=== PATIENT | male | born 1990 | race Caucasian/White ===

== ENCOUNTER 2016-08-29 14:55 | Emergency (ER) | payer BC, OTHER ==
--- NOTE | 2016-08-29 16:43 | REP ---
Chest x-ray: Two views. History: Chest pain . Comparison study: November 16, 2006 . Findings: The lungs are well inflated and free of infiltrate. The pleural angles are sharp. The heart size is normal. Pulmonary vasculature is not increased. There is an S-shaped thoracic scoliotic curve unchanged. No other significant bony abnormality is seen. Impression: Mild thoracic curvature unchanged, otherwise negative chest x-ray. Signed by Gallo Ibarra MD 08/29/2016 04:34 P
[2016-08-29 16:57] LABS: BASO % 0.6 % (0.0-1.0); EOS # 0.3 K/mm3 (0.0-0.50); EOS % 3.6 % (0.0-3.0); LARGE UNSTAINED CELL # 0.2 K/mm3 (0.0-0.4); LARGE UNSTAINED CELL % 2.1 % (0.0-4.0); LYMPH # 2.4 K/mm3 (1.5-6.5); LYMPH % 30.5 % (24.0-44.0); MEAN CORPUSCULAR HEMOGLOBIN 29.1 pg (27.0-33.0); MEAN CORPUSCULAR HGB CONC 33.1 g/dl (32.0-36.5); MONO # 0.5 K/mm3 (0.0-0.8); MONO % 7.2 % (0.0-5.0); NEUTROPHILS # 4.1 K/mm3 (1.8-7.7); NEUTROPHILS % 55.9 % (36.0-66.0); PLATELET COUNT, AUTOMATED 152 k/mm3 (150-450); RED CELL DISTRIBUTION WIDTH 12.3 % (11.5-14.5); WHITE BLOOD COUNT 7.3 K/mm3 (4.0-10.0)
[2016-08-29 17:20] LABS: AMPHETAMINES LEVEL URINE NEGATIVE (NEGATIVE); ANION GAP 8 MEQ/L (8-16); BENZODIAZEPINES URINE NEGATIVE (NEGATIVE); BLOOD UREA NITROGEN 22 MG/DL (7-18); CALCIUM LEVEL 9.2 MG/DL (8.5-10.1); CARBON DIOXIDE LEVEL 28 MEQ/L (21-32); CHLORIDE LEVEL 103 MEQ/L (98-107); COCAINE METABOLITE URINE NEGATIVE (NEGATIVE); CONTROL LINE INT CTR LINE PRESENT; CREATININE FOR GFR 0.86 MG/DL (0.70-1.30); GLOMERULAR FILTRATION RATE > 60.0 (>60); GLUCOSE, FASTING 85 MG/DL (70-105); METHADONE URINE NEGATIVE (NEGATIVE); OPIATES URINE NEGATIVE (NEGATIVE); SODIUM LEVEL 139 MEQ/L (136-145); TRICYCLIC ANTIDEPRESS URINE NEGATIVE (NEGATIVE)
--- NOTE | 2016-08-29 18:30 | EDDOCDS ---
Physician Documentation [facility] Name: Kalpesh London Age: 25 yrs Sex: Male : 1990 Arrival Date: 08/29/2016 Time: 14:55 Bed 17 Private MD: Unknown Pcp Disposition: 08/29/16 18:15 Discharged to Home/Self Care. Impression: Chest pain, unspecified, Bradycardia, unspecified. - Condition is Stable. - Discharge Instructions: Nonspecific Chest Pain, Chest Wall Pain. - Prescriptions for Xanax 0.25 mg Oral Tablet - take 1 tablet by ORAL route every 8 hours As needed MDD: 3 tabs; 20 tablet. - Medication Reconciliation, Local Pharmacy Hours form. - Follow up: Emergency Department; When: As needed; Reason: Worsening of conditions. Follow up: Private Physician; When: 2 - 3 days; Reason: Wound/Symptom Recheck, Recheck today's complaints, Continuance of care. - Problem is new. - Symptoms are unchanged. - Notes: I SPOKE WITH DR. MCCRARY (CARDIOLOGY) AND HE AGREES THAT THIS IS MOST LIKELY NOT CARDIAC. IT COULD BE MUSCULAR OR ANXIETY THAT IS CAUSING THIS. THE MEDICATION PRESCRIBED TO YOU TODAY IS FOR ANXIETY AND SHOULD ONLY BE TAKEN NEEDED. 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 FOLLOW UP WITH YOUR PRIMARY CARE PROVIDER NEXT WEEK TO RECHECK YOUR SYMPTOMS. Historical: - Allergies: no known allergies; - Home Meds: 1. none - PMHx: asthma as child; - PSHx: Tonsillectomy; - Social history: Smoking status: Patient states was never smoker of tobacco. Patient/guardian denies using alcohol, street drugs, No barriers to communication noted, The patient speaks fluent Lithuanian, Speaks appropriately for age. - Family history: Not pertinent. - : The pt / caregiver states he / she is not on anticoagulants. Home medication list is obtained from the patient. - Exposure Risk Screening:: None identified. Vital Signs: 08/29 14:57 BP 155 / 77; Pulse 48; Resp 16; Temp 97.4(O); Pulse Ox 100% on R/A; Weight 61.23 kg / sew 134.99 lbs; Height 5 ft. 4 in. (162.56 cm); Pain 10/10; 16:41 BP 124 / 66 (auto/); kr3 16:42 Pulse 40 MON; Pulse Ox 100% ; kr3 17:11 BP 104 / 63 (auto/); kr3 17:12 Pulse 42 MON; Pulse Ox 99% ; kr3 17:41 BP 135 / 78 (auto/); kr3 17:42 Pulse 52 MON; Pulse Ox 94% ; kr3 18:11 BP 117 / 61 (auto/); kr3 18:12 Pulse 50 MON; Resp 16; Temp 98(O); Pulse Ox 97% on R/A; Pain 10/10; kr3 14:57 Body Mass Index 23.17 (61.23 kg, 162.56 cm) sew MDM: 15:12 ECG WITH READING ER PHYS+CARDIAG ordered. EDMS 16:09 Financial registration complete. gjb 16:15 [facility] Payment Agreement was scanned into [employer] and attached to record. gjb 16:24 Consult PFS/PSA/Sensitometrist: Resources/Social Work ordered. dt4 16:24 IV Saline Lock ordered. dt4 16:24 NS 0.9% 1000 ml IV at bolus once ordered. dt4 16:24 Guest Attendant ordered. dt4 16:25 CBC with Diff Ordered. EDMS 16:25 Basic Metabolic Profile Ordered. EDMS 16:25 Troponin Ordered. EDMS 16:25 Cardiac Injury Profile Ordered. EDMS 16:25 TSH w/o Free T4 Ordered. EDMS 16:25 Urinalysis Ordered. EDMS 16:25 Urine Toxicology Ordered. EDMS 16:26 Chest, 2 View (pa\E\lat) Ordered. EDMS 17:43 PSA Outpatient Referrals was scanned into [employer] and attached to record. cs 17:53 CBC with Diff Reviewed. dt4 17:53 Basic Metabolic Profile Reviewed. dt4 17:53 Urine Toxicology Reviewed. dt4 17:53 Troponin Reviewed. dt4 17:53 Cardiac Injury Profile Reviewed. dt4 17:53 TSH w/o Free T4 Reviewed. dt4 17:53 Urinalysis Reviewed. dt4 17:53 Chest, 2 View (pa\E\lat) Reviewed. dt4 17:57 Consult PFS/PSA/Sensitometrist: Resources/Social Work complete. rb Administered Medications: 16:45 Drug: NS 0.9% 1000 ml [sodium chloride 0.9 % intravenous solution] Route: IV; Rate: kr3 bolus; Site: left hand; Signatures: Dispatcher [employer] EDMS VaughanIsi mendez, PSA PSA rb Natanael Taveras, PSA PSA cs Bia YapRN RN kr3 Jojo Dang RN RN ttb Izabel Britton, PAAgnes PAAgnes arnold4 Margo Garza The chart was reviewed and I authenticate all verbal orders and agree with the evaluation and treatment provided.Attachments: 16:15 [facility] Payment Agreement issac MTDD
--- NOTE | 2016-08-29 18:30 | EDDOCDS ---
Nurse's Notes [facility] Name: Kalpesh London Age: 25 yrs Sex: Male : 1990 Arrival Date: 08/29/2016 Time: 14:55 Bed 17 Private MD: Unknown Pcp Diagnosis: Chest pain, unspecified;Bradycardia, unspecified Presentation: 08/29 15:08 Presenting complaint: Patient states: chest pains x3-4 months. Left upper chest pain ttb intermittent. "feels like a pinch". Worst when laying and sitting. No SOB. Deep breathing improves pain. Aspirin was not taken prior to arrival. Adult Sepsis Screening: The patient does not have new or worsening altered mentation. Patient's respiratory rate is less than 22. Systolic blood pressure is greater than 100. Patient has a qSOFA score of 0- Negative Sepsis Screen. Suicide/Homicide risk assessment- the patient denies having any suicidal and/or homicidal ideations and does not present with any other emotional, behavioral or mental health complaints. 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 Transition of care: patient was not received from another setting of care. 15:08 Acuity: RYDER Level 3 ttb 15:08 Method Of Arrival: Walkin/Carried/Asstd ttb Triage Assessment: 15:10 General: Appears in no apparent distress, well nourished, well groomed, Behavior is ttb anxious, appropriate for age, cooperative, pleasant. Pain: Location: left chest Pain currently is 10 out of 10 on a pain scale. HIV screening NA for this visit Offered previously. Neurological: Level of Consciousness is awake, alert. Neurological: Reports dizziness. Cardiovascular: Chest pain is described as Pain is 10 out of 10 on a pain scale. radiates Does not radiate. episodes are intermittent began x3-4months. Respiratory: Airway is patent Respiratory effort is even, unlabored, Reports cough that is. GI: Denies nausea, vomiting. Derm: Skin is normal. Historical: - Allergies: no known allergies; - Home Meds: 1. none - PMHx: asthma as child; - PSHx: Tonsillectomy; - Social history: Smoking status: Patient states was never smoker of tobacco. Patient/guardian denies using alcohol, street drugs, No barriers to communication noted, The patient speaks fluent Nepalese, Speaks appropriately for age. - Family history: Not pertinent. - : The pt / caregiver states he / she is not on anticoagulants. Home medication list is obtained from the patient. - Exposure Risk Screening:: None identified. Screenin:49 Screening information is obtained from the patient. Fall risk: No risks identified. kr3 Assistance ADL's: requires no assistance with activities of daily living. Abuse/DV Screen: The patient / caregiver reports he/she is: not in a situation that causes fear, pain or injury. Nutritional screening: No deficits noted. Advance Directives: Currently, there is no health care proxy. home support is adequate. Assessment: 16:46 General: Appears in no apparent distress, comfortable, Behavior is appropriate for age, kr3 cooperative. Pain: Location: chest and left axilla Pain currently is 10 out of 10 on a pain scale. Pain: Quality of pain is described as discomfort Pain began 4 months ago Is episodic Aggravated by stress, reports had family court today and work is causing stress. Neurological: Level of Consciousness is awake, alert. Cardiovascular: Rhythm is sinus bradycardia. Respiratory: Respiratory effort is even, unlabored. Derm: Skin is normal. Musculoskeletal: Range of motion intact in all extremities. 17:28 Reassessment: Patient appears in no apparent distress at this time. General: Appears kr3 comfortable, Behavior is appropriate for age, cooperative. Pain: Location: chest Pain currently is 10 out of 10 on a pain scale. 18:28 Reassessment: Patient appears in no apparent distress at this time. General: Appears in kr3 no apparent distress, comfortable, Behavior is cooperative. Pain: Pain currently is 10 out of 10 on a pain scale. Respiratory: Respiratory effort is even, unlabored. Derm: Skin is pink, warm & dry. Social Work Consult: 17:43 Social Work Note: Met with Pt and Mother at bedside per request Dr. Izquierdo. Pt was A&Ox3, rb denied SI/Hi, denied AH/VH, was cooperative. Pt is dealing with many stressors; Pt stated worried about getting enough work hours to pay his court fee of $1,000.[address] date in September, (Pt in arrears with child support). Pt lives with his Parents. Pt has a 3y/o Dgt living in [place]. Relationship between Pt and Mother of child is strained. Pt stated he drinks 3 energy drinks daily. Parents are very supportive. Referrals given. No further interventions needed at this time. Vital Signs: 14:57 BP 155 / 77; Pulse 48; Resp 16; Temp 97.4(O); Pulse Ox 100% on R/A; Weight 61.23 kg; sew Height 5 ft. 4 in. (162.56 cm); Pain 10/10; 16:41 BP 124 / 66 (auto/); kr3 16:42 Pulse 40 MON; Pulse Ox 100% ; kr3 17:11 BP 104 / 63 (auto/); kr3 17:12 Pulse 42 MON; Pulse Ox 99% ; kr3 17:41 BP 135 / 78 (auto/); kr3 17:42 Pulse 52 MON; Pulse Ox 94% ; kr3 18:11 BP 117 / 61 (auto/); kr3 18:12 Pulse 50 MON; Resp 16; Temp 98(O); Pulse Ox 97% on R/A; Pain 10/10; kr3 14:57 Body Mass Index 23.17 (61.23 kg, 162.56 cm) sew Vitals: 14:57 Log In Time: August 29, 2016 at 14:54. RN notified that patient meets Red Flag sew criteria. ED Course: 14:56 Patient visited by Soo Canseco. sew 14:56 Unknown Pcp is Private Physician. sew 14:56 Patient moved to Waiting sew 14:57 Patient visited by Soo Canseco. sew 14:58 Patient moved to Pre RCE sew 15:09 Triage Initiated ttb 15:12 Patient moved to PR2 / 26 ttb 15:20 Patient moved to Triage 2 rs6 15:20 EKG done. (by ED staff). Reviewed by Vu Castanon GAMING FLOOR SUPERVISOR. rs6 16:03 Izabel Britton PA-C is PHCP. dt4 16:03 Lina Izquierdo MD is Attending Physician. dt4 16:03 Patient visited by Izabel Britton PA-C. dt4 16:15 [facility] [place] Agreement was scanned into [employer] and attached to record. gjb 16:25 Patient moved to 17 rs6 16:37 Patient visited by Estella Delgadillo PCA. rs6 16:45 Urine Toxicology Sent. kr3 16:45 Urinalysis Sent. kr3 16:45 TSH w/o Free T4 Sent. kr3 16:45 Inserted saline lock: 20 gauge in left hand and blood collected. kr3 16:46 Cardiac Injury Profile Sent. kr3 16:46 Troponin Sent. kr3 16:46 Basic Metabolic Profile Sent. kr3 16:46 CBC with Diff Sent. kr3 16:46 Chest, 2 View (pa\\E\\lat) Returned. EDMS 16:50 The patient / caregiver is instructed regarding the plan of care and ED course. kr3 Accompanied by Family Member, Patient has correct armband on for positive identification. Placed in gown. Bed in low position. Call light in reach. Side rails up X 1. equipment monitor phototypesetting on. Pulse ox on. NIBP on. 17:27 Patient visited by Bia Yap RN. kr3 17:43 PSA Outpatient Referrals was scanned into [employer] and attached to record. cs 18:27 Discontinued lock intact, bleeding controlled, pressure dressing applied, No kr3 redness/swelling at site. No procedures done that require assistance. Administered Medications: 16:45 Drug: NS 0.9% 1000 ml [sodium chloride 0.9 % intravenous solution] Route: IV; Rate: kr3 bolus; Site: left hand; Order Results: Lab Order: CBC with Diff; SPEC'M 08/29/16 16:42 Test: WHITE BLOOD COUNT; Value: 7.3; Range: 4.0-10.0; Units: K/mm3; Status: F Test: RED BLOOD COUNT; Value: 5.29; Range: 4.30-6.10; Units: M/mm3; Status: F Test: HEMOGLOBIN; Value: 15.4; Range: 14.0-18.0; Units: g/dl; Status: F Test: HEMATOCRIT; Value: 46.5; Range: 42.0-52.0; Units: %; Status: F Test: MEAN CORPUSCULAR VOLUME; Value: 88.0; Range: 80.0-96.0; Units: fl; Status: F Test: MEAN CORPUSCULAR HEMOGLOBIN; Value: 29.1; Range: 27.0-33.0; Units: pg; Status: F Test: MEAN CORPUSCULAR HGB CONC; Value: 33.1; Range: 32.0-36.5; Units: g/dl; Status: F Test: RED CELL DISTRIBUTION WIDTH; Value: 12.3; Range: 11.5-14.5; Units: %; Status: F Test: PLATELET COUNT, AUTOMATED; Value: 152; Range: 150-450; Units: k/mm3; Status: F Test: NEUTROPHILS %; Value: 55.9; Range: 36.0-66.0; Units: %; Status: F Test: LYMPH %; Value: 30.5; Range: 24.0-44.0; Units: %; Status: F Test: MONO %; Value: 7.2; Range: 0.0-5.0; Abnormal: Above high normal; Units: %; Status: F Test: EOS %; Value: 3.6; Range: 0.0-3.0; Abnormal: Above high normal; Units: %; Status: F Test: BASO %; Value: 0.6; Range: 0.0-1.0; Units: %; Status: F Test: LARGE UNSTAINED CELL %; Value: 2.1; Range: 0.0-4.0; Units: %; Status: F Test: NEUTROPHILS #; Value: 4.1; Range: 1.8-7.7; Units: K/mm3; Status: F Test: LYMPH #; Value: 2.4; Range: 1.5-6.5; Units: K/mm3; Status: F Test: MONO #; Value: 0.5; Range: 0.0-0.8; Units: K/mm3; Status: F Test: EOS #; Value: 0.3; Range: 0.0-0.50; Units: K/mm3; Status: F Test: BASO #; Value: 0.0; Range: 0.0-0.2; Units: K/mm3; Status: F Test: LARGE UNSTAINED CELL #; Value: 0.2; Range: 0.0-0.4; Units: K/mm3; Status: F Lab Order: Basic Metabolic Profile; [facility]' 08/29/16 16:42 Test: GLUCOSE, FASTING; Value: 85; Range: 70-105; Units: MG/DL; Status: F Test: BLOOD UREA NITROGEN; Value: 22; Range: 7-18; Abnormal: Above high normal; Units: MG/DL; Status: F Test: CREATININE FOR GFR; Value: 0.86; Range: 0.70-1.30; Units: MG/DL; Status: F Test: GLOMERULAR FILTRATION RATE; Value: > 60.0; Range: >60; Status: F Test: SODIUM LEVEL; Value: 139; Range: 136-145; Units: MEQ/L; Status: F Test: POTASSIUM SERUM; Value: 4.0; Range: 3.5-5.1; Units: MEQ/L; Status: F Test: CHLORIDE LEVEL; Value: 103; Range: 98-107; Units: MEQ/L; Status: F Test: CARBON DIOXIDE LEVEL; Value: 28; Range: 21-32; Units: MEQ/L; Status: F Test: ANION GAP; Value: 8; Range: 8-16; Units: MEQ/L; Status: F Test: CALCIUM LEVEL; Value: 9.2; Range: 8.5-10.1; Units: MG/DL; Status: F Test Note: ; Units are mL/min/1.73 m2 Chronic Kidney Disease Staging per NKF: Stage I & II GFR >=60 Normal to Mildly Decreased Stage III GFR 30-59 Moderately Decreased Stage IV GFR 15-29 Severely Decreased Stage V GFR <15 Very Little GFR Left ESRD GFR <15 on JOB COST ESTIMATOR Lab Order: Troponin; SPEC'M 08/29/16 16:42 Test: TROPONIN I; Value: < 0.02; Range: < 0.10; Units: NG/ML; Status: F Test Note: ; Troponin I Reference Interval for [employer] LOCI: 99th Percentile= 0.00-0.045 ng/ml Risk Stratification: <= 0.10 ng/ml Decreased Risk for Adverse Clinical Events. 0.10-1.50 ng/ml Increased Risk for Adverse Clinical Events. Evaluation of additional criterion and/or repeat testing in 2-6 hours is suggested to rule out myocardial damage. >= 1.50 ng/ml Indicative of Myocardial Injury. Lab Order: Cardiac Injury Profile; SPEC'M 08/29/16 16:42 Test: CPK CREATINE PHOSPHOKINASE; Value: 179; Range: 39-308; Units: U/L; Status: F Test: CK-MB VALUE MASS; Value: 2.3; Range: 0.0-3.6; Units: NG/ML; Status: F Test: MB/CK RELATIVE INDEX; Value: 1.28; Range: < OR =4; Status: F Test Note: ; DIAGNOSIS CRITERIA MMB ng/ml Relative Index (RI) NON-AMI < or = 5 N/A GALVE[place]ONE > 5 < or = 4 AMI > 5 > 4 Lab Order: TSH w/o Free T4; SPEC' 08/29/16 16:42 Test: THYROID STIMULATING HORMONE; Value: 1.380; Range: 0.358-3.740; Units: uIU/ML; Status: F Lab Order: Urinalysis; SPEC' 08/29/16 16:42 Test: APPEARANCE, URINE; Value: CLEAR; Range: CLEAR; Status: F Test: COLOR, URINE; Value: STRAW; Range: YELLOW; Status: F Test: PH,URINE; Value: 7.0; Range: 5.0-9.0; Units: UNITS; Status: F Test: SPECIFIC GRAVITY URINE AUTO; Value: 1.016; Range: 1.002-1.035; Status: F Test: PROTEIN, URINE AUTO; Value: NEGATIVE; Range: NEGATIVE; Units: mg/dL; Status: F Test: GLUCOSE, URINE (UA) AUTO; Value: NEGATIVE; Range: NEGATIVE; Units: mg/dL; Status: F Test: KETONE, URINE AUTO; Value: NEGATIVE; Range: NEGATIVE; Units: mg/dL; Status: F Test: UROBILINOGEN, URINE AUTO; Value: 0.2; Range: 0.0-2.0; Units: mg/dL; Status: F Test: BILIRUBIN, URINE AUTO; Value: NEGATIVE; Range: NEGATIVE; Status: F Test: NITRITE, URINE AUTO; Value: NEGATIVE; Range: NEGATIVE; Status: F Test: LEUKOCYTE ESTERASE, URINE AUTO; Value: NEGATIVE; Range: NEGATIVE; Status: F Test: BLOOD, URINE BLOOD; Value: NEGATIVE; Range: NEGATIVE; Status: F Test: WBC, URINE AUTO; Value: 0; Range: 0-3; Units: /HPF; Status: F Test: RBC, URINE AUTO; Value: 0; Range: 0-3; Units: /HPF; Status: F Test: BACTERIA, URINE AUTO; Value: NEGATIVE; Range: NEGATIVE; Status: F Test: SQUAMOUS EPITHELIAL CELL UR AU; Value: 0; Range: 0-6; Units: /HPF; Status: F Test: HYALINE CAST, URINE AUTO; Value: 0; Range: 0-1; Units: /LPF; Status: F Lab Order: Urine Toxicology; SPEC'M 08/29/16 16:42 Test: AMPHETAMINES LEVEL URINE; Value: NEGATIVE; Range: NEGATIVE; Status: F Test: BARBITURATES URINE; Value: NEGATIVE; Range: NEGATIVE; Status: F Test: BENZODIAZEPINES URINE; Value: NEGATIVE; Range: NEGATIVE; Status: F Test: CANNABINOIDS URINE; Value: POSITIVE; Range: NEGATIVE; Abnormal: Above high normal; Status: F Test: COCAINE METABOLITE URINE; Value: NEGATIVE; Range: NEGATIVE; Status: F Test: METHADONE URINE; Value: NEGATIVE; Range: NEGATIVE; Status: F Test: OPIATES URINE; Value: NEGATIVE; Range: NEGATIVE; Status: F Test: TRICYCLIC ANTIDEPRESS URINE; Value: NEGATIVE; Range: NEGATIVE; Status: F Test Note: ; FALSE POSITIVE RESULTS CAN BE CAUSED BY THE USE OF PANTOPRAZOLE (PROTONIX). Radiology Order: Chest, 2 View (pa\\E\\lat) Test: Chest, 2 View (pa\\E\\lat) REASON FOR EXAMINATION: Chest Pain; Chest x-ray: Two views.; ; History: Chest pain .; ; Comparison study: November 16, 2006 .; ; Findings: The lungs are well inflated and free of infiltrate. The pleural; angles are sharp. The heart size is normal. Pulmonary vasculature is not; increased. There is an S-shaped thoracic scoliotic curve unchanged. No other; significant bony abnormality is seen.; ; Impression:; ; Mild thoracic curvature unchanged, otherwise negative chest x-ray.; ; ; Signed by; Gallo Ibarra MD 08/29/2016 04:34 P; Outcome: 18:15 Discharge ordered by Provider. dt4 18:27 Discharge Assessment: patient administered narcotics - no. The following High Risk kr3 Discharge criteria are identified: None. Discharged to home ambulatory, with family. Condition: stable. Discharge instructions given to patient, Instructed on discharge instructions, follow up and referral plans. medication usage, Demonstrated understanding of instructions, medications, Pt was receptive of discharge instructions/ teaching. Prescriptions given X 1. No special radiology studies were completed. Property sent home with patient. 18:29 Patient left the ED. kr3 Signatures: Dispatcher [employer] EDND Isi Vaughan PSA PSA rb Sharlow, Charlie, PSA PSA carlyle Bia Yap,RN RN kr3 Ajith, Jojo Cisneros, RAUL RN ttb Izabel Britton, SHEELA COKER dt4 Estella Delgadillo, WINDSCREEN FITTER WINDSCREEN FITTER rs6 Margo Garza MTDD
--- NOTE | 2016-08-29 21:32 | ECGEPIP ---
Stationary ECG Study [facility] - ED Test Date: 2016-08-29 Pat Name: JOSE JUAN HANDLEY Department: Room: - Gender: M Director Semiconductor: my : 1990 Requested By: ANDREA Ascencio PA-C Order Number: [id number] Reading MD: Soo Munoz Measurements Intervals [place] Rate: 47 P: 9 [place]: 189 QRS: 12 QRSD: 114 T: 7 QT: 427 QTc: 378 Interpretive Statements SINUS BRADYCARDIA WITH MARKED SINUS ARRHYTHMIA MODERATE INTRAVENTRICULAR CONDUCTION DELAY NO PRIOR FOR COMPARISON Electronically Signed On 08-29-2016 21:32:39 EST by Soo Munoz
--- NOTE | 2016-08-31 19:30 | EDDOCDS ---
Physician Documentation [facility] Name: Kalpesh London Age: 25 yrs Sex: Male : 1990 Arrival Date: 08/29/2016 Time: 14:55 Bed 17 Private MD: Unknown Pcp Disposition: 08/29/16 18:15 Discharged to Home/Self Care. Impression: Chest pain, unspecified, Bradycardia, unspecified. - Condition is Stable. - Discharge Instructions: Nonspecific Chest Pain, Chest Wall Pain. - Prescriptions for Xanax 0.25 mg Oral Tablet - take 1 tablet by ORAL route every 8 hours As needed MDD: 3 tabs; 20 tablet. - Medication Reconciliation, Local Pharmacy Hours form. - Follow up: Emergency Department; When: As needed; Reason: Worsening of conditions. Follow up: Private Physician; When: 2 - 3 days; Reason: Wound/Symptom Recheck, Recheck today's complaints, Continuance of care. - Problem is new. - Symptoms are unchanged. - Notes: I SPOKE WITH DR. MCCRARY (CARDIOLOGY) AND HE AGREES THAT THIS IS MOST LIKELY NOT CARDIAC. IT COULD BE MUSCULAR OR ANXIETY THAT IS CAUSING THIS. THE MEDICATION PRESCRIBED TO YOU TODAY IS FOR ANXIETY AND SHOULD ONLY BE TAKEN NEEDED. 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 FOLLOW UP WITH YOUR PRIMARY CARE PROVIDER NEXT WEEK TO RECHECK YOUR SYMPTOMS. Historical: - Allergies: no known allergies; - Home Meds: 1. none - PMHx: asthma as child; - PSHx: Tonsillectomy; - Social history: Smoking status: Patient states was never smoker of tobacco. Patient/guardian denies using alcohol, street drugs, No barriers to communication noted, The patient speaks fluent Occitan, Speaks appropriately for age. - Family history: Not pertinent. - : The pt / caregiver states he / she is not on anticoagulants. Home medication list is obtained from the patient. - Exposure Risk Screening:: None identified. Vital Signs: 08/29 14:57 BP 155 / 77; Pulse 48; Resp 16; Temp 97.4(O); Pulse Ox 100% on R/A; Weight 61.23 kg / sew 134.99 lbs; Height 5 ft. 4 in. (162.56 cm); Pain 10/10; 16:41 BP 124 / 66 (auto/); kr3 16:42 Pulse 40 MON; Pulse Ox 100% ; kr3 17:11 BP 104 / 63 (auto/); kr3 17:12 Pulse 42 MON; Pulse Ox 99% ; kr3 17:41 BP 135 / 78 (auto/); kr3 17:42 Pulse 52 MON; Pulse Ox 94% ; kr3 18:11 BP 117 / 61 (auto/); kr3 18:12 Pulse 50 MON; Resp 16; Temp 98(O); Pulse Ox 97% on R/A; Pain 10/10; kr3 14:57 Body Mass Index 23.17 (61.23 kg, 162.56 cm) sew MDM: 15:12 ECG WITH READING ER PHYS+CARDIAG ordered. EDMS 16:09 Financial registration complete. gjb 16:15 [facility] Payment Agreement was scanned into [employer] and attached to record. gjb 16:24 Consult PFS/PSA/Qa Software Tester: Resources/Social Work ordered. dt4 16:24 IV Saline Lock ordered. dt4 16:24 NS 0.9% 1000 ml IV at bolus once ordered. dt4 16:24 Drilling Machine Runner ordered. dt4 16:25 CBC with Diff Ordered. EDMS 16:25 Basic Metabolic Profile Ordered. EDMS 16:25 Troponin Ordered. EDMS 16:25 Cardiac Injury Profile Ordered. EDMS 16:25 TSH w/o Free T4 Ordered. EDMS 16:25 Urinalysis Ordered. EDMS 16:25 Urine Toxicology Ordered. EDMS 16:26 Chest, 2 View (pa\E\lat) Ordered. EDMS 17:43 PSA Outpatient Referrals was scanned into [employer] and attached to record. cs 17:53 CBC with Diff Reviewed. dt4 17:53 Basic Metabolic Profile Reviewed. dt4 17:53 Urine Toxicology Reviewed. dt4 17:53 Troponin Reviewed. dt4 17:53 Cardiac Injury Profile Reviewed. dt4 17:53 TSH w/o Free T4 Reviewed. dt4 17:53 Urinalysis Reviewed. dt4 17:53 Chest, 2 View (pa\E\lat) Reviewed. dt4 17:57 Consult PFS/PSA/Qa Software Tester: Resources/Social Work complete. rb 08/30 11:42 T-Sheet-- Draft Copy was scanned into [employer] and attached to record. gb 15:58 ECG/EKG was scanned into [employer] and attached to record. gb Administered Medications: 08/29 16:45 Drug: NS 0.9% 1000 ml [sodium chloride 0.9 % intravenous solution] Route: IV; Rate: kr3 bolus; Site: left hand; 18:29 Follow up: IV Status: Completed infusion; IV Intake: 1000ml kr3 Signatures: Dispatcher [employer] EDMS Isi Vaughan, PSA PSA rb Natanael Taveras, PSA PSA Josefina Solis, Reg Reg gb Bia Yap RN RN kr3 Jojo Dang RN RN ttb Izabel Britton PA-C PAAgnes arnold4 Margo Garza The chart was reviewed and I authenticate all verbal orders and agree with the evaluation and treatment provided.Attachments: 16:15 [facility] Payment Agreement gjb 08/30 11:42 T-Sheet-- Draft Copy 15:58 ECG/EKG Chart Complete MTDD
--- NOTE | 2016-08-31 19:30 | EDDOCDS ---
Nurse's Notes [facility] Name: Jose Juan Handley Age: 25 yrs Sex: Male : 1990 Arrival Date: 08/29/2016 Time: 14:55 Bed 17 Private MD: Unknown Pcp Diagnosis: Chest pain, unspecified;Bradycardia, unspecified Presentation: 08/29 15:08 Presenting complaint: Patient states: chest pains x3-4 months. Left upper chest pain ttb intermittent. "feels like a pinch". Worst when laying and sitting. No SOB. Deep breathing improves pain. Aspirin was not taken prior to arrival. Adult Sepsis Screening: The patient does not have new or worsening altered mentation. Patient's respiratory rate is less than 22. Systolic blood pressure is greater than 100. Patient has a qSOFA score of 0- Negative Sepsis Screen. Suicide/Homicide risk assessment- the patient denies having any suicidal and/or homicidal ideations and does not present with any other emotional, behavioral or mental health complaints. Status: Patient is not a surgical services director or dependent. Transition of care: patient was not received from another setting of care. 15:08 Acuity: RYDER Level 3 ttb 15:08 Method Of Arrival: Walkin/Carried/Asstd ttb Triage Assessment: 15:10 General: Appears in no apparent distress, well nourished, well groomed, Behavior is ttb anxious, appropriate for age, cooperative, pleasant. Pain: Location: left chest Pain currently is 10 out of 10 on a pain scale. HIV screening NA for this visit Offered previously. Neurological: Level of Consciousness is awake, alert. Neurological: Reports dizziness. Cardiovascular: Chest pain is described as Pain is 10 out of 10 on a pain scale. radiates Does not radiate. episodes are intermittent began x3-4months. Respiratory: Airway is patent Respiratory effort is even, unlabored, Reports cough that is. GI: Denies nausea, vomiting. Derm: Skin is normal. Historical: - Allergies: no known allergies; - Home Meds: 1. none - PMHx: asthma as child; - PSHx: Tonsillectomy; - Social history: Smoking status: Patient states was never smoker of tobacco. Patient/guardian denies using alcohol, street drugs, No barriers to communication noted, The patient speaks fluent Nicaraguan, Speaks appropriately for age. - Family history: Not pertinent. - : The pt / caregiver states he / she is not on anticoagulants. Home medication list is obtained from the patient. - Exposure Risk Screening:: None identified. Screenin:49 Screening information is obtained from the patient. Fall risk: No risks identified. kr3 Assistance ADL's: requires no assistance with activities of daily living. Abuse/DV Screen: The patient / caregiver reports he/she is: not in a situation that causes fear, pain or injury. Nutritional screening: No deficits noted. Advance Directives: Currently, there is no health care proxy. home support is adequate. Assessment: 16:46 General: Appears in no apparent distress, comfortable, Behavior is appropriate for age, kr3 cooperative. Pain: Location: chest and left axilla Pain currently is 10 out of 10 on a pain scale. Pain: Quality of pain is described as discomfort Pain began 4 months ago Is episodic Aggravated by stress, reports had family court today and work is causing stress. Neurological: Level of Consciousness is awake, alert. Cardiovascular: Rhythm is sinus bradycardia. Respiratory: Respiratory effort is even, unlabored. Derm: Skin is normal. Musculoskeletal: Range of motion intact in all extremities. 17:28 Reassessment: Patient appears in no apparent distress at this time. General: Appears kr3 comfortable, Behavior is appropriate for age, cooperative. Pain: Location: chest Pain currently is 10 out of 10 on a pain scale. 18:28 Reassessment: Patient appears in no apparent distress at this time. General: Appears in kr3 no apparent distress, comfortable, Behavior is cooperative. Pain: Pain currently is 10 out of 10 on a pain scale. Respiratory: Respiratory effort is even, unlabored. Derm: Skin is pink, warm & dry. Social Work Consult: 17:43 Social Work Note: Met with Pt and Mother at bedside per request Dr. Izquierdo. Pt was A&Ox3, rb denied SI/Hi, denied AH/VH, was cooperative. Pt is dealing with many stressors; Pt stated worried about getting enough work hours to pay his court fee of $1,000.[address] date in September, (Pt in arrears with child support). Pt lives with his Parents. Pt has a 3y/o Dgt living in [place]. Relationship between Pt and Mother of child is strained. Pt stated he drinks 3 energy drinks daily. Parents are very supportive. Referrals given. No further interventions needed at this time. Vital Signs: 14:57 BP 155 / 77; Pulse 48; Resp 16; Temp 97.4(O); Pulse Ox 100% on R/A; Weight 61.23 kg; sew Height 5 ft. 4 in. (162.56 cm); Pain 10/10; 16:41 BP 124 / 66 (auto/); kr3 16:42 Pulse 40 MON; Pulse Ox 100% ; kr3 17:11 BP 104 / 63 (auto/); kr3 17:12 Pulse 42 MON; Pulse Ox 99% ; kr3 17:41 BP 135 / 78 (auto/); kr3 17:42 Pulse 52 MON; Pulse Ox 94% ; kr3 18:11 BP 117 / 61 (auto/); kr3 18:12 Pulse 50 MON; Resp 16; Temp 98(O); Pulse Ox 97% on R/A; Pain 10/10; kr3 14:57 Body Mass Index 23.17 (61.23 kg, 162.56 cm) sew Vitals: 14:57 Log In Time: August 29, 2016 at 14:54. RN notified that patient meets Red Flag sew criteria. ED Course: 14:56 Patient visited by Soo Canseco. sew 14:56 Unknown Pcp is Private Physician. sew 14:56 Patient moved to Waiting sew 14:57 Patient visited by Soo Canseco. sew 14:58 Patient moved to Pre RCE sew 15:09 Triage Initiated ttb 15:12 Patient moved to PR2 / 26 ttb 15:20 Patient moved to Triage 2 rs6 15:20 EKG done. (by ED staff). Reviewed by Vu Castanon WAREHOUSE ADMINISTRATOR. rs6 16:03 Andrea Britton PA-C is PHCP. dt4 16:03 Lina Izquierdo MD is Attending Physician. dt4 16:03 Patient visited by Andrea Britton PA-C. dt4 16:15 [facility] [place] Agreement was scanned into [employer] and attached to record. gjb 16:25 Patient moved to 17 rs6 16:37 Patient visited by Estella Delgadillo PCA. rs6 16:45 Urine Toxicology Sent. kr3 16:45 Urinalysis Sent. kr3 16:45 TSH w/o Free T4 Sent. kr3 16:45 Inserted saline lock: 20 gauge in left hand and blood collected. kr3 16:46 Cardiac Injury Profile Sent. kr3 16:46 Troponin Sent. kr3 16:46 Basic Metabolic Profile Sent. kr3 16:46 CBC with Diff Sent. kr3 16:46 Chest, 2 View (pa\\E\\lat) Returned. EDMS 16:50 The patient / caregiver is instructed regarding the plan of care and ED course. kr3 Accompanied by Family Member, Patient has correct armband on for positive identification. Placed in gown. Bed in low position. Call light in reach. Side rails up X 1. medical translator on. Pulse ox on. NIBP on. 17:27 Patient visited by Bia Yap RN. kr3 17:43 PSA Outpatient Referrals was scanned into [employer] and attached to record. cs 18:27 Discontinued lock intact, bleeding controlled, pressure dressing applied, No kr3 redness/swelling at site. No procedures done that require assistance. 22:16 EKG-ADULT Returned. EDMS 08/30 11:42 T-Sheet-- Draft Copy was scanned into [employer] and attached to record. gb 15:58 ECG/EKG was scanned into [employer] and attached to record. gb Administered Medications: 08/29 16:45 Drug: NS 0.9% 1000 ml [sodium chloride 0.9 % intravenous solution] Route: IV; Rate: kr3 bolus; Site: left hand; 18:29 Follow up: IV Status: Completed infusion; IV Intake: 1000ml kr3 Intake: 18:29 IV: 1000.00ml; Total: 1000.00ml. kr3 Order Results: Lab Order: CBC with Diff; SPEC'M 08/29/16 16:42 Test: WHITE BLOOD COUNT; Value: 7.3; Range: 4.0-10.0; Units: K/mm3; Status: F Test: RED BLOOD COUNT; Value: 5.29; Range: 4.30-6.10; Units: M/mm3; Status: F Test: HEMOGLOBIN; Value: 15.4; Range: 14.0-18.0; Units: g/dl; Status: F Test: HEMATOCRIT; Value: 46.5; Range: 42.0-52.0; Units: %; Status: F Test: MEAN CORPUSCULAR VOLUME; Value: 88.0; Range: 80.0-96.0; Units: fl; Status: F Test: MEAN CORPUSCULAR HEMOGLOBIN; Value: 29.1; Range: 27.0-33.0; Units: pg; Status: F Test: MEAN CORPUSCULAR HGB CONC; Value: 33.1; Range: 32.0-36.5; Units: g/dl; Status: F Test: RED CELL DISTRIBUTION WIDTH; Value: 12.3; Range: 11.5-14.5; Units: %; Status: F Test: PLATELET COUNT, AUTOMATED; Value: 152; Range: 150-450; Units: k/mm3; Status: F Test: NEUTROPHILS %; Value: 55.9; Range: 36.0-66.0; Units: %; Status: F Test: LYMPH %; Value: 30.5; Range: 24.0-44.0; Units: %; Status: F Test: MONO %; Value: 7.2; Range: 0.0-5.0; Abnormal: Above high normal; Units: %; Status: F Test: EOS %; Value: 3.6; Range: 0.0-3.0; Abnormal: Above high normal; Units: %; Status: F Test: BASO %; Value: 0.6; Range: 0.0-1.0; Units: %; Status: F Test: LARGE UNSTAINED CELL %; Value: 2.1; Range: 0.0-4.0; Units: %; Status: F Test: NEUTROPHILS #; Value: 4.1; Range: 1.8-7.7; Units: K/mm3; Status: F Test: LYMPH #; Value: 2.4; Range: 1.5-6.5; Units: K/mm3; Status: F Test: MONO #; Value: 0.5; Range: 0.0-0.8; Units: K/mm3; Status: F Test: EOS #; Value: 0.3; Range: 0.0-0.50; Units: K/mm3; Status: F Test: BASO #; Value: 0.0; Range: 0.0-0.2; Units: K/mm3; Status: F Test: LARGE UNSTAINED CELL #; Value: 0.2; Range: 0.0-0.4; Units: K/mm3; Status: F Lab Order: Basic Metabolic Profile; [facility] 08/29/16 16:42 Test: GLUCOSE, FASTING; Value: 85; Range: 70-105; Units: MG/DL; Status: F Test: BLOOD UREA NITROGEN; Value: 22; Range: 7-18; Abnormal: Above high normal; Units: MG/DL; Status: F Test: CREATININE FOR GFR; Value: 0.86; Range: 0.70-1.30; Units: MG/DL; Status: F Test: GLOMERULAR FILTRATION RATE; Value: > 60.0; Range: >60; Status: F Test: SODIUM LEVEL; Value: 139; Range: 136-145; Units: MEQ/L; Status: F Test: POTASSIUM SERUM; Value: 4.0; Range: 3.5-5.1; Units: MEQ/L; Status: F Test: CHLORIDE LEVEL; Value: 103; Range: 98-107; Units: MEQ/L; Status: F Test: CARBON DIOXIDE LEVEL; Value: 28; Range: 21-32; Units: MEQ/L; Status: F Test: ANION GAP; Value: 8; Range: 8-16; Units: MEQ/L; Status: F Test: CALCIUM LEVEL; Value: 9.2; Range: 8.5-10.1; Units: MG/DL; Status: F Test Note: ; Units are mL/min/1.73 m2 Chronic Kidney Disease Staging per NKF: Stage I & II GFR >=60 Normal to Mildly Decreased Stage III GFR 30-59 Moderately Decreased Stage IV GFR 15-29 Severely Decreased Stage V GFR <15 Very Little GFR Left ESRD GFR <15 on CHIEF SCIENTIST Lab Order: Troponin; [facility] 08/29/16 16:42 Test: TROPONIN I; Value: < 0.02; Range: < 0.10; Units: NG/ML; Status: F Test Note: ; Troponin I Reference Interval for [place] LOCI: 99th Percentile= 0.00-0.045 ng/ml Risk Stratification: <= 0.10 ng/ml Decreased Risk for Adverse Clinical Events. 0.10-1.50 ng/ml Increased Risk for Adverse Clinical Events. Evaluation of additional criterion and/or repeat testing in 2-6 hours is suggested to rule out myocardial damage. >= 1.50 ng/ml Indicative of Myocardial Injury. Lab Order: Cardiac Injury Profile; [facility] 08/29/16 16:42 Test: CPK CREATINE PHOSPHOKINASE; Value: 179; Range: 39-308; Units: U/L; Status: F Test: CK-MB VALUE MASS; Value: 2.3; Range: 0.0-3.6; Units: NG/ML; Status: F Test: MB/CK RELATIVE INDEX; Value: 1.28; Range: < OR =4; Status: F Test Note: ; DIAGNOSIS CRITERIA MMB ng/ml Relative Index (RI) NON-AMI < or = 5 N/A GALVE[place] ZONE > 5 < or = 4 AMI > 5 > 4 Lab Order: TSH w/o Free T4; [facility] 08/29/16 16:42 Test: THYROID STIMULATING HORMONE; Value: 1.380; Range: 0.358-3.740; Units: uIU/ML; Status: F Lab Order: Urinalysis; [facility] 08/29/16 16:42 Test: APPEARANCE, URINE; Value: CLEAR; Range: CLEAR; Status: F Test: COLOR, URINE; Value: STRAW; Range: YELLOW; Status: F Test: PH,URINE; Value: 7.0; Range: 5.0-9.0; Units: UNITS; Status: F Test: SPECIFIC GRAVITY URINE AUTO; Value: 1.016; Range: 1.002-1.035; Status: F Test: PROTEIN, URINE AUTO; Value: NEGATIVE; Range: NEGATIVE; Units: mg/dL; Status: F Test: GLUCOSE, URINE (UA) AUTO; Value: NEGATIVE; Range: NEGATIVE; Units: mg/dL; Status: F Test: KETONE, URINE AUTO; Value: NEGATIVE; Range: NEGATIVE; Units: mg/dL; Status: F Test: UROBILINOGEN, URINE AUTO; Value: 0.2; Range: 0.0-2.0; Units: mg/dL; Status: F Test: BILIRUBIN, URINE AUTO; Value: NEGATIVE; Range: NEGATIVE; Status: F Test: NITRITE, URINE AUTO; Value: NEGATIVE; Range: NEGATIVE; Status: F Test: LEUKOCYTE ESTERASE, URINE AUTO; Value: NEGATIVE; Range: NEGATIVE; Status: F Test: BLOOD, URINE BLOOD; Value: NEGATIVE; Range: NEGATIVE; Status: F Test: WBC, URINE AUTO; Value: 0; Range: 0-3; Units: /HPF; Status: F Test: RBC, URINE AUTO; Value: 0; Range: 0-3; Units: /HPF; Status: F Test: BACTERIA, URINE AUTO; Value: NEGATIVE; Range: NEGATIVE; Status: F Test: SQUAMOUS EPITHELIAL CELL UR AU; Value: 0; Range: 0-6; Units: /HPF; Status: F Test: HYALINE CAST, URINE AUTO; Value: 0; Range: 0-1; Units: /LPF; Status: F Lab Order: Urine Toxicology; [facility] 08/29/16 16:42 Test: AMPHETAMINES LEVEL URINE; Value: NEGATIVE; Range: NEGATIVE; Status: F Test: BARBITURATES URINE; Value: NEGATIVE; Range: NEGATIVE; Status: F Test: BENZODIAZEPINES URINE; Value: NEGATIVE; Range: NEGATIVE; Status: F Test: CANNABINOIDS URINE; Value: POSITIVE; Range: NEGATIVE; Abnormal: Above high normal; Status: F Test: COCAINE METABOLITE URINE; Value: NEGATIVE; Range: NEGATIVE; Status: F Test: METHADONE URINE; Value: NEGATIVE; Range: NEGATIVE; Status: F Test: OPIATES URINE; Value: NEGATIVE; Range: NEGATIVE; Status: F Test: TRICYCLIC ANTIDEPRESS URINE; Value: NEGATIVE; Range: NEGATIVE; Status: F Test Note: ; FALSE POSITIVE RESULTS CAN BE CAUSED BY THE USE OF PANTOPRAZOLE (PROTONIX). 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; : 1990 Requested By: ANDREA Ascencio PA-C; Order Number: [id number] Reading MD: Soo Munoz; Measurements; Intervals [place]; Rate: 47 P: 9; NH: 189 QRS: 12; QRSD: 114 T: 7; QT: 427; QTc: 378; Interpretive Statements; SINUS BRADYCARDIA WITH MARKED SINUS ARRHYTHMIA; MODERATE INTRAVENTRICULAR CONDUCTION DELAY; NO PRIOR FOR COMPARISON; Electronically Signed On 08-29-2016 21:32:39 EST by Soo Munoz; Radiology Order: Chest, 2 View (pa\\E\\lat) Test: Chest, 2 View (pa\\E\\lat) REASON FOR EXAMINATION: Chest Pain; Chest x-ray: Two views.; ; History: Chest pain .; ; Comparison study: November 16, 2006 .; ; Findings: The lungs are well inflated and free of infiltrate. The pleural; angles are sharp. The heart size is normal. Pulmonary vasculature is not; increased. There is an S-shaped thoracic scoliotic curve unchanged. No other; significant bony abnormality is seen.; ; Impression:; ; Mild thoracic curvature unchanged, otherwise negative chest x-ray.; ; ; Signed by; Gallo Ibarra MD 08/29/2016 04:34 P; Outcome: 18:15 Discharge ordered by Provider. dt4 18:27 Discharge Assessment: patient administered narcotics - no. The following High Risk kr3 Discharge criteria are identified: None. Discharged to home ambulatory, with family. Condition: stable. Discharge instructions given to patient, Instructed on discharge instructions, follow up and referral plans. medication usage, Demonstrated understanding of instructions, medications, Pt was receptive of discharge instructions/ teaching. Prescriptions given X 1. No special radiology studies were completed. Property sent home with patient. 18:29 Patient left the ED. kr3 Signatures: Dispatcher [employer] EDMS Isi Vaughan, PSA PSA rb Natanael Taveras, PSA PSA Josefina Solis, Reg Reg gb Bia Yap,RN RN kr3 Soo Canseco Teresa, RN RN ttb Andrea Britton, PA-C PA-C dt4 Estella Delgadillo, VIRIDIANA ENVIRONMENTAL HEALTH TECHNOLOGIST rs6 Margo Garza Chart Complete MTDD
--- NOTE | 2016-08-31 19:30 | EDDOCDS ---
Physician Documentation [facility] Name: Kalpesh London Age: 25 yrs Sex: Male : 1990 Arrival Date: 08/29/2016 Time: 14:55 Bed 17 Private MD: Unknown Pcp Disposition: 08/29/16 18:15 Discharged to Home/Self Care. Impression: Chest pain, unspecified, Bradycardia, unspecified. - Condition is Stable. - Discharge Instructions: Nonspecific Chest Pain, Chest Wall Pain. - Prescriptions for Xanax 0.25 mg Oral Tablet - take 1 tablet by ORAL route every 8 hours As needed MDD: 3 tabs; 20 tablet. - Medication Reconciliation, Local Pharmacy Hours form. - Follow up: Emergency Department; When: As needed; Reason: Worsening of conditions. Follow up: Private Physician; When: 2 - 3 days; Reason: Wound/Symptom Recheck, Recheck today's complaints, Continuance of care. - Problem is new. - Symptoms are unchanged. - Notes: I SPOKE WITH DR. MCCRARY (CARDIOLOGY) AND HE AGREES THAT THIS IS MOST LIKELY NOT CARDIAC. IT COULD BE MUSCULAR OR ANXIETY THAT IS CAUSING THIS. THE MEDICATION PRESCRIBED TO YOU TODAY IS FOR ANXIETY AND SHOULD ONLY BE TAKEN NEEDED. 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 FOLLOW UP WITH YOUR PRIMARY CARE PROVIDER NEXT WEEK TO RECHECK YOUR SYMPTOMS. Historical: - Allergies: no known allergies; - Home Meds: 1. none - PMHx: asthma as child; - PSHx: Tonsillectomy; - Social history: Smoking status: Patient states was never smoker of tobacco. Patient/guardian denies using alcohol, street drugs, No barriers to communication noted, The patient speaks fluent Sinhala, Speaks appropriately for age. - Family history: Not pertinent. - : The pt / caregiver states he / she is not on anticoagulants. Home medication list is obtained from the patient. - Exposure Risk Screening:: None identified. Vital Signs: 08/29 14:57 BP 155 / 77; Pulse 48; Resp 16; Temp 97.4(O); Pulse Ox 100% on R/A; Weight 61.23 kg / sew 134.99 lbs; Height 5 ft. 4 in. (162.56 cm); Pain 10/10; 16:41 BP 124 / 66 (auto/); kr3 16:42 Pulse 40 MON; Pulse Ox 100% ; kr3 17:11 BP 104 / 63 (auto/); kr3 17:12 Pulse 42 MON; Pulse Ox 99% ; kr3 17:41 BP 135 / 78 (auto/); kr3 17:42 Pulse 52 MON; Pulse Ox 94% ; kr3 18:11 BP 117 / 61 (auto/); kr3 18:12 Pulse 50 MON; Resp 16; Temp 98(O); Pulse Ox 97% on R/A; Pain 10/10; kr3 14:57 Body Mass Index 23.17 (61.23 kg, 162.56 cm) sew MDM: 15:12 ECG WITH READING ER PHYS+CARDIAG ordered. EDMS 16:09 Financial registration complete. gjb 16:15 [facility] Payment Agreement was scanned into [employer] and attached to record. gjb 16:24 Consult PFS/PSA/Consumer Affairs Specialist: Resources/Social Work ordered. dt4 16:24 IV Saline Lock ordered. dt4 16:24 NS 0.9% 1000 ml IV at bolus once ordered. dt4 16:24 [place] Former ordered. dt4 16:25 CBC with Diff Ordered. EDMS 16:25 Basic Metabolic Profile Ordered. EDMS 16:25 Troponin Ordered. EDMS 16:25 Cardiac Injury Profile Ordered. EDMS 16:25 TSH w/o Free T4 Ordered. EDMS 16:25 Urinalysis Ordered. EDMS 16:25 Urine Toxicology Ordered. EDMS 16:26 Chest, 2 View (pa\E\lat) Ordered. EDMS 17:43 PSA Outpatient Referrals was scanned into [employer] and attached to record. cs 17:53 CBC with Diff Reviewed. dt4 17:53 Basic Metabolic Profile Reviewed. dt4 17:53 Urine Toxicology Reviewed. dt4 17:53 Troponin Reviewed. dt4 17:53 Cardiac Injury Profile Reviewed. dt4 17:53 TSH w/o Free T4 Reviewed. dt4 17:53 Urinalysis Reviewed. dt4 17:53 Chest, 2 View (pa\E\lat) Reviewed. dt4 17:57 Consult PFS/PSA/Consumer Affairs Specialist: Resources/Social Work complete. rb 08/30 11:42 T-Sheet-- Draft Copy was scanned into [employer] and attached to record. gb 15:58 ECG/EKG was scanned into [employer] and attached to record. gb Administered Medications: 08/29 16:45 Drug: NS 0.9% 1000 ml [sodium chloride 0.9 % intravenous solution] Route: IV; Rate: kr3 bolus; Site: left hand; 18:29 Follow up: IV Status: Completed infusion; IV Intake: 1000ml kr3 Signatures: Dispatcher [employer] EDMS Isi Vaughan, PSA PSA rb Natanael Taveras, PSA PSA Josefina Solis, Reg Reg gb Bia Yap RN RN kr3 Jojo Dang RN RN ttb Izabel Britton PA-C PAAgnes [email or web address] Margo Garza The chart was reviewed and I authenticate all verbal orders and agree with the evaluation and treatment provided.Attachments: 16:15 [facility] [place] Payment Agreement gjb 08/30 11:42 T-Sheet-- Draft Copy 15:58 ECG/EKG Chart Complete MTDD
== END 2016-08-29 18:29 | disposition home or self-care (01) ==
LOC: M ED 14:55
DX: R00.1 Bradycardia, unspecified (principal)

== ENCOUNTER → 2017-02-18 | Outpatient (CLI) | payer OTHER ==
[~2017-02-18] MED LIST: PARO5TAB
--- NOTE | 2017-02-19 18:14 | ECGEPIP ---
Stationary ECG Study [facility] Test Date: 2017-02-18 Pat Name: JOSE JUAN HANDLEY Department: Room: - Gender: M Knot Tier: : 1990 Requested By: Jr Pritchett Order Number: [id number] Reading MD: Rodger Frias Measurements Intervals [place] Rate: 46 P: 9 CT: 198 QRS: 14 QRSD: 114 T: -5 QT: 435 QTc: 384 Interpretive Statements Sinus bradycardia Within normal limits for age Electronically Signed On 02-19-2017 18:14:05 EDT by Rodger Frias
== END ==
LOC: M EKG 15:16
PROVIDERS: ATTEND Family Medicine Addiction Medicine
DX: R07.89 Other chest pain (principal)

== ENCOUNTER 2017-04-13 22:14 | Emergency (ER) | payer OTHER ==
[~2017-04-13] VITALS: Ht 162.6 cm; Wt 72.7 kg
[2017-04-13] MEDS ORDERED: PARO5TAB (22:48)
[2017-04-13 23:19] LABS: MEAN CORPUSCULAR HEMOGLOBIN 28.8 pg (27.0-33.0); MEAN CORPUSCULAR HGB CONC 33.6 g/dl (32.0-36.5); MEAN CORPUSCULAR VOLUME 85.8 fl (80.0-96.0); RED CELL DISTRIBUTION WIDTH 12.7 % (11.5-14.5); WHITE BLOOD COUNT 9.9 10^3/uL (4.0-10.0)
[2017-04-13 23:32] LABS: METHADONE URINE NEGATIVE (NEGATIVE)
[2017-04-13 23:41] LABS: ALBUMIN 4.4 GM/DL (3.2-5.2); ALBUMIN/GLOBULIN RATIO 1.19 (1.00-1.93); ALKALINE PHOSPHATASE 102 U/L (45-117); ALT/SGPT 46 U/L (12-78); ANION GAP 9 MEQ/L (8-16); AST/SGOT 21 U/L (15-37); BILIRUBIN,DIRECT 0.2 MG/DL (0.0-0.2); BILIRUBIN,TOTAL 0.6 MG/DL (0.2-1.0); BLOOD UREA NITROGEN 20 MG/DL (7-18); CALCIUM LEVEL 9.6 MG/DL (8.5-10.1); CARBON DIOXIDE LEVEL 29 MEQ/L (21-32); CHLORIDE LEVEL 102 MEQ/L (98-107); CREATININE FOR GFR 1.02 MG/DL (0.70-1.30); GLOMERULAR FILTRATION RATE > 60.0 (>60); GLUCOSE, FASTING 92 MG/DL (70-105); POTASSIUM SERUM 3.9 MEQ/L (3.5-5.1); SODIUM LEVEL 140 MEQ/L (136-145); TOTAL PROTEIN 8.1 GM/DL (6.4-8.2)
[2017-04-14 03:01] VITALS: BP 130/81
== END 2017-04-14 03:02 | disposition home or self-care (01) ==
LOC: M ED 22:14
DX: F43.9 Reaction to severe stress, unspecified (principal)

== ENCOUNTER 2017-10-02 08:55 | Emergency (ER) | payer OTHER, SELFPAY | END 2017-10-02 09:59 | disposition home or self-care (01) | LOC: M ED 08:55 | DX: R00.1 Bradycardia, unspecified (principal); I49.9 Cardiac arrhythmia, unspecified; J45.909 Unspecified asthma, uncomplicated; Z88.8 Allergy status to other drugs, medicaments and biological substances | CPT/HCPCS: 93005 ==

== ENCOUNTER 2017-11-04 14:37 | Emergency (ER) | payer OTHER ==
[2017-11-04 15:37] LABS: HEMATOCRIT 45.8 % (42.0-52.0); HEMOGLOBIN 15.2 g/dl (13.5-17.5); MEAN CORPUSCULAR HEMOGLOBIN 28.5 pg (27.0-33.0); MEAN CORPUSCULAR HGB CONC 33.2 g/dl (32.0-36.5); MEAN CORPUSCULAR VOLUME 85.8 fl (80.0-96.0); PLATELET COUNT, AUTOMATED 164 10^3/uL (150-450); RED BLOOD COUNT 5.34 10^6/uL (4.30-6.10); RED CELL DISTRIBUTION WIDTH 13.1 % (11.5-14.5); WHITE BLOOD COUNT 9.2 10^3/uL (4.0-10.0)
[2017-11-04 15:59] LABS: AMPHETAMINES LEVEL URINE NEGATIVE (NEGATIVE); ANION GAP 6 MEQ/L (8-16); BARBITURATES URINE NEGATIVE (NEGATIVE); BENZODIAZEPINES URINE NEGATIVE (NEGATIVE); BLOOD UREA NITROGEN 15 MG/DL (7-18); CALCIUM LEVEL 9.1 MG/DL (8.5-10.1); CANNABINOIDS URINE POSITIVE (NEGATIVE); CARBON DIOXIDE LEVEL 26 MEQ/L (21-32); CHLORIDE LEVEL 106 MEQ/L (98-107); COCAINE METABOLITE URINE NEGATIVE (NEGATIVE); GLOMERULAR FILTRATION RATE > 60.0 (>60); GLUCOSE, FASTING 96 MG/DL (70-100); METHADONE URINE NEGATIVE (NEGATIVE); OPIATES URINE NEGATIVE (NEGATIVE); PHENCYCLIDINE URINE NEGATIVE (NEGATIVE); POTASSIUM SERUM 3.9 MEQ/L (3.5-5.1); SODIUM LEVEL 138 MEQ/L (136-145)
== END 2017-11-04 17:10 | disposition home or self-care (01) ==
LOC: M ED 14:37
DX: F41.1 Generalized anxiety disorder (principal); J66.2 Cannabinosis; F40.01 Agoraphobia with panic disorder; F33.9 Major depressive disorder, recurrent, unspecified; Z88.8 Allergy status to other drugs, medicaments and biological substances; Z79.899 Other long term (current) drug therapy
CPT/HCPCS: 93005

== ENCOUNTER → 2017-11-10 | Outpatient (REF) | LOC: M SMT 09:17 | DX: M54.5 Low back pain (principal) ==

== ENCOUNTER 2018-03-08 12:41 | Emergency (ER) | payer OTHER | END 2018-03-08 13:35 | disposition home or self-care (01) | LOC: M ED 12:41 | DX: M54.9 Dorsalgia, unspecified (principal); G89.29 Other chronic pain | CPT/HCPCS: 99282 ==

== ENCOUNTER 2018-03-10 09:45 | Emergency (ER) | payer OTHER | END 2018-03-10 12:18 | disposition home or self-care (01) | LOC: M ED 09:45 | DX: R07.89 Other chest pain (principal); J45.909 Unspecified asthma, uncomplicated; Z82.49 Family history of ischemic heart disease and other diseases of the circulatory system; Z88.8 Allergy status to other drugs, medicaments and biological substances | CPT/HCPCS: 93005 ==

== ENCOUNTER 2018-03-10 22:13 | Emergency (ER) | payer OTHER ==
[2018-03-11] MEDS: ASPIRIN 81 MG CHEW TABLET PO (01:32)
[2018-03-11 01:40] LABS: BASO % 0.3 % (0.0-1.0); EOS # 0.3 10^3/uL (0.0-0.50); EOS % 3.2 % (0.0-3.0); HEMATOCRIT 45.8 % (42.0-52.0); HEMOGLOBIN 15.1 g/dl (13.5-17.5); IMMATURE GRANULOCYTE % 0.3 % (0-3.0); LYMPH # 2.2 10^3/uL (1.5-6.5); LYMPH % 22.3 % (24.0-44.0); MEAN CORPUSCULAR HEMOGLOBIN 28.7 pg (27.0-33.0); MEAN CORPUSCULAR VOLUME 87.1 fl (80.0-96.0); MONO # 0.9 10^3/uL (0.0-0.8); NEUTROPHILS # 6.5 10^3/uL (1.8-7.7); NEUTROPHILS % 64.9 % (36.0-66.0); PLATELET COUNT, AUTOMATED 196 10^3/uL (150-450); RED BLOOD COUNT 5.26 10^6/uL (4.30-6.10); RED CELL DISTRIBUTION WIDTH 12.5 % (11.5-14.5)
[2018-03-11] MEDS ORDERED: ISOVUE-370 76% 100ML VIAL (Q9967) As Ordered (01:48)
[2018-03-11 01:56] LABS: INR 1.06
[2018-03-11 01:57] LABS: PARTIAL THROMBOPLASTIN TIME 31.1 SECONDS (25.4-37.6)
[2018-03-11 02:31] LABS: ALBUMIN/GLOBULIN RATIO 1.08 (1.00-1.93); ALKALINE PHOSPHATASE 89 U/L (45-117); ALT/SGPT 60 U/L (12-78); ANION GAP 8 MEQ/L (8-16); AST/SGOT 29 U/L (7-37); BILIRUBIN,DIRECT < 0.1 MG/DL (0.0-0.2); BILIRUBIN,TOTAL 0.4 MG/DL (0.2-1.0); BLOOD UREA NITROGEN 21 MG/DL (7-18); CALCIUM LEVEL 9.2 MG/DL (8.5-10.1); CARBON DIOXIDE LEVEL 26 MEQ/L (21-32); CHLORIDE LEVEL 104 MEQ/L (98-107); CK-MB VALUE MASS 5.9 NG/ML (<3.6); CPK CREATINE PHOSPHOKINASE 262 U/L (39-308); CREATININE FOR GFR 0.89 MG/DL (0.70-1.30); GLOMERULAR FILTRATION RATE > 60.0 (>60); GLUCOSE, FASTING 92 MG/DL (70-100); LIPASE 126 U/L (73-393); MB/CK RELATIVE INDEX 2.25 (< OR =4); POTASSIUM SERUM 4.5 MEQ/L (3.5-5.1); SODIUM LEVEL 138 MEQ/L (136-145); TOTAL PROTEIN 7.7 GM/DL (6.4-8.2); TROPONIN I < 0.02 NG/ML (< 0.10)
== END 2018-03-11 05:07 | disposition home or self-care (01) ==
LOC: M ED 22:13
DX: R07.9 Chest pain, unspecified (principal); R06.02 Shortness of breath; R05 Cough; R11.0 Nausea; Z82.49 Family history of ischemic heart disease and other diseases of the circulatory system; Z88.8 Allergy status to other drugs, medicaments and biological substances
CPT/HCPCS: Q9967

== ENCOUNTER 2018-03-31 03:22 | Emergency (ER) | payer OTHER | END 2018-03-31 06:48 | disposition home or self-care (01) | LOC: M ED 03:22 | DX: L03.012 Cellulitis of left finger (principal); I80.8 Phlebitis and thrombophlebitis of other sites; S46.212A Strain of muscle, fascia and tendon of other parts of biceps, left arm, initial encounter; X58.XXXA Exposure to other specified factors, initial encounter; Y92.9 Unspecified place or not applicable; Y93.89 Activity, other specified; Y99.0 Civilian activity done for income or pay; Z88.8 Allergy status to other drugs, medicaments and biological substances | CPT/HCPCS: 87186 ==

== ENCOUNTER 2018-03-31 19:12 | Emergency (ER) | payer OTHER ==
[2018-03-31] MEDS: CLINDAMYCIN 900 MG in APPROPRIATE DILUENT 1 EA IV (20:05)
[2018-03-31 20:40] LABS: BASO % 0.3 % (0.0-1.0); EOS # 0.1 10^3/uL (0.0-0.50); EOS % 1.5 % (0.0-3.0); HEMATOCRIT 44.5 % (42.0-52.0); HEMOGLOBIN 14.6 g/dl (13.5-17.5); IMMATURE GRANULOCYTE % 0.3 % (0-3.0); LYMPH # 1.4 10^3/uL (1.5-6.5); LYMPH % 15.7 % (24.0-44.0); MEAN CORPUSCULAR HEMOGLOBIN 28.1 pg (27.0-33.0); MEAN CORPUSCULAR HGB CONC 32.8 g/dl (32.0-36.5); MEAN CORPUSCULAR VOLUME 85.7 fl (80.0-96.0); NEUTROPHILS # 6.2 10^3/uL (1.8-7.7); NEUTROPHILS % 71.2 % (36.0-66.0); PLATELET COUNT, AUTOMATED 164 10^3/uL (150-450); RED BLOOD COUNT 5.19 10^6/uL (4.30-6.10); RED CELL DISTRIBUTION WIDTH 12.8 % (11.5-14.5); WHITE BLOOD COUNT 8.7 10^3/uL (4.0-10.0)
[2018-03-31 21:00] LABS: ANION GAP 7 MEQ/L (8-16); BLOOD UREA NITROGEN 13 MG/DL (7-18); C REACTIVE PROTEIN QUANTITATIV 1.73 MG/DL (0.00-0.30); CALCIUM LEVEL 9.2 MG/DL (8.5-10.1); CARBON DIOXIDE LEVEL 25 MEQ/L (21-32); CHLORIDE LEVEL 105 MEQ/L (98-107); GLOMERULAR FILTRATION RATE > 60.0 (>60); GLUCOSE, FASTING 84 MG/DL (70-100); POTASSIUM SERUM 4.3 MEQ/L (3.5-5.1); SODIUM LEVEL 137 MEQ/L (136-145)
[2018-03-31 21:14] LABS: ERYTHROCYTE SEDIMENTATION RATE 7 mm/hr (0-15)
== END 2018-03-31 23:31 | disposition home or self-care (01) ==
LOC: M ED 19:12
DX: L03.012 Cellulitis of left finger (principal); J45.909 Unspecified asthma, uncomplicated; F40.10 Social phobia, unspecified; Z88.8 Allergy status to other drugs, medicaments and biological substances
CPT/HCPCS: 93971

== ENCOUNTER 2018-05-05 18:54 | Emergency (ER) | payer OTHER ==
[2018-05-05] MEDS: ANUSOL HC CREAM 30GM TOP (20:05)
== END 2018-05-05 20:10 | disposition home or self-care (01) ==
LOC: M ED 18:54
DX: K64.4 Residual hemorrhoidal skin tags (principal); J45.909 Unspecified asthma, uncomplicated
CPT/HCPCS: 99283

== ENCOUNTER 2018-12-16 21:10 | Emergency (ER) | payer OTHER ==
[~2018-12-16] VITALS: Ht 162.6 cm; Wt 63.6 kg
[~2018-12-16 21:10] MED LIST changes: +ADV100INH INH; +CYCL10TA PO; +DOXY100C37 PO; +IBUP-1022 PO; +IBUP-1114 PO; +KEFL500C17 PO; +PROC2.5C TOP; +SING10TA32 PO; +VENTAER
== END 2018-12-16 22:04 | disposition home or self-care (01) ==
LOC: M ED 21:10
DX: F41.1 Generalized anxiety disorder (principal); S60.219A Contusion of unspecified wrist, initial encounter; Y35.893A Legal intervention involving other specified means, suspect injured, initial encounter; Y92.89 Other specified places as the place of occurrence of the external cause; J45.909 Unspecified asthma, uncomplicated; Z88.0 Allergy status to penicillin; Z88.8 Allergy status to other drugs, medicaments and biological substances

== ENCOUNTER 2018-12-17 19:19 | Emergency (ER) | payer OTHER ==
[~2018-12-17] VITALS: Ht 162.6 cm; Wt 70.5 kg
--- NOTE | 2018-12-17 20:24 | REP ---
Clinical: Trauma/fall with bilateral wrist pain. Technique: AP, lateral, bilateral oblique views right and left wrist . Findings: The carpal bones, surrounding osseous structures, soft tissues, and joint spaces are normal. There is no evidence for acute fracture or dislocation. No subcutaneous emphysema or radiodense foreign body. Impression: Normal bilateral wrist series. No acute fracture or dislocation Electronically Signed by Frederick Rausch MD 12/17/2018 08:15 P
[2018-12-17 20:47] VITALS: BP 143/77
== END 2018-12-17 21:03 | disposition home or self-care (01) ==
LOC: M ED 19:19
DX: S66.911A Strain of unspecified muscle, fascia and tendon at wrist and hand level, right hand, initial encounter (principal); S66.912A Strain of unspecified muscle, fascia and tendon at wrist and hand level, left hand, initial encounter; R20.2 Paresthesia of skin; Y35.811A Legal intervention involving manhandling, law enforcement official injured, initial encounter; Y92.9 Unspecified place or not applicable; Y99.9 Unspecified external cause status; Z88.1 Allergy status to other antibiotic agents; Z88.8 Allergy status to other drugs, medicaments and biological substances

== ENCOUNTER 2019-03-04 20:18 | Emergency (ER) | payer OTHER ==
[~2019-03-04] VITALS: Ht 162.6 cm; Wt 72.7 kg
[2019-03-04 20:48] LABS: BASO % 0.3 % (0.0-1.0); EOS # 0.2 10^3/uL (0.0-0.50); EOS % 2.9 % (0.0-3.0); HEMATOCRIT 48.1 % (42.0-52.0); LYMPH # 1.6 10^3/uL (1.5-6.5); LYMPH % 24.3 % (24.0-44.0); MEAN CORPUSCULAR HEMOGLOBIN 29.7 pg (27.0-33.0); MEAN CORPUSCULAR HGB CONC 33.3 g/dl (32.0-36.5); MEAN CORPUSCULAR VOLUME 89.4 fl (80.0-96.0); MONO # 0.8 10^3/uL (0.0-0.8); MONO % 12.4 % (0.0-5.0); NEUTROPHILS # 3.9 10^3/uL (1.8-7.7); NEUTROPHILS % 59.8 % (36.0-66.0); PLATELET COUNT, AUTOMATED 174 10^3/uL (150-450); RED BLOOD COUNT 5.38 10^6/uL (4.30-6.10); WHITE BLOOD COUNT 6.5 10^3/uL (4.0-10.0)
[2019-03-04 21:20] LABS: ALBUMIN 4.4 GM/DL (3.2-5.2); ALT/SGPT 61 U/L (12-78); BILIRUBIN,DIRECT 0.2 MG/DL (0.0-0.2); BILIRUBIN,TOTAL 0.9 MG/DL (0.2-1.0); BLOOD UREA NITROGEN 21 MG/DL (7-18); CALCIUM LEVEL 10.3 MG/DL (8.5-10.1); CARBON DIOXIDE LEVEL 29 MEQ/L (21-32); CHLORIDE LEVEL 105 MEQ/L (98-107); CREATININE FOR GFR 1.02 MG/DL (0.70-1.30); GLOMERULAR FILTRATION RATE > 60.0 (>60); GLUCOSE, FASTING 77 MG/DL (70-100); LIPASE 97 U/L (73-393); POTASSIUM SERUM 4.5 MEQ/L (3.5-5.1); SODIUM LEVEL 140 MEQ/L (136-145); TOTAL PROTEIN 7.8 GM/DL (6.4-8.2)
[2019-03-05] MEDS ORDERED: OMEP40CA97 PO (00:17)
[2019-03-05 00:47] VITALS: BP 127/69
== END 2019-03-05 00:56 | disposition home or self-care (01) ==
LOC: M ED 20:18
DX: K21.9 Gastro-esophageal reflux disease without esophagitis (principal); G43.A0 Cyclical vomiting, in migraine, not intractable; J45.909 Unspecified asthma, uncomplicated; F33.9 Major depressive disorder, recurrent, unspecified; F41.9 Anxiety disorder, unspecified; Z88.0 Allergy status to penicillin; Z88.8 Allergy status to other drugs, medicaments and biological substances

== ENCOUNTER 2019-03-20 02:36 | Emergency (ER) | payer OTHER ==
[~2019-03-20] VITALS: Ht 162.6 cm; Wt 72.3 kg
[~2019-03-20 02:36] MED LIST changes: +OMEP40CA2 PO
[2019-03-20 03:51] LABS: ABG BASE EXCESS -0.3 (-2.0-2.0); ABG HCO3 24.1 MEQ/L (22.0-26.0); ABG O2 SATURATION 98.7 % (95.0-99.0); ABG PARTIAL PRESSURE CO2 38.5 mmHg (35.0-45.0); ABG PARTIAL PRESSURE O2 131.7 mmHg (75.0-100.0); ABG STANDARD HCO3 24.3 MEQ/L (22.0-26.0); ABG TOTAL CO2 25.3 MEQ/L (22.0-29.0); ABG pH (ARTERIAL) 7.414 UNITS (7.350-7.450)
[2019-03-20] MEDS ORDERED: KETOROLAC 60 MG/2 ML VIAL (J1885) IM ONE (04:00)
[2019-03-20 04:39] LABS: CK-MB VALUE MASS 4.9 NG/ML (<3.6); CPK CREATINE PHOSPHOKINASE 338 U/L (39-308); MB/CK RELATIVE INDEX 1.45 (< OR =4); TROPONIN I < 0.02 NG/ML (< 0.10)
[2019-03-20] MEDS ORDERED: KETO10TAB PO (04:49)
[2019-03-20 05:00] VITALS: BP 109/61
--- NOTE | 2019-03-20 07:20 | ECGEPIP ---
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
--- NOTE | 2019-03-20 08:21 | REP ---
Clinical: Acute chest pain . Comparison: 08/29/2016 . Findings: The mediastinum and cardiac silhouette are stable and within normal limits for portable technique. The lung pena are clear without acute consolidation, effusion, or pneumothorax. Skeletal structures are intact. Impression: No acute cardiopulmonary process appreciated. Electronically Signed by Frederick Rausch MD 03/20/2019 08:13 A
== END 2019-03-20 05:08 | disposition home or self-care (01) ==
LOC: M ED 02:36
DX: R07.89 Other chest pain (principal); K21.9 Gastro-esophageal reflux disease without esophagitis; F41.9 Anxiety disorder, unspecified; Z88.0 Allergy status to penicillin; Z88.8 Allergy status to other drugs, medicaments and biological substances
CPT/HCPCS: 36600; 71045; 80047; 82550; 82553; 82803; 93005; 96372; 99284; J1885

== ENCOUNTER 2019-03-20 23:52 | Emergency (ER) | payer OTHER ==
[~2019-03-20] VITALS: Ht 162.6 cm; Wt 72.3 kg
[~2019-03-20 23:52] MED LIST changes: +KETO10TAB PO
[2019-03-20 23:53] VITALS: BP 128/72
[2019-03-21] MEDS ORDERED: ACETAMINOPHEN 325 MG TAB PO ONE (00:30)
== END 2019-03-21 00:32 | disposition home or self-care (01) ==
LOC: M ED 23:52
DX: R51 Headache (principal); Z88.0 Allergy status to penicillin; Z88.8 Allergy status to other drugs, medicaments and biological substances

== ENCOUNTER → 2019-04-08 | Outpatient (REF) | payer OTHER, MEDICAID ==
[~2019-04-08] MED LIST changes: +AFRI0.058; +BENZ200C70 PO; +MUCI600T31 PO
== END ==
LOC: M LAB REF 18:02
PROVIDERS: ATTEND Nurse Practitioner Family
DX: J02.9 Acute pharyngitis, unspecified (principal); R05 Cough

== ENCOUNTER 2019-04-09 22:01 | Emergency (ER) | payer MEDICAID, OTHER ==
[~2019-04-09] VITALS: Ht 162.6 cm; Wt 67.7 kg
[~2019-04-09 22:01] MED LIST changes: -AFRI0.058; -BENZ200C70 PO; -MUCI600T31 PO; -OMEP40CA2 PO; +OMEP40CA97 PO
[2019-04-09 22:58] LABS: INFLUENZA A AMPLIFICATION NEGATIVE (NEGATIVE); INFLUENZA B AMPLIFICATION NEGATIVE (NEGATIVE)
[2019-04-09] MEDS ORDERED: AFRI0.058 (23:02)
[2019-04-09] MEDS ORDERED: BENZ200C70 PO (23:02)
[2019-04-09] MEDS ORDERED: IBUP-1022 PO (23:02)
[2019-04-09] MEDS ORDERED: MUCI600T31 PO (23:02)
[2019-04-09 23:12] VITALS: BP 131/64
[2019-04-09] MEDS ORDERED: IBUPROFEN 600 MG TAB PO ONE (23:15)
== END 2019-04-09 23:21 | disposition home or self-care (01) ==
LOC: M ED 22:01
DX: J06.9 Acute upper respiratory infection, unspecified (principal); Z88.0 Allergy status to penicillin; Z88.8 Allergy status to other drugs, medicaments and biological substances

== ENCOUNTER 2019-05-17 22:26 | Emergency (ER) | payer OTHER ==
[~2019-05-17] VITALS: Ht 162.6 cm; Wt 68.2 kg
[~2019-05-17 22:26] MED LIST changes: +AFRI0.058; +BENZ200C70 PO; +MUCI600T31 PO
[2019-05-18 02:30] VITALS: BP 101/55
--- NOTE | 2019-05-18 07:55 | REP ---
Clinical: trauma Technique: AP, lateral, bilateral oblique views of the left ankle. Comparison: 10/12/2009 Findings: Diffuse swelling. Chronic bony fragment posterior to the distal fibula unchanged. Lateral suggests a small fracture fragment along the posterior malleolus and requires correlation. Joint spaces are normal. Impression: Swelling and possible small fracture fragment of the posterior malleolus. Electronically Signed by Frederick Rausch MD 05/18/2019 07:48 A
== END 2019-05-18 02:36 | disposition home or self-care (01) ==
LOC: M ED 22:26
DX: S82.62XA Displaced fracture of lateral malleolus of left fibula, initial encounter for closed fracture (principal); V18.0XXA Pedal cycle driver injured in noncollision transport accident in nontraffic accident, initial encounter; Z88.0 Allergy status to penicillin; Z88.8 Allergy status to other drugs, medicaments and biological substances

== ENCOUNTER 2019-11-19 10:29 | Emergency (ER) | payer OTHER ==
[~2019-11-19 10:29] MED LIST changes: +CYCL-707 PO; -CYCL10TA PO
--- NOTE | 2019-11-19 11:17 | REP ---
Clinical: Left shoulder pain . Technique: Internal rotation, external rotation, and Y view. Findings: No acute fracture or dislocation. The acromioclavicular and glenohumeral joints are intact. No periarticular calcifications or degenerative changes are appreciated. Sub acromial space is normal. Surrounding soft tissues are unremarkable. Impression: Normal left shoulder radiographs. Electronically Signed by Frederick Rausch MD 11/19/2019 11:08 A
[2019-11-19] MEDS ORDERED: MORPHINE 4 MG/ML 1ML VIAL/SYRINGE (J2270) IV ONE ×2 (12:15→13:30)
[2019-11-19] MEDS ORDERED: ONDANSETRON 4MG/2ML VIAL IV ONE (12:15)
--- NOTE | 2019-11-19 13:07 | REP ---
Clinical: Left shoulder pain. Trauma. Technique: Axial images through the left shoulder with coronal and sagittal re-formations. Findings: There is a nondisplaced fracture through the mid clavicular shaft. There is a nondisplaced fracture through the body of the scapula. The acromioclavicular and glenohumeral joints as well as the subacromial space are normal. No arthritic changes are noted. No obvious hematoma identified. Visualized left ribs are intact. Impression: 1. Nondisplaced fracture through the mid clavicular shaft. 2. Nondisplaced fracture through the body of the scapula. Electronically Signed by Frederick Rausch MD 11/19/2019 12:59 P
--- NOTE | 2019-11-19 13:47 | REP ---
Clinical: Trauma . Comparison: 03/20/2019 . Findings: The mediastinum and cardiac silhouette are stable and within normal limits for portable technique. The lung pena are clear without acute consolidation, effusion, or pneumothorax. Nondisplaced fracture of the left clavicle shaft noted. Impression: No acute cardiopulmonary process appreciated. Nondisplaced left clavicular shaft fracture. Electronically Signed by Frederick Rausch MD 11/19/2019 01:38 P
[2019-11-19] MEDS ORDERED: NORC1TAB7 PO (14:02)
[2019-11-19 14:12] VITALS: BP 143/69
== END 2019-11-19 14:25 | disposition home or self-care (01) ==
LOC: EDBD 10:29 → M ED 10:29
DX: S42.025A Nondisplaced fracture of shaft of left clavicle, initial encounter for closed fracture (principal); S42.115A Nondisplaced fracture of body of scapula, left shoulder, initial encounter for closed fracture; S40.012A Contusion of left shoulder, initial encounter; V18.0XXA Pedal cycle driver injured in noncollision transport accident in nontraffic accident, initial encounter; F41.9 Anxiety disorder, unspecified; F33.9 Major depressive disorder, recurrent, unspecified; F40.10 Social phobia, unspecified; Z88.8 Allergy status to other drugs, medicaments and biological substances
CPT/HCPCS: 71045; 73030; 73200; 96374; 96375; 96376; 99284; J2270; J2405

== ENCOUNTER 2020-01-13 01:50 | Emergency (ER) | payer OTHER ==
[~2020-01-13] VITALS: Ht 162.6 cm; Wt 75.0 kg
[~2020-01-13 01:50] MED LIST changes: +NORC1TAB7 PO
[2020-01-13] MEDS ORDERED: KETOROLAC 60MG 2ML VIAL IM ONE (04:00)
[2020-01-13 04:01] VITALS: BP 125/58
--- NOTE | 2020-01-13 08:23 | REP ---
Portable chest x-ray: Single view. History: Chest pain. Comparison chest x-ray: Nov 19 2019. Findings: Monitoring electrodes overlie the chest. Lungs are well inflated and clear. Heart is not enlarged. Pulmonary vasculature is not increased. There is a healing fracture of the left clavicle mid shaft. No other bony abnormality. Impression: No active cardiopulmonary disease. Electronically Signed by Gallo Ibarra MD 01/13/2020 08:15 A
== END 2020-01-13 04:18 | disposition home or self-care (01) ==
LOC: M ED 01:50
DX: S29.011A Strain of muscle and tendon of front wall of thorax, initial encounter (principal); X58.XXXA Exposure to other specified factors, initial encounter; Y92.89 Other specified places as the place of occurrence of the external cause; F41.9 Anxiety disorder, unspecified; Z88.0 Allergy status to penicillin; Z88.8 Allergy status to other drugs, medicaments and biological substances
CPT/HCPCS: 71045; 96372; 99284; J1885

== ENCOUNTER 2020-04-16 13:37 | Emergency (ER) | payer OTHER ==
[~2020-04-16] VITALS: Ht 162.6 cm; Wt 75.0 kg
--- NOTE | 2020-04-16 14:48 | REPVR ---
PROCEDURE INFORMATION: Exam: XR Complete Acute Abdomen Series Exam date and time: 04/16/2020 2:29 PM Age: 29 years old Clinical indication: Abdominal pain; Generalized; Prior surgery; Surgery date: 1-6 months; Surgery type: Splenectomy on feb 18; Additional info: Constipation TECHNIQUE: Imaging protocol: XR complete acute abdomen series, including 2 or more views of the abdomen and a single view chest. COMPARISON: NE Chest, 1 view 01/13/2020 3:08 AM FINDINGS: Lungs: Normal. No consolidation. Pleural space: Normal. No pneumothorax. Heart/Mediastinum: Normal. No cardiomegaly. Gastrointestinal tract: Normal. No bowel dilation. Mild to moderate fecal retention. Intraperitoneal space: Normal. No free air. Bones/joints: Normal. No acute fracture. Soft tissues: Normal. IMPRESSION: No acute findings. Electronically signed by: Owen Akhtar On 04/16/2020 14:48:20 PM
[2020-04-16] MEDS ORDERED: FLEET OIL RETENTION ENEMA PR ONE (15:00)
[2020-04-16 16:42] LABS: BASO % 0.3 % (0.0-1.0); EOS # 0.4 10^3/uL (0.0-0.5); EOS % 3.4 % (0.0-3.0); HEMATOCRIT 38.9 % (42.0-52.0); HEMOGLOBIN 12.5 g/dl (13.5-17.5); LYMPH # 3.3 10^3/uL (1.5-5.0); MEAN CORPUSCULAR HEMOGLOBIN 29.1 pg (27.0-33.0); MEAN CORPUSCULAR HGB CONC 32.1 g/dl (32.0-36.5); MEAN CORPUSCULAR VOLUME 90.7 fl (80.0-96.0); MONO # 1.4 10^3/uL (0.0-0.8); MONO % 12.2 % (0.0-5.0); NEUTROPHILS # 6.5 10^3/uL (1.5-8.5); NEUTROPHILS % 55.8 % (36.0-66.0); PLATELET COUNT, AUTOMATED 240 10^3/uL (150-450); RED BLOOD COUNT 4.29 10^6/uL (4.30-6.10); WHITE BLOOD COUNT 11.7 10^3/uL (4.0-10.0)
[2020-04-16] MEDS ORDERED: RA M1SOL2 PO (17:20)
[2020-04-16 17:53] VITALS: BP 111/69
== END 2020-04-16 17:54 | disposition home or self-care (01) ==
LOC: EDSEX 13:37 → M ED 13:37 → EDBD 13:37 → M ED 17:54
DX: K59.00 Constipation, unspecified (principal); Z90.81 Acquired absence of spleen; Z88.1 Allergy status to other antibiotic agents

== ENCOUNTER 2020-05-08 23:34 | Emergency (ER) | payer OTHER ==
[~2020-05-08] VITALS: Ht 162.6 cm; Wt 74.9 kg
[~2020-05-08 23:34] MED LIST changes: +RA M1SOL2 PO
[2020-05-08] MEDS ORDERED: DOK1CAP7 PO (23:46)
[2020-05-09] MEDS ORDERED: IBUPROFEN 800 MG TAB PO ONE (02:30)
--- NOTE | 2020-05-09 03:08 | REPVR ---
PROCEDURE INFORMATION: Exam: XR Complete Acute Abdomen Series Exam date and time: 05/09/2020 2:57 AM Age: 29 years old Clinical indication: Abdominal pain; Additional info: Popping sensation, pain with movement TECHNIQUE: Imaging protocol: XR complete acute abdomen series, including 2 or more views of the abdomen and a single view chest. COMPARISON: CR Abdomen,Flat Upright,PA CHEST 2020-04-16 14:08 FINDINGS: Lungs: Normal. No consolidation. Pleural space: Normal. No pneumothorax. Heart/Mediastinum: Normal. No cardiomegaly. Gastrointestinal tract: Constipation. Intraperitoneal space: Normal. No free air. Bones/joints: Dextroconvex thoracic curvature. Deformity of the left clavicle, suspect healed fracture. Soft tissues: Normal. IMPRESSION: 1. Deformity of the left clavicle, suspect healed fracture. 2. Constipation. Electronically signed by: Riley Nur On 05/09/2020 03:08:29 AM
[2020-05-09] MEDS ORDERED: MAGNESIUM CITRATE 300 ML BTL PO ONE (03:30)
[2020-05-09 03:51] VITALS: BP 121/78
== END 2020-05-09 03:52 | disposition home or self-care (01) ==
LOC: M ED 23:34
DX: K59.00 Constipation, unspecified (principal); F12.10 Cannabis abuse, uncomplicated; Z87.820 Personal history of traumatic brain injury; Z88.1 Allergy status to other antibiotic agents; Z88.8 Allergy status to other drugs, medicaments and biological substances

== ENCOUNTER 2020-06-06 23:42 | Emergency (ER) | payer OTHER ==
[~2020-06-06] VITALS: Ht 162.6 cm; Wt 70.9 kg
[~2020-06-06 23:42] MED LIST changes: +DOK1CAP7 PO
[2020-06-06 23:43] VITALS: BP 115/61
== END 2020-06-07 02:22 | disposition left against medical advice (07) ==
LOC: M ED 23:42
DX: Z53.21 Procedure and treatment not carried out due to patient leaving prior to being seen by health care provider (principal)

== ENCOUNTER 2020-06-17 13:50 | Emergency (ER) | payer OTHER ==
[~2020-06-17] VITALS: Ht 162.6 cm; Wt 72.4 kg
--- NOTE | 2020-06-17 14:43 | REP ---
INDICATION: chest pain COMPARISON: 01/13/2020 TECHNIQUE: PA and lateral. FINDINGS: The mediastinum and cardiac silhouette are normal. The lung pena are clear and without acute consolidation, effusion, or pneumothorax. The skeletal structures are intact and there is evidence for old healed left clavicle fracture. IMPRESSION: No acute cardiopulmonary process. <Electronically signed by Frederick Rausch > 06/17/20 [id number]
[2020-06-17 15:03] LABS: BASO # 0.1 10^3/uL (0.0-0.2); BASO % 0.7 % (0.0-1.0); EOS # 0.7 10^3/uL (0.0-0.5); EOS % 7.2 % (0.0-3.0); HEMATOCRIT 44.6 % (42.0-52.0); HEMOGLOBIN 14.5 g/dl (13.5-17.5); LYMPH # 2.6 10^3/uL (1.5-5.0); LYMPH % 26.4 % (24.0-44.0); MEAN CORPUSCULAR HGB CONC 32.5 g/dl (32.0-36.5); MEAN CORPUSCULAR VOLUME 82.9 fl (80.0-96.0); MONO # 1.4 10^3/uL (0.0-0.8); MONO % 14.2 % (0.0-5.0); NEUTROPHILS % 51.1 % (36.0-66.0); PLATELET COUNT, AUTOMATED 265 10^3/uL (150-450); RED BLOOD COUNT 5.38 10^6/uL (4.30-6.10); WHITE BLOOD COUNT 9.8 10^3/uL (4.0-10.0)
[2020-06-17 15:18] LABS: PROTHROMBIN TIME 13.4 SECONDS (12.5-14.3)
[2020-06-17 15:19] LABS: PARTIAL THROMBOPLASTIN TIME 26.6 SECONDS (24.2-38.5)
[2020-06-17 15:31] LABS: ALBUMIN 3.9 GM/DL (3.2-5.2); ALT/SGPT 49 U/L (12-78); BILIRUBIN,DIRECT 0.1 MG/DL (0.0-0.2); BILIRUBIN,TOTAL 0.5 MG/DL (0.2-1.0); BLOOD UREA NITROGEN 21 MG/DL (7-18); CALCIUM LEVEL 9.4 MG/DL (8.5-10.1); CARBON DIOXIDE LEVEL 26 MEQ/L (21-32); CHLORIDE LEVEL 104 MEQ/L (98-107); CK-MB VALUE MASS 2.2 NG/ML (<3.6); CPK CREATINE PHOSPHOKINASE 116 U/L (39-308); CREATININE FOR GFR 0.85 MG/DL (0.70-1.30); GLOMERULAR FILTRATION RATE > 60.0 (>60); GLUCOSE, FASTING 94 MG/DL (70-100); LIPASE 86 U/L (73-393); POTASSIUM SERUM 4.5 MEQ/L (3.5-5.1); SODIUM LEVEL 134 MEQ/L (136-145); TOTAL PROTEIN 7.6 GM/DL (6.4-8.2); TROPONIN I < 0.02 NG/ML (< 0.10)
[2020-06-17 15:40] LABS: ERYTHROCYTE SEDIMENTATION RATE 6 mm/hr (0-15)
[2020-06-17 16:17] VITALS: BP 132/74
--- NOTE | 2020-06-17 20:42 | ECGEPIP ---
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
== END 2020-06-17 16:34 | disposition home or self-care (01) ==
LOC: M ED 13:50
DX: R07.9 Chest pain, unspecified (principal); F33.9 Major depressive disorder, recurrent, unspecified; F41.9 Anxiety disorder, unspecified; Z88.0 Allergy status to penicillin; Z88.8 Allergy status to other drugs, medicaments and biological substances

== ENCOUNTER 2020-07-30 02:09 | Observation (INO) | payer OTHER ==
[~2020-07-30] VITALS: Ht 162.6 cm; Wt 70.1 kg
[2020-07-30] MEDS ORDERED: DOK1CAP7 PO (02:16)
[2020-07-30 02:46] LABS: BASO # 0.1 10^3/uL (0.0-0.2); BASO % 0.4 % (0.0-1.0); EOS # 0.5 10^3/uL (0.0-0.5); EOS % 4.1 % (0.0-3.0); HEMATOCRIT 41.9 % (42.0-52.0); HEMOGLOBIN 13.3 g/dl (13.5-17.5); LYMPH # 3.2 10^3/uL (1.5-5.0); LYMPH % 24.2 % (24.0-44.0); MEAN CORPUSCULAR HEMOGLOBIN 27.5 pg (27.0-33.0); MEAN CORPUSCULAR HGB CONC 31.7 g/dl (32.0-36.5); MEAN CORPUSCULAR VOLUME 86.7 fl (80.0-96.0); MONO # 1.2 10^3/uL (0.0-0.8); MONO % 9.2 % (0.0-5.0); NEUTROPHILS # 8.2 10^3/uL (1.5-8.5); NEUTROPHILS % 61.8 % (36.0-66.0); PLATELET COUNT, AUTOMATED 239 10^3/uL (150-450); RED BLOOD COUNT 4.83 10^6/uL (4.30-6.10); WHITE BLOOD COUNT 13.2 10^3/uL (4.0-10.0)
--- NOTE | 2020-07-30 03:08 | REPVR ---
PROCEDURE INFORMATION: Exam: XR Chest, 2 Views Exam date and time: 07/30/2020 2:55 AM Age: 29 years old Clinical indication: Chest pain; Type not specified TECHNIQUE: Imaging protocol: XR of the chest Views: 2 views. COMPARISON: CR Chest, 2 view PA, Lat 06/17/2020 2:28 PM FINDINGS: Lungs: Unremarkable. No consolidation. Pleural space: Unremarkable. No pleural effusion. No pneumothorax. Heart/Mediastinum: Unremarkable. No cardiomegaly. Bones/joints: Unremarkable. IMPRESSION: Negative chest without change from 06/17/2020. Electronically signed by: Gilberto Colunga On 07/30/2020 03:09:37 AM
[2020-07-30 03:42] LABS: ALBUMIN 3.6 GM/DL (3.2-5.2); ALT/SGPT 88 U/L (12-78); BILIRUBIN,DIRECT < 0.1 MG/DL (0.0-0.2); BILIRUBIN,TOTAL 0.3 MG/DL (0.2-1.0); BLOOD UREA NITROGEN 24 MG/DL (7-18); CALCIUM LEVEL 9.4 MG/DL (8.5-10.1); CARBON DIOXIDE LEVEL 31 MEQ/L (21-32); CHLORIDE LEVEL 101 MEQ/L (98-107); CK-MB VALUE MASS 14.3 NG/ML (<3.6); CPK CREATINE PHOSPHOKINASE 2861 U/L (39-308); CREATININE FOR GFR 0.98 MG/DL (0.70-1.30); GLOMERULAR FILTRATION RATE > 60.0 (>60); GLUCOSE, FASTING 101 MG/DL (70-100); LIPASE 134 U/L (73-393); POTASSIUM SERUM 4.1 MEQ/L (3.5-5.1); SODIUM LEVEL 136 MEQ/L (136-145); THYROID STIMULATING HORMONE 0.969 uIU/ML (0.358-3.740); TOTAL PROTEIN 6.7 GM/DL (6.4-8.2); TROPONIN I < 0.02 NG/ML (< 0.10)
[2020-07-30] MEDS ORDERED: NS 1,000 ML IV ONE (04:15)
[2020-07-30 05:37] LABS: RSV AMPLIFICATION NEGATIVE (NEGATIVE)
--- NOTE | 2020-07-30 05:51 | HPEPDOC ---
[facility] Medical History & Physical Date of Admission Jul 30, 2020 Date of Service: Jul 30, 2020 History and Physical CHIEF COMPLAINT: palpitations HISTORY OF PRESENT ILLNESS: 29 yo M with a hx of splenectomy (s/p trauma in ), anxiety, depression and panic attacks, presented to ED with c/o palpitations, and a hollow feeling inside the chest. Patient is a poor historian, and has a difficult time explaining symptoms. Reports a "slipping water feeling" in chest, that radiates from the L chest up to L shoulder. Patient states he was lifting weights prior to coming to hospital, and noticed some palpitations at the time. He denies shortness of breath, but the closest sensation he endorses is palpitations with a hollow feeling. He further reports dull chest pain on the R upper chest with radiation to his R neck. He came to ER as these episodes have been occurring daily, in contrast to several years ago when they first appeared. He was seen previously by cardiology (he recalls it could be Dr. Frias), 3 years ago, and had a tilt table test and holter monitor testing performed but never followed up again for results. Finally, he reports that these palpitations or "water slipping" feelings have been occuring more frequently since his splenectomy in 02/2020. Labs: WBC 13.2. Hgb 13.3. AST 85. ALT 88. CK 2800. EKG showing sinus anila at 57. CXR without acute changes. PAST MEDICAL HISTORY: asplenia (surgical) Anxiety PAST SURGICAL HISTORY: splenectomy SOCIAL HISTORY: uses medicinal marijuana for anxiety/depression denies tobacco denies etoh FAMILY HISTORY: Father - [place] age 65 ALLERGIES: Please see below. REVIEW OF SYSTEMS: as per [facility] HOME MEDICATIONS: Please see below. PHYSICAL EXAMINATION: VITAL SIGNS: please see below General: NAD, comfortable HEENT: PERRLA, EOMI, sclerae clear Neck: supple, normal ROM, no JVD Respiratory: lungs CTAB, no wheeze, no rales, no crackles CVS: RRR, normal S1, S2, no murmurs Abdo: soft, no masses, no hepatosplenomegaly, BS+, no rebound tenderness Extremities: no edema, pulses 2+ MSK: no joint deformities, normal ROM Neuro: no focal neuro deficits, moving all 4 extremities, CN2-12 intact. Strength 5/5 in all 4 extremities. No nystagmus. Psych: calm, cooperative, AAO x 3 LABORATORY DATA: See below. IMAGING: CXR (07/30/20): FINDINGS: Lungs: Unremarkable. No consolidation. Pleural space: Unremarkable. No pleural effusion. No pneumothorax. Heart/Mediastinum: Unremarkable. No cardiomegaly. Bones/joints: Unremarkable. IMPRESSION: Negative chest without change from 06/17/2020. MICROBIOLOGY: Please see below. ASSESSMENT: 29-year-old male with a history of anxiety, depression and asplenia presented with a history of palpitations that have been occurring more frequently in the past several years. Now occurring daily. Is admitted to hospitalist service for telemetry monitoring as well as IV hydration for mild rhabdomyolysis. PLAN: #Palpitations - EKG sinus anila - tele monitor - repeat electrolytes - 2D echo #Anxiety and depression - used marijuana - no meds #Rhabdo - CK 2300 - 07/22 boluses received in ER #Hx of asplenia - s/p trauma in 2018 DVT ppx: lovenox Vital Signs Vital Signs Date Time Temp Pulse Resp B/P (MAP) Pulse Ox O2 Delivery O2 Flow Rate FiO2 07/30/20 03:19 56 92 07/30/20 03:15 102/51 (68) 07/30/20 02:10 98.1 16 Room Air Laboratory Data Labs 24H Laboratory Tests 2 07/30/20 02:36: Immature Granulocyte % (Auto) 0.3, Neutrophils (%) (Auto) 61.8, Lymphocytes (%) (Auto) 24.2, Monocytes (%) (Auto) 9.2H, Eosinophils (%) (Auto) 4.1H, Basophils (%) (Auto) 0.4, Neutrophils # (Auto) 8.2, Lymphocytes # (Auto) 3.2, Monocytes # (Auto) 1.2H, Eosinophils # (Auto) 0.5, Basophils # (Auto) 0.1, Nucleated Red Blood Cells % (auto) 0.0, D-Dimer, Quantitative 448.27, Anion Gap 4L, Glomerular Filtration Rate > 60.0, Calcium Level 9.4, Total Bilirubin 0.3, Direct Bilirubin < 0.1, Aspartate Amino Transf (AST/SGOT) 85H, Alanine Aminotransferase (ALT/SGPT) 88H, Alkaline Phosphatase 84, Total Creatine Kinase 2861H, Creatine Kinase MB 14.3H, Creatine Kinase MB Relative Index 0.50, Troponin I < 0.02, Total Protein 6.7, Albumin 3.6, Albumin/Globulin Ratio 1.2, Lipase 134, Thyroid Stimulating Hormone (TSH) 0.969, Free Thyroxine 1.20 07/30/20 04:47: Coronavirus (COVID-19)(PCR) NEGATIVE, Influenza Type A (RT-PCR) NEGATIVE, Influenza Type B (RT-PCR) NEGATIVE, Respiratory Syncytial Virus (PCR) NEGATIVE CBC/BMP Laboratory Tests 07/30/20 02:36 Home Medications Scheduled PRN Docusate Sodium (Dok) 100 Mg Capsule, 100 MG PO BID PRN for CONSTIPATION Allergies Coded Allergies: amoxicillin (Verified Allergy, Unknown, Long time ago, unsure, 01/13/20) alprazolam (Verified Adverse Reaction, Mild, hot flashes, tremors, 01/13/20) DAVID WELLS MD Jul 30, 2020 05:51
[2020-07-30 06:52] LABS: BASO # 0.1 10^3/uL (0.0-0.2); BASO % 0.5 % (0.0-1.0); EOS # 0.7 10^3/uL (0.0-0.5); EOS % 5.7 % (0.0-3.0); HEMATOCRIT 42.9 % (42.0-52.0); HEMOGLOBIN 13.3 g/dl (13.5-17.5); LYMPH # 3.2 10^3/uL (1.5-5.0); LYMPH % 26.5 % (24.0-44.0); MEAN CORPUSCULAR HEMOGLOBIN 27.1 pg (27.0-33.0); MEAN CORPUSCULAR VOLUME 87.4 fl (80.0-96.0); MONO # 1.4 10^3/uL (0.0-0.8); MONO % 11.1 % (0.0-5.0); NEUTROPHILS # 6.8 10^3/uL (1.5-8.5); NEUTROPHILS % 55.8 % (36.0-66.0); PLATELET COUNT, AUTOMATED 246 10^3/uL (150-450); RED BLOOD COUNT 4.91 10^6/uL (4.30-6.10); WHITE BLOOD COUNT 12.2 10^3/uL (4.0-10.0)
[2020-07-30] MEDS: NS 1,000 ML IV SCH ×8 (07:18→21:53)
[2020-07-30 07:32] LABS: ALBUMIN 3.4 GM/DL (3.2-5.2); ALT/SGPT 79 U/L (12-78); BILIRUBIN,TOTAL 0.2 MG/DL (0.2-1.0); BLOOD UREA NITROGEN 26 MG/DL (7-18); CALCIUM LEVEL 8.4 MG/DL (8.5-10.1); CARBON DIOXIDE LEVEL 28 MEQ/L (21-32); CHLORIDE LEVEL 104 MEQ/L (98-107); CREATININE FOR GFR 0.85 MG/DL (0.70-1.30); GLOMERULAR FILTRATION RATE > 60.0 (>60); GLUCOSE, FASTING 101 MG/DL (70-100); NT-PRO BNP 29 PG/ML (<125); POTASSIUM SERUM 3.6 MEQ/L (3.5-5.1); SODIUM LEVEL 140 MEQ/L (136-145); TOTAL PROTEIN 6.5 GM/DL (6.4-8.2); TROPONIN I < 0.02 NG/ML (< 0.10)
--- NOTE | 2020-07-30 07:59 | IPNPDOC ---
Date Seen The patient was seen on 07/30/20. Progress Note SUBJECTIVE: "my quads hurt." no sob despite ivfluids. no other c/o. no issues overnight. OBJECTIVE PHYSICAL EXAMINATION: VITAL SIGNS: Please see below. General: NAD, aaox3 no respiratory distress comfortable HEENT: PERRLA, EOMI, no thyromegaly. sclerae clear Neck: supple, normal ROM, no JVD no carotid bruits Respiratory: lungs CTAB, no adventitious breath sounds AEBE no kyphoscoliosis CVS: RRR, normal S1, S2, no murmurs no pitting edema b/l LE Abdo: soft, nondistended no guarding no masses, no hepatosplenomegaly, BS+, no rebound tenderness Extremities: no edema, pulses 2+ LABORATORY DATA, IMAGING STUDIES, MICROBIOLOGY: Please see below. ASSESSMENT AND PLAN: 29 y/o w anxiety surgical asplenia admitted for acute rhabdomyolysis -ivfluids -normal creatinine -avoid NSAIDs -dc once downward trend on ck anxiety -stable surgical asplenia -outpt fu w pcp for recommended vaccinations against gram neg infections disposition: dc in am if downward trend of ck VS, I&O, 24H, Fishbone Vital Signs/I&O Vital Signs Date Time Temp Pulse Resp B/P (MAP) Pulse Ox O2 Delivery O2 Flow Rate FiO2 07/30/20 07:21 55 16 93 Room Air 07/30/20 07:15 99/54 (69) 07/30/20 02:10 98.1 I&O- Last 24 Hours up to 6 AM 07/30/20 06:00 Intake Total 1000 ml Balance 1000 ml Laboratory Data 24H LABS Laboratory Tests 2 07/30/20 02:36: Immature Granulocyte % (Auto) 0.3, Neutrophils (%) (Auto) 61.8, Lymphocytes (%) (Auto) 24.2, Monocytes (%) (Auto) 9.2H, Eosinophils (%) (Auto) 4.1H, Basophils (%) (Auto) 0.4, Neutrophils # (Auto) 8.2, Lymphocytes # (Auto) 3.2, Monocytes # (Auto) 1.2H, Eosinophils # (Auto) 0.5, Basophils # (Auto) 0.1, Nucleated Red Blood Cells % (auto) 0.0, D-Dimer, Quantitative 448.27, Anion Gap 4L, Glomerular Filtration Rate > 60.0, Calcium Level 9.4, Total Bilirubin 0.3, Direct Bilirubin < 0.1, Aspartate Amino Transf (AST/SGOT) 85H, Alanine Aminotransferase (ALT/SGPT) 88H, Alkaline Phosphatase 84, Total Creatine Kinase 2861H, Creatine Kinase MB 14.3H, Creatine Kinase MB Relative Index 0.50, Troponin I < 0.02, Total Protein 6.7, Albumin 3.6, Albumin/Globulin Ratio 1.2, Lipase 134, Thyroid Stimulating Hormone (TSH) 0.969, Free Thyroxine 1.20 07/30/20 04:47: Coronavirus (COVID-19)(PCR) NEGATIVE, Influenza Type A (RT-PCR) NEGATIVE, Influenza Type B (RT-PCR) NEGATIVE, Respiratory Syncytial Virus (PCR) NEGATIVE 07/30/20 06:47: Immature Granulocyte % (Auto) 0.4, Neutrophils (%) (Auto) 55.8, Lymphocytes (%) (Auto) 26.5, Monocytes (%) (Auto) 11.1H, Eosinophils (%) (Auto) 5.7H, Basophils (%) (Auto) 0.5, Neutrophils # (Auto) 6.8, Lymphocytes # (Auto) 3.2, Monocytes # (Auto) 1.4H, Eosinophils # (Auto) 0.7H, Basophils # (Auto) 0.1, Nucleated Red Blood Cells % (auto) 0.0, Anion Gap 8, Glomerular Filtration Rate > 60.0, Calcium Level 8.4L, Total Bilirubin 0.2, Aspartate Amino Transf (AST/SGOT) 70H, Alanine Aminotransferase (ALT/SGPT) 79H, Alkaline Phosphatase 77, Troponin I < 0.02, Total Protein 6.5, Albumin 3.4, Albumin/Globulin Ratio 1.1, Phosphorus Level 4.0, Magnesium Level 2.0, [id number]-Hcj-D-Type Natriuretic Peptide 29 CBC/BMP Laboratory Tests 07/30/20 02:36 07/30/20 06:47 KYLE JEFFERSON MD Jul 30, 2020 07:59
[2020-07-30] MEDS ORDERED: HYDROMORPHONE HCL 0.5 MG/ 0.5 ML SYRINGE (J1170 PER 1) IV ONE (08:00)
--- NOTE | 2020-07-30 08:55 | REP ---
INDICATION: transaminitis COMPARISON: None. TECHNIQUE: Real time klein scale ultrasound examination using curved array transducer. FINDINGS: Liver is normal in contour, size, and echogenicity without focal hepatic lesions identified. Pancreas is incompletely evaluated due to interposed bowel gas. The gallbladder is normal and without gallstones, wall thickening, or pericholecystic fluid. No biliary ductal dilatation is appreciated and the common bile duct measures 4.3 mm diameter. Right kidney is normal in reniform shape without hydronephrosis and measures 11.4 x 5.4 x 4.4 cm. No ascites in the visualized right upper quadrant. IMPRESSION: Normal liver/right upper quadrant ultrasound <Electronically signed by Frederick Rausch > 07/30/20 [id number]
[2020-07-30] MEDS ORDERED: NS 1,000 ML IV SCH (11:45)
[2020-07-30] MEDS ORDERED: ACETAMINOPHEN 500 MG TAB PO ONE (11:45)
[2020-07-30] MEDS ORDERED: PERCOCET 5MG/325MG TAB PO PRN (11:45)
[2020-07-30] MEDS ORDERED: MORPHINE 4 MG/ML 1ML VIAL/SYRINGE (J2270) IV PRN (11:45)
[2020-07-30 13:42] VITALS: BP 109/68
[2020-07-30] MEDS ORDERED: ATROPINE SULF 1MG/10ML SYRINGE (J0461) IV PRN (15:00)
[2020-07-30 15:13] LABS: HEPATITIS A ANTIBODY IGM NEGATIVE (NEGATIVE); HEPATITIS B CORE ANTIBODY IGM NEGATIVE (NEGATIVE); HEPATITIS B SURFACE ANTIGEN NEGATIVE (NEGATIVE); HEPATITIS C VIRUS ABY INDEX 0.3 INDEX (<0.8)
[2020-07-30] MEDS: ENOXAPARIN 40MG/0.4ML SYRINGE (J1650 PER 10MG) SC SCH (15:15)
[2020-07-30] MEDS ORDERED: ACETAMINOPHEN TAB 650MG DOSE (2X325MG) PO PRN (16:00)
[2020-07-30 17:45] VITALS: BP 105/55
[2020-07-30 20:00] VITALS: BP 106/57
[2020-07-30] MEDS ORDERED: RAMELTEON 8 MG TAB (ROZEREM) PO SCH (21:00)
[2020-07-31] VITALS: BP 102/60
[2020-07-31 04:00] VITALS: BP 96/54
[2020-07-31] MEDS: NS 1,000 ML IV SCH ×2 (04:38→11:11)
--- NOTE | 2020-07-31 07:59 | ECGEPIP ---
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
[2020-07-31 08:00] VITALS: BP 100/55
[2020-07-31] MEDS: ENOXAPARIN 40MG/0.4ML SYRINGE (J1650 PER 10MG) SC SCH (08:09)
[2020-07-31 12:00] VITALS: BP 110/55
--- NOTE | 2020-08-01 13:56 | ECHO ---
DATE OF PROCEDURE: 07/30/2020 Age: 29 Gender: Male Height: 64 inches Weight: 167 pounds Body surface area: 1.82 m2 PATIENT LOCATION: Inpatient [address] [place] [address], Room 4211 REFERRING PHYSICIAN: Benjamin Thompson MD INDICATION: Dyspnea. MEASUREMENTS: 2D Measurements: RV 4.0 cm LV 4.8 cm Septum 1.0 cm Posterior wall 0.9 cm Aortic Root 3.2 cm LA 3.7 cm LVEF 75% Doppler Measurements: AV 1.0 m/s LVOT 0.99 m/s LVOT diameter 2.0 cm MV-E 67, A 47, E/A ratio 1.4 Early mitral deceleration time 220 msec E prime medial 13, A prime medial 10, E prime lateral 18 PV 1.0 m/s Pulmonary artery acceleration time 143 msec RVSP 26 mmHg IVC 1.9 cm COMMENTS: Sinus bradycardia without intraventricular conduction disturbance. M-mode and two-dimensional echocardiography was performed with pulse, continuous wave, color flow, and tissue Doppler studies. Normal left ventricular size, wall thickness, and hyperkinetic wall motion. Normal left atrial size and Doppler assessment of LV diastolic function and estimated mean left atrial pressure. Normal right heart chamber sizes and motion and estimated pulmonary arterial pressure. Normal IVC size and collapse against an elevated central venous pressure. Normal aortic dimensions. Normal appearing and functioning valvular structures with very mild posteriorly directed mitral insufficiency and mild tricuspid insufficiency. No apparent intracardiac mass or pericardial effusion. MTDD
--- NOTE | 2020-08-01 23:47 | DS.PDOC ---
Discharge Summary General Date of Admission Jul 30, 2020 at 02:10 Discharge Summary PROCEDURES PERFORMED DURING STAY: [None]. ADMITTING DIAGNOSES: 1. . DISCHARGE DIAGNOSES: 1. . COMPLICATIONS/CHIEF COMPLAINT: Palpitations, Rhabdomyolysis. HISTORY OF PRESENT ILLNESS: . HOSPITAL COURSE: . DISCHARGE MEDICATIONS: Please see below. ALLERGIES: Please see below. PHYSICAL EXAMINATION ON DISCHARGE: VITAL SIGNS: Please see below. GENERAL: HEENT: NECK: CARDIOVASCULAR EXAMINATION: RESPIRATORY EXAMINATION: ABDOMINAL EXAMINATION: EXTREMITIES: SKIN: NEUROLOGICAL EXAMINATION: PSYCHIATRIC EXAMINATION: LABORATORY DATA: Please see below. IMAGING: PROGNOSIS: ACTIVITY: [As tolerated]. DIET: DISCHARGE PLAN: DISPOSITION: Home, Self-Care. DISCHARGE INSTRUCTIONS: 1. . ITEMS TO FOLLOWUP ON ON OUTPATIENT: 1. . DISCHARGE CONDITION: [Stable]. TIME SPENT ON DISCHARGE: Greater than minutes. Vital Signs/I&Os Vital Signs Date Time Temp Pulse Resp B/P (MAP) Pulse Ox O2 Delivery O2 Flow Rate FiO2 07/31/20 12:00 96.9 48 20 110/55 (73) 97 Room Air I&O- Last 24 Hours up to 6 AM 08/01/20 06:00 Intake Total 1050 ml Output Total 1475 ml Balance -425 ml Discharge Medications Scheduled PRN Docusate Sodium (Dok) 100 Mg Capsule, 100 MG PO BID PRN for CONSTIPATION, (Reported) Allergies Coded Allergies: amoxicillin (Verified Allergy, Unknown, Long time ago, unsure, 01/13/20) alprazolam (Verified Adverse Reaction, Mild, hot flashes, tremors, 01/13/20) JUAN DURAN DO Aug 01, 2020 23:47
== END 2020-07-31 15:28 | disposition home or self-care (01) ==
LOC: M ED 02:09 → M ED INP 02:10 → M MSPAV 13:42 → M PCU 17:38
PROVIDERS: ADMIT Family Medicine; ATTEND Internal Medicine
DX: R00.2 Palpitations (principal); M62.82 Rhabdomyolysis; Z90.81 Acquired absence of spleen; F41.0 Panic disorder [episodic paroxysmal anxiety]; F32.9 Major depressive disorder, single episode, unspecified; F12.10 Cannabis abuse, uncomplicated; Z88.0 Allergy status to penicillin; Z88.8 Allergy status to other drugs, medicaments and biological substances
CPT/HCPCS: 36415; 71046; 76705; 80053; 82550; 82553; 83690; 83735; 83880; 84100; 84439; 84443; 85025; 85379; 86705; 86709; 86803; 87340; 87631; 93005; 93041; 93306; 94760; 96361; 96374; 99285; J1170

== ENCOUNTER → 2020-09-06 | Outpatient (REF) | payer OTHER ==
[2020-09-06 16:35] LABS: BASO # 0.1 10^3/uL (0.0-0.2); BASO % 0.7 % (0.0-1.0); EOS # 0.5 10^3/uL (0.0-0.5); EOS % 4.3 % (0.0-3.0); HEMATOCRIT 45.8 % (42.0-52.0); HEMOGLOBIN 14.7 g/dl (13.5-17.5); LYMPH # 2.7 10^3/uL (1.5-5.0); LYMPH % 21.3 % (24.0-44.0); MEAN CORPUSCULAR HEMOGLOBIN 29.2 pg (27.0-33.0); MEAN CORPUSCULAR HGB CONC 32.1 g/dl (32.0-36.5); MEAN CORPUSCULAR VOLUME 90.9 fl (80.0-96.0); MONO # 1.8 10^3/uL (0.0-0.8); MONO % 14.2 % (2.0-8.0); NEUTROPHILS # 7.5 10^3/uL (1.5-8.5); NEUTROPHILS % 59.1 % (36.0-66.0); PLATELET COUNT, AUTOMATED 242 10^3/uL (150-450); RED BLOOD COUNT 5.04 10^6/uL (4.30-6.10); WHITE BLOOD COUNT 12.7 10^3/uL (4.0-10.0)
[2020-09-06 17:07] LABS: ALBUMIN 3.6 GM/DL (3.2-5.2); ALT/SGPT 63 U/L (12-78); BILIRUBIN,TOTAL 0.3 MG/DL (0.2-1.0); BLOOD UREA NITROGEN 24 MG/DL (7-18); CALCIUM LEVEL 9.3 MG/DL (8.5-10.1); CARBON DIOXIDE LEVEL 31 MEQ/L (21-32); CHLORIDE LEVEL 102 MEQ/L (98-107); CPK CREATINE PHOSPHOKINASE 318 U/L (39-308); CREATININE FOR GFR 0.82 MG/DL (0.70-1.30); GLOMERULAR FILTRATION RATE > 60.0 (>60); GLUCOSE, FASTING 82 MG/DL (70-100); POTASSIUM SERUM 5.1 MEQ/L (3.5-5.1); SODIUM LEVEL 137 MEQ/L (136-145); TOTAL PROTEIN 6.8 GM/DL (6.4-8.2)
== END ==
LOC: M LAB REF 16:01
PROVIDERS: ATTEND Physician Assistant
DX: M62.82 Rhabdomyolysis (principal)

== ENCOUNTER → 2020-09-13 | Outpatient (REF) | payer OTHER ==
[2020-09-13 16:29] LABS: BASO # 0.1 10^3/uL (0.0-0.2); BASO % 0.7 % (0.0-1.0); EOS # 0.5 10^3/uL (0.0-0.5); EOS % 4.4 % (0.0-3.0); HEMATOCRIT 44.6 % (42.0-52.0); HEMOGLOBIN 14.7 g/dl (13.5-17.5); LYMPH # 3.5 10^3/uL (1.5-5.0); LYMPH % 28.7 % (24.0-44.0); MEAN CORPUSCULAR HEMOGLOBIN 28.9 pg (27.0-33.0); MEAN CORPUSCULAR VOLUME 87.8 fl (80.0-96.0); MONO # 1.8 10^3/uL (0.0-0.8); MONO % 15.1 % (2.0-8.0); NEUTROPHILS # 6.1 10^3/uL (1.5-8.5); NEUTROPHILS % 50.4 % (36.0-66.0); PLATELET COUNT, AUTOMATED 257 10^3/uL (150-450); RED BLOOD COUNT 5.08 10^6/uL (4.30-6.10)
[2020-09-13 16:54] LABS: ALBUMIN 3.9 GM/DL (3.2-5.2); ALT/SGPT 80 U/L (12-78); BILIRUBIN,TOTAL 0.3 MG/DL (0.2-1.0); BLOOD UREA NITROGEN 17 MG/DL (7-18); CALCIUM LEVEL 9.6 MG/DL (8.5-10.1); CARBON DIOXIDE LEVEL 30 MEQ/L (21-32); CHLORIDE LEVEL 101 MEQ/L (98-107); CPK CREATINE PHOSPHOKINASE 226 U/L (39-308); GLOMERULAR FILTRATION RATE > 60.0 (>60); GLUCOSE, FASTING 81 MG/DL (70-100); POTASSIUM SERUM 4.5 MEQ/L (3.5-5.1); SODIUM LEVEL 137 MEQ/L (136-145); TOTAL PROTEIN 7.4 GM/DL (6.4-8.2)
== END ==
LOC: M LAB REF 15:41
PROVIDERS: ATTEND Physician Assistant
DX: D72.829 Elevated white blood cell count, unspecified (principal); M62.82 Rhabdomyolysis; R74.8 Abnormal levels of other serum enzymes

== ENCOUNTER → 2020-09-20 | Outpatient (REF) | payer OTHER ==
[2020-09-20 18:19] LABS: HEPATITIS C VIRUS ABY INDEX 0.3 INDEX (<0.8)
== END ==
LOC: M LAB REF 15:54
PROVIDERS: ATTEND Physician Assistant
DX: R74.8 Abnormal levels of other serum enzymes (principal)

== ENCOUNTER → 2020-10-23 | Outpatient (REF) | payer OTHER ==
[2020-10-23 18:46] LABS: ALBUMIN 4.2 GM/DL (3.2-5.2); ALT/SGPT 40 U/L (12-78); BILIRUBIN,TOTAL 0.5 MG/DL (0.2-1.0); BLOOD UREA NITROGEN 20 MG/DL (7-18); CALCIUM LEVEL 9.7 MG/DL (8.5-10.1); CARBON DIOXIDE LEVEL 29 MEQ/L (21-32); CHLORIDE LEVEL 104 MEQ/L (98-107); GLOMERULAR FILTRATION RATE > 60.0 (>60); GLUCOSE, FASTING 82 MG/DL (70-100); POTASSIUM SERUM 4.6 MEQ/L (3.5-5.1); SODIUM LEVEL 137 MEQ/L (136-145); TOTAL PROTEIN 7.2 GM/DL (6.4-8.2)
== END ==
LOC: M LAB REF 16:33
PROVIDERS: ATTEND Physician Assistant
DX: R74.8 Abnormal levels of other serum enzymes (principal)

== ENCOUNTER 2020-12-09 18:31 | Emergency (ER) | payer OTHER ==
[~2020-12-09] VITALS: Ht 162.6 cm; Wt 73.2 kg
[2020-12-09] MEDS ORDERED: diphenhydrAMINE 50MG/ML VIAL (J1200) IM ONE (18:45)
[2020-12-09] MEDS ORDERED: LORazepam 2 MG/ML VIAL IM ONE (18:45)
[2020-12-09] MEDS ORDERED: HALOPERIDOL 5MG/ML VIAL (J1630 PER 1) IM ONE (18:45)
[2020-12-09 20:43] LABS: HEMATOCRIT 40.8 % (42.0-52.0); HEMOGLOBIN 13.4 g/dl (13.5-17.5); MEAN CORPUSCULAR HEMOGLOBIN 29.3 pg (27.0-33.0); MEAN CORPUSCULAR HGB CONC 32.8 g/dl (32.0-36.5); MEAN CORPUSCULAR VOLUME 89.1 fl (80.0-96.0); PLATELET COUNT, AUTOMATED 244 10^3/uL (150-450); RED BLOOD COUNT 4.58 10^6/uL (4.30-6.10); WHITE BLOOD COUNT 21.1 10^3/uL (4.0-10.0)
[2020-12-09 21:27] LABS: ACETAMINOPHEN LEVEL < 2.0 UG/ML (10.0-30.0); ALT/SGPT 48 U/L (12-78); BILIRUBIN,DIRECT 0.2 MG/DL (0.0-0.2); BILIRUBIN,TOTAL 0.8 MG/DL (0.2-1.0); BLOOD UREA NITROGEN 17 MG/DL (7-18); CALCIUM LEVEL 8.8 MG/DL (8.5-10.1); CARBON DIOXIDE LEVEL 27 MEQ/L (21-32); CHLORIDE LEVEL 104 MEQ/L (98-107); CREATININE FOR GFR 0.87 MG/DL (0.70-1.30); ETHYL ALCOHOL (ETHANOL) < 0.003 % (0.000-0.010); GLOMERULAR FILTRATION RATE > 60.0 (>60); GLUCOSE, FASTING 84 MG/DL (70-100); POTASSIUM SERUM 3.8 MEQ/L (3.5-5.1); SALICYLATE LEVEL < 1.7 MG/DL (5.0-30.0); SODIUM LEVEL 138 MEQ/L (136-145); THYROID STIMULATING HORMONE 0.682 uIU/ML (0.358-3.740); TOTAL PROTEIN 6.5 GM/DL (6.4-8.2)
[2020-12-10 00:35] LABS: AMPHETAMINES LEVEL URINE NEGATIVE (NEGATIVE); BARBITURATES URINE NEGATIVE (NEGATIVE); BENZODIAZEPINES URINE NEGATIVE (NEGATIVE); CANNABINOIDS URINE POSITIVE (NEGATIVE); COCAINE METABOLITE URINE NEGATIVE (NEGATIVE); METHADONE URINE NEGATIVE (NEGATIVE); OPIATES URINE NEGATIVE (NEGATIVE); PHENCYCLIDINE URINE NEGATIVE (NEGATIVE)
[2020-12-10 05:19] LABS: BASO % 0.3 % (0.0-1.0); EOS # 0.2 10^3/uL (0.0-0.5); EOS % 1.6 % (0.0-3.0); HEMOGLOBIN 13.8 g/dl (13.5-17.5); LYMPH # 2.5 10^3/uL (1.5-5.0); LYMPH % 19.6 % (24.0-44.0); MEAN CORPUSCULAR HEMOGLOBIN 29.1 pg (27.0-33.0); MEAN CORPUSCULAR HGB CONC 32.9 g/dl (32.0-36.5); MEAN CORPUSCULAR VOLUME 88.4 fl (80.0-96.0); MONO # 1.8 10^3/uL (0.0-0.8); MONO % 13.8 % (2.0-8.0); NEUTROPHILS # 8.3 10^3/uL (1.5-8.5); NEUTROPHILS % 64.5 % (36.0-66.0); PLATELET COUNT, AUTOMATED 239 10^3/uL (150-450); RED BLOOD COUNT 4.75 10^6/uL (4.30-6.10); WHITE BLOOD COUNT 12.9 10^3/uL (4.0-10.0)
[2020-12-10 11:42] VITALS: BP 111/51
== END 2020-12-10 11:46 | disposition home or self-care (01) ==
LOC: M ED 18:31
DX: F19.151 Other psychoactive substance abuse with psychoactive substance-induced psychotic disorder with hallucinations (principal); Z87.820 Personal history of traumatic brain injury; F33.9 Major depressive disorder, recurrent, unspecified; F41.8 Other specified anxiety disorders; Z88.1 Allergy status to other antibiotic agents
CPT/HCPCS: 80048; 80076; 80143; 80307; 82077; 84443; 85025; 85027; 96372; 99285; J1200; J1630; J2060

== ENCOUNTER 2021-01-05 10:41 | Emergency (ER) | payer OTHER ==
[~2021-01-05] VITALS: Ht 167.6 cm; Wt 66.7 kg
[~2021-01-05 10:41] MED LIST changes: -DOXY100C37 PO; +DOXY1CAP62 PO; +OMEP40CA4 PO; -OMEP40CA97 PO
--- NOTE | 2021-01-05 12:43 | REP ---
INDICATION: head injury. COMPARISON: None. TECHNIQUE: 4.5 mm contiguous transaxial sections were obtained from the skull base to the cerebral convexities with thin cuts through the posterior fossa without the administration of intravenous contrast. FINDINGS: The ventricles and sulci are consistent with the patient's age. There are no extra-axial fluid collections. There is no mass effect. The deep cerebral white matter is consistent with the patient's age. The orbital and petrous structures, cerebellopontine angles, and posterior fossa are unremarkable. The sella turcica, cavernous, and paracavernous structures are essentially unremarkable. The visualized portions of the paranasal sinuses and mastoid air cells are clear. Images of the skull base show no gross abnormality. IMPRESSION: Essentially unremarkable CT examination of the brain. <Electronically signed by Roger Georges > 01/05/21 [id number]
[2021-01-05 12:59] LABS: HEMATOCRIT 44.4 % (42.0-52.0); HEMOGLOBIN 14.5 g/dl (13.5-17.5); MEAN CORPUSCULAR HEMOGLOBIN 29.1 pg (27.0-33.0); MEAN CORPUSCULAR HGB CONC 32.7 g/dl (32.0-36.5); MEAN CORPUSCULAR VOLUME 89.2 fl (80.0-96.0); PLATELET COUNT, AUTOMATED 274 10^3/uL (150-450); RED BLOOD COUNT 4.98 10^6/uL (4.30-6.10)
[2021-01-05 13:39] LABS: ACETAMINOPHEN LEVEL < 2.0 UG/ML (10.0-30.0); ALT/SGPT 60 U/L (12-78); BILIRUBIN,DIRECT 0.1 MG/DL (0.0-0.2); BILIRUBIN,TOTAL 0.6 MG/DL (0.2-1.0); BLOOD UREA NITROGEN 13 MG/DL (7-18); CALCIUM LEVEL 9.3 MG/DL (8.5-10.1); CARBON DIOXIDE LEVEL 27 MEQ/L (21-32); CHLORIDE LEVEL 105 MEQ/L (98-107); CREATININE FOR GFR 0.61 MG/DL (0.70-1.30); ETHYL ALCOHOL (ETHANOL) < 0.003 % (0.000-0.010); GLOMERULAR FILTRATION RATE > 60.0 (>60); GLUCOSE, FASTING 100 MG/DL (70-100); POTASSIUM SERUM 4.3 MEQ/L (3.5-5.1); SALICYLATE LEVEL < 1.7 MG/DL (5.0-30.0); SODIUM LEVEL 137 MEQ/L (136-145); THYROID STIMULATING HORMONE 0.547 uIU/ML (0.358-3.740); TOTAL PROTEIN 7.3 GM/DL (6.4-8.2)
[2021-01-05 13:43] LABS: AMPHETAMINES LEVEL URINE NEGATIVE (NEGATIVE); BARBITURATES URINE NEGATIVE (NEGATIVE); BENZODIAZEPINES URINE NEGATIVE (NEGATIVE); CANNABINOIDS URINE POSITIVE (NEGATIVE); COCAINE METABOLITE URINE NEGATIVE (NEGATIVE); METHADONE URINE NEGATIVE (NEGATIVE); OPIATES URINE NEGATIVE (NEGATIVE); PHENCYCLIDINE URINE NEGATIVE (NEGATIVE)
[2021-01-05] MEDS ORDERED: OLANZapine ORAL DISINTEGRATING TAB 5MG PO ONE (14:15)
[2021-01-05] MEDS ORDERED: OLAN10TA12 PO (15:39)
[2021-01-05] MEDS ORDERED: HALO10TA20 PO (15:39)
[2021-01-05 20:50] VITALS: BP 138/91
== END 2021-01-05 21:52 | disposition home or self-care (01) ==
LOC: M ED 10:41
DX: F15.159 Other stimulant abuse with stimulant-induced psychotic disorder, unspecified (principal); F33.9 Major depressive disorder, recurrent, unspecified; F43.10 Post-traumatic stress disorder, unspecified; Z79.899 Other long term (current) drug therapy; Z88.0 Allergy status to penicillin; Z88.8 Allergy status to other drugs, medicaments and biological substances; F17.210 Nicotine dependence, cigarettes, uncomplicated

== ENCOUNTER 2021-06-22 22:22 | Emergency (ER) | payer OTHER ==
[~2021-06-22] VITALS: Ht 162.6 cm; Wt 70.5 kg
[~2021-06-22 22:22] MED LIST changes: +DOK1CAP4 PO; -DOK1CAP7 PO; +DOXY-443 PO; -DOXY1CAP62 PO; +HALO10TA20 PO; +OLAN10TA12 PO
--- OUTSIDE RECORDS SUMMARY | 2021-06-22 22:26 | CCD ---
Author Organization Unknown Address [address] [place] [address] Phone [phone] Care Team Providers Care Whale Trainer Name Role Phone [facility] 113 [phone] [facility] 111 [phone] Allergies Code Code System Name Reaction Severity Status Onset 723 RxNorm Amoxicillin Active 03/24/2020221220 RxNorm Xanax Active 06/26/2017 Medications Name Status Start Date Stop Date acetaminophen 500 mg tablet Completed 05/20 azithromycin 250 mg tablet Completed 05/14 benzonatate 100 mg capsule Completed 05/14 Co Q-10 (with Vit E) 100 mg-5 unit capsu le Take 2 capsules every day by oral route. Completed 06/05/2021 Colace PRN Completed 09/06/2020 docusate sodium 100 mg capsule Active N ot available Fish Oil 1,200 mg (144 mg-216 mg) capsul e Take 2 capsules every day by oral route. Active Not available fluticasone propionate 50 mcg/actuation nasal spray,suspension C ompleted 05/14/2020 ginkgo biloba 120 mg tablet Take by oral route. Completed 06/05/2021 haloperidol 10 mg tablet Completed 021 hydrocodone 5 mg-acetaminophen 325 mg tablet Completed 05/14/2020 ibuprofen 800 mg tablet Completed 05/14/20 L-Arginine 500 mg tablet Take 2 tablets every day by oral route. Completed 06/05/2021 magnesium citrate oral solution Completed 06/06/2020 multivitamin Active Not available olanzapine 10 mg disintegrating tablet Completed 04/26/2021 polyethylene glycol 3350 17 gram/dose oral powder Completed 06/06/2020 sodium chloride 0.9 % irrigation solution Completed 05/14/2020 Notes: Cannabis Gels (150 mg) 1-3 gels e very 3 hrs Ground Flower (THC, 7g 1400 mg) Take 1-4 inhalations every 1-2 hrs. Problems Name Status Onset Date Source Social Phobia Active 09/26/2016 History Sinus Bradycardia Active 09/26/2016 History Injury of Neck Unknown 09/26/2016 History Cardiovascular Measurement - Finding Unknown 09/26/2016 History Generalized Anxiety Disorder Active 10/16/2016 His tory Chest Pain Active 02/18/2017 History Moderate Recurrent Major Depression Active 03/24/2017 History Abnormal Weight Gain Unknown 05/08/2017 History Procedure by Method Unknown 05/08/2017 History Malocclusion of Teeth Unknown 07/30/2017 History Dental Arch 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 Unknown 07/30/2017 History Insomnia Active 08/20/2017 History Headache Active 08/20/2017 History Right Upper Quadrant Pain Unknown 08/20/2017 Histor y Finding Related to Sleep Unknown 08/20/2017 History Visual Field Defect Unknown 09/17/2017 History Asthma Active 01/14/2018 History Hemorrhoids Active 03/10/2018 History Delayed Healing of Skin Donor Site Unknown 03/26/2018 History Level of Anxiety Unknown 02/22/2019 History Pain in Thoracic Spine Active 02/22/2019 History Respiratory Crackles Unknown 02/22/2019 History Emotional State Finding Unknown 02/22/2019 History Dental Caries on Smooth Surface Penetrating into Dentin Unknown 03/08/2019 History Cough Unknown 04/08/2019 History Pharyngeal Finding Unknown 04/08/2019 History Homeless Unknown 04/13/2019 History Nasal Congestion Unknown 04/14/2019 History Disorder of Upper Respiratory System Unknown 04/14/2019 History Abdominal Pain Unknown 03/06/2020 History Finding of Neck Region Unknown 03/06/[address] Concept Unknown 03/06/2020 History Depressive Disorder Unknown 03/19/2020 History Asplenia Following Surgical Procedure Active 03/19/2020 History Overweight Unknown 04/16/2020 History Body Mass Index 25-29 - Overweight Active 04/16/2020 History Generalized Abdominal Pain Unknown 04/16/2020 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 09/06/2020 [place] of Right Cornea Active 09/06/2020 Psychotic Disorder Active 04/24/2021 Polysubstance Abuse Active 04/24/2021 Rhabdomyolysis Unknown 04/24/2021 Rhabdomyolysis Active 04/24/2021 Acute Psychosis Active 04/24/2021 Procedures Date Name Performed by Stabilization of Shoulder Kimberly int Notes: right shoulder / screws Information not available Splenectomy Information not avai lable Tonsillectomy and Adenoidectomy Informat ion not available Results Lab Results Date Name Specimen Result Interpretation Description Value Range Status Address 06/05/2021 Rapid Flu (A+B) Nasopharyngeal Flu negative [facility] Medical: [address] [facility] [address], [place] 06/05/2021 SARS CoV 2 RdRp Gene, QL Probe, Respiratory Spec imen Nasopharyngeal Normal Sars-cov-2 negative negative Final [facility] Medical: [address] [facility] 01/24/2021 SARS CoV 2 RdRp Gene, QL Probe, Respiratory Spec imen Nasopharyngeal Normal Sars-cov-2 negative negative Final [facility] Medical: [address] [facility] 10/23/2020 CMP, Serum or Plasma Blood venous Normal Glu cose, Fasting 82 mg/dL 70-100 mg/dL [facility] nter: [address] [facility] Blood venous High Blood Urea Nitrogen 20 mg/dL 7-18 mg/dL [facility]: [address] [place] [address] Blood venous Normal Creatinine for GFR 0.80 mg/dL 0.70-1.30 mg/dL [facility]: [address] [place] [address] Blood venous Normal Glomerular Filtration Rate > 60.0 >60 [facility]: [address] [place] [address] Blood venous Normal Sodium Level 137 mEq/L 136-14 5 mEq/L [facility]: [address] [place] [address] Blood venous Normal Potassium Serum 4.6 mEq/L 3.5 -5.1 mEq/L [facility]: [address] [place] [address] Blood venous Normal Chloride Level 104 mEq/L 98-1 07 mEq/L [facility]: [address] [place] [address] Blood venous Normal Carbon Dioxide Level 29 mEq/L 21-32 mEq/L [facility]: [address] [place] [address] Blood venous Low Anion Gap 4 mEq/L 8-16 mEq/L [facility]: [address] [place] [address] Blood venous Normal Calcium Level 9.7 mg/dL 8.5-1 0.1 mg/dL [facility]: [address] [place] [address] Blood venous Normal AST/SGOT 22 U/L 7-37 U/L Priya l [facility]: [address] [facility] Blood venous Normal ALT/SGPT 40 U/L 12-78 U/L [facility] andrew [facility]: [address] [facility] Blood venous Normal Alkaline Phosphatase 96 U/L 4 5-117 U/L Final [facility]: [address] [facility] Blood venous Normal Bilirubin,total 0.5 mg/dL 0.2 -1.0 mg/dL Final [facility]: [address] [facility] Blood venous Normal Total Protein 7.2 gm/dL 6.4-8 .2 gm/dL Final [facility]: [address] [facility] Blood venous Normal Albumin 4.2 gm/dL 3.2-5.2 gm/ dL Final [facility]: [address] [facility] Blood venous Normal Albumin/globulin Ratio 1.4 Final [facility]: [address] [facility] 10/23/2020 Urinalysis, Dipstick, Auto Normal Bilirubin ne g Final [facility] Medical: [address] [facility] Normal Blood neg Final [facility] Medical: [address] [facility] Normal Glucose neg Final [facility] Medical: [address] [facility] ABNORMAL Ketone 2+ Final [facility] Medical: [address] [facility] Normal Leukocytes neg Final [facility] Medical: [address] [facility] Normal Nitrite neg Final [facility] Medical: [address] [facility] Normal Ph 6.0 Final [facility] Medical: [address] [facility] Normal Protein neg Final [facility] Medical: [address] [facility] Normal Specific [place] 1.025 Final [facility] Medical: [address] [facility] Normal Urobilinogen 0.2 Final [facility] [place] Medical: [address] [facility] 09/20/2020 Hepatitis C Ab, Serum Blood venous Normal Hepatitis C Virus Zahira Index 0.3 index <0.8 index Final [facility] Center: [address] [facility] 09/20/2020 Gamma Glutamyltranspeptidase Blood venous Normal Gamma Glutamyltranspeptidase 78 U/L 15-85 U/L [facility]: [address] [facility] 09/20/2020 Alkaline Phosphatase High Alkaline Phosph atase 135 U/L 45-117 U/L [facility]: [address] [facility] 09/13/2020 CMP, Serum or Plasma Blood venous Normal Glu cose, Fasting 81 mg/dL 70-100 mg/dL [facility] nter: [address] [facility] Blood venous Normal Blood Urea Nitrogen 17 mg/dL 7-18 mg/dL [facility]: [address] [facility] Blood venous Normal Creatinine for GFR 0.90 mg/dL 0.70-1.30 mg/dL [facility]: [address] [facility] Blood venous Normal Glomerular Filtration Rate > 60.0 >60 [facility]: [address] [facility] Blood venous Normal Sodium Level 137 mEq/L 136-14 5 mEq/L [facility]: [address] [facility] Blood venous Normal Potassium Serum 4.5 mEq/L 3.5 -5.1 mEq/L [facility]: [address] [facility] Blood venous Normal Chloride Level 101 mEq/L 98-1 07 mEq/L [facility]: [address] [facility] Blood venous Normal Carbon Dioxide Level 30 mEq/L 21-32 mEq/L [facility]: [address] [facility] Blood venous Low Anion Gap 6 mEq/L 8-16 mEq/L [facility]: [address] [facility] Blood venous Normal Calcium Level 9.6 mg/dL 8.5-1 0.1 mg/dL [facility]: [address] [facility] Blood venous Normal AST/SGOT 25 U/L 7-37 U/L Priya juan manuel [facility]: [address] [facility] Blood venous High ALT/SGPT 80 U/L 12-78 U/L [facility]: [address] [facility] Blood venous High Alkaline Phosphatase 149 U/L 45-117 U/L [facility]: [address] [place] [address] Blood venous Normal Bilirubin,total 0.3 mg/dL 0.2 -1.0 mg/dL [facility]: [address] [place] [address] Blood venous Normal Total Protein 7.4 gm/dL 6.4-8 .2 gm/dL [facility]: [address] [place] [address] Blood venous Normal Albumin 3.9 gm/dL 3.2-5.2 gm/ dL [facility]: [address] [place] [address] Blood venous Normal Albumin/globulin Ratio 1.1 [facility]: [address] [place] [address] 09/13/2020 CK (Creatine Kinase) Mb, Quantitative, Blood Blood venous Normal CPK Creatine Phosphokinase 226 U/L 39-308 U/L [facility]: [address] [place] [address] 09/13/2020 CBC W/ Auto Diff High White Blood Count 12.0 10 4.0-10.0 10 [facility]: [address] [place] [address] Normal Red Blood Count 5.08 10 4.30-6.10 10 [facility]: [address] [place] [address] Normal Hemoglobin 14.7 g/dL 13.5-17.5 g/dL [facility]: [address] [place] [address] Normal Hematocrit 44.6 % 42.0-52.0 % [facility]: [address] [place] [address] Normal Mean Corpuscular Volume 87.8 fL 80.0 -96.0 fL [facility]: [address] [place] [address] Normal Mean Corpuscular Hemoglobin 28.9 pg 27.0-33.0 pg [facility]: [address] [place] [address] Normal Mean Corpuscular HGB Conc 33.0 g/dL 32.0-36.5 g/dL [facility]: [address] [place] [address] High Red Cell Distribution Width 15.4 % 1 1.5-14.5 % [facility]: [address] [place] [address] Normal Platelet Count, Automated 257 10 150 -450 10 [facility]: [address] [facility] Normal Neutrophils % 50.4 % 36.0-66.0 % [facility]: [address] [facility] Normal Lymph % 28.7 % 24.0-44.0 % [facility]: [address] [facility] [place] % 15.1 % 2.0-8.0 % Final [facility]: [address] [facility] High Eos % 4.4 % 0.0-3.0 % [facility]: [address] [facility] Normal Baso % 0.7 % 0.0-1.0 % [facility]: [address] [facility] Normal Immature Granulocyte % 0.7 % 0-3.0 % [facility]: [address] [facility] Normal Nucleated Red Blood Cell % 0.0 % 0- 0 % [facility]: [address] [facility] Normal Neutrophils # 6.1 10 1.5-8.5 10 [facility]: [address] [facility] Normal Lymph # 3.5 10 1.5-5.0 10 [facility]: [address] [facility] [place] # 1.8 10 0.0-0.8 10 [facility]: [address] [facility] Normal Eos # 0.5 10 0.0-0.5 10 [facility]: [address] [facility] Normal Baso # 0.1 10 0.0-0.2 10 [facility]: [address] [facility] 09/06/2020 CBC W/ Auto Diff Blood venous High White Blood C ount 12.7 10 4.0-10.0 10 [facility]: [address] [facility] Blood venous Normal Red Blood Count 5.04 10 4.30- 6.10 10 [facility]: [address] [facility] Blood venous Normal Hemoglobin 14.7 g/dL 13.5-17. 5 g/dL [facility]: [address] [place] [address] Blood venous Normal Hematocrit 45.8 % 42.0-52.0 % [facility]: [address] [place] [address] Blood venous Normal Mean Corpuscular Volume 90.9 fL 80.0-96.0 fL [facility]: [address] [place] [address] Blood venous Normal Mean Corpuscular Hemoglob in 29.2 pg 27.0-33.0 pg [facility]: [address] [place] [address] Blood venous Normal Mean Corpuscular HGB Conc 32.1 g/dL 32.0-36.5 g/dL [facility]: [address] [place] [address] Blood venous High Red Cell Distribution Width 1 6.7 % 11.5-14.5 % [facility]: [address] [place] [address] Blood venous Normal Platelet Count, Automated 242 10 150-450 10 [facility]: [address] [place] [address] Blood venous Normal Neutrophils % 59.1 % 36.0-66. 0 % [facility]: [address] [place] [address] Blood venous Low Lymph % 21.3 % 24.0-44.0 % [facility]: [address] [place] [address] Blood venous High [place] % 14.2 % 2.0-8.0 % [facility]: [address] [place] [address] Blood venous High Eos % 4.3 % 0.0-3.0 % [facility]: [address] [place] [address] Blood venous Normal Baso % 0.7 % 0.0-1.0 % [facility]: [address] [place] [address] Blood venous Normal Immature Granulocyte % 0.4 % 0-3.0 % [facility]: [address] [place] [address] Blood venous Normal Nucleated Red Blood Cell % 0. 0 % 0-0 % [facility]: [address] [place] [address] Blood venous Normal Neutrophils # 7.5 10 1.5-8.5 10 [facility]: [address] [place] [address] Blood venous Normal Lymph # 2.7 10 1.5-5.0 10 [facility]: [address] [place] [address] Blood venous High [place] # 1.8 10 0.0-0.8 10 [facility]: [address] [place] [address] Blood venous Normal Eos # 0.5 10 0.0-0.5 10 [facility]: [address] [place] [address] Blood venous Normal Baso # 0.1 10 0.0-0.2 10 [facility]: [address] [place] [address] 09/06/2020 CMP, Serum or Plasma Blood venous Normal Glu cose, Fasting 82 mg/dL 70-100 mg/dL [facility]: [address] [place] [address] Blood venous High Blood Urea Nitrogen 24 mg/dL 7-18 mg/dL [facility]: [address] [place] [address] Blood venous Normal Creatinine for GFR 0.82 mg/dL 0.70-1.30 mg/dL [facility]: [address] [place] [address] Blood venous Normal Glomerular Filtration Rate > 60.0 >60 [facility]: [address] [place] [address] Blood venous Normal Sodium Level 137 mEq/L 136-14 5 mEq/L [facility]: [address] [place] [address] Blood venous Normal Potassium Serum 5.1 mEq/L 3.5 -5.1 mEq/L [facility]: [address] [place] [address] Blood venous Normal Chloride Level 102 mEq/L 98-1 07 mEq/L [facility]: [address] [place] [address] Blood venous Normal Carbon Dioxide Level 31 mEq/L 21-32 mEq/L [facility]: [address] [place] [address] Blood venous Low Anion Gap 4 mEq/L 8-16 mEq/L [facility]: [address] [place] [address] Blood venous Normal Calcium Level 9.3 mg/dL 8.5-1 0.1 mg/dL [facility]: [address] [place] [address] Blood venous Normal AST/SGOT 29 U/L 7-37 U/L [facility]: [address] [place] [address] Blood venous Normal ALT/SGPT 63 U/L 12-78 U/L Fin al [facility]: [address] [place] [address] Blood venous High Alkaline Phosphatase 121 U/L 45-117 U/L [facility]: [address] [place] [address] Blood venous Normal Bilirubin,total 0.3 mg/dL 0.2 -1.0 mg/dL [facility]: [address] [place] [address] Blood venous Normal Total Protein 6.8 gm/dL 6.4-8 .2 gm/dL [facility]: [address] [place] [address] Blood venous Normal Albumin 3.6 gm/dL 3.2-5.2 gm/ dL [facility]: [address] [place] [address] Blood venous Normal Albumin/globulin Ratio 1.1 [facility]: [address] [place] [address] 09/06/2020 CK (Creatine Kinase) Mb, Quantitative, Blood Hi gh CPK Creatine Phosphokinase 318 U/L 39-308 U/L [facility]: [address] [place] [address] 09/06/2020 TSH, Serum or Plasma Blood venous Normal Thyroid Stimulating Hormone 1.710 uIU/mL 0.358-3.740 uIU/mL [facility] ical Center: [address] [place] [address] Past Encounters 06/05/2021 Acute Upper Respiratory Infection; Vomiting Daniel Blue, HEATHER-C: [address] [facility] [address], Ph. 06/05/2021 Exposure to SARS-CoV-2 Jr Pritchett MD: [address] [place] [address], Ph. 04/26/2021 Psychotic Disorder Jr Pritchett MD: [address] [place] [address], Ph. 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 01/24/2021 Exposure to SARS-CoV-2 Jr Pritchett MD: [address] [place] [address], Ph. 11/20/2020 Vomiting; Patient Asked to Attend Radha TRINH Coello: [address] [place] [address], Ph. 10/23/2020 Alkaline Phosphatase Raised; Vomiting; Simple Obesity RadhaTRINH Sanchez: [address] [place] [address], Ph. 09/20/2020 Rhabdomyolysis; Alkaline Phosphatase Raised; Leukocytosis; Posttraumatic Stress Disorder; Administration of Influenza Vaccine; Headache; Sinus Bradycardia Radha SHAVONNE Coello: [address] [facility] [address], [place] [address], Ph. 09/13/2020 Leukocytosis; Rhabdomyolysis; Alkaline Phosphatase Raised RadhaTRINH Sanchez: [address] [facility] [address], [place] [address], Ph. 09/06/2020 Non-traumatic Rhabdomyolysis; Sinus Bradycardia; Palpitations; Tremor; History of Traumatic Brain Injury; [place] of Right Cornea; Administration of Pneumococcal Vaccine; Moderate Recurrent Major Depression Radha SHAVONNE Coello: [address] [facility] [address], [place] [address], Ph. 06/06/2020 Tremor; Neck Pain; Headache; Anxiety Radha TRINH Coello: [address] [place] [address], Ph. 05/14/2020 Abdominal Pain; Constipation; Generalized Anxiety Disorder WALLACE De Souza: [address] [place] [phone], Ph. Social History Tobacco Smoking Status Never Smoker Vaccine List Vaccine Type influenza, injectable, quadrivalent, pre servative free .5 mL pneumococcal polysaccharide PPV23 .5 mL Plan of Care Reminders Provider Appointments None recorded. Lab None recorded. Referral None recorded. Procedures None recorded. Surgeries None recorded. Imaging None recorded. Vitals 06/05/2021 03:10PM ESTABLISHED [id number] Height Weight BMI Blood Pressure 64 in 164 lbs 8 oz 28.2 kg/m2 107/70 mm[Hg] 04/26/2021 02:00PM ESTABLISHED [id number] Height Weight BMI Blood Pressure 64 in 164 lbs 4 oz 28.2 kg/m2 105/61 mm[Hg] 02/19/2021 09:40AM ESTABLISHED [id number] Height Weight BMI Blood Pressure 64 in 177 lbs 16 oz 30.6 kg/m2 108/68 mm[Hg] 11/20/2020 02:20PM ESTABLISHED [id number] Height Weight BMI Blood Pressure 64 in 177 lbs 16 oz 30.6 kg/m2 126/74 mm[Hg] 10/23/2020 09:40AM ESTABLISHED [id number] Height Weight BMI Blood Pressure 64 in 184 lbs 31.6 kg/m2 118/73 mm[Hg] 09/20/2020 02:10PM ESTABLISHED [id number] Height Weight BMI Blood Pressure 64 in 170 lbs 9.6 oz 29.3 kg/m2 114/63 mm[Hg ] 09/06/2020 09:10AM ESTABLISHED [id number] Height Weight BMI Blood Pressure 64 in 181 lbs 16 oz 31.2 kg/m2 123/70 mm[Hg] 06/06/2020 02:20PM ESTABLISHED [id number] Height Weight BMI Blood Pressure 64 in 150 lbs 6 oz 25.8 kg/m2 127/76 mm[Hg] 05/14/2020 02:00PM ESTABLISHED [id number] Height Weight BMI Blood Pressure 64 in 158 lbs 6.4 oz 27.2 kg/m2 102/62 mm[Hg ] 04/16/2020 Height Weight BMI Blood Pressure 64 in 152 lbs 2.08 oz 26.21 kg/m2 107/63 mm[H g] 04/05/2020 Height Weight BMI Blood Pressure 64 in 148 lbs 6.08 oz 25.56 kg/m2 101/60 mm[H g] 03/19/2020 Height Weight BMI 64 in 139 lbs 23.95 kg/m2 03/06/2020 Height Weight BMI Blood Pressure 64 in 139 lbs 2.08 oz 23.97 kg/m2 112/74 mm[H g] 04/14/2019 Height Weight BMI Blood Pressure 64 in 148 lbs 2.08 oz 25.52 kg/m2 116/73 mm[H g] 04/08/2019 Height Weight BMI Blood Pressure 64 in 149 lbs 25.67 kg/m2 112/69 mm[Hg] 03/16/2019 Height Weight BMI Blood Pressure 64 in 157 lbs 27.05 kg/m2 129/77 mm[Hg] 03/11/2019 Height Weight BMI Blood Pressure 64 in 157 lbs 8 oz 27.13 kg/m2 120/76 mm[Hg] 02/22/2019 Height Weight BMI Blood Pressure 64 in 160 lbs 27.56 kg/m2 107/61 mm[Hg]
--- OUTSIDE RECORDS SUMMARY | 2021-06-22 22:26 | CCD ---
Author Organization Unknown Address [address] [place] [address] Phone [phone] Care Team Providers Care Facilities Painter Name Role Phone [facility] 113 [phone] [facility] 111 [phone] Allergies Code Code System Name Reaction Severity Status Onset 723 RxNorm Amoxicillin Active 03/24/2020221220 RxNorm Xanax Active 06/26/2017 Medications Name Status Start Date Stop Date acetaminophen 500 mg tablet Completed 05/20 azithromycin 250 mg tablet Completed 05/14 benzonatate 100 mg capsule Completed 05/14 cetirizine 10 mg tablet Completed 06/20/20 21 Co Q-10 (with Vit E) 100 mg-5 unit capsu le Take 2 capsules every day by oral route. Completed 06/05/2021 Colace PRN Completed 09/06/2020 docusate sodium 100 mg capsule Completed 1 08/21/2020 Fish Oil 1,200 mg (144 mg-216 mg) capsul e Take 2 capsules every day by oral route. Active Not available fluticasone propionate 50 mcg/actuation nasal spray,suspension C ompleted 06/20/2021 ginkgo biloba 120 mg tablet Take by oral route. Completed 06/05/2021 haloperidol 10 mg tablet Completed 021 hydrocodone 5 mg-acetaminophen 325 mg tablet Completed 05/14/2020 ibuprofen 800 mg tablet Completed 05/14/20 20 L-Arginine 500 mg tablet Take 2 tablets [...] Rhabdomyolysis Active 04/24/2021 Acute Psychosis Active 04/24/2021 Poor Long-term Memory Active 06/20/2021 Procedures Date Name Performed by Stabilization of Shoulder Kimberly int Notes: right shoulder / screws Information not available Splenectomy Information not avai lable Tonsillectomy and Adenoidectomy Informat ion not available Results Lab Results Date Name Specimen Result Interpretation Description Value Range Status Address 06/05/2021 Rapid Flu (A+B) Nasopharyngeal Flu negative [facility] Medical: [address] [facility] [address], [place] 06/05/2021 SARS CoV 2 RdRp Gene, QL Probe, Respiratory Spec imen Nasopharyngeal Normal Sars-cov-2 negative negative Final [facility] Medical: [address] [facility] 01/24/2021 SARS CoV 2 RdRp Gene, QL Probe, Respiratory Spec imen Nasopharyngeal Normal Sars-cov-2 negative negative Final [facility] Medical: [address] [place] [address] 10/23/2020 CMP, Serum or Plasma Blood venous Normal Glu cose, Fasting 82 mg/dL 70-100 mg/dL [facility] nter: [address] [place] [address] Blood venous High Blood Urea Nitrogen 20 mg/dL 7-18 mg/dL [facility]: [address] [place] [address] Blood venous Normal Creatinine for GFR 0.80 mg/dL 0.70-1.30 mg/dL [facility]: [address] [place] [address] Blood venous Normal Glomerular Filtration Rate > 60.0 >60 [facility]: [address] [place] [address] Blood venous Normal Sodium Level 137 mEq/L 136-14 5 mEq/L [facility]: [address] [place] [address] Blood venous Normal Potassium Serum 4.6 mEq/L 3.5 -5.1 mEq/L [facility]: [address] [place] [address] Blood venous Normal Chloride Level 104 mEq/L 98-1 07 mEq/L [facility]: [address] [place] [address] Blood venous Normal Carbon Dioxide Level 29 mEq/L 21-32 mEq/L [facility]: [address] [place] [address] Blood venous Low Anion Gap 4 mEq/L 8-16 mEq/L [facility]: [address] [place] [address] Blood venous Normal Calcium Level 9.7 mg/dL 8.5-1 0.1 mg/dL [facility]: [address] [facility] Blood venous Normal AST/SGOT 22 U/L 7-37 U/L [facility]: [address] [facility] Blood venous Normal ALT/SGPT 40 U/L 12-78 U/L [facility]: [address] [facility] Blood venous Normal Alkaline Phosphatase 96 U/L 4 5-117 U/L [facility]: [address] [facility] Blood venous Normal Bilirubin,total 0.5 mg/dL 0.2 -1.0 mg/dL [facility]: [address] [facility] Blood venous Normal Total Protein 7.2 gm/dL 6.4-8 .2 gm/dL [facility]: [address] [place] [address] Blood venous Normal Albumin 4.2 gm/dL 3.2-5.2 gm/ dL [facility]: [address] [place] [address] Blood venous Normal Albumin/globulin Ratio 1.4 [facility]: [address] [facility] 10/23/2020 Urinalysis, Dipstick, Auto Normal Bilirubin ne g Final [facility] Medical: [address] [facility] Normal Blood neg Final [facility] Medical: [address] [facility] Normal Glucose neg Final [facility] Medical: [address] [facility] ABNORMAL Ketone 2+ Final [facility] Medical: [address] [facility] Normal Leukocytes neg Final [facility] Medical: [address] [facility] Normal Nitrite neg Final [facility] Medical: [address] [facility] Normal Ph 6.0 Final [facility] Medical: [address] [facility] Normal Protein neg Final [facility] Medical: [address] [facility] Normal Specific [place] 1.025 Final [facility] Medical: [address] [facility] Normal Urobilinogen 0.2 Final [facility] [place] [facility]: [address] [facility] 09/20/2020 Hepatitis C Ab, Serum Blood venous Normal Hepatitis C Virus Zahira Index 0.3 index <0.8 index Final [facility]: [address] [facility] 09/20/2020 Gamma Glutamyltranspeptidase Blood venous Normal Gamma Glutamyltranspeptidase 78 U/L 15-85 U/L [facility]: [address] [facility] 09/20/2020 Alkaline Phosphatase High Alkaline Phosph atase 135 U/L 45-117 U/L [facility]: [address] [facility] 09/13/2020 CMP, Serum or Plasma Blood venous Normal Glu cose, Fasting 81 mg/dL 70-100 mg/dL [facility] nter: [address] [facility] Blood venous Normal Blood Urea Nitrogen 17 mg/dL 7-18 mg/dL [facility]: [address] [facility] Blood venous Normal Creatinine for GFR 0.90 mg/dL 0.70-1.30 mg/dL [facility]: [address] [facility] Blood venous Normal Glomerular Filtration Rate > 60.0 >60 [facility]: [address] [facility] Blood venous Normal Sodium Level 137 mEq/L 136-14 5 mEq/L [facility]: [address] [facility] Blood venous Normal Potassium Serum 4.5 mEq/L 3.5 -5.1 mEq/L [facility]: [address] [facility] Blood venous Normal Chloride Level 101 mEq/L 98-1 07 mEq/L [facility]: [address] [facility] Blood venous Normal Carbon Dioxide Level 30 mEq/L 21-32 mEq/L [facility]: [address] [facility] Blood venous Low Anion Gap 6 mEq/L 8-16 mEq/L [facility]: [address] [facility] Blood venous Normal Calcium Level 9.6 mg/dL 8.5-1 0.1 mg/dL [facility]: [address] [facility] Blood venous Normal AST/SGOT 25 U/L 7-37 U/L [facility]: [address] [facility] Blood venous High ALT/SGPT 80 U/L 12-78 U/L [facility]: [address] [facility] Blood venous High Alkaline Phosphatase 149 U/L 45-117 U/L [facility]: [address] [place] [address] Blood venous Normal Bilirubin,total 0.3 mg/dL 0.2 -1.0 mg/dL [facility]: [address] [place] [address] Blood venous Normal Total Protein 7.4 gm/dL 6.4-8 .2 gm/dL [facility]: [address] [place] [address] Blood venous Normal Albumin 3.9 gm/dL 3.2-5.2 gm/ dL [facility]: [address] [place] [address] Blood venous Normal Albumin/globulin Ratio 1.1 [facility]: [address] [place] [address] 09/13/2020 CK (Creatine Kinase) Mb, Quantitative, Blood Blood venous Normal CPK Creatine Phosphokinase 226 U/L 39-308 U/L [facility]: [address] [place] [address] 09/13/2020 CBC W/ Auto Diff High White Blood Count 12.0 10 4.0-10.0 10 [facility]: [address] [place] [address] Normal Red Blood Count 5.08 10 4.30-6.10 10 [facility]: [address] [place] [address] Normal Hemoglobin 14.7 g/dL 13.5-17.5 g/dL [facility]: [address] [place] [address] Normal Hematocrit 44.6 % 42.0-52.0 % [facility]: [address] [place] [address] Normal Mean Corpuscular Volume 87.8 fL 80.0 -96.0 fL [facility]: [address] [place] [address] Normal Mean Corpuscular Hemoglobin 28.9 pg 27.0-33.0 pg [facility]: [address] [place] [address] Normal Mean Corpuscular HGB Conc 33.0 g/dL 32.0-36.5 g/dL [facility]: [address] [place] [address] High Red Cell Distribution Width 15.4 % 1 1.5-14.5 % [facility]: [address] [facility] Normal Platelet Count, Automated 257 10 150 -450 10 [facility]: [address] [facility] Normal Neutrophils % 50.4 % 36.0-66.0 % [facility]: [address] [facility] Normal Lymph % 28.7 % 24.0-44.0 % [facility]: [address] [facility] High [place] % 15.1 % 2.0-8.0 % [facility]: [address] [facility] High Eos % 4.4 % 0.0-3.0 % [facility]: [address] [facility] Normal Baso % 0.7 % 0.0-1.0 % [facility]: [address] [facility] Normal Immature Granulocyte % 0.7 % 0-3.0 % [facility]: [address] [facility] Normal Nucleated Red Blood Cell % 0.0 % 0- 0 % [facility]: [address] [facility] Normal Neutrophils # 6.1 10 1.5-8.5 10 [facility]: [address] [facility] Normal Lymph # 3.5 10 1.5-5.0 10 [facility]: [address] [facility] High [place] # 1.8 10 0.0-0.8 10 [facility]: [address] [facility] Normal Eos # 0.5 10 0.0-0.5 10 [facility]: [address] [facility] Normal Baso # 0.1 10 0.0-0.2 10 [facility]: [address] [facility] 09/06/2020 CBC W/ Auto Diff Blood venous High White Blood C ount 12.7 10 4.0-10.0 10 [facility]: [address] [facility] Blood venous Normal Red Blood Count 5.04 10 4.30- 6.10 10 [facility]: [address] [place] [address] Blood venous Normal Hemoglobin 14.7 g/dL 13.5-17. 5 g/dL [facility]: [address] [place] [address] Blood venous Normal Hematocrit 45.8 % 42.0-52.0 % [facility]: [address] [place] [address] Blood venous Normal Mean Corpuscular Volume 90.9 fL 80.0-96.0 fL [facility]: [address] [place] [address] Blood venous Normal Mean Corpuscular Hemoglob in 29.2 pg 27.0-33.0 pg [facility]: [address] [place] [address] Blood venous Normal Mean Corpuscular HGB Conc 32.1 g/dL 32.0-36.5 g/dL [facility]: [address] [place] [address] Blood venous High Red Cell Distribution Width 1 6.7 % 11.5-14.5 % [facility]: [address] [place] [address] Blood venous Normal Platelet Count, Automated 242 10 150-450 10 [facility]: [address] [place] [address] Blood venous Normal Neutrophils % 59.1 % 36.0-66. 0 % [facility]: [address] [place] [address] Blood venous Low Lymph % 21.3 % 24.0-44.0 % Fi [facility]: [address] [place] [address] Blood venous High [place] % 14.2 % 2.0-8.0 % [facility]: [address] [place] [address] Blood venous High Eos % 4.3 % 0.0-3.0 % [facility]: [address] [place] [address] Blood venous Normal Baso % 0.7 % 0.0-1.0 % [facility]: [address] [place] [address] Blood venous Normal Immature Granulocyte % 0.4 % 0-3.0 % [facility]: [address] [place] [address] Blood venous Normal Nucleated Red Blood Cell % 0. 0 % 0-0 % [facility]: [address] [place] [address] Blood venous Normal Neutrophils # 7.5 10 1.5-8.5 10 [facility]: [address] [place] [address] Blood venous Normal Lymph # 2.7 10 1.5-5.0 10 [facility]: [address] [facility] Blood venous High [place] # 1.8 10 0.0-0.8 10 [facility]: [address] [place] [address] Blood venous Normal Eos # 0.5 10 0.0-0.5 10 [facility]: [address] [place] [address] Blood venous Normal Baso # 0.1 10 0.0-0.2 10 [facility]: [address] [place] [address] 09/06/2020 CMP, Serum or Plasma Blood venous Normal Glu cose, Fasting 82 mg/dL 70-100 mg/dL [facility] nter: [address] [place] [address] Blood venous High Blood Urea Nitrogen 24 mg/dL 7-18 mg/dL [facility]: [address] [place] [address] Blood venous Normal Creatinine for GFR 0.82 mg/dL 0.70-1.30 mg/dL [facility]: [address] [place] [address] Blood venous Normal Glomerular Filtration Rate > 60.0 >60 [facility]: [address] [place] [address] Blood venous Normal Sodium Level 137 mEq/L 136-14 5 mEq/L [facility]: [address] [place] [address] Blood venous Normal Potassium Serum 5.1 mEq/L 3.5 -5.1 mEq/L [facility]: [address] [place] [address] Blood venous Normal Chloride Level 102 mEq/L 98-1 07 mEq/L [facility]: [address] [place] [address] Blood venous Normal Carbon Dioxide Level 31 mEq/L 21-32 mEq/L [facility]: [address] [place] [address] Blood venous Low Anion Gap 4 mEq/L 8-16 mEq/L [facility]: [address] [place] [address] Blood venous Normal Calcium Level 9.3 mg/dL 8.5-1 0.1 mg/dL [facility]: [address] [place] [address] Blood venous Normal AST/SGOT 29 U/L 7-37 U/L [facility]: [address] [place] [address] Blood venous Normal ALT/SGPT 63 U/L 12-78 U/L [facility]: [address] [place] [address] Blood venous High Alkaline Phosphatase 121 U/L 45-117 U/L [facility]: [address] [place] [address] Blood venous Normal Bilirubin,total 0.3 mg/dL 0.2 -1.0 mg/dL [facility]: [address] [place] [address] Blood venous Normal Total Protein 6.8 gm/dL 6.4-8 .2 gm/dL [facility]: [address] [place] [address] Blood venous Normal Albumin 3.6 gm/dL 3.2-5.2 gm/ dL [facility]: [address] [place] [address] Blood venous Normal Albumin/globulin Ratio 1.1 [facility]: [address] [place] [address] 09/06/2020 CK (Creatine Kinase) Mb, Quantitative, Blood Hi gh CPK Creatine Phosphokinase 318 U/L 39-308 U/L [facility] Center: [address] [place] [address] 09/06/2020 TSH, Serum or Plasma Blood venous Normal Thyroid Stimulating Hormone 1.710 uIU/mL 0.358-3.740 uIU/mL [facility] ical Center: [address] [place] [address] Past Encounters 06/20/2021 Moderate Recurrent Major Depression; Poor Long-term Memory Jr Pritchett MD: [address] [place] [address], Ph. 06/05/2021 Acute Upper Respiratory Infection; Vomiting Daniel Blue, [facility]: [address] [facility], [facility] [address] [address], Ph. 06/05/2021 Exposure to SARS-CoV-2 Jr Pritchett MD: [address] [place] [address], Ph. 04/26/2021 Psychotic Disorder rJ Pritchett MD: [address] [place] [address], Ph. 02/19/2021 Psychotic Disorder; Discussed with Filling Carrier Radha Coello PA-C: [address] [place] [address], Ph. 01/24/2021 Exposure to SARS-CoV-2 Jr Pritchett MD: [address] [place] [address], Ph. 11/20/2020 Vomiting; Patient Asked to Attend Radha Coello PA-C: [address] [place] [phone], Ph. 10/23/2020 Alkaline Phosphatase Raised; Vomiting; Simple Obesity Radha Coello PA-C: [address] [place] [phone], Ph. 09/20/2020 Rhabdomyolysis; Alkaline Phosphatase Raised; Leukocytosis; Posttraumatic Stress Disorder; Administration of Influenza Vaccine; Headache; Sinus Bradycardia Radha Coello PA-C: [address], [facility] [address], [place] [address], Ph. 09/13/2020 Leukocytosis; Rhabdomyolysis; Alkaline Phosphatase Raised aRdha Coello PA-C: [address], [facility] [address], [place] [address], Ph. 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 06/06/2020 Tremor; Neck Pain; Headache; Anxiety Radha Coello PA-C: [address] [place] [address], Ph. 05/14/2020 Abdominal Pain; Constipation; Generalized Anxiety Disorder Adenike Aguilera, [facility]-BC: [address] [place] [address], Ph. Social History Tobacco Smoking Status Never Smoker Vaccine List Vaccine Type influenza, injectable, quadrivalent, pre servative free .5 mL pneumococcal polysaccharide PPV23 10.5 mL Plan of Care Reminders Provider Appointments None recorded. Lab None recorded. Referral None recorded. Procedures None recorded. Surgeries None recorded. Imaging None recorded. Vitals 06/20/2021 03:00PM ESTABLISHED [id number] Height Weight BMI Blood Pressure 64 in 165 lbs 16 oz 28.5 kg/m2 112/55 mm[Hg] 06/05/2021 03:10PM ESTABLISHED [id number] Height Weight BMI Blood Pressure 64 in 164 lbs 8 oz 28.2 kg/m2 107/70 mm[Hg] 04/26/2021 02:00PM ESTABLISHED [id number] Height Weight BMI Blood Pressure 64 in 164 lbs 4 oz 28.2 kg/m2 105/61 mm[Hg] 02/19/2021 09:40AM ESTABLISHED [id number] Height Weight BMI Blood Pressure 64 in 177 lbs 16 oz 30.6 kg/m2 108/68 mm[Hg] 11/20/2020 02:20PM ESTABLISHED [id number] Height Weight BMI Blood Pressure 64 in 177 lbs 16 oz 30.6 kg/m2 126/74 mm[Hg] 10/23/2020 09:40AM ESTABLISHED [id number] Height Weight BMI Blood Pressure 64 in 184 lbs 31.6 kg/m2 118/73 mm[Hg] 09/20/2020 02:10PM ESTABLISHED [id number] Height Weight BMI Blood Pressure 64 in 170 lbs 9.6 oz 29.3 kg/m2 114/63 mm[Hg ] 09/06/2020 09:10AM ESTABLISHED [id number] Height Weight BMI Blood Pressure 64 in 181 lbs 16 oz 31.2 kg/m2 123/70 mm[Hg] 06/06/2020 02:20PM ESTABLISHED [id number] Height Weight BMI Blood Pressure 64 in 150 lbs 6 oz 25.8 kg/m2 127/76 mm[Hg] 05/14/2020 02:00PM ESTABLISHED [id number] Height Weight BMI Blood Pressure 64 in [...]
--- OUTSIDE RECORDS SUMMARY | 2021-06-22 22:26 | CCD ---
Author Author Kalpesh Lynn Organization Unknown Address [address] [address] Phone Care Team Providers Care Second Worker Name Role Phone Shane Nupur PCP Allergies, Adverse Reactions, Alerts No Data in Section Problem List Concept Problem Description Status Start Date Created Date Resolv ed Date Snomed Code F25.9 Schizoaffective disorder, unspecified Active Medications No Data in Section Social History Social History Element Description Concept Effective Date Smoking Status Unknown if ever smoked [id number] Immunizations No Data in Section Vital Signs No Data in Section Procedures Date Concept Id Description Targeted Site Concept Targeted Site Concept Type 06/20/2021 97661 Brief Individual Psychotherapy - 30 min CPT Patient has no history of implantable de vices Encounters Encounter Start Date End Date Encounter Type Description Diagnosis Di agnosis Desc Location Author First Name Author Last Name Npid Taxonomy Cod e Taxonomy Desc Phone Number Location Addr1 Location Addr2 Location [facility] Location [facility] Location [facility] [place] [id number] 06/20/2021 06/20/2021 97287 Brief Individual Psychoth erapy - 30 min F25.9 Schizoaffective disorder, unspecified [facility] Shane Espitia [id number] Warp Drawer [id number] [address] [address] Plan of Treatment No Data in Section Lab Results No Data in Section Instructions No Data in Section Insurance Providers Insurance Id Policy Effective Date Policy Thru Date Company N sharyn [id number] 2018 [employer] - MEDICA ID MANAGED
--- OUTSIDE RECORDS SUMMARY | 2021-06-22 22:27 | CCD ---
Author Author Kalpesh Robb Organization Unknown Address [address] [address] Phone Care Team Providers Care Signal Inspector Name Role Phone Cezar Denise PCP Chief Complaint and Reason for Visit Chief Complaint Allergies, Adverse Reactions, Alerts No Data in Section Problem List Concept Problem Description Status Start Date Created Date Resolv ed Date Snomed Code F25.9 Schizoaffective disorder, unspecified Active Medications No Data in Section Social History Social History Element Description Concept Effective Date Smoking Status Unknown if ever smoked [id number] Immunizations No Data in Section Vital Signs No Data in Section Procedures Date Concept Id Description Targeted Site Concept Targeted Site Concept Type 05/07/2021 83946 Extended Individual Psychotherapy - 45 min CPT Patient has no history of implantable de vices Encounters Encounter Start Date End Date Encounter Type Description Diagnosis Di agnosis Desc Location Author First Name Author Last Name Npid Taxonomy Cod e Taxonomy Desc Phone Number Location Addr1 Location Addr2 Location [facility] Location [facility] Location [facility] [id number] 05/07/2021 05/07/2021 47723 Extended Individual Psych otherapy - 45 min F25.9 Schizoaffective disorder, unspecified [facility] Cezar Walker [id number] Substation Operator Automatic [id number] [address] [place], [place] [facility] [address] Plan of Treatment No Data in Section Lab Results No Data in Section Instructions No Data in Section Insurance Providers Insurance Id Policy Effective Date Policy Thru Date Company N sharyn [id number] 2018 [employer] - MEDICA ID MANAGED
--- OUTSIDE RECORDS SUMMARY | 2021-06-22 22:27 | CCD ---
Author Author Kalpesh Lynn Organization Unknown Address [address] [address] Phone Care Team Providers Care Glove Finisher Name Role Phone Shane Nupur PCP Chief Complaint and Reason for Visit Chief Complaint Allergies, Adverse Reactions, Alerts No Data in Section Problem List Concept Problem Description Status Start Date Created Date Resolv ed Date Snomed Code F25.9 Schizoaffective disorder, unspecified Active Medications No Data in Section Social History Social History Element Description Concept Effective Date Smoking Status Unknown if ever smoked [id number] Immunizations No Data in Section Vital Signs No Data in Section Procedures Date Concept Id Description Targeted Site Concept Targeted Site Concept Type 05/31/2021 04391 Extended Individual Psychotherapy - 45 min CPT Patient has no history of implantable de vices Encounters Encounter Start Date End Date Encounter Type Description Diagnosis Di agnosis Desc Location Author First Name Author Last Name Npid Taxonomy Cod e Taxonomy Desc Phone Number Location Addr1 Location Addr2 Location [facility] Location [facility] Location [facility] [id number] 05/31/2021 05/31/2021 96470 Extended Individual Psych otherapy - 45 min F25.9 Schizoaffective disorder, unspecified [facility][1] Shane Espitia [phone] [id number] Finance Associate [phone] [address] [address] Plan of Treatment No Data in Section Lab Results No Data in Section Instructions No Data in Section Insurance Providers Insurance Id Policy Effective Date Policy Thru Date Company N sharyn [id number] 2018 [employer] - MEDICA ID MANAGED
--- OUTSIDE RECORDS SUMMARY | 2021-06-22 22:27 | CCD ---
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 Active Not available Colace PRN Completed 09/06/2020 docusate sodium 100 mg capsule Active N ot available Fish Oil 1,200 mg (144 mg-216 mg) capsul e Take 2 capsules every day by oral route. Active Not available fluticasone propionate 50 mcg/actuation nasal spray,suspension C ompleted 05/14/2020 ginkgo biloba 120 mg tablet Take by oral route. Active Not available haloperidol 10 mg tablet Completed 021 hydrocodone 5 mg-acetaminophen 325 mg tablet Completed 05/14/2020 ibuprofen 800 mg tablet Completed 05/14/20 L-Arginine 500 mg tablet Take 2 tablets every day by oral route. Active Not available magnesium citrate oral solution Completed 06/06/2020 multivitamin [...] Result Interpretation Description Value Range Status Address 01/24/2021 SARS CoV 2 RdRp Gene, QL Probe, Respiratory Spec imen Nasopharyngeal Normal Sars-cov-2 negative negative Final [facility] Medical: [address] [facility] 10/23/2020 CMP, Serum or Plasma Blood venous Normal Glu cose, Fasting 82 mg/dL 70-100 mg/dL [facility] nter: [address] [facility] Blood venous High Blood Urea Nitrogen 20 mg/dL 7-18 mg/dL [facility]: [address] [place] [address] Blood venous Normal Creatinine for GFR 0.80 mg/dL 0.70-1.30 mg/dL [facility]: [address] [place] [address] Blood venous Normal Glomerular Filtration Rate > 60.0 >60 [facility]: [address] [place] [address] Blood venous Normal Sodium Level 137 mEq/L 136-14 5 mEq/L [facility]: [address] [place] [address] Blood venous Normal Potassium Serum 4.6 mEq/L 3.5 -5.1 mEq/L [facility]: [address] [place] [address] Blood venous Normal Chloride Level 104 mEq/L 98-1 07 mEq/L [facility]: [address] [place] [address] Blood venous Normal Carbon Dioxide Level 29 mEq/L 21-32 mEq/L [facility]: [address] [place] [address] Blood venous Low Anion Gap 4 mEq/L 8-16 mEq/L [facility]: [address] [place] [address] Blood venous Normal Calcium Level 9.7 mg/dL 8.5-1 0.1 mg/dL [facility]: [address] [facility] Blood venous Normal AST/SGOT 22 U/L 7-37 U/L [facility]: 0 [facility] Blood venous Normal ALT/SGPT 40 U/L 12-78 U/L [facility]: [address] [facility] Blood venous Normal Alkaline Phosphatase 96 U/L 4 5-117 U/L [facility]: [address] [place] [address] Blood venous Normal Bilirubin,total 0.5 mg/dL 0.2 -1.0 mg/dL Final [facility]: [address] [facility] Blood venous Normal Total Protein 7.2 gm/dL 6.4-8 .2 gm/dL Final [facility]: [address] [facility] Blood venous Normal Albumin 4.2 gm/dL 3.2-5.2 gm/ dL Final [facility]: [address] [facility] Blood venous Normal Albumin/globulin Ratio 1.4 Final [facility]: [address] [facility] 10/23/2020 Urinalysis, Dipstick, Auto Normal Bilirubin ne g Final [facility] Medical: [address] [facility] Normal Blood neg Final [facility] Medical: [address] [facility] Normal Glucose neg Final [facility] Medical: [address] [facility] ABNORMAL Ketone 2+ Final [facility] Medical: [address] [facility] Normal Leukocytes neg Final [facility]: [address] [facility] Normal Nitrite neg Final [facility] Medical: [address] [facility] Normal Ph 6.0 Final [facility] Medical: [address] [facility] Normal Protein neg Final [facility] Medical: [address] [facility] Normal Specific [place] 1.025 Final [facility] Medical: [address] [facility] Normal Urobilinogen 0.2 Final [facility] [place] [facility]: [address] [facility] 09/20/2020 Hepatitis C Ab, Serum Blood venous Normal Hepatitis C Virus Zahira Index 0.3 index <0.8 index Final [facility] Center: [address] [facility] 09/20/2020 Gamma Glutamyltranspeptidase Blood venous Normal Gamma Glutamyltranspeptidase 78 U/L 15-85 U/L [facility]: [address] [facility] 09/20/2020 Alkaline Phosphatase High Alkaline Phosph atase 135 U/L 45-117 U/L [facility]: [address] [facility] 09/13/2020 CMP, Serum or Plasma Blood venous Normal Glu cose, Fasting 81 mg/dL 70-100 mg/dL [facility] nter: [address] [facility] Blood venous Normal Blood Urea Nitrogen 17 mg/dL 7-18 mg/dL [facility]: [address] [facility] Blood venous Normal Creatinine for GFR 0.90 mg/dL 0.70-1.30 mg/dL [facility]: [address] [facility] Blood venous Normal Glomerular Filtration Rate > 60.0 >60 [facility]: [address] [facility] Blood venous Normal Sodium Level 137 mEq/L 136-14 5 mEq/L [facility]: [address] [facility] Blood venous Normal Potassium Serum 4.5 mEq/L 3.5 -5.1 mEq/L [facility]: [address] [facility] Blood venous Normal Chloride Level 101 mEq/L 98-1 07 mEq/L [facility]: [address] [facility] Blood venous Normal Carbon Dioxide Level 30 mEq/L 21-32 mEq/L [facility]: [address] [facility] Blood venous Low Anion Gap 6 mEq/L 8-16 mEq/L [facility]: [address] [facility] Blood venous Normal Calcium Level 9.6 mg/dL 8.5-1 0.1 mg/dL [facility]: [address] [facility] Blood venous Normal AST/SGOT 25 U/L 7-37 U/L [facility] juan manuel [facility]: [address] [facility] Blood venous High ALT/SGPT 80 U/L 12-78 U/L [facility]: [address] [facility] Blood venous High Alkaline Phosphatase 149 U/L 45-117 U/L [facility]: [address] [facility] Blood venous Normal Bilirubin,total 0.3 mg/dL 0.2 -1.0 mg/dL [facility]: [address] [facility] Blood venous Normal Total Protein 7.4 gm/dL 6.4-8 .2 gm/dL [facility]: [address] [facility] Blood venous Normal Albumin 3.9 gm/dL 3.2-5.2 gm/ dL [facility]: [address] [place] [address] Blood venous Normal Albumin/globulin Ratio 1.1 [facility]: [address] [place] [address] 09/13/2020 CK (Creatine Kinase) Mb, Quantitative, Blood Blood venous Normal CPK Creatine Phosphokinase 226 U/L 39-308 U/L [facility]: [address] [place] [address] 09/13/2020 CBC W/ Auto Diff High White Blood Count 12.0 10 4.0-10.0 10 [facility]: [address] [place] [address] Normal Red Blood Count 5.08 10 4.30-6.10 10 [facility]: [address] [place] [address] Normal Hemoglobin 14.7 g/dL 13.5-17.5 g/dL [facility]: [address] [place] [address] Normal Hematocrit 44.6 % 42.0-52.0 % [facility]: [address] [place] [address] Normal Mean Corpuscular Volume 87.8 fL 80.0 -96.0 fL [facility]: [address] [place] [address] Normal Mean Corpuscular Hemoglobin 28.9 pg 27.0-33.0 pg [facility]: [address] [place] [address] Normal Mean Corpuscular HGB Conc 33.0 g/dL 32.0-36.5 g/dL [facility]: [address] [place] [address] High Red Cell Distribution Width 15.4 % 1 1.5-14.5 % [facility]: [address] [place] [address] Normal Platelet Count, Automated 257 10 150 -450 10 [facility]: 0 [facility] Normal Neutrophils % 50.4 % 36.0-66.0 % [facility]: 0 [facility] Normal Lymph % 28.7 % 24.0-44.0 % [facility]: [address] [facility] High [place] % 15.1 % 2.0-8.0 % [facility]: [address] [facility] High Eos % 4.4 % 0.0-3.0 % [facility]: [address] [facility] Normal Baso % 0.7 % 0.0-1.0 % [facility]: [address] [facility] Normal Immature Granulocyte % 0.7 % 0-3.0 % [facility]: [address] [facility] Normal Nucleated Red Blood Cell % 0.0 % 0- 0 % [facility]: [address] [facility] Normal Neutrophils # 6.1 10 1.5-8.5 10 [facility]: [address] [facility] Normal Lymph # 3.5 10 1.5-5.0 10 [facility]: [address] [facility] High [place] # 1.8 10 0.0-0.8 10 [facility]: [address] [facility] Normal Eos # 0.5 10 0.0-0.5 10 [facility]: [address] [facility] Normal Baso # 0.1 10 0.0-0.2 10 [facility]: [address] [facility] 09/06/2020 CBC W/ Auto Diff Blood venous High White Blood C ount 12.7 10 4.0-10.0 10 [facility]: [address] [facility] Blood venous Normal Red Blood Count 5.04 10 4.30- 6.10 10 [facility]: [address] [facility] Blood venous Normal Hemoglobin 14.7 g/dL 13.5-17. 5 g/dL [facility]: [address] [facility] Blood venous Normal Hematocrit 45.8 % 42.0-52.0 % [facility]: [address] [facility] Blood venous Normal Mean Corpuscular Volume 90.9 fL 80.0-96.0 fL [facility]: [address] [facility] Blood venous Normal Mean Corpuscular Hemoglob in 29.2 pg 27.0-33.0 pg [facility]: [address] [place] [address] Blood venous Normal Mean Corpuscular HGB Conc 32.1 g/dL 32.0-36.5 g/dL [facility]: [address] [place] [address] Blood venous High Red Cell Distribution Width 1 6.7 % 11.5-14.5 % [facility]: [address] [place] [address] Blood venous Normal Platelet Count, Automated 242 10 150-450 10 [facility]: [address] [place] [address] Blood venous Normal Neutrophils % 59.1 % 36.0-66. 0 % [facility]: [address] [place] [address] Blood venous Low Lymph % 21.3 % 24.0-44.0 % [facility]: [address] [place] [address] Blood venous High [place] % 14.2 % 2.0-8.0 % [facility]: [address] [place] [address] Blood venous High Eos % 4.3 % 0.0-3.0 % [facility]: [address] [place] [address] Blood venous Normal Baso % 0.7 % 0.0-1.0 % [facility]: [address] [place] [address] Blood venous Normal Immature Granulocyte % 0.4 % 0-3.0 % [facility]: [address] [place] [address] Blood venous Normal Nucleated Red Blood Cell % 0. 0 % 0-0 % [facility]: [address] [place] [address] Blood venous Normal Neutrophils # 7.5 10 1.5-8.5 10 [facility]: [address] [place] [address] Blood venous Normal Lymph # 2.7 10 1.5-5.0 10 [facility]: [address] [place] [address] Blood venous High [place] # 1.8 10 0.0-0.8 10 Priya l [facility]: [address] [place] [address] Blood venous Normal Eos # 0.5 10 0.0-0.5 10 [facility]: [address] [place] [address] Blood venous Normal Baso # 0.1 10 0.0-0.2 10 [facility]: [address] [place] [address] 09/06/2020 CMP, Serum or Plasma Blood venous Normal Glu cose, Fasting 82 mg/dL 70-100 mg/dL [facility] nter: [address] [place] [address] Blood venous High Blood Urea Nitrogen 24 mg/dL 7-18 mg/dL [facility]: [address] [place] [address] Blood venous Normal Creatinine for GFR 0.82 mg/dL 0.70-1.30 mg/dL [facility]: [address] [place] [address] Blood venous Normal Glomerular Filtration Rate > 60.0 >60 [facility]: [address] [place] [address] Blood venous Normal Sodium Level 137 mEq/L 136-14 5 mEq/L [facility]: [address] [place] [address] Blood venous Normal Potassium Serum 5.1 mEq/L 3.5 -5.1 mEq/L [facility]: [address] [place] [address] Blood venous Normal Chloride Level 102 mEq/L 98-1 07 mEq/L [facility]: [address] [place] [address] Blood venous Normal Carbon Dioxide Level 31 mEq/L 21-32 mEq/L [facility]: [address] [place] [address] Blood venous Low Anion Gap 4 mEq/L 8-16 mEq/L [facility]: [address] [place] [address] Blood venous Normal Calcium Level 9.3 mg/dL 8.5-1 0.1 mg/dL [facility]: [address] [facility] Blood venous Normal AST/SGOT 29 U/L 7-37 U/L [facility]: [address] [facility] Blood venous Normal ALT/SGPT 63 U/L 12-78 U/L [facility]: 0 [facility] Blood venous High Alkaline Phosphatase 121 U/L 45-117 U/L [facility]: [address] [place] [address] Blood venous Normal Bilirubin,total 0.3 mg/dL 0.2 -1.0 mg/dL [facility]: [address] [place] [address] Blood venous Normal Total Protein 6.8 gm/dL 6.4-8 .2 gm/dL [facility]: [address] [place] [address] Blood venous Normal Albumin 3.6 gm/dL 3.2-5.2 gm/ dL [facility]: [address] [place] [address] Blood venous Normal Albumin/globulin Ratio 1.1 [facility]: [address] [place] [address] 09/06/2020 CK (Creatine Kinase) Mb, Quantitative, Blood Hi gh CPK Creatine Phosphokinase 318 U/L 39-308 U/L Final [facility] Center: [address] [place] [address] 09/06/2020 TSH, Serum or Plasma Blood venous Normal Thyroid Stimulating Hormone 1.710 uIU/mL 0.358-3.740 uIU/mL [facility] ical Center: [address] [place] [address] Past Encounters 04/26/2021 Psychotic Disorder Jr Pritchett MD: [address] [place] [phone], Ph. 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 01/24/2021 Exposure to SARS-CoV-2 Jr Pritchett MD: [address] [place] [phone], Ph. 11/20/2020 Vomiting; Patient Asked to Attend Radha Coello PA-C: [address] [place] [phone], Ph. 10/23/2020 Alkaline Phosphatase Raised; Vomiting; Simple Obesity Radha Coello PA-C: [address] [place] [phone], Ph. 09/20/2020 Rhabdomyolysis; Alkaline Phosphatase Raised; Leukocytosis; Posttraumatic Stress Disorder; Administration of Influenza Vaccine; Headache; Sinus Bradycardia Radha Coello PA-C: [address] [facility] [address], [place] [phone], Ph. 09/13/2020 Leukocytosis; Rhabdomyolysis; Alkaline Phosphatase Raised Radha SHEELA Coello: [address] [facility], [facility] [address], [place] [phone], Ph. 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 06/06/2020 Tremor; Neck Pain; Headache; Anxiety Radhaboogie Coello PA-C: [address] [place] [phone], Ph. 05/14/2020 Abdominal Pain; Constipation; Generalized Anxiety Disorder [facility] [address] [place] [phone], Ph. Social History Tobacco Smoking Status Never Smoker Vaccine List Vaccine Type influenza, injectable, quadrivalent, pre servative free 10.5 mL pneumococcal polysaccharide PPV23 10.5 mL Plan of Care Reminders Provider Appointments None recorded. Lab None recorded. Referral None recorded. Procedures None recorded. Surgeries None recorded. Imaging None recorded. Vitals 04/26/2021 02:00PM ESTABLISHED [id number] Height Weight BMI Blood Pressure 64 in 164 lbs 4 oz 28.2 kg/m2 105/61 mm[Hg] 02/19/2021 09:40AM ESTABLISHED [id number] Height Weight BMI Blood Pressure 64 in 177 lbs 16 oz 30.6 kg/m2 108/68 mm[Hg] 11/20/2020 02:20PM ESTABLISHED [id number] Height Weight BMI Blood Pressure 64 in 177 lbs 16 oz 30.6 kg/m2 126/74 mm[Hg] 10/23/2020 09:40AM ESTABLISHED [id number] Height Weight BMI Blood Pressure 64 in 184 lbs 31.6 kg/m2 118/73 mm[Hg] 09/20/2020 02:10PM ESTABLISHED [id number] Height Weight BMI Blood Pressure 64 in 170 lbs 9.6 oz 29.3 kg/m2 114/63 mm[Hg ] 09/06/2020 09:10AM ESTABLISHED [id number] Height Weight BMI Blood Pressure 64 in 181 lbs 16 oz 31.2 kg/m2 123/70 mm[Hg] 06/06/2020 02:20PM ESTABLISHED [id number] Height Weight BMI Blood Pressure 64 in 150 lbs 6 oz 25.8 kg/m2 127/76 mm[Hg] 05/14/2020 02:00PM ESTABLISHED [id number] Height Weight BMI Blood Pressure 64 in [...]
--- OUTSIDE RECORDS SUMMARY | 2021-06-22 22:27 | CCD ---
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 Role Phone [facility] 113 [phone] [facility] 111 [phone] Allergies Code Code System Name Reaction Severity [...] 06/05/2021 Rapid Flu (A+B) Nasopharyngeal Flu negative [facility] Medical: [address] [facility] [address], [place] 01/24/2021 SARS CoV 2 RdRp Gene, QL Probe, Respiratory Spec imen Nasopharyngeal Normal Sars-cov-2 negative negative Final [facility] Medical: [address] [facility] 10/23/2020 CMP, Serum or Plasma Blood venous Normal Glu cose, Fasting 82 mg/dL 70-100 mg/dL [facility] nter: [address] [facility] Blood venous High Blood Urea Nitrogen 20 mg/dL 7-18 mg/dL [facility]: [address] [place] [address] Blood venous Normal Creatinine for GFR 0.80 mg/dL 0.70-1.30 mg/dL [facility]: [address] [place] [address] Blood venous Normal Glomerular Filtration Rate > 60.0 >60 [facility]: [address] [place] [address] Blood venous Normal Sodium Level 137 mEq/L 136-14 5 mEq/L [facility]: [address] [place] [address] Blood venous Normal Potassium Serum 4.6 mEq/L 3.5 -5.1 mEq/L [facility]: [address] [place] [address] Blood venous Normal Chloride Level 104 mEq/L 98-1 07 mEq/L [facility]: [address] [place] [address] Blood venous Normal Carbon Dioxide Level 29 mEq/L 21-32 mEq/L [facility]: [address] [place] [address] Blood venous Low Anion Gap 4 mEq/L 8-16 mEq/L [facility]: [address] [place] [address] Blood venous Normal Calcium Level 9.7 mg/dL 8.5-1 0.1 mg/dL [facility]: [address] [facility] Blood venous Normal AST/SGOT 22 U/L 7-37 U/L Priya juan manuel [facility]: [address] [facility] Blood venous Normal ALT/SGPT 40 U/L 12-78 U/L [facility]: [address] [facility] Blood venous Normal Alkaline Phosphatase 96 U/L 4 5-117 U/L Final [facility]: [address] [facility] Blood venous Normal Bilirubin,total 0.5 mg/dL 0.2 -1.0 mg/dL Final [facility]: [address] [place] [address] Blood venous Normal Total Protein 7.2 gm/dL 6.4-8 .2 gm/dL Final [facility]: [address] [place] [address] Blood venous Normal Albumin 4.2 gm/dL 3.2-5.2 gm/ dL Final [facility]: [address] [place] [address] Blood venous Normal Albumin/globulin Ratio 1.4 [facility]: [address] [place] [address] 10/23/2020 Urinalysis, Dipstick, Auto Normal Bilirubin ne g Final [facility] Medical: [address] [facility] Normal Blood neg Final [facility] Medical: [address] [facility] Normal Glucose neg Final [facility] Medical: [address] [facility] ABNORMAL Ketone 2+ Final [facility] Medical: [address] [facility] Normal Leukocytes neg Final [facility] Medical: [address] [facility] Normal Nitrite neg Final [facility] Medical: [address] [facility] Normal Ph 6.0 Final [facility] Medical: [address] [facility] Normal Protein neg Final [facility]: [address] [facility] Normal Specific [place] 1.025 Final [facility] Medical: [address] [facility] Normal Urobilinogen 0.2 Final [facility]: [address] [facility] 09/20/2020 Hepatitis C Ab, Serum Blood venous Normal Hepatitis C Virus Zahira Index 0.3 index <0.[address] [facility]: [address] [place] [address] 09/20/2020 Gamma Glutamyltranspeptidase Blood venous Normal Gamma Glutamyltranspeptidase 78 U/L 15-85 U/L [facility]: [address] [place] [address] 09/20/2020 Alkaline Phosphatase High Alkaline Phosph atase 135 U/L 45-117 U/L [facility]: [address] [facility] 09/13/2020 CMP, Serum or Plasma Blood venous Normal Glu cose, Fasting 81 mg/dL 70-100 mg/dL [facility] nter: [address] [facility] Blood venous Normal Blood Urea Nitrogen 17 mg/dL 7-18 mg/dL [facility]: [address] [facility] Blood venous Normal Creatinine for GFR 0.90 mg/dL 0.70-1.30 mg/dL [facility]: [address] [facility] Blood venous Normal Glomerular Filtration Rate > 60.0 >60 [facility]: [address] [facility] Blood venous Normal Sodium Level 137 mEq/L 136-14 5 mEq/L [facility]: [address] [facility] Blood venous Normal Potassium Serum 4.5 mEq/L 3.5 -5.1 mEq/L [facility]: [address] [facility] Blood venous Normal Chloride Level 101 mEq/L 98-1 07 mEq/L [facility]: [address] [facility] Blood venous Normal Carbon Dioxide Level 30 mEq/L 21-32 mEq/L [facility]: [address] [facility] Blood venous Low Anion Gap 6 mEq/L 8-16 mEq/L [facility]: [address] [facility] Blood venous Normal Calcium Level 9.6 mg/dL 8.5-1 0.1 mg/dL [facility]: [address] [facility] Blood venous Normal AST/SGOT 25 U/L 7-37 U/L Priya l [facility]: [address] [facility] Blood venous High ALT/SGPT 80 U/L 12-78 U/L Fin al [facility]: [address] [facility] Blood venous High Alkaline Phosphatase 149 U/L 45-117 U/L [facility]: [address] [facility] Blood venous Normal Bilirubin,total 0.3 mg/dL 0.2 -1.0 mg/dL [facility]: [address] [place] [address] Blood venous Normal Total Protein 7.4 gm/dL 6.4-8 .2 gm/dL [facility]: [address] [place] [address] Blood venous Normal Albumin 3.9 gm/dL 3.2-5.2 gm/ dL [facility]: [address] [place] [address] Blood venous Normal Albumin/globulin Ratio 1.1 [facility]: [address] [place] [address] 09/13/2020 CK (Creatine Kinase) Mb, Quantitative, Blood Blood venous Normal CPK Creatine Phosphokinase 226 U/L 39-308 U/L [facility]: [address] [place] [address] 09/13/2020 CBC W/ Auto Diff High White Blood Count 12.0 10 4.0-10.0 10 [facility]: [address] [place] [address] Normal Red Blood Count 5.08 10 4.30-6.10 10 [facility]: [address] [place] [address] Normal Hemoglobin 14.7 g/dL 13.5-17.5 g/dL [facility]: [address] [place] [address] Normal Hematocrit 44.6 % 42.0-52.0 % [facility]: [address] [place] [address] Normal Mean Corpuscular Volume 87.8 fL 80.0 -96.0 fL [facility]: [address] [place] [address] Normal Mean Corpuscular Hemoglobin 28.9 pg 27.0-33.0 pg [facility]: [address] [place] [address] Normal Mean Corpuscular HGB Conc 33.0 g/dL 32.0-36.5 g/dL [facility]: [address] [place] [address] High Red Cell Distribution Width 15.4 % 1 1.5-14.5 % [facility]: [address] [place] [address] Normal Platelet Count, Automated 257 10 150 -450 10 [facility]: [address] [place] [address] Normal Neutrophils % 50.4 % 36.0-66.0 % Fin [facility]: [address] [place] [address] Normal Lymph % 28.7 % 24.0-44.0 % Final [facility]: [address] [facility] % 15.1 % 2.0-8.0 % Final [facility]: [address] [facility] Eos % 4.4 % 0.0-3.0 % [facility]: [address] [facility] Normal Baso % 0.7 % 0.0-1.0 % [facility]: [address] [facility] Normal Immature Granulocyte % 0.7 % 0-3.0 % [facility]: [address] [facility] Normal Nucleated Red Blood Cell % 0.0 % 0- 0 % [facility]: [address] [facility] Normal Neutrophils # 6.1 10 1.5-8.5 10 Priya [facility]: [address] [facility] Normal Lymph # 3.5 10 1.5-5.0 10 [facility]: [address] [facility] # 1.8 10 0.0-0.8 10 [facility]: [address] [facility] Normal Eos # 0.5 10 0.0-0.5 10 [facility]: [address] [facility] Normal Baso # 0.1 10 0.0-0.2 10 [facility]: [address] [facility] 09/06/2020 CBC W/ Auto Diff Blood venous High White Blood C ount 12.7 10 4.0-10.0 10 [facility]: [address] [facility] Blood venous Normal Red Blood Count 5.04 10 4.30- 6.10 10 [facility]: [address] [facility] Blood venous Normal Hemoglobin 14.7 g/dL 13.5-17. 5 g/dL [facility]: [address] [facility] Blood venous Normal Hematocrit 45.8 % 42.0-52.0 % [facility]: [address] [facility] Blood venous Normal Mean Corpuscular Volume 90.9 fL 80.0-96.0 fL [facility]: [address] [place] [address] Blood venous Normal Mean Corpuscular Hemoglob in 29.2 pg 27.0-33.0 pg [facility]: [address] [place] [address] Blood venous Normal Mean Corpuscular HGB Conc 32.1 g/dL 32.0-36.5 g/dL [facility]: [address] [place] [address] Blood venous High Red Cell Distribution Width 1 6.7 % 11.5-14.5 % [facility]: [address] [place] [address] Blood venous Normal Platelet Count, Automated 242 10 150-450 10 [facility]: [address] [place] [address] Blood venous Normal Neutrophils % 59.1 % 36.0-66. 0 % [facility]: [address] [place] [address] Blood venous Low Lymph % 21.3 % 24.0-44.0 % [facility]: [address] [place] [address] Blood venous High [facility] % 14.2 % 2.0-8.0 % [facility]: [address] [place] [address] Blood venous High Eos % 4.3 % 0.0-3.0 % [facility]: [address] [place] [address] Blood venous Normal Baso % 0.7 % 0.0-1.0 % [facility]: [address] [place] [address] Blood venous Normal Immature Granulocyte % 0.4 % 0-3.0 % [facility]: [address] [place] [address] Blood venous Normal Nucleated Red Blood Cell % 0. 0 % 0-0 % [facility]: [address] [place] [address] Blood venous Normal Neutrophils # 7.5 10 1.5-8.5 10 [facility]: [address] [place] [address] Blood venous Normal Lymph # 2.7 10 1.5-5.0 10 [facility]: [address] [place] [address] Blood venous High [facility]utter # 1.8 10 0.0-0.8 10 [facility]: [address] [place] [address] Blood venous Normal Eos # 0.5 10 0.0-0.5 10 [facility]: [address] [place] [address] Blood venous Normal Baso # 0.1 10 0.0-0.2 10 [facility]: [address] [place] [address] 09/06/2020 CMP, Serum or Plasma Blood venous Normal Glu cose, Fasting 82 mg/dL 70-100 mg/dL [facility] nter: [address] [place] [address] Blood venous High Blood Urea Nitrogen 24 mg/dL 7-18 mg/dL [facility]: [address] [place] [address] Blood venous Normal Creatinine for GFR 0.82 mg/dL 0.70-1.30 mg/dL [facility]: [address] [place] [address] Blood venous Normal Glomerular Filtration Rate > 60.0 >60 [facility]: [address] [place] [address] Blood venous Normal Sodium Level 137 mEq/L 136-14 5 mEq/L [facility]: [address] [place] [address] Blood venous Normal Potassium Serum 5.1 mEq/L 3.5 -5.1 mEq/L [facility]: [address] [place] [address] Blood venous Normal Chloride Level 102 mEq/L 98-1 07 mEq/L [facility]: [address] [place] [address] Blood venous Normal Carbon Dioxide Level 31 mEq/L 21-32 mEq/L [facility]: [address] [place] [address] Blood venous Low Anion Gap 4 mEq/L 8-16 mEq/L [facility]: [address] [place] [address] Blood venous Normal Calcium Level 9.3 mg/dL 8.5-1 0.1 mg/dL [facility]: [address] [facility] Blood venous Normal AST/SGOT 29 U/L 7-37 U/L [facility]: [address] [place] [address] Blood venous Normal ALT/SGPT 63 U/L 12-78 U/L [facility]: [address] [place] [address] Blood venous High Alkaline Phosphatase 121 U/L 45-117 U/L [facility]: [address] [place] [address] Blood venous Normal Bilirubin,total 0.3 mg/dL 0.2 -1.0 mg/dL [facility]: [address] [place] [address] Blood venous Normal Total Protein 6.8 gm/dL 6.4-8 .2 gm/dL [facility]: [address] [place] [address] Blood venous Normal Albumin 3.6 gm/dL 3.2-5.2 gm/ dL [facility]: [address] [place] [address] Blood venous Normal Albumin/globulin Ratio 1.1 [facility]: [address] [place] [address] 09/06/2020 CK (Creatine Kinase) Mb, Quantitative, Blood Hi gh CPK Creatine Phosphokinase 318 U/L 39-308 U/L [facility]: [address] [place] [address] 09/06/2020 TSH, Serum or Plasma Blood venous Normal Thyroid Stimulating Hormone 1.710 uIU/mL 0.358-3.740 uIU/mL [facility] ical Center: [address] [place] [address] Past Encounters 06/05/2021 Acute Upper Respiratory Infection; Vomiting Daniel Blue, HEATHER-C: [address] [facility], [facility] [address] [address], Ph. 06/05/2021 Exposure to SARS-CoV-2 Jr Pritchett MD: [address] [place] [phone], Ph. 04/26/2021 Psychotic Disorder Jr Pritchett MD: [address] [place] [address], Ph. 02/19/2021 Psychotic Disorder; Discussed with Timber Girdler Radha Coello PA-C: [address] [place] [phone], Ph. 01/24/2021 Exposure to SARS-CoV-2 Jr Pritchett MD: [address] [place] [phone], Ph. 11/20/2020 Vomiting; Patient Asked to Attend Radha Coello PA-C: [address] [place] [address], Ph. 10/23/2020 Alkaline Phosphatase Raised; Vomiting; Simple Obesity Radha Coello PA-C: [address] [place] [address], Ph. 09/20/2020 Rhabdomyolysis; Alkaline Phosphatase Raised; Leukocytosis; Posttraumatic Stress Disorder; Administration of Influenza Vaccine; Headache; Sinus Bradycardia Radha Coello PA-C: [address] [facility] [address], [place] [address], Ph. 09/13/2020 Leukocytosis; Rhabdomyolysis; Alkaline Phosphatase Raised Radha Coello PA-C: [address] [facility] [address], [place] [address], Ph. 09/06/2020 Non-traumatic Rhabdomyolysis; Sinus Bradycardia; Palpitations; Tremor; History of Traumatic Brain Injury; Keratoconus of Right Cornea; Administration of Pneumococcal Vaccine; Moderate Recurrent Major Depression Radha Coello PA-C: [address] [facility] [address], [place] [address], Ph. 06/06/2020 Tremor; Neck Pain; Headache; Anxiety Radha Coello PA-C: [address] [place] [address], Ph. 05/14/2020 Abdominal Pain; Constipation; Generalized Anxiety Disorder JOSE De Souza: [address] [place] [phone], Ph. Social History Tobacco Smoking Status Never Smoker Vaccine List Vaccine Type influenza, injectable, quadrivalent, pre servative free 10.5 mL pneumococcal polysaccharide PPV23 10.5 mL Plan of Care Reminders Provider Appointments None recorded. Lab None recorded. Referral None recorded. Procedures None recorded. Surgeries None recorded. Imaging None recorded. Vitals 06/05/2021 03:10PM ESTABLISHED [id number] Height Weight BMI Blood Pressure 64 in 164 lbs 8 oz 28.2 kg/m2 107/70 mm[Hg] 04/26/2021 02:00PM ESTABLISHED [id number] Height Weight BMI Blood Pressure 64 in 164 lbs 4 oz 28.2 kg/m2 105/61 mm[Hg] 02/19/2021 09:40AM ESTABLISHED [id number] Height Weight BMI Blood Pressure 64 in 177 lbs 16 oz 30.6 kg/m2 108/68 mm[Hg] 11/20/2020 02:20PM ESTABLISHED [id number] Height Weight BMI Blood Pressure 64 in 177 lbs 16 oz 30.6 kg/m2 126/74 mm[Hg] 10/23/2020 09:40AM ESTABLISHED [id number] Height Weight BMI Blood Pressure 64 in 184 lbs 31.6 kg/m2 118/73 mm[Hg] 09/20/2020 02:10PM ESTABLISHED [id number] Height Weight BMI Blood Pressure 64 in 170 lbs 9.6 oz 29.3 kg/m2 114/63 mm[Hg ] 09/06/2020 09:10AM ESTABLISHED [id number] Height Weight BMI Blood Pressure 64 in 181 lbs 16 oz 31.2 kg/m2 123/70 mm[Hg] 06/06/2020 02:20PM ESTABLISHED [id number] Height Weight BMI Blood Pressure 64 in 150 lbs 6 oz 25.8 kg/m2 127/76 mm[Hg] 05/14/2020 02:00PM ESTABLISHED [id number] Height Weight BMI Blood Pressure 64 in [...]
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
--- OUTSIDE RECORDS SUMMARY | 2021-06-22 22:29 | CCD ---
Author Author [facility] Organization [facility] Address Unknown Phone Unavailable Care Team Providers Care Chamber Magistrate Name Role Phone Sheflai Pritchett MD Unavailable Unavailable Shefali Pritchett MD Unavailable Unavailable Shefali Pritchett MD Unavailable Unavailable Shefali Pritchett MD Unavailable Unavailable Shefali Pritchett MD Unavailable Unavailable Shefali Pritchett MD Unavailable Unavailable Shefali Pritchett MD Unavailable Unavailable Shefali Pritchett MD Unavailable Unavailable Shefali Pritchett MD Unavailable Unavailable Shefali Pritchett MD Unavailable Unavailable Shefali Pritchett MD Unavailable Unavailable Shefali Pritchett MD Unavailable Unavailable Shefali Pritchett MD Unavailable Unavailable Shefali Pritchett MD Unavailable Unavailable Shefali Pritchett MD Unavailable Unavailable Shefali Pritchett MD Unavailable Unavailable Shefali Pritchett MD Unavailable Unavailable Shefali Pritchett MD Unavailable Unavailable Shefali Pritchett MD Unavailable Unavailable Shefali Pritchett MD Unavailable Unavailable Shefali Pritchett MD Unavailable Unavailable Shefali Pritchett MD Unavailable Unavailable Shefali Pritchett MD Unavailable Unavailable Shefali Pritchett MD Unavailable Unavailable Shefali Pritchett MD Unavailable Unavailable Shefali Pritchett MD Unavailable Unavailable Shefali Pritchett MD Unavailable Unavailable Shefali Pritchett MD Unavailable Unavailable Shefali Pritchett MD Unavailable Unavailable Shefali Pritchett MD Unavailable Unavailable Shefali Pritchett MD Unavailable Unavailable Shefali Pritchett MD Unavailable Unavailable Shefali Pritchett MD Unavailable Unavailable Shefali Pritchett MD Unavailable Unavailable Shefali Pritchett MD Unavailable Unavailable Shefali Pritchett MD Unavailable Unavailable Shefali Pritchett MD Unavailable Unavailable Shefali Pritchett MD Unavailable Unavailable Shefali Pritchett MD Unavailable Unavailable Shefali Pritchett MD Unavailable Unavailable Shefali Pritchett MD Unavailable Unavailable Shefali Pritchett MD Unavailable Unavailable Shefali Pritchett MD Unavailable Unavailable Shefali Pritchett MD Unavailable Unavailable Shefali Pritchett MD Unavailable Unavailable Shefali Pritchett MD Unavailable Unavailable Shefali Pritchett MD Unavailable Unavailable Shefali Pritchett MD Unavailable Unavailable Shefali Pritchett MD Unavailable Unavailable Shefali Pritchett MD Unavailable Unavailable Shefali Pritchett MD Unavailable Unavailable Shefali Pritchett MD Unavailable Unavailable Shefali Pritchett MD Unavailable Unavailable Shefali Pritchett MD Unavailable Unavailable Shefali Pritchett MD Unavailable Unavailable Shefali Pritchett MD Unavailable Unavailable Shefali Pritchett MD Unavailable Unavailable Shefali Pritchett MD Unavailable Unavailable Shefali Pritchett MD Unavailable Unavailable Shefali Pritchett MD Unavailable Unavailable Shefali Pritchett MD Unavailable Unavailable Shefali Pritchett MD Unavailable Unavailable Shefali Pritchett MD Unavailable Unavailable Shefali Pritchett MD Unavailable Unavailable Shefali Pritchett MD Unavailable Unavailable Shefali Pritchett MD Unavailable Unavailable Shefali Pritchett MD Unavailable Unavailable Shefali Pritchett MD Unavailable Unavailable Shefali Pritchett MD Unavailable Unavailable Shefali Pritchett MD Unavailable Unavailable Shefali Pritchett MD Unavailable Unavailable Shefali Pritchett MD Unavailable Unavailable Shefali Pritchett MD Unavailable Unavailable Shefali Pritchett MD Unavailable Unavailable Shefali Pritchett MD Unavailable Unavailable Shefali Pritchett MD Unavailable Unavailable Shefali Pritchett MD Unavailable Unavailable Shefali Pritchett MD Unavailable Unavailable Shefali Pritchett MD Unavailable Unavailable Shefali Pritchett MD Unavailable Unavailable Shefali Pritchett MD Unavailable Unavailable Shefali Pritchett MD Unavailable Unavailable Shefali Pritchett MD Unavailable Unavailable Shefali Pritchett MD Unavailable Unavailable Shefali Pritchett MD Unavailable Unavailable Shefali Pritchett MD Unavailable Unavailable Shefali Pritchett MD Unavailable Unavailable Shefali Pritchett MD Unavailable Unavailable Shefali Pritchett MD Unavailable Unavailable Shefali Pritchett MD Unavailable Unavailable Shefali Pritchett MD Unavailable Unavailable Shefali Pritchett MD Unavailable Unavailable Shefali Pritchett MD Unavailable Unavailable Shefali Pritchett MD Unavailable Unavailable UEBERROTH, A JEANNIE Unavailable Unavailable UEBERROTH, A JEANNIE Unavailable Unavailable Adenike Aguilera PAYROLL SECRETARY PAYROLL SECRETARY Unavailable Unavailable Mireya Abdalla Unavailable Walker, Raza Berry PA Unavailable Unavailable Walker, M Kristi PA Unavailable Unavailable Walker, M Kristi PA Unavailable Unavailable Walker, M Kristi PA Unavailable Unavailable Walker, M Kristi PA Unavailable Unavailable Walker, M Kristi PA Unavailable Unavailable Walker, M Kristi PA Unavailable Unavailable Walker, M Kristi PA Unavailable Unavailable Walker, M Kristi PA Unavailable Unavailable Walker, M Kristi PA Unavailable Unavailable Walker, M Kristi PA Unavailable Unavailable Walker, M Kristi PA Unavailable Unavailable Walker, M Kristi PA Unavailable Unavailable Walker, M Kristi PA Unavailable Unavailable Walker, M Kristi PA Unavailable Unavailable Walker, M Kristi PA Unavailable Unavailable Walker, M Kristi PA Unavailable Unavailable Walker, M Kristi PA Unavailable Unavailable Walker, M Kristi PA Unavailable Unavailable Walker, M Kristi PA Unavailable Unavailable Walker, M Kristi PA Unavailable Unavailable Walker, M Kristi PA Unavailable Unavailable Walker, M Kristi PA Unavailable Unavailable Walker, M Kristi PA Unavailable Unavailable Walker, M Kristi PA Unavailable Unavailable Walker, M Kristi PA Unavailable Unavailable Walker, M Kristi PA Unavailable Unavailable Walker, M Kristi PA Unavailable Unavailable Walker, M Kristi PA Unavailable Unavailable Walker, M Kristi PA Unavailable Unavailable Walker, M Kristi PA Unavailable Unavailable Walker, M Krsiti PA Unavailable Unavailable Walker, M Kristi PA Unavailable Unavailable Walker, M Kristi PA Unavailable Unavailable Walker, M Kristi PA Unavailable Unavailable Walker, M Kristi PA Unavailable Unavailable Walker, M Kristi PA Unavailable Unavailable Walker, M Kristi PA Unavailable Unavailable Walker, M Kristi PA Unavailable Unavailable Walker, M Kristi PA Unavailable Unavailable Walker, M Kristi PA Unavailable Unavailable Walker, M Kristi PA Unavailable Unavailable Walker, M Kristi PA Unavailable Unavailable Walker, M Kristi PA Unavailable Unavailable MarcelleDenise Unavailable Nupur Lynn Unavailable Birklin, Riley MARVIN Unavailable Unavailable Birklin, Riley MARVIN Unavailable Unavailable Birklin, Riley MARVIN Unavailable Unavailable Birklin, Riley MARVIN Unavailable Unavailable Birklin, Riley MARVIN Unavailable Unavailable Birklin, Riley MARVIN Unavailable Unavailable Birklin, Riley MARVIN Unavailable Unavailable Birklin, Riley MARVIN Unavailable Unavailable Birklin, Riley MARVIN Unavailable Unavailable Birklin, Riley MARVIN Unavailable Unavailable Birklin, Riley MARVIN Unavailable Unavailable Birklin, Riley MARVIN Unavailable Unavailable Birklin, Riley MARVIN Unavailable Unavailable Birklin, Riley MARVIN Unavailable Unavailable Birklin, Riley MARVIN Unavailable Unavailable Birklin, Riley MARVIN Unavailable Unavailable Birklin, Riley MARVIN Unavailable Unavailable Birklin, Riley MARVIN Unavailable Unavailable Birklin, Riley MARVIN Unavailable Unavailable Birklin, Riley MARVIN Unavailable Unavailable Birklin, Riley MARVIN Unavailable Unavailable Birklin, Riley MARVIN Unavailable Unavailable Birklin, Riley MARVIN Unavailable Unavailable Birklin, Riley MARVIN Unavailable Unavailable Birklin, Riley MARVIN Unavailable Unavailable Birklin, Riley MARVIN Unavailable Unavailable Birklin, Riley MARVIN Unavailable Unavailable Birklin, Riley MARVIN Unavailable Unavailable Willy, A Adenike PAYROLL SECRETARY Unavailable Unavailable Massena, A Adenike PAYROLL SECRETARY Unavailable Unavailable Massena, A Adenike PAYROLL SECRETARY Unavailable Unavailable Massena, A Adenike PAYROLL SECRETARY Unavailable Unavailable Massena, A Adenike PAYROLL SECRETARY Unavailable Unavailable Massena, A Adenike PAYROLL SECRETARY Unavailable Unavailable Massena, A Adenike PAYROLL SECRETARY Unavailable Unavailable Massena, A Adenike PAYROLL SECRETARY Unavailable Unavailable Massena, A Adenike PAYROLL SECRETARY Unavailable Unavailable Massena, A Adenike PAYROLL SECRETARY Unavailable Unavailable Massena, A Adenike PAYROLL SECRETARY Unavailable Unavailable Massena, A Adenike PAYROLL SECRETARY Unavailable Unavailable Massena, A Adenike PAYROLL SECRETARY Unavailable Unavailable Massena, A Adenike PAYROLL SECRETARY Unavailable Unavailable Massena, A Adenike PAYROLL SECRETARY Unavailable Unavailable Massena, A Adenike PAYROLL SECRETARY Unavailable Unavailable Massena, A Adenike PAYROLL SECRETARY Unavailable Unavailable Massena, A Adenike PAYROLL SECRETARY Unavailable Unavailable Willy, A Adenike PAYROLL SECRETARY Unavailable Unavailable Willy, A Adenike PAYROLL SECRETARY Unavailable Unavailable Willy, A Adenike PAYROLL SECRETARY Unavailable Unavailable Willy, A Adenike PAYROLL SECRETARY Unavailable Unavailable Willy, A Adenike PAYROLL SECRETARY Unavailable Unavailable Willy, A Adenike PAYROLL SECRETARY Unavailable Unavailable Willy, A Adenike PAYROLL SECRETARY Unavailable Unavailable Willy, A Adenike PAYROLL SECRETARY Unavailable Unavailable Willy, A Adenike PAYROLL SECRETARY Unavailable Unavailable Willy, A Adenike PAYROLL SECRETARY Unavailable Unavailable Willy, A Adenike PAYROLL SECRETARY Unavailable Unavailable Willy, A Adenike PAYROLL SECRETARY Unavailable Unavailable Willy, A Adenike PAYROLL SECRETARY Unavailable Unavailable Scordo, M Radha PA Unavailable Unavailable Scordo, M Radha PA Unavailable Unavailable Scordo, M Radha PA Unavailable Unavailable Scordo, M Radha PA Unavailable Unavailable Scordo, M Radha PA Unavailable Unavailable Scordo, M Radha PA Unavailable Unavailable Scordo, M Radha PA Unavailable Unavailable Scordo, M Radha PA Unavailable Unavailable Scordo, M Radha PA Unavailable Unavailable Scordo, M Radha PA Unavailable Unavailable Scordo, M Radha PA Unavailable Unavailable Scordo, M Radha PA Unavailable Unavailable Scordo, M Radha PA Unavailable Unavailable Scordo, M Radha PA Unavailable Unavailable Scordo, M Radha PA Unavailable Unavailable Scordo, M Radha PA Unavailable Unavailable Scordo, M Radha PA Unavailable Unavailable Scordo, M Radha PA Unavailable Unavailable Scordo, M Radha PA Unavailable Unavailable Scordo, M Radha PA Unavailable Unavailable Scordo, M Radha PA Unavailable Unavailable Scordo, M Radha PA Unavailable Unavailable Scordo, M Radha PA Unavailable Unavailable Scordo, M Radha PA Unavailable Unavailable Scordo, M Radha PA Unavailable Unavailable Scordo, M Radha PA Unavailable Unavailable Scordo, M Radha PA Unavailable Unavailable Scordo, M Radha PA Unavailable Unavailable Scordo, M Radha PA Unavailable Unavailable Scordo, M Radha PA Unavailable Unavailable Scordo, M Radha PA Unavailable Unavailable Scordo, M Radha PA Unavailable Unavailable Scordo, M Radha PA Unavailable Unavailable Scordo, M Radha PA Unavailable Unavailable Scordo, M Radha PA Unavailable Unavailable Scordo, M Radha PA Unavailable Unavailable Scordo, M Radha PA Unavailable Unavailable Scordo, M Radha PA Unavailable Unavailable Scordo, M Radha PA Unavailable Unavailable Scordo, M Radha PA Unavailable Unavailable Scordo, M Radha PA Unavailable Unavailable Scordo, M Radha PA Unavailable Unavailable Scordo, M Radha PA Unavailable Unavailable Scordo, M Radha PA Unavailable Unavailable Scordo, M Radha PA Unavailable Unavailable Scordo, M Radha PA Unavailable Unavailable Scordo, M Radha PA Unavailable Unavailable BLUE, ANDREA DANIEL RPA-C Unavailable Unavailable BLUE, ANDREA DANIEL RPA-C Unavailable Unavailable BLUE, ANDREA DANIEL RPA-C Unavailable Unavailable BLUE, ANDREA DANIEL RPA-C Unavailable Unavailable BLUE, ANDREA DANIEL RPA-C Unavailable Unavailable BLUE, ANDREA DANIEL RPA-C Unavailable Unavailable BLUE, ANDREA DANIEL RPA-C Unavailable Unavailable BLUE, ANDREA DANIEL RPA-C Unavailable Unavailable BLUE, ANDREA DANIEL RPA-C Unavailable Unavailable BLUE, ANDREA DNAIEL RPA-C Unavailable Unavailable BLUE, ANDREA DANIEL RPA-C Unavailable Unavailable BLUE, ANDREA DANIEL RPA-C Unavailable Unavailable BLUE, ANDREA DANIEL RPA-C Unavailable Unavailable BLUE, ANDREA DANIEL RPA-C Unavailable Unavailable BLUE, ANDREA DANIEL RPA-C Unavailable Unavailable BLUE, ANDREA DANIEL RPA-C Unavailable Unavailable BLUE, ANDREA DANIEL RPA-C Unavailable Unavailable BLUE, ANDREA DANIEL RPA-C Unavailable Unavailable BLUE, ANDREA DANIEL RPA-C Unavailable Unavailable BLUE, ANDREA DANIEL RPA-C Unavailable Unavailable BLUE, ANDREA DANIEL RPA-C Unavailable Unavailable BLUE, ANDREA DANIEL RPA-C Unavailable Unavailable BLUE, ANDREA DANIEL RPA-C Unavailable Unavailable BLUE, ANDREA DANIEL RPA-C Unavailable Unavailable BLUE, ANDREA DANIEL RPA-C Unavailable Unavailable BLUE, ANDREA DANIEL RPA-C Unavailable Unavailable BLUE, ANDREA DANIEL RPA-C Unavailable Unavailable BLUE, ANDREA DANIEL RPA-C Unavailable Unavailable BLUE, ANDREA DANIEL RPA-C Unavailable Unavailable BLUE, ANDREA DANIEL RPA-C Unavailable Unavailable BLUE, ANDREA DANIEL RPA-C Unavailable Unavailable BLUE, ANDREA DANIEL RPA-C Unavailable Unavailable BLUE, ANDREA DANIEL RPA-C Unavailable Unavailable BLUE, ANDREA DANIEL RPA-C Unavailable Unavailable BLUE, ANDREA DANIEL RPA-C Unavailable Unavailable BLUE, ANDREA DANIEL RPA-C Unavailable Unavailable BLUE, ANDREA DANIEL RPA-C Unavailable Unavailable BLUE, ANDREA DANIEL RPA-C Unavailable Unavailable BLUE, ANDREA DANIEL RPA-C Unavailable Unavailable BLUE, ANDREA DANIEL RPA-C Unavailable Unavailable BLUE, ANDREA DANIEL RPA-C Unavailable Unavailable BLUE, ANDREA DANIEL RPA-C Unavailable Unavailable BLUE, ANDREA DANIEL RPA-C Unavailable Unavailable Willy, A Adenike PAYROLL SECRETARY Unavailable Unavailable Willy, A Adenike PAYROLL SECRETARY Unavailable Unavailable Willy, A Adenike PAYROLL SECRETARY Unavailable Unavailable Willy, A Adenike PAYROLL SECRETARY Unavailable Unavailable Willy, A Adenike PAYROLL SECRETARY Unavailable Unavailable Willy, A Adenike PAYROLL SECRETARY Unavailable Unavailable Massena, A Adenike PAYROLL SECRETARY Unavailable Unavailable Massena, A Adenike PAYROLL SECRETARY Unavailable Unavailable Massena, A Adenike PAYROLL SECRETARY Unavailable Unavailable Massena, A Adenike PAYROLL SECRETARY Unavailable Unavailable Massena, A Adenike PAYROLL SECRETARY Unavailable Unavailable Massena, A Adenike PAYROLL SECRETARY Unavailable Unavailable Massena, A Adenike PAYROLL SECRETARY Unavailable Unavailable Massena, A Adenike PAYROLL SECRETARY Unavailable Unavailable Massena, A Adenike PAYROLL SECRETARY Unavailable Unavailable Massena, A Adenike PAYROLL SECRETARY Unavailable Unavailable Massena, A Adenike PAYROLL SECRETARY Unavailable Unavailable Massena, A Adenike PAYROLL SECRETARY Unavailable Unavailable Massena, A Adenike PAYROLL SECRETARY Unavailable Unavailable Massena, A Adenike PAYROLL SECRETARY Unavailable Unavailable Massena, A Adenike PAYROLL SECRETARY Unavailable Unavailable Massena, A Adenike PAYROLL SECRETARY Unavailable Unavailable Massena, A Adenike PAYROLL SECRETARY Unavailable Unavailable Massena, A Adenike PAYROLL SECRETARY Unavailable Unavailable Massena, A Adenike PAYROLL SECRETARY Unavailable Unavailable Massena, A Adenike PAYROLL SECRETARY Unavailable Unavailable Massena, A Adenike PAYROLL SECRETARY Unavailable Unavailable Massena, A Adenike PAYROLL SECRETARY Unavailable Unavailable Massena, A Adenike PAYROLL SECRETARY Unavailable Unavailable Massena, A Adenike PAYROLL SECRETARY Unavailable Unavailable Willy, A Adenike PAYROLL SECRETARY Unavailable Unavailable SONIA VALERIO MD Unavailable Unavailable SONIA VALERIO MD Unavailable Unavailable SONIA VALERIO MD Unavailable Unavailable SONIA VALERIO MD Unavailable Unavailable SONIA VALERIO MD Unavailable Unavailable SONIA VALERIO MD Unavailable Unavailable SONIA VALERIO MD Unavailable Unavailable SONIA VALERIO MD Unavailable Unavailable SONIA VALERIO MD Unavailable Unavailable IMAN, SONIA MD Unavailable Unavailable IMAN, SONIA MD Unavailable Unavailable IMAN, SONIA MD Unavailable Unavailable IMAN, SONIA MD Unavailable Unavailable IMAN, SONIA MD Unavailable Unavailable IMAN, SONIA MD Unavailable Unavailable IMAN, SONIA MD Unavailable Unavailable IMAN, SONIA MD Unavailable Unavailable IMAN, SONIA MD Unavailable Unavailable IMAN, SONIA MD Unavailable Unavailable IMAN, SONIA MD Unavailable Unavailable IMAN, SONIA MD Unavailable Unavailable IMAN, SONIA MD Unavailable Unavailable IMAN, SONIA MD Unavailable Unavailable IMAN, SONIA MD Unavailable Unavailable IMAN, SONIA MD Unavailable Unavailable IMAN, SONIA MD Unavailable Unavailable IMAN, SONIA MD Unavailable Unavailable IMAN, SONIA MD Unavailable Unavailable IMAN, SONIA MD Unavailable Unavailable IMAN, SONIA MD Unavailable Unavailable IMAN, SONIA MD Unavailable Unavailable IMAN, SONIA MD Unavailable Unavailable IMAN, SONIA MD Unavailable Unavailable IMAN, SONIA MD Unavailable Unavailable IMAN, SONIA MD Unavailable Unavailable IMAN, SONIA MD Unavailable Unavailable IMAN, SONIA MD Unavailable Unavailable IMAN, SONIA MD Unavailable Unavailable IMAN, SONIA MD Unavailable Unavailable IAMN, SONIA MD Unavailable Unavailable IMAN, SONIA MD Unavailable Unavailable IMAN, SONIA MD Unavailable Unavailable IMAN, SONIA MD Unavailable Unavailable IMAN, SONIA MD Unavailable Unavailable IMAN, SONIA MD Unavailable Unavailable IMAN, SONIA MD Unavailable Unavailable IMAN, SONIA MD Unavailable Unavailable IMAN, SONIA MD Unavailable Unavailable IMAN, SONIA MD Unavailable Unavailable IMAN, SONIA MD Unavailable Unavailable IMAN, SONIA MD Unavailable Unavailable IMAN, SONIA MD Unavailable Unavailable IMAN, SONIA MD Unavailable Unavailable IMAN, SONIA MD Unavailable Unavailable IMAN, SONIA MD Unavailable Unavailable IMAN, SONIA MD Unavailable Unavailable IMAN, SONIA MD Unavailable Unavailable IMAN, SONIA MD Unavailable Unavailable IMAN, SONIA MD Unavailable Unavailable IMAN, SONIA MD Unavailable Unavailable IMAN, SONIA MD Unavailable Unavailable IMAN, SONIA MD Unavailable Unavailable IMAN, SONIA MD Unavailable Unavailable IMAN, SONIA MD Unavailable Unavailable IMAN, SONIA MD Unavailable Unavailable IMAN, SONIA MD Unavailable Unavailable IMAN, SONIA MD Unavailable Unavailable IMAN, SONIA MD Unavailable Unavailable IMAN, SONIA MD Unavailable Unavailable IMAN, SONIA MD Unavailable Unavailable IMAN, SONIA MD Unavailable Unavailable IMAN, SONIA MD Unavailable Unavailable IMAN, SONIA MD Unavailable Unavailable Re-disclosure Warning The records that you are about to access may contain information from federally-assisted alcohol or drug abuse programs. If such information is present, then the following federally mandated warning applies: This information has been disclosed to you from records protected by federal confidentiality rules (42 CFR part 2). The federal rules prohibit you from making any further disclosure of this information unless further disclosure is expressly permitted by the written consent of the person to whom it pertains or as otherwise permitted by 42 CFR part 2. A general authorization for the release of medical or other information is NOT sufficient for this purpose. The Federal rules restrict any use of the information to criminally investigate or prosecute any alcohol or drug abuse patient.The records that you are about to access may contain highly sensitive health information, the redisclosure of which is protected by Article 27-F of the [facility] Public Health law. If you continue you may have access to information: Regarding HIV / AIDS; Provided by facilities licensed or operated by the [facility] Office of Mental Health; or Provided by the [facility] Office for People With Developmental Disabilities. If such information is present, then the following [facility] mandated warning applies: This information has been disclosed to you from confidential records which are protected by state law. State law prohibits you from making any further disclosure of this information without the specific written consent of the person to whom it pertains, or as otherwise permitted by law. Any unauthorized further disclosure in violation of state law may result in a fine or long-term sentence or both. A general authorization for the release of medical or other information is NOT sufficient authorization for further disc losure. Family History Family Member Name Family Member Gender Family Member Status Date o f Status Description Data Source(s) Unknown Male Problem [facility] ([facility]) Unknown Male Problem [facility] ([facility]) Encounters Encounter Providers Location Date Indications Data Source(s ) Brief Individual Psychotherapy - 30 min Attender: Nupur chowdhury [facility] 06/20/2021 12:00:00 PM EST - 06/20/2021 12:00:00 PM EST [facility] ([facility]) Attender: Nupur Lynn 06/20/2021 12:00:00 AM EST [facility] ([facility]) Jr Pritchett MD: [address] [place] [address], Ph. Attender: Jr Pritchett MD [facility] 06/20/2021 12:00:00 AM EST MELINA ([facility]) Jr Pritchett MD: [address] [place] [address], Ph. Attender: Jr Pritchett MD [facility] 06/05/2021 12:00:00 AM EST MELINA ([facility]) Daniel Blue RPA-C: [address], [place] [address], Ph. Attender: DANIEL BLUE RPA-C [facility] 06/05/2021 12:00:00 AM EST MELINA ([facility]) Jr Pritchett MD: [address] [place] [address], Ph. Attender: Jr Pritchett MD [facility] 06/05/2021 12:00:00 AM EST MELINA ([facility]) Daniel Blue RPA-C: [address], [place] [address], Ph. Attender: DANIEL BLUE RPA-C [facility] 06/05/2021 12:00:00 AM EST MELINA ([facility]) Jr Pritchett MD: [address] [place] [address], Ph. Attender: Jr Pritchett MD [facility] 06/05/2021 12:00:00 AM EST MELINA ([facility]) Daniel Blue RPA-C: [address], [place] [address], Ph. Attender: DANIEL BASS [facility] 06/05/2021 12:00:00 AM EST MELINA ([facility]) Extended Individual Psychotherapy - 45 min Attender: Nupur Lynn [facility] 05/31/2021 02:00:00 AM EST - 05/31/2021 02:00:00 AM EST [facility] ([facility]) Attender: Nupur Lynn 05/31/2021 12:00:00 AM EST [facility] ([facility]) Extended Individual Psychotherapy - 45 min [facility] 05/07/2021 01:15:00 AM EDT - 05/07/2021 01:15:00 AM EDT [facility] ([facility]) Attender: Denise Ibanez 05/07/2021 12:00:00 A M EDT [facility] ([facility]) Jr Pritchett MD: [address] [place] [address], Ph. Attender: Jr Pritchett MD [facility] 04/26/2021 12:00:00 AM EDT MELINA ([facility]) Jr Pritchett MD: [address] [place] [address], Ph. Attender: Jr Pritchett MD [facility] 04/26/2021 12:00:00 AM EDT MELINA ([facility]) Jr Pritchett MD: [address] [place] [address], Ph. Attender: Jr Pritchett MD [facility] 04/26/2021 12:00:00 AM EDT MELINA ([facility]) Jr Pritchett MD: [address] [place] [address], Ph. Attender: Jr Pritchett MD [facility] 04/26/2021 12:00:00 AM EDT MCLEAN ([facility]) Outpatient Attender: JEANNIE MCCOLLUMELIZAHUSAM [id number] 03/14 12:00:00 AM EDT - 03/14/2021 04:20:26 PM EDT [place], unspecified, bilateral [facility] [place], unspecified, bilateral Radha Coello PA-C: [address], [place] [address], Ph. Attender: Radha MARVIN [facility] Medical 02/19/2021 12:00:00 AM EDT [facility] ([facility]) Radha Coello PA-C: [address], [place] [address], Ph. Attender: Radha MARVIN [facility] Medical 02/19/2021 12:00:00 AM EDT [facility] ([facility]) Radha Coello PA-C: [address], [place] [address], Ph. Attender: Radha MARVIN [facility] Medical 02/19/2021 12:00:00 AM EDT [facility] ([facility]) Radha Coello PA-C: [address], [place] [address], Ph. Attender: Radha MARVIN [facility] Medical 02/19/2021 12:00:00 AM EDT [facility] ([facility]) Radha Coello PA-C: [address], [place] [address], Ph. Attender: Radha MARVIN [facility] Medical 02/19/2021 12:00:00 AM EDT [facility] ([facility]) Extended Individual Psychotherapy - 45 min Attender: Leela Abdalla [facility] 01/30/2021 01:00:00 AM EDT - 01/30/2021 01:00:00 AM EDT [facility] ([facility]) Attender: Mireya Rm 01/30/2021 12:00:00 AM EDT [facility] ([facility]) Jr Pritchett MD: [address] [place] [address], Ph. Attender: Jr Pritchett MD [facility] Medical 01/24/2021 12:00:00 AM EDT [facility] ([facility]) Jr Pritchett MD: [address] [place] [address], Ph. Attender: Jr Pritchett MD [facility] Medical 01/24/2021 12:00:00 AM EDT [facility] ([facility]) Jr Pritchett MD: [address] [place] [address], Ph. Attender: Jr Pritchett MD [facility] Medical 01/24/2021 12:00:00 AM EDT [facility] ([facility]) Jr Pritchett MD: [address] [place] [address], Ph. Attender: Jr Pritchett MD [facility] Medical 01/24/2021 12:00:00 AM EDT [facility] ([facility]) Jr Pritchett MD: [address] [place] [address], Ph. Attender: Jr Pritchett MD [facility] Medical 01/24/2021 12:00:00 AM EDT [facility] ([facility]) Jr Pritchett MD: [address] [place] [address], Ph. Attender: Jr Pritchett MD [facility] Medical 01/24/2021 12:00:00 AM EDT [facility] ([facility]) Outpatient 12/28/2020 12:00:[address] [facility] Radha Coello PA-C: [address], [place] [address], Ph. Attender: Radha MARVIN [facility] Medical 11/20/2020 12:00:00 AM EDT [facility] ([facility]) Radha Coello PA-C: [address], [place] [address], Ph. Attender: Radha MARVIN [facility] Medical 11/20/2020 12:00:00 AM EDT [facility] ([facility]) Radha Coello PA-C: [address], [place] [address], Ph. Attender: Radha MARVIN [facility] Medical 11/20/2020 12:00:00 AM EDT [facility] ([facility]) Radha Coello PA-C: [address], [place] [address], Ph. Attender: Radha MARVIN [facility] Medical 11/20/2020 12:00:00 AM EDT [facility] ([facility]) Radha Coello PA-C: [address], [place] [address], Ph. Attender: Radha MARVIN [facility] Medical 11/20/2020 12:00:00 AM EDT [facility] ([facility]) Radha Coello PA-C: [address], [place] [address], Ph. Attender: Radha MARVIN [facility] Medical 11/20/2020 12:00:00 AM EDT [facility] ([facility]) Radha Coello PA-C: [address], [place] [address], Ph. Attender: Radha MARVIN [facility] Medical 11/20/2020 12:00:00 AM EDT [facility] ([facility]) Radha Coello PA-C: [address], [place] [address], Ph. Attender: Radha MARVIN [facility] Medical 10/23/2020 12:00:00 AM EDT [facility] ([facility]) Radha Coello PA-C: [address], [place] [address], Ph. Attender: Radha MARVIN [facility] Medical 10/23/2020 12:00:00 AM EDT [facility] ([facility]) Radha Coello PA-C: [address], [place] [address], Ph. Attender: Radha MARVIN [facility] Medical 10/23/2020 12:00:00 AM EDT [facility] ([facility]) Radha Coello PA-C: [address], [place] [address], Ph. Attender: Radha MARVIN [facility] Medical 10/23/2020 12:00:00 AM EDT [facility] ([facility]) Radha Coello PA-C: [address], [place] [address], Ph. Attender: Radha MARVIN [facility] Medical 10/23/2020 12:00:00 AM EDT [facility] ([facility]) Radha Coello PA-C: [address], [place] [facility] [place] [address], Ph. Attender: Radha MARVIN [facility] Medical 10/23/2020 12:00:00 AM EDT [facility] ([facility]) Radha Coello PA-C: [address], [place] [facility] [place] [address], Ph. Attender: Radha MARVIN [facility] Medical 10/23/2020 12:00:00 AM EDT [facility] ([facility]) Radha Coello PA-C: [address], [place] [address], Ph. Attender: Radha MARVIN [facility] Medical 10/23/2020 12:00:00 AM EDT [facility] ([facility]) Radha Coello PA-C: [address], [place] [address], Ph. Attender: Radha MARVIN [facility] Medical 09/20/2020 12:00:00 AM EST [facility] ([facility]) Radha Coello PA-C: [address], [address], [place] [address], Ph. Attender: Radha MARVIN [facility] Medical 09/20/2020 12:00:00 AM EST [facility] ([facility]) Radha Coello PA-C: [address], [address], [place] [address], Ph. Attender: Radha MARVIN [facility] Medical 09/20/2020 12:00:00 AM EST [facility] ([facility]) Radha Coello PA-C: [address], [address], [place] [address], Ph. Attender: Radha MARVIN [facility] Medical 09/20/2020 12:00:00 AM EST [facility] ([facility]) Radha Coello PA-C: [address], [address], [place] [address], Ph. Attender: Radha MARVIN [facility] Medical 09/20/2020 12:00:00 AM EST [facility] ([facility]) Radha Coello PA-C: [address], [address], [place] [address], Ph. Attender: Radha MARVIN [facility] Medical 09/20/2020 12:00:00 AM EST [facility] ([facility]) Radha Coello PA-C: [address], [address], [place] [address], Ph. Attender: Radha MARVIN [facility] Medical 09/20/2020 12:00:00 AM EST [facility] ([facility]) Radha Coello PA-C: [address], [address], [place] [address], Ph. Attender: Radha MARVIN [facility] Medical 09/20/2020 12:00:00 AM EST [facility] ([facility]) Radha Scordo, PA-C: [address], [address], [place] [address], Ph. Attender: Radha MARVIN [facility] Medical 09/20/2020 12:00:00 AM EST [facility] ([facility]) TRINH Pack[employer]: [address], [address], [place] [address], Ph. Attender: Radha MARVIN [facility] Medical 09/13/2020 12:00:00 AM EST [facility] ([facility]) Radha Coello PA-C: [address], [address], [place] [address], Ph. Attender: Radha MARVIN [facility] Medical 09/13/2020 12:00:00 AM EST [facility] ([facility]) TRINH Pack[employer]: [address], [address], [place] [address], Ph. Attender: Radha MARVIN [facility] Medical 09/13/2020 12:00:00 AM EST [facility] ([facility]) Radha Coello PA-C: [address], [address], [place] [address], Ph. Attender: Radha MARVIN [facility] Medical 09/13/2020 12:00:00 AM EST [facility] ([facility]) Radha Coello PA-C: [address], [address], [place] [address], Ph. Attender: Radha MARVIN [facility] Medical 09/13/2020 12:00:00 AM EST [facility] ([facility]) Radha Coello PA-C: [address], [address], [place] [address], Ph. Attender: Radha MARVIN [facility] Medical 09/13/2020 12:00:00 AM EST [facility] ([facility]) Radha Coello PA-C: [address], [address], [place] [address], Ph. Attender: Radha MARVIN [facility] Medical 09/13/2020 12:00:00 AM EST [facility] ([facility]) Radha Coello PA-C: [address], [address], [place] [address], Ph. Attender: Radha MARVIN [facility] Medical 09/13/2020 12:00:00 AM EST [facility] ([facility]) Radha Coello PA-C: [address], [address], [place] [address], Ph. Attender: Radha MARVIN [facility] Medical 09/13/2020 12:00:00 AM EST [facility] ([facility]) Radha Coello PA-C: [address], [address], [place] [address], Ph. Attender: Radha MARVIN [facility] Medical 09/13/2020 12:00:00 AM EST [facility] ([facility]) Radha Coello PA-C: [address], [address], [place] [address], Ph. Attender: Radha MARVIN [facility] Medical 09/06/2020 12:00:00 AM EST [facility] ([facility]) Radha Coello PA-C: [address], [address], [place] [address], Ph. Attender: Radha MARVIN [facility] Medical 09/06/2020 12:00:00 AM EST [facility] ([facility]) Radha Coello PA-C: [address], [address], [place] [address], Ph. Attender: Radha MARVIN [facility] Medical 09/06/2020 12:00:00 AM EST [facility] ([facility]) Radha Coello PA-C: [address], [address], [place] [address], Ph. Attender: Radha MARVIN [facility] Medical 09/06/2020 12:00:00 AM EST [facility] ([facility]) Radha Coello PA-C: [address], [address], [place] [address], Ph. Attender: Radha MARVIN [facility] Medical 09/06/2020 12:00:00 AM EST [facility] ([facility]) Radha Coello PA-C: [address], [address], [place] [address], Ph. Attender: Radha MARVIN [facility] Medical 09/06/2020 12:00:00 AM EST [facility] ([facility]) Radha Coello PA-C: [address], [address], [place] [address], Ph. Attender: Radha MARVIN [facility] Medical 09/06/2020 12:00:00 AM EST [facility] ([facility]) Radha Coello PA-C: [address], [address], [place] [address], Ph. Attender: Radha MARVIN [facility] Medical 09/06/2020 12:00:00 AM EST [facility] ([facility]) Radha Coello PA-C: [address], [address], [place] [address], Ph. Attender: Radha MARVIN [facility] Medical 09/06/2020 12:00:00 AM EST [facility] ([facility]) Radha Coello PA-C: [address], [address], [place] [address], Ph. Attender: Radha MARVIN [facility] Medical 09/06/2020 12:00:00 AM EST [facility] ([facility]) Radha Coello PA-C: [address], [address], [place] [address], Ph. Attender: Radha MARVIN [facility] Medical 09/06/2020 12:00:00 AM EST [facility] ([facility]) Outpatient Attender: Isaac Holland: SONIA Meehan 07/03/2020 12:00:00 AM [facility] Radha Scordo, PA-C: [address], [place] [address], Ph. Attender: Radha MARVIN [facility] Medical 06/06/2020 12:00:00 AM EST [facility] ([facility]) Radha Coello PA-C: [address], [place] [address], Ph. Attender: Radha MARVIN [facility] Medical 06/06/2020 12:00:00 AM EST [facility] ([facility]) Radha Coello PA-C: [address], [place] [address], Ph. Attender: Radha MARVIN [facility] Medical 06/06/2020 12:00:00 AM EST [facility] ([facility]) Radha Coello PA-C: [address], [place] [address], Ph. Attender: Radha MARVIN [facility] Medical 06/06/2020 12:00:00 AM EST [facility] ([facility]) Radha Coello PA-C: [address], [place] [address], Ph. Attender: Radha MARVIN [facility] Medical 06/06/2020 12:00:00 AM EST [facility] ([facility]) Radha Coello PA-C: [address], [place] [address], Ph. Attender: Radha MARVIN [facility] Medical 06/06/2020 12:00:00 AM EST [facility] ([facility]) Radha Coello PA-C: [address], [place] [address], Ph. Attender: Radha MARVIN [facility] Medical 06/06/2020 12:00:00 AM EST [facility] ([facility]) Radha Coello PA-C: [address], [place] [address], Ph. Attender: Radha MARVIN [facility] Medical 06/06/2020 12:00:00 AM EST [facility] ([facility]) Radha Coello PA-C: [address], [place] [address], Ph. Attender: Radha MARVIN [facility] Medical 06/06/2020 12:00:00 AM EST [facility] ([facility]) Radha Coello PA-C: [address], [place] [address], Ph. Attender: Radha MARVIN [facility] Medical 06/06/2020 12:00:00 AM EST [facility] ([facility]) Radha Coello PA-C: [address], [place] [address], Ph. Attender: Radha MARVIN [facility] Medical 06/06/2020 12:00:00 AM EST [facility] ([facility]) Radha Coello PA-C: [address], [place] [address], Ph. Attender: Radha MARVIN [facility] Medical 06/06/2020 12:00:00 AM EST [facility] ([facility]) Outpatient Attender: Kristi MARVIN 05/29/2020 12:00:00 A M [facility] Outpatient Attender: Adenike GODFREY 05/21/2020 01:3 1:01 PM [facility] Outpatient Attender: DIMAS Aguilera [facility] 05/21/2020 01:26:01 P M EST [facility] [address], [place] [address], Ph. Attender: Adenike Aguilera [facility] Medical 05/14/2020 12:00:00 AM EDT [facility] ([facility]) [facility] [address], [place] [address], Ph. Attender: Adenike Aguilera [facility] 05/14/2020 12:00:00 AM EDT [facility] ([facility]) Adenike Aguilera [facility]: [address], [place] [address], Ph. Attender: Adenike Aguilera [facility] Medical 05/14/2020 12:00:00 AM EDT [facility] ([facility]) [facility] [address], [place] [address], Ph. Attender: Adenike Aguilera [facility] Medical 05/14/2020 12:00:00 AM EDT [facility] ([facility]) Adenike Aguilera [facility]: [address], [place] [address], Ph. Attender: Adenike Aguilera [facility] Medical 05/14/2020 12:00:00 AM EDT [facility] ([facility]) Adenike Aguilera [facility]: [address], [place] [address], Ph. Attender: Adenike Aguilera [facility] Medical 05/14/2020 12:00:00 AM EDT [facility] ([facility]) Adenike Aguilera [facility]: [address], [place] [address], Ph. Attender: Adenike Aguilera [facility] Medical 05/14/2020 12:00:00 AM EDT [facility] ([facility]) Adenike Aguilera [facility]: [address], [place] [address], Ph. Attender: Adenike Aguilera [facility] Medical 05/14/2020 12:00:00 AM EDT [facility] ([facility]) Adenike Aguilera [facility]: [address], [place] [address], Ph. Attender: Adenike Aguilera [facility] Medical 05/14/2020 12:00:00 AM EDT [facility] ([facility]) Adenike Aguilera [facility]: [address], [place] [address], Ph. Attender: Adenike Aguilera [facility] Medical 05/14/2020 12:00:00 AM EDT [facility] ([facility]) Adenike Aguilera [facility]: [address], [place] [address], Ph. Attender: Adenike Aguilera [facility] Medical 05/14/2020 12:00:00 AM EDT [facility] ([facility]) Adenike Aguilera [facility]: [address], [place] [address], Ph. Attender: Adenike Aguilera [facility] Medical 05/14/2020 12:00:00 AM EDT [facility] ([facility]) Adenike Aguilera, DIMAS-BC: [address] [facility] [address], [place] [address], Ph. Attender: Adenike COCHRAN [facility] Medical 05/14/2020 12:00:00 AM EDT [facility] ([facility]) Outpatient Attender: DIMAS COCHRAN 05/03/2020 08:13:00 A M EDT [facility] Outpatient Attender: Adenike COCHRAN 04/26/2020 01:4 0:01 PM EDT [facility] Outpatient Attender: DIMAS GODFREY 04/26/2020 12:02:16 A M EDT [facility] Outpatient Attender: Kristi MARVIN 04/26/2020 12:00:00 A M [facility] Outpatient Attender: DIMAS COCHRAN 04/25/2020 08:36:01 A M EDT [facility] Outpatient Attender: Adenike COCHRAN 04/23/2020 08:0 1:05 PM EDT [facility] Outpatient Attender: DIMAS COCHRAN 04/23/2020 08:01:03 P M EDT [facility] Outpatient Attender: Adenike COCHRAN 04/23/2020 11:0 9:00 AM EDT [facility] Immunizations Vaccine Date Status Description Data Source(s) New in 2011. IIV4 09/20/2020 02:24:59 PM EST completed .5 mL [facility] ([facility]) New in 2011. IIV4 09/20/2020 02:24:59 PM EST completed .5 mL [facility] ([facility]) New in 2011. IIV4 09/20/2020 02:24:59 PM EST completed .5 mL [facility] ([facility]) New in 2011. IIV4 09/20/2020 02:24:59 PM EST completed .5 mL [facility] ([facility]) New in 2011. IIV4 09/20/2020 02:24:59 PM EST completed .5 mL [facility] ([facility]) New in 2011. IIV4 09/20/2020 02:24:59 PM EST completed .5 mL [facility] ([facility]) New in 2011. IIV4 09/20/2020 02:24:59 PM EST completed .5 mL [facility] ([facility]) New in 2011. IIV4 09/20/2020 02:24:59 PM EST completed .5 mL [facility] ([facility]) New in 2011. IIV4 09/20/2020 02:24:59 PM EST completed .5 mL [facility] ([facility]) pneumococcal polysaccharide PPV23 09/13/2020 03:01:00 PM EST com pleted 10.5 mL [facility] ([facility]) pneumococcal polysaccharide PPV23 09/13/2020 03:01:00 PM EST com pleted 10.5 mL [facility] ([facility]) pneumococcal polysaccharide PPV23 09/13/2020 03:01:00 PM EST com pleted 10.5 mL [facility] ([facility]) pneumococcal polysaccharide PPV23 09/13/2020 03:01:00 PM EST com pleted 10.5 mL [facility] ([facility]) pneumococcal polysaccharide PPV23 09/13/2020 03:01:00 PM EST com pleted 10.5 mL [facility] ([facility]) pneumococcal polysaccharide PPV23 09/13/2020 03:01:00 PM EST com pleted 10.5 mL [facility] ([facility]) pneumococcal polysaccharide PPV23 09/13/2020 03:01:00 PM EST com pleted 10.5 mL [facility] ([facility]) pneumococcal polysaccharide PPV23 09/13/2020 03:01:00 PM EST com pleted 10.5 mL [facility] ([facility]) pneumococcal polysaccharide PPV23 09/13/2020 03:01:00 PM EST com pleted 10.5 mL [facility] ([facility]) pneumococcal polysaccharide PPV23 09/13/2020 03:01:00 PM EST com pleted 10.5 mL [facility] ([facility]) Medications Medication Brand Name Start Date Product Form Dose Route Admi nistrative Instructions Pharmacy Instructions Status Indications Reaction Description Data Source(s) Proparacaine hydrochloride 5 MG/ML Ophth almic Solution proparacaine (ALCAINE) 0.5 % ophthalmic solution 1 drop proparacaine (ALCAINE) 0.5 % ophthalmic solution 1 drop 03/14/2021 03:15:00 PM EDT 1 [drp] Both Eyes completed Keratoconus of right eye 1 drop, Both Eyes, Once, On [facility] 03/14/21 at 1515, For [address] [facility] Keratoconus of right eye Medication administered onsite Phenylephrine Hydrochloride 25 MG/ML Oph thalmic Solution phenylephrine (MYDFRIN) 2.5 % ophthalmic solution 1 drop phenylephrine (MYDFRIN) 2.5 % ophthalmic solution 1 drop 03/14/2021 03:15:00 PM EDT 1 [drp] Both Eyes completed Keratoconus of right eye 1 drop, Both Eyes, Once, On [facility] 03/14/21 at 1515, For [address] [facility] Keratoconus of right eye Medication administered onsite Tropicamide 10 MG/ML Ophthalmic Solution tropicamide (MYDRIACYL) 1 % ophthalmic solution 1 drop tropicamide (MYDRIACYL) 1 % ophthalmic solution 1 drop 03/14/2021 03:15:00 PM EDT 1 [drp] Both Eyes com pleted Keratoconus of right eye 1 drop, Both Eyes, Once, On [facility] 03/14/21 at 1515, For [address] [facility] Keratoconus of right eye Medication administered onsite Cholecalciferol 1000 UNT Oral Tablet Vit emmanuel D3 25 MCG (1000 UT) Oral Tablet (CHOLECALCIFEROL) Vitamin D3 25 MCG (1000 UT) Oral Tablet (CHOLECALCIFER OL) 02/29/2020 12:00:00 AM EDT 2000 U Oral active Take 2 tablets by mouth daily [facility] Ascorbic Acid 500 MG Oral Tablet Ascorbic Acid 500 MG Oral Tablet (VITAMIN C) Ascorbic Acid 500 MG Oral Tablet (VITAMIN C) 02/29/2020 12:00:00 AM EDT 500 mg Oral active Take 1 tablet by mouth d [facility] Calcium Citrate 950 MG Oral Tablet Calci um Citrate 950 MG Oral Tablet (CALCITRATE) Calcium Citrate 950 MG Oral Tablet (CALCITRATE) 2019 12:00:00 AM EDT 950 mg Oral active Take 1 tablet by mouth daily [facility] fluticasone propionate 50 mcg/actuation nasal spray,suspension [id number] completed fluticasone propionate 0.05 MG/ACTUAT Metered Dose Nasal [place] [facility] ([facility]) Sodium Chloride 0.154 MEQ/ML Irrigation Solution sodium chloride 0.9 % irrigation solution sodium chloride 0.9 % irrigation solution completed sodium chloride 0.154 MEQ/ML Irr igation Solution [facility] ([facility]) Sodium Chloride 0.154 MEQ/ML Irrigation Solution sodium chloride 0.9 % irrigation solution sodium chloride 0.9 % irrigation solution completed sodium chloride 0.154 MEQ/ML Irr igation Solution [facility] ([facility]) olanzapine 10 MG Disintegrating Oral Tab let olanzapine 10 mg disintegrating tablet olanzapine 10 mg disintegrating tablet completed olanzapine 10 MG Disintegrating Oral Tablet [facility] ([facility]) POLYETHYLENE GLYCOL 3350 142 MG/ML Oral Solution polyethylene glycol 3350 17 gram/dose oral powder polyethylene glycol 3350 17 gram/dose oral powder completed polyethylene glycol 3350 73794 MG Powder for Oral Solution [facility] ([facility]) magnesium citrate 58.2 MG/ML Oral Solution magnesium c itrate oral solution magnesium citrate oral solution comple koko magnesium citrate 58.2 MG/ML Oral Solution [facility]) Acetaminophen 500 MG Oral Tablet acetaminophen 500 mg tablet acetaminophen 500 mg tablet completed acetaminophe n 500 MG Oral Tablet [facility] ([facility]) magnesium citrate 58.2 MG/ML Oral Solution magnesium c itrate oral solution magnesium citrate oral solution comple koko magnesium citrate 58.2 MG/ML Oral Solution [facility]) Sodium Chloride 0.154 MEQ/ML Irrigation Solution sodium chloride 0.9 % irrigation solution sodium chloride 0.9 % irrigation solution completed sodium chloride 0.154 MEQ/ML Irr igation Solution [facility]) Haloperidol 10 MG Oral Tablet haloperidol 10 mg tablet halop eridol 10 mg tablet completed haloperidol 10 MG Oral Tablet MELINA ([facility]) POLYETHYLENE GLYCOL 3350 142 MG/ML Oral Solution polyethylene glycol 3350 17 gram/dose oral powder polyethylene glycol 3350 17 gram/dose oral powder completed polyethylene glycol 3350 91392 MG Powder for Oral Solution MELINA ([facility]) Azithromycin 250 MG Oral Tablet azithromycin 250 mg ta blet azithromycin 250 mg tablet completed azithromycin 25 0 MG Oral Tablet MELINA ([facility]) POLYETHYLENE GLYCOL 3350 142 MG/ML Oral Solution polyethylene glycol 3350 17 gram/dose oral powder polyethylene glycol 3350 17 gram/dose oral powder completed polyethylene glycol 3350 28045 MG Powder for Oral Solution MELINA ([facility]) Sodium Chloride 0.154 MEQ/ML Irrigation Solution sodium chloride 0.9 % irrigation solution sodium chloride 0.9 % irrigation solution completed sodium chloride 0.154 MEQ/ML Irr igation Solution [facility]LE[facility] ([facility]) Acetaminophen 325 MG / Hydrocodone Jason trate 5 MG Oral Tablet hydrocodone 5 mg- acetaminophen 325 mg tablet hydrocodone 5 mg-acetaminophen 325 mg tablet completed acetaminophen 325 MG / hydrocodone bitartrate 5 MG Oral Tablet MELINA ([facility]) ginkgo biloba 120 mg tablet Take by oral route. [id number] completed ginkgo biloba 120 mg tablet MCLEAN ([facility]) Acetaminophen 500 MG Oral Tablet acetaminophen 500 mg tablet acetaminophen 500 mg tablet completed acetaminophe n 500 MG Oral Tablet MCLEAN ([facility]) Acetaminophen 325 MG / Hydrocodone Jason trate 5 MG Oral Tablet hydrocodone 5 mg- acetaminophen 325 mg tablet hydrocodone 5 mg-acetaminophen 325 mg tablet completed acetaminophen 325 MG / hydrocodone bitartrate 5 MG Oral Tablet MELINA ([facility]) fluticasone propionate 50 mcg/actuation nasal spray,suspension [id number] completed fluticasone propionate 0.05 MG/ACTUAT Metered Dose Nasal [place] [facility]AN ([facility]) cetirizine hydrochloride 10 MG Oral Tablet cetirizine 10 mg tablet cetirizine 10 mg tablet completed cetirizine hydrochloride 10 MG Oral Tablet MCLEAN ([facility]) Azithromycin 250 MG Oral Tablet azithromycin 250 mg ta blet azithromycin 250 mg tablet completed [facility] 25 [facility] Ibuprofen 800 MG Oral Tablet ibuprofen 800 mg tablet ibuprofen 8 00 mg tablet completed ibuprofen 800 MG Oral Tablet MELINA ([facility]) Ibuprofen 800 MG Oral Tablet ibuprofen 800 mg tablet ibuprofen 8 00 mg tablet completed ibuprofen 800 MG Oral Tablet MELINA ([facility]) Acetaminophen 500 MG Oral Tablet acetaminophen 500 mg tablet acetaminophen 500 mg tablet completed acetaminophe n 500 MG Oral Tablet MCLEAN ([facility]) Colace PRN completed Colace AT [facility] ([facility]) Haloperidol 10 MG Oral Tablet haloperidol 10 mg tablet halop eridol 10 mg tablet completed haloperidol 10 MG Oral Tablet MELINA ([facility]) Ibuprofen 800 MG Oral Tablet ibuprofen 800 mg tablet ibuprofen 8 00 mg tablet completed ibuprofen 800 MG Oral Tablet MELINA ([facility]) Ibuprofen 800 MG Oral Tablet ibuprofen 800 mg tablet ibuprofen 8 00 mg tablet completed ibuprofen 800 MG Oral Tablet [facility]LEAN ([facility]) benzonatate 100 MG Oral Capsule benzonatate 100 mg cap robbie benzonatate 100 mg capsule completed benzonatate 10 0 MG Oral Capsule [facility]AN ([facility]) Azithromycin 250 MG Oral Tablet azithromycin 250 mg ta blet azithromycin 250 mg tablet completed azithromycin 25 0 MG Oral Tablet [facility] ([facility]) Sodium Chloride 0.154 MEQ/ML Irrigation Solution sodium chloride 0.9 % irrigation solution sodium chloride 0.9 % irrigation solution completed sodium chloride 0.154 MEQ/ML Irr igation Solution [facility] ([facility]) Acetaminophen 500 MG Oral Tablet acetaminophen 500 mg tablet acetaminophen 500 mg tablet completed acetaminophe n 500 MG Oral Tablet MELINA ([facility]) Acetaminophen 325 MG / Hydrocodone Jason trate 5 MG Oral Tablet hydrocodone 5 mg- acetaminophen 325 mg tablet hydrocodone 5 mg-acetaminophen 325 mg tablet completed acetaminophen 325 MG / hydrocodone bitartrate 5 MG Oral Tablet MELINA ([facility]) Azithromycin 250 MG Oral Tablet azithromycin 250 mg ta blet azithromycin 250 mg tablet [facility] 25 [facility] Ibuprofen 800 MG Oral Tablet ibuprofen 800 mg tablet ibuprofen 8 00 mg tablet completed ibuprofen 800 MG Oral Tablet MELINA ([facility]) Acetaminophen 500 MG Oral Tablet acetaminophen 500 mg tablet acetaminophen 500 mg tablet completed acetaminophe n 500 MG Oral Tablet [facility] ([facility]) magnesium citrate 58.2 MG/ML Oral Solution magnesium c itrate oral solution magnesium citrate oral solution comple koko magnesium citrate 58.2 MG/ML Oral Solution MCLEAN ([facility]) olanzapine 10 MG Disintegrating Oral Tab let olanzapine 10 mg disintegrating tablet olanzapine 10 mg disintegrating tablet completed olanzapine 10 MG Disintegrating Oral Tablet [facility] ([facility]) POLYETHYLENE GLYCOL 3350 142 MG/ML Oral Solution polyethylene glycol 3350 17 gram/dose oral powder polyethylene glycol 3350 17 gram/dose oral powder completed polyethylene glycol 3350 95184 MG Powder for Oral Solution [facility]LE[facility] ([facility]) Docusate Sodium 100 MG Oral Capsule [DOK] DOK 100 mg capsule DOK 100 mg capsule completed docusate sodiu m 100 MG Oral Capsule [DOK] [facility] ([facility]) Colace PRN completed Colace AT [facility]) magnesium citrate 58.2 MG/ML Oral Solution magnesium c itrate oral solution magnesium citrate oral solution comple koko magnesium citrate 58.2 MG/ML Oral Solution MCLEAN ([facility]) magnesium citrate 58.2 MG/ML Oral Solution magnesium c itrate oral solution magnesium citrate oral solution comple koko magnesium citrate 58.2 MG/ML Oral Solution MCLEAN ([facility]) L-Arginine 500 mg tablet Take 2 tablets every day by oral route. [id number] 2 completed L-Arginine 500 mg tablet [facility]LEAN ([facility]) Acetaminophen 500 MG Oral Tablet acetaminophen 500 mg tablet acetaminophen 500 mg tablet completed acetaminophe n 500 MG Oral Tablet [facility] ([facility]) POLYETHYLENE GLYCOL 3350 142 MG/ML Oral Solution polyethylene glycol 3350 17 gram/dose oral powder polyethylene glycol 3350 17 gram/dose oral powder completed polyethylene glycol 3350 88892 MG Powder for Oral Solution MELINA ([facility]) benzonatate 100 MG Oral Capsule benzonatate 100 mg cap robbie benzonatate 100 mg capsule completed benzonatate 10 0 MG Oral Capsule [facility] ([facility]) fluticasone propionate 50 mcg/actuation nasal spray,suspension [id number] completed fluticasone propionate 0.05 MG/ACTUAT Metered Dose Nasal [place] [facility]) Colace PRN completed Colace AT [facility] ([facility]) fluticasone propionate 50 mcg/actuation nasal spray,suspension [id number] completed fluticasone propionate 0.05 MG/ACTUAT Metered Dose Nasal [place] [facility] ([facility]) Colace PRN completed Colace AT [facility] ([facility]) Azithromycin 250 MG Oral Tablet azithromycin 250 mg ta blet azithromycin 250 mg tablet completed azithromycin 25 0 MG Oral Tablet [facility] ([facility]) magnesium citrate 58.2 MG/ML Oral Solution magnesium c itrate oral solution magnesium citrate oral solution comple koko magnesium citrate 58.2 MG/ML Oral Solution MELINA ([facility]) Docusate Sodium 100 MG Oral Capsule docusate sodium 10 0 mg capsule docusate sodium 100 mg capsule completed docusate sodium 100 MG Oral Capsule MCLEAN ([facility]) ginkgo biloba 120 mg tablet Take by oral route. [id number] completed ginkgo biloba 120 mg tablet [facility]LEAN ([facility]) benzonatate 100 MG Oral Capsule benzonatate 100 mg cap robbie benzonatate 100 mg capsule completed benzonatate 10 0 MG Oral Capsule [facility] ([facility]) L-Arginine 500 mg tablet Take 2 tablets every day by oral route. [id number] 2 completed L-Arginine 500 mg tablet MCLEAN ([facility]) POLYETHYLENE GLYCOL 3350 142 MG/ML Oral Solution polyethylene glycol 3350 17 gram/dose oral powder polyethylene glycol 3350 17 gram/dose oral powder completed polyethylene glycol 3350 31663 MG Powder for Oral Solution [facility]LEAN ([facility]) fluticasone propionate 50 mcg/actuation nasal spray,suspension [id number] completed fluticasone propionate 0.05 MG/ACTUAT Metered Dose Nasal [place] [facility] ([facility]) Colace PRN completed Colace AT [facility] ([facility]) benzonatate 100 MG Oral Capsule benzonatate 100 mg cap robbie benzonatate 100 mg capsule completed benzonatate 10 0 MG Oral Capsule [facility]LEAN ([facility]) Acetaminophen 500 MG Oral Tablet acetaminophen 500 mg tablet acetaminophen 500 mg tablet completed acetaminophe n 500 MG Oral Tablet [facility] ([facility]) Acetaminophen 500 MG Oral Tablet acetaminophen 500 mg tablet acetaminophen 500 mg tablet completed acetaminophe n 500 MG Oral Tablet [facility] ([facility]) fluticasone propionate 50 mcg/actuation nasal spray,suspension [id number] completed fluticasone propionate 0.05 MG/ACTUAT Metered Dose Nasal [place] [facility] ([facility]) Sodium Chloride 0.154 MEQ/ML Irrigation Solution sodium chloride 0.9 % irrigation solution sodium chloride 0.9 % irrigation solution completed sodium chloride 0.154 MEQ/ML Irr igation Solution [facility] ([facility]) Sodium Chloride 0.154 MEQ/ML Irrigation Solution sodium chloride 0.9 % irrigation solution sodium chloride 0.9 % irrigation solution completed sodium chloride 0.154 MEQ/ML Irr igation Solution MELINA ([facility]) Sodium Chloride 0.154 MEQ/ML Irrigation Solution sodium chloride 0.9 % irrigation solution sodium chloride 0.9 % irrigation solution completed sodium chloride 0.154 MEQ/ML Irr igation Solution [facility]AN ([facility]) fluticasone propionate 50 mcg/actuation nasal spray,suspension [id number] completed fluticasone propionate 0.05 MG/ACTUAT Metered Dose Nasal [place] [facility] ([facility]) Colace PRN completed Colace AT [facility] ([facility]) fluticasone propionate 50 mcg/actuation nasal spray,suspension [id number] completed fluticasone propionate 0.05 MG/ACTUAT Metered Dose Nasal [place] [facility] ([facility]) Azithromycin 250 MG Oral Tablet azithromycin 250 mg ta blet azithromycin 250 mg tablet completed azithromycin 25 0 MG Oral Tablet [facility]) Acetaminophen 325 MG / Hydrocodone Jason trate 5 MG Oral Tablet hydrocodone 5 mg- acetaminophen 325 mg tablet hydrocodone 5 mg-acetaminophen 325 mg tablet completed acetaminophen 325 MG / hydrocodone bitartrate 5 MG Oral Tablet [facility] ([facility]) fluticasone propionate 50 mcg/actuation nasal spray,suspension [id number] completed fluticasone propionate 0.05 MG/ACTUAT Metered Dose Nasal [place] [facility] ([facility]) Haloperidol 10 MG Oral Tablet haloperidol 10 mg tablet halop eridol 10 mg tablet completed haloperidol 10 MG Oral Tablet MCLEAN ([facility]) Acetaminophen 500 MG Oral Tablet acetaminophen 500 mg tablet acetaminophen 500 mg tablet completed acetaminophe n 500 MG Oral Tablet [facility]) Acetaminophen 325 MG / Hydrocodone Jason trate 5 MG Oral Tablet hydrocodone 5 mg- acetaminophen 325 mg tablet hydrocodone 5 mg-acetaminophen 325 mg tablet completed acetaminophen 325 MG / hydrocodone bitartrate 5 MG Oral Tablet MCLEAN ([facility]) magnesium citrate 58.2 MG/ML Oral Solution magnesium c itrate oral solution magnesium citrate oral solution comple koko magnesium citrate 58.2 MG/ML Oral Solution MCLEAN ([facility]) Colace PRN completed Colace AT [facility] ([facility]) Docusate Sodium 100 MG Oral Capsule [DOK] DOK 100 mg capsule DOK 100 mg capsule completed docusate sodiu m 100 MG Oral Capsule [DOK] [facility] ([facility]) Sodium Chloride 0.154 MEQ/ML Irrigation Solution sodium chloride 0.9 % irrigation solution sodium chloride 0.9 % irrigation solution completed sodium chloride 0.154 MEQ/ML Irr igation Solution [facility] ([facility]) Azithromycin 250 MG Oral Tablet azithromycin 250 mg ta blet azithromycin 250 mg tablet completed azithromycin 25 0 MG Oral Tablet [facility]LEAN ([facility]) benzonatate 100 MG Oral Capsule benzonatate 100 mg cap robbie benzonatate 100 mg capsule completed benzonatate 10 0 MG Oral Capsule [facility]LEAN ([facility]) benzonatate 100 MG Oral Capsule benzonatate 100 mg cap robbie benzonatate 100 mg capsule completed benzonatate 10 0 MG Oral Capsule [facility]LE[facility] ([facility]) Sodium Chloride 0.154 MEQ/ML Irrigation Solution sodium chloride 0.9 % irrigation solution sodium chloride 0.9 % irrigation solution completed sodium chloride 0.154 MEQ/ML Irr igation Solution [facility]AN ([facility]) Docusate Sodium 100 MG Oral Capsule [DOK] DOK 100 mg capsule DOK 100 mg capsule completed docusate sodiu m 100 MG Oral Capsule [DOK] [facility] ([facility]) Ibuprofen 800 MG Oral Tablet ibuprofen 800 mg tablet ibuprofen 8 00 mg tablet completed ibuprofen 800 MG Oral Tablet [facility] ([facility]) POLYETHYLENE GLYCOL 3350 142 MG/ML Oral Solution polyethylene glycol 3350 17 gram/dose oral powder polyethylene glycol 3350 17 gram/dose oral powder completed polyethylene glycol 3350 71021 MG Powder for Oral Solution MCLEAN ([facility]) Colace PRN completed Colace AT [facility]) Acetaminophen 325 MG / Hydrocodone Jason trate 5 MG Oral Tablet hydrocodone 5 mg- acetaminophen 325 mg tablet hydrocodone 5 mg-acetaminophen 325 mg tablet completed acetaminophen 325 MG / hydrocodone bitartrate 5 MG Oral Tablet MCLEAN ([facility]) fluticasone propionate 50 mcg/actuation nasal spray,suspension [id number] completed fluticasone propionate 0.05 MG/ACTUAT Metered Dose Nasal [place] [facility] ([facility]) benzonatate 100 MG Oral Capsule benzonatate 100 mg cap robbie benzonatate 100 mg capsule completed benzonatate 10 0 MG Oral Capsule [facility] ([facility]) magnesium citrate 58.2 MG/ML Oral Solution magnesium c itrate oral solution magnesium citrate oral solution comple koko magnesium citrate 58.2 MG/ML Oral Solution MCLEAN ([facility]) magnesium citrate 58.2 MG/ML Oral Solution magnesium c itrate oral solution magnesium citrate oral solution comple koko magnesium citrate 58.2 MG/ML Oral Solution MCLEAN ([facility]) POLYETHYLENE GLYCOL 3350 142 MG/ML Oral Solution polyethylene glycol 3350 17 gram/dose oral powder polyethylene glycol 3350 17 gram/dose oral powder completed polyethylene glycol 3350 73669 MG Powder for Oral Solution MELINA ([facility]) benzonatate 100 MG Oral Capsule benzonatate 100 mg cap robbie benzonatate 100 mg capsule completed benzonatate 10 0 MG Oral Capsule [facility] ([facility]) magnesium citrate 58.2 MG/ML Oral Solution magnesium c itrate oral solution magnesium citrate oral solution comple koko magnesium citrate 58.2 MG/ML Oral Solution MCLEAN ([facility]) benzonatate 100 MG Oral Capsule benzonatate 100 mg cap robbie benzonatate 100 mg capsule completed benzonatate 10 0 MG Oral Capsule [facility] ([facility]) Colace PRN completed Colace AT [facility] ([facility]) Ibuprofen 800 MG Oral Tablet ibuprofen 800 mg tablet ibuprofen 8 00 mg tablet completed ibuprofen 800 MG Oral Tablet [facility] ([facility]) benzonatate 100 MG Oral Capsule benzonatate 100 mg cap robbie benzonatate 100 mg capsule completed benzonatate 10 0 MG Oral Capsule [facility] ([facility]) Acetaminophen 500 MG Oral Tablet acetaminophen 500 mg tablet acetaminophen 500 mg tablet completed acetaminophe n 500 MG Oral Tablet [facility] ([facility]) magnesium citrate 58.2 MG/ML Oral Solution magnesium c itrate oral solution magnesium citrate oral solution comple koko magnesium citrate 58.2 MG/ML Oral Solution MCLEAN ([facility]) benzonatate 100 MG Oral Capsule benzonatate 100 mg cap robbie benzonatate 100 mg capsule completed benzonatate 10 0 MG Oral Capsule [facility] ([facility]) Acetaminophen 325 MG / Hydrocodone Jason trate 5 MG Oral Tablet hydrocodone 5 mg- acetaminophen 325 mg tablet hydrocodone 5 mg-acetaminophen 325 mg tablet completed acetaminophen 325 MG / hydrocodone bitartrate 5 MG Oral Tablet MCLEAN ([facility]) Docusate Sodium 100 MG Oral Capsule [DOK] DOK 100 mg capsule DOK 100 mg capsule completed docusate sodiu m 100 MG Oral Capsule [DOK] [facility] ([facility]) Azithromycin 250 MG Oral Tablet azithromycin 250 mg ta blet azithromycin 250 mg tablet completed azithromycin 25 0 MG Oral Tablet [facility]) Azithromycin 250 MG Oral Tablet azithromycin 250 mg ta blet azithromycin 250 mg tablet completed azithromycin 25 0 MG Oral Tablet [facility] ([facility]) olanzapine 10 MG Disintegrating Oral Tab let olanzapine 10 mg disintegrating tablet olanzapine 10 mg disintegrating tablet completed olanzapine 10 MG Disintegrating Oral Tablet [facility] ([facility]) Ibuprofen 800 MG Oral Tablet ibuprofen 800 mg tablet ibuprofen 8 00 mg tablet completed ibuprofen 800 MG Oral Tablet [facility] ([facility]) Sodium Chloride 0.154 MEQ/ML Irrigation Solution sodium chloride 0.9 % irrigation solution sodium chloride 0.9 % irrigation solution completed sodium chloride 0.154 MEQ/ML Irr igation Solution [facility]AN ([facility]) Acetaminophen 500 MG Oral Tablet acetaminophen 500 mg tablet acetaminophen 500 mg tablet completed acetaminophe n 500 MG Oral Tablet [facility] ([facility]) Ibuprofen 800 MG Oral Tablet ibuprofen 800 mg tablet ibuprofen 8 00 mg tablet completed ibuprofen 800 MG Oral Tablet [facility] ([facility]) Sodium Chloride 0.154 MEQ/ML Irrigation Solution sodium chloride 0.9 % irrigation solution sodium chloride 0.9 % irrigation solution completed sodium chloride 0.154 MEQ/ML Irr igation Solution [facility] ([facility]) Azithromycin 250 MG Oral Tablet azithromycin 250 mg ta blet azithromycin 250 mg tablet completed azithromycin 25 0 MG Oral Tablet [facility]) POLYETHYLENE GLYCOL 3350 142 MG/ML Oral Solution polyethylene glycol 3350 17 gram/dose oral powder polyethylene glycol 3350 17 gram/dose oral powder completed polyethylene glycol 3350 99145 MG Powder for Oral Solution MELINA ([facility]) POLYETHYLENE GLYCOL 3350 142 MG/ML Oral Solution polyethylene glycol 3350 17 gram/dose oral powder polyethylene glycol 3350 17 gram/dose oral powder completed polyethylene glycol 3350 71860 MG Powder for Oral Solution MCLEAN ([facility]) Ibuprofen 800 MG Oral Tablet ibuprofen 800 mg tablet ibuprofen 8 00 mg tablet completed ibuprofen 800 MG Oral Tablet [facility]AN ([facility]) Docusate Sodium 100 MG Oral Capsule [DOK] DOK 100 mg capsule DOK 100 mg capsule completed docusate sodiu m 100 MG Oral Capsule [DOK] [facility] ([facility]) coenzyme Q10 100 MG / Vitamin E 5 UNT Or al Capsule Co Q-10 (with Vit E) 100 mg-5 unit capsule Take 2 capsules every day by oral route. Co Q-10 (with Vit E) 100 mg-5 unit capsule Take 2 capsules every day by oral route. 2 capsule(s) completed ubidecarenone 100 MG / vitam in E 5 UNT Oral Capsule MCLEAN ([facility]) Azithromycin 250 MG Oral Tablet azithromycin 250 mg ta blet azithromycin 250 mg tablet completed azithromycin 25 0 MG Oral Tablet [facility]) Azithromycin 250 MG Oral Tablet azithromycin 250 mg ta blet azithromycin 250 mg tablet completed azithromycin 25 0 MG Oral Tablet [facility]) coenzyme Q10 100 MG / Vitamin E 5 UNT Or al Capsule Co Q-10 (with Vit E) 100 mg-5 unit capsule Take 2 capsules every day by oral route. Co Q-10 (with Vit E) 100 mg-5 unit capsule Take 2 capsules every day by oral route. 2 capsule(s) completed ubidecarenone 100 MG / vitam in E 5 UNT Oral Capsule MCLEAN ([facility]) Colace PRN completed Colace AT [facility]) benzonatate 100 MG Oral Capsule benzonatate 100 mg cap robbie benzonatate 100 mg capsule completed benzonatate 10 0 MG Oral Capsule [facility]) L-Arginine 500 mg tablet Take 2 tablets every day by oral route. [id number] 2 completed L-Arginine 500 mg tablet MELINA ([facility]) magnesium citrate 58.2 MG/ML Oral Solution magnesium c itrate oral solution magnesium citrate oral solution comple koko magnesium citrate 58.2 MG/ML Oral Solution MELINA ([facility]) fluticasone propionate 50 mcg/actuation nasal spray,suspension [id number] completed fluticasone propionate 0.05 MG/ACTUAT Metered Dose Nasal [place] [facility]AN ([facility]) POLYETHYLENE GLYCOL 3350 142 MG/ML Oral Solution polyethylene glycol 3350 17 gram/dose oral powder polyethylene glycol 3350 17 gram/dose oral powder completed polyethylene glycol 3350 85937 MG Powder for Oral Solution MCLEAN ([facility]) ginkgo biloba 120 mg tablet Take by oral route. [id number] completed ginkgo biloba 120 mg tablet MELINA ([facility]) Acetaminophen 325 MG / Hydrocodone Jason trate 5 MG Oral Tablet hydrocodone 5 mg- acetaminophen 325 mg tablet hydrocodone 5 mg-acetaminophen 325 mg tablet completed acetaminophen 325 MG / hydrocodone bitartrate 5 MG Oral Tablet MELINA ([facility]) Ibuprofen 800 MG Oral Tablet ibuprofen 800 mg tablet ibuprofen 8 00 mg tablet completed ibuprofen 800 MG Oral Tablet MELINA ([facility]) Colace PRN completed Colace AT [facility] ([facility]) Acetaminophen 325 MG / Hydrocodone Jason trate 5 MG Oral Tablet hydrocodone 5 mg- acetaminophen 325 mg tablet hydrocodone 5 mg-acetaminophen 325 mg tablet completed acetaminophen 325 MG / hydrocodone bitartrate 5 MG Oral Tablet MELINA ([facility]) Acetaminophen 500 MG Oral Tablet acetaminophen 500 mg tablet acetaminophen 500 mg tablet completed acetaminophe n 500 MG Oral Tablet MELINA ([facility]) Sodium Chloride 0.154 MEQ/ML Irrigation Solution sodium chloride 0.9 % irrigation solution sodium chloride 0.9 % irrigation solution completed sodium chloride 0.154 MEQ/ML Irr igation Solution MELINA ([facility]) Ibuprofen 800 MG Oral Tablet ibuprofen 800 mg tablet ibuprofen 8 00 mg tablet completed ibuprofen 800 MG Oral Tablet MELINA ([facility]) Acetaminophen 325 MG / Hydrocodone Jason trate 5 MG Oral Tablet hydrocodone 5 mg- acetaminophen 325 mg tablet hydrocodone 5 mg-acetaminophen 325 mg tablet completed acetaminophen 325 MG / hydrocodone bitartrate 5 MG Oral Tablet MELINA ([facility]) Azithromycin 250 MG Oral Tablet azithromycin 250 mg ta blet azithromycin 250 mg tablet completed azithromycin 25 0 MG Oral Tablet MELINA ([facility]) coenzyme Q10 100 MG / Vitamin E 5 UNT Or al Capsule Co Q-10 (with Vit E) 100 mg-5 unit capsule Take 2 capsules every day by oral route. Co Q-10 (with Vit E) 100 mg-5 unit capsule Take 2 capsules every day by oral route. 2 capsule(s) completed ubidecarenone 100 MG / vitam in E 5 UNT Oral Capsule MELINA ([facility]) Acetaminophen 325 MG / Hydrocodone Jason trate 5 MG Oral Tablet hydrocodone 5 mg- acetaminophen 325 mg tablet hydrocodone 5 mg-acetaminophen 325 mg tablet completed acetaminophen 325 MG / hydrocodone bitartrate 5 MG Oral Tablet MELINA ([facility]) fluticasone propionate 50 mcg/actuation nasal spray,suspension [id number] completed fluticasone propionate 0.05 MG/ACTUAT Metered Dose Nasal [place] MELINA ([facility]) benzonatate 100 MG Oral Capsule benzonatate 100 mg cap robbie benzonatate 100 mg capsule completed benzonatate 10 0 MG Oral Capsule MCLEAN ([facility]) Acetaminophen 325 MG / Hydrocodone Jason trate 5 MG Oral Tablet hydrocodone 5 mg- acetaminophen 325 mg tablet hydrocodone 5 mg-acetaminophen 325 mg tablet completed acetaminophen 325 MG / hydrocodone bitartrate 5 MG Oral Tablet MELINA ([facility]) POLYETHYLENE GLYCOL 3350 142 MG/ML Oral Solution polyethylene glycol 3350 17 gram/dose oral powder polyethylene glycol 3350 17 gram/dose oral powder completed polyethylene glycol 3350 61880 MG Powder for Oral Solution MELINA ([facility]) Acetaminophen 325 MG / Hydrocodone Jason trate 5 MG Oral Tablet hydrocodone 5 mg- acetaminophen 325 mg tablet hydrocodone 5 mg-acetaminophen 325 mg tablet completed acetaminophen 325 MG / hydrocodone bitartrate 5 MG Oral Tablet MELINA ([facility]) Haloperidol 10 MG Oral Tablet haloperidol 10 mg tablet halop eridol 10 mg tablet completed haloperidol 10 MG Oral Tablet MELINA ([facility]) Docusate Sodium 100 MG Oral Capsule [DOK] DOK 100 mg capsule DOK 100 mg capsule completed docusate sodiu m 100 MG Oral Capsule [DOK] MELINA ([facility]) Ibuprofen 800 MG Oral Tablet ibuprofen 800 mg tablet ibuprofen 8 00 mg tablet completed ibuprofen 800 MG Oral Tablet MELINA ([facility]) olanzapine 10 MG Disintegrating Oral Tab let olanzapine 10 mg disintegrating tablet olanzapine 10 mg disintegrating tablet completed olanzapine 10 MG Disintegrating Oral Tablet MELINA ([facility]) fluticasone propionate 50 mcg/actuation nasal spray,suspension [id number] completed fluticasone propionate 0.05 MG/ACTUAT Metered Dose Nasal [place] MELINA ([facility]) Insurance Providers Payer name Policy type / Coverage type Policy ID Covered green party ID Covered green party's relationship to stephen Policy Stephen Plan Information O BLUE [id number] SP [id number] Medicaid [place] [facility] Part B [id number] Self [id number] O BLUE [id number] SP [id number] Managed Care Zain P [id number] S [id number] ZAIN I [id number] Self [id number] Medicaid S [id number] S [id number] Medicaid S [id number] S [id number] Zain Medicaid/CHP/FHP Commercial [id number] Self [id number] Medicaid S [id number] S [id number] Medicaid S [id number] S [id number] [place] O [id number] S [id number] MEDICAID [id number] SP [id number] [place] CMS-TARGET [id number] SP [id number] SELF PAY ONLY Millen - Medicaid Hmo Health Maintenance Organization (HMO) [id number] Self [id number] FORMERLY [facility] [id number] SP [id number] O BLUE P [id number] O [id number] [facility] [id number] Problems, Conditions, and Diagnoses Code Display Name Description Problem Type Effective Dates Data Source(s) H18.603 Keratoconus, unspecified, bilateral Keratoconus, unspecified, bilateral Diagnosis 03/14/2021 02:21:[address] [facility] F25.9 Schizoaffective disorder, unspecified Sc hizoaffective disorder, unspecified Condition 06/20/2021 12:00:00 AM EST [facility] [id number] Poor long-term memory Poor Long-term Memory Problem 06/20/2021 12:00:00 AM EST MELINA ([facility]) [id number] Acute psychosis Acute Psychosis Problem 021 12:00:00 AM EDT MCLEAN ([facility]) [id number] Rhabdomyolysis Rhabdomyolysis Problem 04/24/2021 12:00: 00 AM EDT MCLEAN ([facility]) [id number] Rhabdomyolysis Rhabdomyolysis Problem 04/24/2021 12:00:00 AM EDT - 04/24/2021 12:00:00 AM EDT MCLEAN ([facility]) [id number] Polysubstance abuse Polysubstance Abuse Problem 1 12:00:00 AM EDT MELINA ([facility]) [id number] Psychotic disorder Psychotic Disorder Problem 12/2020 12:00:00 AM EDT MELINA ([facility]) [id number] Acute psychosis Acute Psychosis Problem 021 12:00:00 AM EDT MELINA ([facility]) [id number] Rhabdomyolysis Rhabdomyolysis Problem 04/24/2021 12:00: 00 AM EDT MCLEAN ([facility]) [id number] Rhabdomyolysis Rhabdomyolysis Problem 04/24/2021 12:00:00 AM EDT - 04/24/2021 12:00:00 AM EDT MELINA ([facility]) [id number] Polysubstance abuse Polysubstance Abuse Problem 1 12:00:00 AM EDT MCLEAN ([facility]) [id number] Psychotic disorder Psychotic Disorder Problem 12/2020 12:00:00 AM EDT MELINA ([facility]) [id number] Acute psychosis Acute Psychosis Problem 021 12:00:00 AM EDT MELINA ([facility]) [id number] Rhabdomyolysis Rhabdomyolysis Problem 04/24/2021 12:00: 00 AM EDT MELINA ([facility]) [id number] Rhabdomyolysis Rhabdomyolysis Problem 04/24/2021 12:00:00 AM EDT - 04/24/2021 12:00:00 AM EDT MELINA ([facility]) [id number] Polysubstance abuse Polysubstance Abuse Problem 1 12:00:00 AM EDT MELINA ([facility]) [id number] Psychotic disorder Psychotic Disorder Problem 12/2020 12:00:00 AM EDT MELINA ([facility]) [id number] Acute psychosis Acute Psychosis Problem 021 12:00:00 AM EDT MELINA ([facility]) [id number] Rhabdomyolysis Rhabdomyolysis Problem 04/24/2021 12:00: 00 AM EDT MELINA ([facility]) [id number] Rhabdomyolysis Rhabdomyolysis Problem 04/24/2021 12:00:00 AM EDT - 04/24/2021 12:00:00 AM EDT MELINA ([facility]) [id number] Polysubstance abuse Polysubstance Abuse Problem 1 12:00:00 AM EDT MELINA ([facility]) [id number] Psychotic disorder Psychotic Disorder Problem 12/2020 12:00:00 AM EDT MELINA ([facility]) F12.20 Cannabis dependence, uncomplicated Cannabis Use Disorder, Moderate Condition 01/30/2021 12:00:00 AM EDT [facility] ([facility]) [id number] Keratoconus of right cornea Keratoconus of Right Co rnea Problem 09/06/2020 12:00:00 AM EST MELINA ([facility]) [id number] Drusen of right optic disc Drusen of Right Optic Di sc Problem 09/06/2020 12:00:00 AM EST MELINA ([facility]) [id number] Keratoconus of right cornea Keratoconus of Right Co rnea Problem 09/06/2020 12:00:00 AM EST MELINA ([facility]) [id number] Drusen of right optic disc Drusen of Right Optic Di sc Problem 09/06/2020 12:00:00 AM EST MELINA ([facility]) [id number] Keratoconus of right cornea Keratoconus of Right Co rnea Problem 09/06/2020 12:00:00 AM EST MELINA ([facility]) [id number] Drusen of right optic disc Drusen of Right Optic Di sc Problem 09/06/2020 12:00:00 AM EST MELINA ([facility]) [id number] Keratoconus of right cornea Keratoconus of Right Co rnea Problem 09/06/2020 12:00:00 AM EST MELINA ([facility]) [id number] Drusen of right optic disc Drusen of Right Optic Di sc Problem 09/06/2020 12:00:00 AM EST MELINA ([facility]) [id number] Keratoconus of right cornea Keratoconus of Right Co rnea Problem 09/06/2020 12:00:00 AM EST MELINA ([facility]) [id number] Drusen of right optic disc Drusen of Right Optic Di sc Problem 09/06/2020 12:00:00 AM EST MELINA ([facility]) [id number] Keratoconus of right cornea Keratoconus of Right Co rnea Problem 09/06/2020 12:00:00 AM EST MLEINA ([facility]) [id number] Drusen of right optic disc Drusen of Right Optic Di sc Problem 09/06/2020 12:00:00 AM EST MELINA ([facility]) [id number] Keratoconus of right cornea Keratoconus of Right Co rnea Problem 09/06/2020 12:00:00 AM EST MELINA ([facility]) [id number] Drusen of right optic disc Drusen of Right Optic Di sc Problem 09/06/2020 12:00:00 AM EST MELINA ([facility]) [id number] Keratoconus of right cornea Keratoconus of Right Co rnea Problem 09/06/2020 12:00:00 AM EST MELINA ([facility]) [id number] Drusen of right optic disc Drusen of Right Optic Di sc Problem 09/06/2020 12:00:00 AM EST MELINA ([facility]) [id number] Keratoconus of right cornea Keratoconus of Right Co rnea Problem 09/06/2020 12:00:00 AM EST MELINA ([facility]) [id number] Drusen of right optic disc Drusen of Right Optic Di sc Problem 09/06/2020 12:00:00 AM EST MELINA ([facility]) [id number] Keratoconus of right cornea Keratoconus of Right Co rnea Problem 09/06/2020 12:00:00 AM EST MELINA ([facility]) [id number] Drusen of right optic disc Drusen of Right Optic Di sc Problem 09/06/2020 12:00:00 AM EST MELINA ([facility]) [id number] Keratoconus of right cornea Keratoconus of Right Co rnea Problem 09/06/2020 12:00:00 AM EST MELINA ([facility]) [id number] Drusen of right optic disc Drusen of Right Optic Di sc Problem 09/06/2020 12:00:00 AM EST MELINA ([facility]) K05.313 Chronic periodontitis, localized, severe Chronic periodontitis, localized, severe 05/21/2020 01:24:35 PM EST [facility] [id number] Generalized abdominal pain Generalized Abdominal Pain Problem 04/16/2020 12:00:00 AM EDT - 09/24/2020 12:00:00 AM EST MELINA ([facility]) [id number] Overweight Overweight Problem 04/16/2020 12:0 0:00 AM EDT - 04/24/2021 12:00:00 AM EDT MELINA ([facility]) [id number] Generalized abdominal pain Generalized Abdominal Pain Problem 04/16/2020 12:00:00 AM EDT - 09/24/2020 12:00:00 AM EST MELINA ([facility]) [id number] Overweight Overweight Problem 04/16/2020 12:0 0:00 AM EDT - 04/24/2021 12:00:00 AM EDT MELINA ([facility]) [id number] Generalized abdominal pain Generalized Abdominal Pain Problem 04/16/2020 12:00:00 AM EDT - 09/24/2020 12:00:00 AM EST MELINA ([facility]) [id number] Overweight Overweight Problem 04/16/2020 12:0 0:00 AM EDT - 04/24/2021 12:00:00 AM EDT MELINA ([facility]) [id number] Generalized abdominal pain Generalized Abdominal Pain Problem 04/16/2020 12:00:00 AM EDT - 09/24/2020 12:00:00 AM EST MELINA ([facility]) [id number] Generalized abdominal pain Generalized Abdominal Pain Problem 04/16/2020 12:00:00 AM EDT - 09/24/2020 12:00:00 AM EST MELINA ([facility]) [id number] Overweight Overweight Problem 04/16/2020 12:0 0:00 AM EDT - 04/24/2021 12:00:00 AM EDT MELINA ([facility]) [id number] Generalized abdominal pain Generalized Abdominal Pain Problem 04/16/2020 12:00:00 AM EDT - 09/24/2020 12:00:00 AM EST MELINA ([facility]) [id number] Generalized abdominal pain Generalized Abdominal Pain Problem 04/16/2020 12:00:00 AM EDT - 09/24/2020 12:00:00 AM EST MELINA ([facility]) [id number] Generalized abdominal pain Generalized Abdominal Pain Problem 04/16/2020 12:00:00 AM EDT - 09/24/2020 12:00:00 AM EST MELINA ([facility]) [id number] Generalized abdominal pain Generalized Abdominal Pain Problem 04/16/2020 12:00:00 AM EDT - 09/24/2020 12:00:00 AM EST MELINA ([facility]) [id number] Depressive disorder Depressive Disorder Problem 0 03/19/2020 12:00:00 AM EDT - 09/24/2020 12:00:00 AM EST MELINA ([facility]) [id number] Depressive disorder Depressive Disorder Problem 0 03/19/2020 12:00:00 AM EDT - 09/24/2020 12:00:00 AM EST MELINA ([facility]) [id number] Depressive disorder Depressive Disorder Problem 0 03/19/2020 12:00:00 AM EDT - 09/24/2020 12:00:00 AM EST MELINA ([facility]) [id number] Depressive disorder Depressive Disorder Problem 0 03/19/2020 12:00:00 AM EDT - 09/24/2020 12:00:00 AM EST MELINA ([facility]) [id number] Depressive disorder Depressive Disorder Problem 0 03/19/2020 12:00:00 AM EDT - 09/24/2020 12:00:00 AM EST MELINA ([facility]) [id number] Depressive disorder Depressive Disorder Problem 0 03/19/2020 12:00:00 AM EDT - 09/24/2020 12:00:00 AM EST MELINA ([facility]) [id number] Depressive disorder Depressive Disorder Problem 0 03/19/2020 12:00:00 AM EDT - 09/24/2020 12:00:00 AM EST MELINA ([facility]) [id number] Depressive disorder Depressive Disorder Problem 0 03/19/2020 12:00:00 AM EDT - 09/24/2020 12:00:00 AM EST MELINA ([facility]) [id number] Depressive disorder Depressive Disorder Problem 0 03/19/2020 12:00:00 AM EDT - 09/24/2020 12:00:00 AM EST MELINA ([facility]) [id number] SNOMED CT Concept SNOMED CT Concept Problem 03/06 12:00:00 AM EDT - 06/06/2020 12:00:00 AM EST MELINA ([facility]) [id number] Finding of neck region Finding of Neck Region Problem 03/06/2020 12:00:00 AM EDT - 06/06/2020 12:00:00 AM EST MELINA ([facility]) [id number] Abdominal pain Abdominal Pain Problem 03/06/2020 12:00:00 AM EDT - 09/06/2020 12:00:00 AM EST MELINA ([facility]) [id number] SNOMED CT Concept SNOMED CT Concept Problem 03/06 12:00:00 AM EDT - 06/06/2020 12:00:00 AM EST MELINA ([facility]) [id number] Finding of neck region Finding of Neck Region Problem 03/06/2020 12:00:00 AM EDT - 06/06/2020 12:00:00 AM EST MELINA ([facility]) [id number] Abdominal pain Abdominal Pain Problem 03/06/2020 12:00:00 AM EDT - 09/06/2020 12:00:00 AM EST MELINA ([facility]) [id number] SNOMED CT Concept SNOMED CT Concept Problem 03/06 12:00:00 AM EDT - 06/06/2020 12:00:00 AM EST MELINA ([facility]) [id number] Finding of neck region Finding of Neck Region Problem 03/06/2020 12:00:00 AM EDT - 06/06/2020 12:00:00 AM EST MELINA ([facility]) [id number] Abdominal pain Abdominal Pain Problem 03/06/2020 12:00:00 AM EDT - 09/06/2020 12:00:00 AM EST MELINA ([facility]) [id number] SNOMED CT Concept SNOMED CT Concept Problem 03/06 12:00:00 AM EDT - 06/06/2020 12:00:00 AM EST MELINA ([facility]) [id number] Finding of neck region Finding of Neck Region Problem 03/06/2020 12:00:00 AM EDT - 06/06/2020 12:00:00 AM EST MELINA ([facility]) [id number] Abdominal pain Abdominal Pain Problem 03/06/2020 12:00:00 AM EDT - 09/06/2020 12:00:00 AM EST MELINA ([facility]) [id number] SNOMED CT Concept SNOMED CT Concept Problem 03/06 12:00:00 AM EDT - 06/06/2020 12:00:00 AM EST MELINA ([facility]) [id number] Finding of neck region Finding of Neck Region Problem 03/06/2020 12:00:00 AM EDT - 06/06/2020 12:00:00 AM EST MELINA ([facility]) [id number] Abdominal pain Abdominal Pain Problem 03/06/2020 12:00:00 AM EDT - 09/06/2020 12:00:00 AM EST MELINA ([facility]) [id number] SNOMED CT Concept SNOMED CT Concept Problem 03/06 12:00:00 AM EDT - 06/06/2020 12:00:00 AM EST MELINA ([facility]) [id number] Finding of neck region Finding of Neck Region Problem 03/06/2020 12:00:00 AM EDT - 06/06/2020 12:00:00 AM EST MELINA ([facility]) [id number] Abdominal pain Abdominal Pain Problem 03/06/2020 12:00:00 AM EDT - 09/06/2020 12:00:00 AM EST MELINA ([facility]) [id number] SNOMED CT Concept SNOMED CT Concept Problem 03/06 12:00:00 AM EDT - 06/06/2020 12:00:00 AM EST MELINA ([facility]) [id number] Finding of neck region Finding of Neck Region Problem 03/06/2020 12:00:00 AM EDT - 06/06/2020 12:00:00 AM EST MELINA ([facility]) [id number] SNOMED CT Concept SNOMED CT Concept Problem 03/06 12:00:00 AM EDT - 06/06/2020 12:00:00 AM EST MELINA ([facility]) [id number] Finding of neck region Finding of Neck Region Problem 03/06/2020 12:00:00 AM EDT - 06/06/2020 12:00:00 AM EST MELINA ([facility]) [id number] Abdominal pain Abdominal Pain Problem 03/06/2020 12:00:00 AM EDT - 09/06/2020 12:00:00 AM EST MELINA ([facility]) [id number] SNOMED CT Concept SNOMED CT Concept Problem 03/06 12:00:00 AM EDT - 06/06/2020 12:00:00 AM EST MELINA ([facility]) [id number] Finding of neck region Finding of Neck Region Problem 03/06/2020 12:00:00 AM EDT - 06/06/2020 12:00:00 AM EST MELINA ([facility]) [id number] Abdominal pain Abdominal Pain Problem 03/06/2020 12:00:00 AM EDT - 09/06/2020 12:00:00 AM EST MELINA ([facility]) [id number] SNOMED CT Concept SNOMED CT Concept Problem 03/06 12:00:00 AM EDT - 06/06/2020 12:00:00 AM EST MELINA ([facility]) [id number] Finding of neck region Finding of Neck Region Problem 03/06/2020 12:00:00 AM EDT - 06/06/2020 12:00:00 AM EST MELINA ([facility]) [id number] Abdominal pain Abdominal Pain Problem 03/06/2020 12:00:00 AM EDT - 09/06/2020 12:00:00 AM EST MELINA ([facility]) [id number] SNOMED CT Concept SNOMED CT Concept Problem 03/06 12:00:00 AM EDT - 06/06/2020 12:00:00 AM EST MELINA ([facility]) [id number] Finding of neck region Finding of Neck Region Problem 03/06/2020 12:00:00 AM EDT - 06/06/2020 12:00:00 AM EST MELINA ([facility]) [id number] Abdominal pain Abdominal Pain Problem 03/06/2020 12:00:00 AM EDT - 09/06/2020 12:00:00 AM EST MELINA ([facility]) [id number] SNOMED CT Concept SNOMED CT Concept Problem 03/06 12:00:00 AM EDT - 06/06/2020 12:00:00 AM EST MELINA ([facility]) [id number] Finding of neck region Finding of Neck Region Problem 03/06/2020 12:00:00 AM EDT - 06/06/2020 12:00:00 AM EST MELINA ([facility]) [id number] Abdominal pain Abdominal Pain Problem 03/06/2020 12:00:00 AM EDT - 09/06/2020 12:00:00 AM EST MELINA ([facility]) [id number] Disorder of upper respiratory system Dis order of Upper Respiratory System Problem 04/14/2019 12:00:00 AM EDT - 09/06/2020 12:00:00 AM EST MELINA ([facility]) [id number] Nasal congestion Nasal Congestion Problem 12:00:00 AM EDT - 09/24/2020 12:00:00 AM EST MELINA ([facility]) [id number] Disorder of upper respiratory system Dis order of Upper Respiratory System Problem 04/14/2019 12:00:00 AM EDT - 09/06/2020 12:00:00 AM EST MELINA ([facility]) [id number] Nasal congestion Nasal Congestion Problem 019 12:00:00 AM EDT - 09/24/2020 12:00:00 AM EST MELINA ([facility]) [id number] Disorder of upper respiratory system Dis order of Upper Respiratory System Problem 04/14/2019 12:00:00 AM EDT - 09/06/2020 12:00:00 AM EST MELINA ([facility]) [id number] Nasal congestion Nasal Congestion Problem 019 12:00:00 AM EDT - 09/24/2020 12:00:00 AM EST MELINA ([facility]) [id number] Disorder of upper respiratory system Dis order of Upper Respiratory System Problem 04/14/2019 12:00:00 AM EDT - 09/06/2020 12:00:00 AM EST MELINA ([facility]) [id number] Nasal congestion Nasal Congestion Problem 019 12:00:00 AM EDT - 09/24/2020 12:00:00 AM EST MELINA ([facility]) [id number] Disorder of upper respiratory system Dis order of Upper Respiratory System Problem 04/14/2019 12:00:00 AM EDT - 09/06/2020 12:00:00 AM EST MELINA ([facility]) [id number] Nasal congestion Nasal Congestion Problem 019 12:00:00 AM EDT - 09/24/2020 12:00:00 AM EST MELINA ([facility]) [id number] Disorder of upper respiratory system Dis order of Upper Respiratory System Problem 04/14/2019 12:00:00 AM EDT - 09/06/2020 12:00:00 AM EST MELINA ([facility]) [id number] Disorder of upper respiratory system Dis order of Upper Respiratory System Problem 04/14/2019 12:00:00 AM EDT - 09/06/2020 12:00:00 AM EST MELINA ([facility]) [id number] Nasal congestion Nasal Congestion Problem 12:00:00 AM EDT - 09/24/2020 12:00:00 AM EST MELINA ([facility]) [id number] Disorder of upper respiratory system Dis order of Upper Respiratory System Problem 04/14/2019 12:00:00 AM EDT - 09/06/2020 12:00:00 AM EST MELINA ([facility]) [id number] Nasal congestion Nasal Congestion Problem 12:00:00 AM EDT - 09/24/2020 12:00:00 AM EST MELINA ([facility]) [id number] Disorder of upper respiratory system Dis order of Upper Respiratory System Problem 04/14/2019 12:00:00 AM EDT - 09/06/2020 12:00:00 AM EST MELINA ([facility]) [id number] Nasal congestion Nasal Congestion Problem 019 12:00:00 AM EDT - 09/24/2020 12:00:00 AM EST MELINA ([facility]) [id number] Disorder of upper respiratory system Dis order of Upper Respiratory System Problem 04/14/2019 12:00:00 AM EDT - 09/06/2020 12:00:00 AM EST MELINA ([facility]) [id number] Nasal congestion Nasal Congestion Problem 019 12:00:00 AM EDT - 09/24/2020 12:00:00 AM EST MELINA ([facility]) [id number] Disorder of upper respiratory system Dis order of Upper Respiratory System Problem 04/14/2019 12:00:00 AM EDT - 09/06/2020 12:00:00 AM EST MELINA ([facility]) [id number] Homeless Homeless Problem 04/13/2019 12:0 0:00 AM EDT - 09/24/2020 12:00:00 AM EST MELINA ([facility]) [id number] Homeless Homeless Problem 04/13/2019 12:0 0:00 AM EDT - 09/24/2020 12:00:00 AM EST MELINA ([facility]) [id number] Homeless Homeless Problem 04/13/2019 12:0 0:00 AM EDT - 09/24/2020 12:00:00 AM EST MELINA ([facility]) [id number] Homeless Homeless Problem 04/13/2019 12:0 0:00 AM EDT - 09/24/2020 12:00:00 AM EST MELINA ([facility]) [id number] Homeless Homeless Problem 04/13/2019 12:0 0:00 AM EDT - 09/24/2020 12:00:00 AM EST MELINA ([facility]) [id number] Homeless Homeless Problem 04/13/2019 12:0 0:00 AM EDT - 09/24/2020 12:00:00 AM EST MELINA ([facility]) [id number] Homeless Homeless Problem 04/13/2019 12:0 0:00 AM EDT - 09/24/2020 12:00:00 AM EST MELINA ([facility]) [id number] Homeless Homeless Problem 04/13/2019 12:0 0:00 AM EDT - 09/24/2020 12:00:00 AM EST MELINA ([facility]) [id number] Homeless Homeless Problem 04/13/2019 12:0 0:00 AM EDT - 09/24/2020 12:00:00 AM EST MELINA ([facility]) [id number] Pharyngeal finding Pharyngeal Finding Problem 12:00:00 AM EDT - 06/06/2020 12:00:00 AM EST MELINA ([facility]) [id number] Cough Cough Problem 04/08/2019 12:0 0:00 AM EDT - 09/06/2020 12:00:00 AM EST MELINA ([facility]) [id number] Pharyngeal finding Pharyngeal Finding Problem 12:00:00 AM EDT - 06/06/2020 12:00:00 AM EST MELINA ([facility]) [id number] Cough Cough Problem 04/08/2019 12:0 0:00 AM EDT - 09/06/2020 12:00:00 AM EST MELINA ([facility]) [id number] Pharyngeal finding Pharyngeal Finding Problem 12:00:00 AM EDT - 06/06/2020 12:00:00 AM EST MELINA ([facility]) [id number] Cough Cough Problem 04/08/2019 12:0 0:00 AM EDT - 09/06/2020 12:00:00 AM EST MELINA ([facility]) [id number] Pharyngeal finding Pharyngeal Finding Problem 12:00:00 AM EDT - 06/06/2020 12:00:00 AM EST MELINA ([facility]) [id number] Cough Cough Problem 04/08/2019 12:0 0:00 AM EDT - 09/06/2020 12:00:00 AM EST MELINA ([facility]) [id number] Pharyngeal finding Pharyngeal Finding Problem 12:00:00 AM EDT - 06/06/2020 12:00:00 AM EST MELINA ([facility]) [id number] Cough Cough Problem 04/08/2019 12:0 0:00 AM EDT - 09/06/2020 12:00:00 AM EST MELINA ([facility]) [id number] Pharyngeal finding Pharyngeal Finding Problem 12:00:00 AM EDT - 06/06/2020 12:00:00 AM EST MELINA ([facility]) [id number] Cough Cough Problem 04/08/2019 12:0 0:00 AM EDT - 09/06/2020 12:00:00 AM EST MELINA ([facility]) [id number] Pharyngeal finding Pharyngeal Finding Problem 12:00:00 AM EDT - 06/06/2020 12:00:00 AM EST MELINA ([facility]) [id number] Pharyngeal finding Pharyngeal Finding Problem 12:00:00 AM EDT - 06/06/2020 12:00:00 AM EST MELINA ([facility]) [id number] Cough Cough Problem 04/08/2019 12:0 0:00 AM EDT - 09/06/2020 12:00:00 AM EST MELINA ([facility]) [id number] Pharyngeal finding Pharyngeal Finding Problem 12:00:00 AM EDT - 06/06/2020 12:00:00 AM EST MELINA ([facility]) [id number] Cough Cough Problem 04/08/2019 12:0 0:00 AM EDT - 09/06/2020 12:00:00 AM EST MELINA ([facility]) [id number] Pharyngeal finding Pharyngeal Finding Problem 12:00:00 AM EDT - 06/06/2020 12:00:00 AM EST MELINA ([facility]) [id number] Cough Cough Problem 04/08/2019 12:0 0:00 AM EDT - 09/06/2020 12:00:00 AM EST MELINA ([facility]) [id number] Pharyngeal finding Pharyngeal Finding Problem 12:00:00 AM EDT - 06/06/2020 12:00:00 AM EST MELINA ([facility]) [id number] Cough Cough Problem 04/08/2019 12:0 0:00 AM EDT - 09/06/2020 12:00:00 AM EST MELINA ([facility]) [id number] Pharyngeal finding Pharyngeal Finding Problem 12:00:00 AM EDT - 06/06/2020 12:00:00 AM EST MELINA ([facility]) [id number] Cough Cough Problem 04/08/2019 12:0 0:00 AM EDT - 09/06/2020 12:00:00 AM EST MELINA ([facility]) [id number] Dental caries on smooth surface penetrat ing into dentin Dental Caries on Smooth Surface Penetrating into Dentin Problem 03/08 12:00:00 AM EDT - 09/06/2020 12:00:00 AM EST MELIAN ([facility]) [id number] Dental caries on smooth surface penetrat ing into dentin Dental Caries on Smooth Surface Penetrating into Dentin Problem 03/08 12:00:00 AM EDT - 09/06/2020 12:00:00 AM EST MELINA ([facility]) [id number] Dental caries on smooth surface penetrat ing into dentin Dental Caries on Smooth Surface Penetrating into Dentin Problem 03/08 12:00:00 AM EDT - 09/06/2020 12:00:00 AM EST MELINA ([facility]) [id number] Dental caries on smooth surface penetrat ing into dentin Dental Caries on Smooth Surface Penetrating into Dentin Problem 03/08 12:00:00 AM EDT - 09/06/2020 12:00:00 AM EST MELINA ([facility]) [id number] Dental caries on smooth surface penetrat ing into dentin Dental Caries on Smooth Surface Penetrating into Dentin Problem 03/08 12:00:00 AM EDT - 09/06/2020 12:00:00 AM EST MELINA ([facility]) [id number] Dental caries on smooth surface penetrat ing into dentin Dental Caries on Smooth Surface Penetrating into Dentin Problem 03/08 12:00:00 AM EDT - 09/06/2020 12:00:00 AM EST EMLINA ([facility]) [id number] Dental caries on smooth surface penetrat ing into dentin Dental Caries on Smooth Surface Penetrating into Dentin Problem 03/08 12:00:00 AM EDT - 09/06/2020 12:00:00 AM EST MELINA ([facility]) [id number] Dental caries on smooth surface penetrat ing into dentin Dental Caries on Smooth Surface Penetrating into Dentin Problem 03/08 12:00:00 AM EDT - 09/06/2020 12:00:00 AM EST MELINA ([facility]) [id number] Dental caries on smooth surface penetrat ing into dentin Dental Caries on Smooth Surface Penetrating into Dentin Problem 03/08 12:00:00 AM EDT - 09/06/2020 12:00:00 AM EST MELINA ([facility]) [id number] Dental caries on smooth surface penetrat ing into dentin Dental Caries on Smooth Surface Penetrating into Dentin Problem 03/08 12:00:00 AM EDT - 09/06/2020 12:00:00 AM EST MELNIA ([facility]) [id number] Dental caries on smooth surface penetrat ing into dentin Dental Caries on Smooth Surface Penetrating into Dentin Problem 03/08 12:00:00 AM EDT - 09/06/2020 12:00:00 AM EST MELINA ([facility]) [id number] Emotional state finding Emotional State Finding Proble m 02/22/2019 12:00:00 AM EDT - 09/06/2020 12:00:00 AM EST MELINA ([facility]) [id number] Respiratory crackles Respiratory Crackles Problem 02/22/2019 12:00:00 AM EDT - 06/06/2020 12:00:00 AM EST MELINA ([facility]) [id number] Level of anxiety Level of Anxiety Problem 019 12:00:00 AM EDT - 04/24/2021 12:00:00 AM EDT MELINA ([facility]) [id number] Emotional state finding Emotional State Finding Proble m 02/22/2019 12:00:00 AM EDT - 09/06/2020 12:00:00 AM EST MELINA ([facility]) [id number] Respiratory crackles Respiratory Crackles Problem 02/22/2019 12:00:00 AM EDT - 06/06/2020 12:00:00 AM EST MELINA ([facility]) [id number] Level of anxiety Level of Anxiety Problem 019 12:00:00 AM EDT - 04/24/2021 12:00:00 AM EDT MELINA ([facility]) [id number] Emotional state finding Emotional State Finding Proble m 02/22/2019 12:00:00 AM EDT - 09/06/2020 12:00:00 AM EST MELINA ([facility]) [id number] Respiratory crackles Respiratory Crackles Problem 02/22/2019 12:00:00 AM EDT - 06/06/2020 12:00:00 AM EST MELINA ([facility]) [id number] Emotional state finding Emotional State Finding Proble m 02/22/2019 12:00:00 AM EDT - 09/06/2020 12:00:00 AM EST MELINA ([facility]) [id number] Respiratory crackles Respiratory Crackles Problem 02/22/2019 12:00:00 AM EDT - 06/06/2020 12:00:00 AM EST MELINA ([facility]) [id number] Level of anxiety Level of Anxiety Problem 019 12:00:00 AM EDT - 04/24/2021 12:00:00 AM EDT MELINA ([facility]) [id number] Emotional state finding Emotional State Finding Proble m 02/22/2019 12:00:00 AM EDT - 09/06/2020 12:00:00 AM EST MELINA ([facility]) [id number] Respiratory crackles Respiratory Crackles Problem 02/22/2019 12:00:00 AM EDT - 06/06/2020 12:00:00 AM EST MELINA ([facility]) [id number] Emotional state finding Emotional State Finding Proble m 02/22/2019 12:00:00 AM EDT - 09/06/2020 12:00:00 AM EST MELINA ([facility]) [id number] Respiratory crackles Respiratory Crackles Problem 02/22/2019 12:00:00 AM EDT - 06/06/2020 12:00:00 AM EST MELINA ([facility]) [id number] Respiratory crackles Respiratory Crackles Problem 02/22/2019 12:00:00 AM EDT - 06/06/2020 12:00:00 AM EST MELINA ([facility]) [id number] Emotional state finding Emotional State Finding Proble m 02/22/2019 12:00:00 AM EDT - 09/06/2020 12:00:00 AM EST MELINA ([facility]) [id number] Respiratory crackles Respiratory Crackles Problem 02/22/2019 12:00:00 AM EDT - 06/06/2020 12:00:00 AM EST MELINA ([facility]) [id number] Level of anxiety Level of Anxiety Problem 019 12:00:00 AM EDT - 04/24/2021 12:00:00 AM EDT MELINA ([facility]) [id number] Emotional state finding Emotional State Finding Proble m 02/22/2019 12:00:00 AM EDT - 09/06/2020 12:00:00 AM EST MELINA ([facility]) [id number] Respiratory crackles Respiratory Crackles Problem 02/22/2019 12:00:00 AM EDT - 06/06/2020 12:00:00 AM EST MELINA ([facility]) [id number] Emotional state finding Emotional State Finding Proble m 02/22/2019 12:00:00 AM EDT - 09/06/2020 12:00:00 AM EST MELINA ([facility]) [id number] Respiratory crackles Respiratory Crackles Problem 02/22/2019 12:00:00 AM EDT - 06/06/2020 12:00:00 AM EST MELINA ([facility]) [id number] Emotional state finding Emotional State Finding Proble m 02/22/2019 12:00:00 AM EDT - 09/06/2020 12:00:00 AM EST MELINA ([facility]) [id number] Respiratory crackles Respiratory Crackles Problem 02/22/2019 12:00:00 AM EDT - 06/06/2020 12:00:00 AM EST MELINA ([facility]) [id number] Emotional state finding Emotional State Finding Proble m 02/22/2019 12:00:00 AM EDT - 09/06/2020 12:00:00 AM EST MELINA ([facility]) [id number] Respiratory crackles Respiratory Crackles Problem 02/22/2019 12:00:00 AM EDT - 06/06/2020 12:00:00 AM EST MELINA ([facility]) [id number] Delayed healing of skin donor site Delayed Heali ng of Skin Donor Site Problem 03/26/2018 12:00:00 AM EDT - 09/06/2020 12:00:00 AM AKBAR Peters MELINA ([facility]) [id number] Delayed healing of skin donor site Delayed Heali ng of Skin Donor Site Problem 03/26/2018 12:00:00 AM EDT - 09/06/2020 12:00:00 AM ES Raymond MELINA ([facility]) [id number] Delayed healing of skin donor site Delayed Heali ng of Skin Donor Site Problem 03/26/2018 12:00:00 AM EDT - 09/06/2020 12:00:00 AM ES Raymond MELINA ([facility]) [id number] Delayed healing of skin donor site Delayed Heali ng of Skin Donor Site Problem 03/26/2018 12:00:00 AM EDT - 09/06/2020 12:00:00 AM ES T MELINA ([facility]) [id number] Delayed healing of skin donor site Delayed Heali ng of Skin Donor Site Problem 03/26/2018 12:00:00 AM EDT - 09/06/2020 12:00:00 AM ES Raymond MEILNA ([facility]) [id number] Delayed healing of skin donor site Delayed Heali ng of Skin Donor Site Problem 03/26/2018 12:00:00 AM EDT - 09/06/2020 12:00:00 AM ES Raymond MELINA ([facility]) [id number] Delayed healing of skin donor site Delayed Heali ng of Skin Donor Site Problem 03/26/2018 12:00:00 AM EDT - 09/06/2020 12:00:00 AM ES Raymond MELINA ([facility]) [id number] Delayed healing of skin donor site Delayed Heali ng of Skin Donor Site Problem 03/26/2018 12:00:00 AM EDT - 09/06/2020 12:00:00 AM ES Raymond MELINA ([facility]) [id number] Delayed healing of skin donor site Delayed Heali ng of Skin Donor Site Problem 03/26/2018 12:00:00 AM EDT - 09/06/2020 12:00:00 AM ES Raymond MELINA ([facility]) [id number] Delayed healing of skin donor site Delayed Heali ng of Skin Donor Site Problem 03/26/2018 12:00:00 AM EDT - 09/06/2020 12:00:00 AM ES Raymond MELINA ([facility]) [id number] Delayed healing of skin donor site Delayed Heali ng of Skin Donor Site Problem 03/26/2018 12:00:00 AM EDT - 09/06/2020 12:00:00 AM ES T MELINA ([facility]) [id number] Visual field defect Visual Field Defect Problem 0 09/17/2017 12:00:00 AM EST - 06/06/2020 12:00:00 AM EST MELINA ([facility]) [id number] Visual field defect Visual Field Defect Problem 0 09/17/2017 12:00:00 AM EST - 06/06/2020 12:00:00 AM EST MELINA ([facility]) [id number] Visual field defect Visual Field Defect Problem 0 09/17/2017 12:00:00 AM EST - 06/06/2020 12:00:00 AM EST MELINA ([facility]) [id number] Visual field defect Visual Field Defect Problem 0 09/17/2017 12:00:00 AM EST - 06/06/2020 12:00:00 AM EST MELINA ([facility]) [id number] Visual field defect Visual Field Defect Problem 0 09/17/2017 12:00:00 AM EST - 06/06/2020 12:00:00 AM EST MELINA ([facility]) [id number] Visual field defect Visual Field Defect Problem 0 09/17/2017 12:00:00 AM EST - 06/06/2020 12:00:00 AM EST MELINA ([facility]) [id number] Visual field defect Visual Field Defect Problem 0 09/17/2017 12:00:00 AM EST - 06/06/2020 12:00:00 AM EST MELINA ([facility]) [id number] Visual field defect Visual Field Defect Problem 0 09/17/2017 12:00:00 AM EST - 06/06/2020 12:00:00 AM EST MELINA ([facility]) [id number] Visual field defect Visual Field Defect Problem 0 09/17/2017 12:00:00 AM EST - 06/06/2020 12:00:00 AM EST MELINA ([facility]) [id number] Visual field defect Visual Field Defect Problem 0 09/17/2017 12:00:00 AM EST - 06/06/2020 12:00:00 AM EST MELINA ([facility]) [id number] Visual field defect Visual Field Defect Problem 0 09/17/2017 12:00:00 AM EST - 06/06/2020 12:00:00 AM EST MELINA ([facility]) [id number] Visual field defect Visual Field Defect Problem 0 09/17/2017 12:00:00 AM EST - 06/06/2020 12:00:00 AM EST MELINA ([facility]) [id number] Finding related to sleep Finding Related to Sleep Prob lora 08/20/2017 12:00:00 AM EST - 09/06/2020 12:00:00 AM EST MELINA ([facility]) [id number] Right upper quadrant pain Right Upper Quadrant Pain Pr oblem 08/20/2017 12:00:00 AM EST - 10/23/2020 12:00:00 AM EDT MELINA ([facility]) [id number] Finding related to sleep Finding Related to Sleep Prob lora 08/20/2017 12:00:00 AM EST - 09/06/2020 12:00:00 AM EST MELINA ([facility]) [id number] Right upper quadrant pain Right Upper Quadrant Pain Pr oblem 08/20/2017 12:00:00 AM EST - 10/23/2020 12:00:00 AM EDT MELINA ([facility]) [id number] Finding related to sleep Finding Related to Sleep Prob lora 08/20/2017 12:00:00 AM EST - 09/06/2020 12:00:00 AM EST MELINA ([facility]) [id number] Right upper quadrant pain Right Upper Quadrant Pain Pr oblem 08/20/2017 12:00:00 AM EST - 10/23/2020 12:00:00 AM EDT MELINA ([facility]) [id number] Finding related to sleep Finding Related to Sleep Prob lora 08/20/2017 12:00:00 AM EST - 09/06/2020 12:00:00 AM EST MELINA ([facility]) [id number] Right upper quadrant pain Right Upper Quadrant Pain Pr oblem 08/20/2017 12:00:00 AM EST - 10/23/2020 12:00:00 AM EDT MELINA ([facility]) [id number] Finding related to sleep Finding Related to Sleep Prob lora 08/20/2017 12:00:00 AM EST - 09/06/2020 12:00:00 AM EST MELINA ([facility]) [id number] Right upper quadrant pain Right Upper Quadrant Pain Pr oblem 08/20/2017 12:00:00 AM EST - 10/23/2020 12:00:00 AM EDT MELINA ([facility]) [id number] Finding related to sleep Finding Related to Sleep Prob lora 08/20/2017 12:00:00 AM EST - 09/06/2020 12:00:00 AM EST MELINA ([facility]) [id number] Finding related to sleep Finding Related to Sleep Prob lora 08/20/2017 12:00:00 AM EST - 09/06/2020 12:00:00 AM EST MELINA ([facility]) [id number] Right upper quadrant pain Right Upper Quadrant Pain Pr oblem 08/20/2017 12:00:00 AM EST - 10/23/2020 12:00:00 AM EDT MELINA ([facility]) [id number] Finding related to sleep Finding Related to Sleep Prob lora 08/20/2017 12:00:00 AM EST - 09/06/2020 12:00:00 AM EST MELINA ([facility]) [id number] Right upper quadrant pain Right Upper Quadrant Pain Pr oblem 08/20/2017 12:00:00 AM EST - 10/23/2020 12:00:00 AM EDT MELINA ([facility]) [id number] Finding related to sleep Finding Related to Sleep Prob lora 08/20/2017 12:00:00 AM EST - 09/06/2020 12:00:00 AM EST MELINA ([facility]) [id number] Right upper quadrant pain Right Upper Quadrant Pain Pr oblem 08/20/2017 12:00:00 AM EST - 10/23/2020 12:00:00 AM EDT MELINA ([facility]) [id number] Finding related to sleep Finding Related to Sleep Prob lora 08/20/2017 12:00:00 AM EST - 09/06/2020 12:00:00 AM EST MELINA ([facility]) [id number] Finding related to sleep Finding Related to Sleep Prob lora 08/20/2017 12:00:00 AM EST - 09/06/2020 12:00:00 AM EST MELINA ([facility]) [id number] 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 Problem 07/30/2017 12:00:00 AM EST - 09/06/2020 12:00:00 AM EST MELINA ([facility]) [id number] Malocclusion of teeth Malocclusion of Teeth Problem 07/30/2017 12:00:00 AM EST - 09/06/2020 12:00:00 AM EST MELINA ([facility]) [id number] 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 Problem 07/30/2017 12:00:00 AM EST - 09/06/2020 12:00:00 AM EST MELINA ([facility]) [id number] Malocclusion of teeth Malocclusion of Teeth Problem 07/30/2017 12:00:00 AM EST - 09/06/2020 12:00:00 AM EST MELINA ([facility]) [id number] 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 Problem 07/30/2017 12:00:00 AM EST - 09/06/2020 12:00:00 AM EST MELINA ([facility]) [id number] Malocclusion of teeth Malocclusion of Teeth Problem 07/30/2017 12:00:00 AM EST - 09/06/2020 12:00:00 AM EST MELINA ([facility]) [id number] 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 Problem 07/30/2017 12:00:00 AM EST - 09/06/2020 12:00:00 AM EST MELINA ([facility]) [id number] Malocclusion of teeth Malocclusion of Teeth Problem 07/30/2017 12:00:00 AM EST - 09/06/2020 12:00:00 AM EST MELINA ([facility]) [id number] 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 Problem 07/30/2017 12:00:00 AM EST - 09/06/2020 12:00:00 AM EST MELINA ([facility]) [id number] Malocclusion of teeth Malocclusion of Teeth Problem 07/30/2017 12:00:00 AM EST - 09/06/2020 12:00:00 AM EST MELINA ([facility]) [id number] 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 Problem 07/30/2017 12:00:00 AM EST - 09/06/2020 12:00:00 AM EST MELINA ([facility]) [id number] Malocclusion of teeth Malocclusion of Teeth Problem 07/30/2017 12:00:00 AM EST - 09/06/2020 12:00:00 AM EST MELINA ([facility]) [id number] 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 Problem 07/30/2017 12:00:00 AM EST - 09/06/2020 12:00:00 AM EST MELINA ([facility]) [id number] Malocclusion of teeth Malocclusion of Teeth Problem 07/30/2017 12:00:00 AM EST - 09/06/2020 12:00:00 AM EST MELINA ([facility]) [id number] 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 Problem 07/30/2017 12:00:00 AM EST - 09/06/2020 12:00:00 AM EST MELINA ([facility]) [id number] Malocclusion of teeth Malocclusion of Teeth Problem 07/30/2017 12:00:00 AM EST - 09/06/2020 12:00:00 AM EST MELINA ([facility]) [id number] 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 Problem 07/30/2017 12:00:00 AM EST - 09/06/2020 12:00:00 AM EST MELINA ([facility]) [id number] Malocclusion of teeth Malocclusion of Teeth Problem 07/30/2017 12:00:00 AM EST - 09/06/2020 12:00:00 AM EST MELINA ([facility]) [id number] 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 Problem 07/30/2017 12:00:00 AM EST - 09/06/2020 12:00:00 AM EST MELINA ([facility]) [id number] Malocclusion of teeth Malocclusion of Teeth Problem 07/30/2017 12:00:00 AM EST - 09/06/2020 12:00:00 AM EST MELINA ([facility]) [id number] 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 Problem 07/30/2017 12:00:00 AM EST - 09/06/2020 12:00:00 AM EST MELINA ([facility]) [id number] Malocclusion of teeth Malocclusion of Teeth Problem 07/30/2017 12:00:00 AM EST - 09/06/2020 12:00:00 AM EST MELINA ([facility]) [id number] Procedure by method Procedure by Method Problem 1 12:00:00 AM EDT - 06/06/2020 12:00:00 AM EST MELINA ([facility]) [id number] Abnormal weight gain Abnormal Weight Gain Problem 05/08/2017 12:00:00 AM EDT - 09/06/2020 12:00:00 AM EST MELINA ([facility]) [id number] Procedure by method Procedure by Method Problem 1 12:00:00 AM EDT - 06/06/2020 12:00:00 AM EST MELINA ([facility]) [id number] Abnormal weight gain Abnormal Weight Gain Problem 05/08/2017 12:00:00 AM EDT - 09/06/2020 12:00:00 AM EST MELINA ([facility]) [id number] Procedure by method Procedure by Method Problem 1 12:00:00 AM EDT - 06/06/2020 12:00:00 AM EST MELINA ([facility]) [id number] Abnormal weight gain Abnormal Weight Gain Problem 05/08/2017 12:00:00 AM EDT - 09/06/2020 12:00:00 AM EST MELINA ([facility]) [id number] Procedure by method Procedure by Method Problem 1 12:00:00 AM EDT - 06/06/2020 12:00:00 AM EST MELINA ([facility]) [id number] Abnormal weight gain Abnormal Weight Gain Problem 05/08/2017 12:00:00 AM EDT - 09/06/2020 12:00:00 AM EST MELINA ([facility]) [id number] Procedure by method Procedure by Method Problem 1 12:00:00 AM EDT - 06/06/2020 12:00:00 AM EST MELINA ([facility]) [id number] Abnormal weight gain Abnormal Weight Gain Problem 05/08/2017 12:00:00 AM EDT - 09/06/2020 12:00:00 AM EST MELINA ([facility]) [id number] Procedure by method Procedure by Method Problem 1 12:00:00 AM EDT - 06/06/2020 12:00:00 AM EST MELINA ([facility]) [id number] Abnormal weight gain Abnormal Weight Gain Problem 05/08/2017 12:00:00 AM EDT - 09/06/2020 12:00:00 AM EST MELINA ([facility]) [id number] Procedure by method Procedure by Method Problem 1 12:00:00 AM EDT - 06/06/2020 12:00:00 AM EST MELINA ([facility]) [id number] Procedure by method Procedure by Method Problem 1 12:00:00 AM EDT - 06/06/2020 12:00:00 AM EST MELINA ([facility]) [id number] Abnormal weight gain Abnormal Weight Gain Problem 05/08/2017 12:00:00 AM EDT - 09/06/2020 12:00:00 AM EST MELINA ([facility]) [id number] Procedure by method Procedure by Method Problem 1 12:00:00 AM EDT - 06/06/2020 12:00:00 AM EST MELINA ([facility]) [id number] Abnormal weight gain Abnormal Weight Gain Problem 05/08/2017 12:00:00 AM EDT - 09/06/2020 12:00:00 AM EST MELINA ([facility]) [id number] Procedure by method Procedure by Method Problem 1 12:00:00 AM EDT - 06/06/2020 12:00:00 AM EST MELINA ([facility]) [id number] Abnormal weight gain Abnormal Weight Gain Problem 05/08/2017 12:00:00 AM EDT - 09/06/2020 12:00:00 AM EST MELINA ([facility]) [id number] Procedure by method Procedure by Method Problem 1 12:00:00 AM EDT - 06/06/2020 12:00:00 AM EST MELINA ([facility]) [id number] Abnormal weight gain Abnormal Weight Gain Problem 05/08/2017 12:00:00 AM EDT - 09/06/2020 12:00:00 AM EST MELINA ([facility]) [id number] Procedure by method Procedure by Method Problem 1 12:00:00 AM EDT - 06/06/2020 12:00:00 AM EST MELINA ([facility]) [id number] Abnormal weight gain Abnormal Weight Gain Problem 05/08/2017 12:00:00 AM EDT - 09/06/2020 12:00:00 AM EST MELINA ([facility]) [id number] Cardiovascular measurement - finding Car diovascular Measurement - Finding Problem 09/26/2016 12:00:00 AM EST - 09/06/2020 12:00:00 AM EST MELINA ([facility]) [id number] Injury of neck Injury of Neck Problem 09/26/2016 12:00:00 AM EST - 06/06/2020 12:00:00 AM EST MELINA ([facility]) [id number] Cardiovascular measurement - finding Car diovascular Measurement - Finding Problem 09/26/2016 12:00:00 AM EST - 09/06/2020 12:00:00 AM EST MELINA ([facility]) [id number] Injury of neck Injury of Neck Problem 09/26/2016 12:00:00 AM EST - 06/06/2020 12:00:00 AM EST MELINA ([facility]) [id number] Cardiovascular measurement - finding Car diovascular Measurement - Finding Problem 09/26/2016 12:00:00 AM EST - 09/06/2020 12:00:00 AM EST MELINA ([facility]) [id number] Lesion of neck Lesion of Neck Problem 09/26/2016 12:00:00 AM EST - 06/06/2020 12:00:00 AM EST MELINA ([facility]) [id number] Cardiovascular measurement - finding Car diovascular Measurement - Finding Problem 09/26/2016 12:00:00 AM EST - 09/06/2020 12:00:00 AM EST MELINA ([facility]) [id number] Injury of neck Injury of Neck Problem 09/26/2016 12:00:00 AM EST - 06/06/2020 12:00:00 AM EST MELINA ([facility]) [id number] Cardiovascular measurement - finding Car diovascular Measurement - Finding Problem 09/26/2016 12:00:00 AM EST - 09/06/2020 12:00:00 AM EST MELINA ([facility]) [id number] Lesion of neck Lesion of Neck Problem 09/26/2016 12:00:00 AM EST - 06/06/2020 12:00:00 AM EST MELINA ([facility]) [id number] Lesion of neck Lesion of Neck Problem 09/26/2016 12:00:00 AM EST - 06/06/2020 12:00:00 AM EST MELINA ([facility]) [id number] Cardiovascular measurement - finding Car diovascular Measurement - Finding Problem 09/26/2016 12:00:00 AM EST - 09/06/2020 12:00:00 AM EST MELINA ([facility]) [id number] Injury of neck Injury of Neck Problem 09/26/2016 12:00:00 AM EST - 06/06/2020 12:00:00 AM EST MELINA ([facility]) [id number] Cardiovascular measurement - finding Car diovascular Measurement - Finding Problem 09/26/2016 12:00:00 AM EST - 09/06/2020 12:00:00 AM EST MELINA ([facility]) [id number] Lesion of neck Lesion of Neck Problem 09/26/2016 12:00:00 AM EST - 06/06/2020 12:00:00 AM EST MELINA ([facility]) [id number] Cardiovascular measurement - finding Car diovascular Measurement - Finding Problem 09/26/2016 12:00:00 AM EST - 09/06/2020 12:00:00 AM EST MELINA ([facility]) [id number] Lesion of neck Lesion of Neck Problem 09/26/2016 12:00:00 AM EST - 06/06/2020 12:00:00 AM EST MELINA ([facility]) [id number] Cardiovascular measurement - finding Car diovascular Measurement - Finding Problem 09/26/2016 12:00:00 AM EST - 09/06/2020 12:00:00 AM EST MELINA ([facility]) [id number] Lesion of neck Lesion of Neck Problem 09/26/2016 12:00:00 AM EST - 06/06/2020 12:00:00 AM EST MELINA ([facility]) [id number] Cardiovascular measurement - finding Car diovascular Measurement - Finding Problem 09/26/2016 12:00:00 AM EST - 09/06/2020 12:00:00 AM EST MELINA ([facility]) [id number] Lesion of neck Lesion of Neck Problem 09/26/2016 12:00:00 AM EST - 06/06/2020 12:00:00 AM EST MELINA ([facility]) [id number] Cardiovascular measurement - finding Car diovascular Measurement - Finding Problem 09/26/2016 12:00:00 AM EST - 09/06/2020 12:00:00 AM EST MELINA ([facility]) [id number] Lesion of neck Lesion of Neck Problem 09/26/2016 12:00:00 AM EST - 06/06/2020 12:00:00 AM EST MELINA ([facility]) Surgeries/Procedures Procedure Description Date Indications Data Source(s) Brief Individual Psychotherapy - 30 min 06/20/2021 12:00:00 AM EST - 06/20/2021 12:00:00 AM EST [facility] ([facility]) Brief Individual Psychotherapy - 30 min 06/20/2021 12: 00:00 AM EST [facility] ([facility]) Extended Individual Psychotherapy - 45 min 05/31/2021 12:00:00 AM EST - 05/31/2021 12:00:00 AM EST [facility] ([facility]) Extended Individual Psychotherapy - 45 min 12:00:00 AM EST [facility] ([facility]) Extended Individual Psychotherapy - 45 min 05/07/2021 12:00:00 AM EDT - 05/07/2021 12:00:00 AM EDT [facility] ([facility]) Extended Individual Psychotherapy - 45 min 12:00:00 AM EDT [facility] ([facility]) CORNEAL TOPOGRAPHY <td>CORNEAL TOPOGRAPHY</td>< td>Routine</td><td>03/14/2021 3:33 PM EDT</td><td> Keratoconus of right eye</td><td> </td> 03/14/2021 03:33:58 PM EDT Keratoconus of right eye [facility] Keratoconus of right eye Extended Individual Psychotherapy - 45 min 01/30/2021 12:00:00 AM EDT - 01/30/2021 12:00:00 AM EDT [facility] ([facility]) Extended Individual Psychotherapy - 45 min 12:00:00 AM EDT [facility] ([facility]) Results ID Date Data Source [id number] 06/05/2021 03:37:00 PM EST MELINA ([facility]) Name Value Range Interpretation Code Description Data Kellen rce(s) Supporting Document(s) Flu negative Flu MELINA ([facility]) ID Date Data Source [id number] 06/05/2021 03:37:00 PM EST MELINA ([facility]) Name Value Range Interpretation Code Description Data Kellen rce(s) Supporting Document(s) Flu negative Flu MELINA ([facility]) ID Date Data Source [id number] 06/05/2021 03:37:00 PM EST MELINA ([facility]) Name Value Range Interpretation Code Description Data Kellen rce(s) Supporting Document(s) Flu negative Flu MELINA ([facility]) ID Date Data Source [id number] 06/05/2021 10:20:00 AM EST [facility] Name Value Range Interpretation Code Description Data Kellen rce(s) Supporting Document(s) SARS coronavirus 2 RdRp gene [Presence] in Respiratory specimen by BIMAL with probe detection Not detected [facility] This lab was ordered by [facility] and reported by [facility]. ID Date Data Source [id number] 06/05/2021 09:23:00 AM EST MELINA ([facility]) Name Value Range Interpretation Code Description Data Kellen rce(s) Supporting Document(s) sars-cov-2 negative negative Sars-cov-2 [facility] ([facility]) ID Date Data Source [id number] 06/05/2021 09:23:00 AM EST MELINA ([facility]) Name Value Range Interpretation Code Description Data Kellen rce(s) Supporting Document(s) sars-cov-2 negative negative Sars-cov-2 [facility] ([facility]) ID Date Data Source [id number] 03/26/2021 09:07:19 PM [facility] Name Value Range Interpretation Code Description Data Kellen rce(s) Supporting Document(s) Progress Note [facility] [id number] [facility] [file] ID Date Data Source [id number] 01/24/2021 10:40:00 AM EDT [facility]) Name Value Range Interpretation Code Description Data Kellen rce(s) Supporting Document(s) sars-cov-2 negative negative Sars-cov-2 [facility]) ID Date Data Source [id number] 01/24/2021 10:40:00 AM EDT [facility]) Name Value Range Interpretation Code Description Data Kellen rce(s) Supporting Document(s) sars-cov-2 negative negative Sars-cov-2 [facility]) ID Date Data Source [id number] 01/24/2021 10:40:00 AM EDT [facility]) Name Value Range Interpretation Code Description Data Kellen rce(s) Supporting Document(s) sars-cov-2 negative negative Sars-cov-2 [facility]) ID Date Data Source [id number] 01/24/2021 10:40:00 AM EDT [facility]) Name Value Range Interpretation Code Description Data Kellen rce(s) Supporting Document(s) sars-cov-2 negative negative Sars-cov-2 [facility]) ID Date Data Source [id number] 01/24/2021 10:40:00 AM EDT [facility] ([facility]) Name Value Range Interpretation Code Description Data Kellen rce(s) Supporting Document(s) sars-cov-2 negative negative Sars-cov-2 [facility] ([facility]) ID Date Data Source [id number] 01/24/2021 10:40:00 AM EDT MELINA ([facility]) Name Value Range Interpretation Code Description Data Kellen rce(s) Supporting Document(s) sars-cov-2 negative negative Sars-cov-2 [facility] ([facility]) ID Date Data Source [id number] 01/24/2021 10:35:00 AM EDT [facility] Name Value Range Interpretation Code Description Data Kellen rce(s) Supporting Document(s) SARS coronavirus 2 RdRp gene [Presence] in Respiratory specimen by BIMAL with probe detection Not detected [facility] This lab was ordered by [facility] and reported by [facility]. ID Date Data Source [id number] 12/24/2020 05:07:00 PM EDT [facility] Name Value Range Interpretation Code Description Data Kellen rce(s) Supporting Document(s) SARS coronavirus 2 RNA [Presence] in Uns pecified specimen by BIMAL with probe detection Not detected [facility] This lab was ordered by [facility] and reported by [facility]. ID Date Data Source [id number] 12/20/2020 12:09:00 PM EDT [facility] Name Value Range Interpretation Code Description Data Kellen rce(s) Supporting Document(s) SARS coronavirus 2 RNA [Presence] in Uns pecified specimen by BIMAL with probe detection Not Detected [facility] This lab was ordered by [facility] and reported by [facility]. ID Date Data Source [id number] 10/23/2020 10:13:00 AM EDT [facility]) Name Value Range Interpretation Code Description Data Kellen rce(s) Supporting Document(s) bilirubin neg Bilirubin [facility]AN ([facility]) blood neg Blood MELINA ([facility]) glucose neg Glucose MELINA ([facility]) ketone 2+ Abnormal (applies to non-numeric res ults) Ketone MELINA ([facility]) leukocytes neg Leukocytes MELINA ([facility]) pH Ph MELINA ([facility]) nitrite neg Nitrite MELINA ([facility]) protein neg Protein MELINA ([facility]) specific gravity Specific [place] [facility] ([facility]) urobilinogen Urobilinogen MELINA ([facility]) ID Date Data Source [id number] 10/23/2020 10:13:00 AM EDT MELINA ([facility]) Name Value Range Interpretation Code Description Data Kellen rce(s) Supporting Document(s) bilirubin neg Bilirubin MELINA ([facility]) blood neg Blood MELINA ([facility]) ketone 2+ Abnormal (applies to non-numeric res ults) Ketone MELINA ([facility]) glucose neg Glucose MELINA ([facility]) nitrite neg Nitrite MELINA ([facility]) pH Ph MELINA ([facility]) leukocytes neg Leukocytes MELINA ([facility]) specific gravity Specific [place] [facility] ([facility]) protein neg Protein MELINA ([facility]) urobilinogen Urobilinogen MELINA ([facility]) ID Date Data Source [id number] 10/23/2020 10:13:00 AM EDT MELINA ([facility]) Name Value Range Interpretation Code Description Data Kellen rce(s) Supporting Document(s) bilirubin neg Bilirubin MELINA ([facility]) ketone 2+ Abnormal (applies to non-numeric res ults) Ketone MELINA ([facility]) blood neg Blood MELINA ([facility]) glucose neg Glucose MELINA ([facility]) nitrite neg Nitrite MELINA ([facility]) leukocytes neg Leukocytes MELINA ([facility]) pH Ph MELINA ([facility]) specific gravity Specific [place] [facility] ([facility]) protein neg Protein MELINA ([facility]) urobilinogen Urobilinogen MELINA ([facility]) ID Date Data Source [id number] 10/23/2020 10:13[facility] Name Value Range Interpretation Code Description Data Kellen rce(s) Supporting Document(s) bilirubin neg Bilirubin MELIAN ([facility]) ketone 2+ Abnormal (applies to non-numeric res ults) Ketone MELINA ([facility]) blood neg Blood MELINA ([facility]) glucose neg Glucose MELINA ([facility]) leukocytes neg Leukocytes MELINA ([facility]) nitrite neg Nitrite MELINA ([facility]) pH Ph MELINA ([facility]) protein neg Protein MELINA ([facility]) urobilinogen Urobilinogen MELINA ([facility]) specific gravity Specific [place] [facility] ([facility]) ID Date Data Source [id number] 10/23/2020 10:13:00 [facility] Name Value Range Interpretation Code Description Data Kellen rce(s) Supporting Document(s) blood neg Blood MELINA ([facility]) bilirubin neg Bilirubin MELINA ([facility]) ketone 2+ Abnormal (applies to non-numeric res ults) Ketone MELINA ([facility]) glucose neg Glucose MELINA ([facility]) pH Ph MELINA ([facility]) nitrite neg Nitrite MELINA ([facility]) leukocytes neg Leukocytes MELINA ([facility]) urobilinogen Urobilinogen MELINA ([facility]) protein neg Protein MELINA ([facility]) specific gravity Specific [place] [facility] ([facility]) ID Date Data Source [id number] 10/23/2020 10:13:00 AM EDT MELINA ([facility]) Name Value Range Interpretation Code Description Data Kellen rce(s) Supporting Document(s) bilirubin neg Bilirubin MELINA ([facility]) blood neg Blood MELINA ([facility]) glucose neg Glucose MELINA ([facility]) ketone 2+ Abnormal (applies to non-numeric res ults) Ketone MELINA ([facility]) leukocytes neg Leukocytes MELINA ([facility]) nitrite neg Nitrite MELINA ([facility]) protein neg Protein MELINA ([facility] specific gravity Specific [place] [facility] ([facility]) pH Ph MELINA ([facility]) urobilinogen Urobilinogen MELINA ([facility]) ID Date Data Source [id number] 10/23/2020 10:13:00 AM EDT MELINA ([facility]) Name Value Range Interpretation Code Description Data Kellen rce(s) Supporting Document(s) bilirubin neg Bilirubin MELINA ([facility]) glucose neg Glucose MELINA ([facility]) blood neg Blood MELINA ([facility]) nitrite neg Nitrite MELINA ([facility]) ketone 2+ Abnormal (applies to non-numeric res ults) Ketone MELINA ([facility]) leukocytes neg Leukocytes MELINA ([facility]) pH Ph MELINA ([facility]) protein neg Protein MELINA ([facility]) urobilinogen Urobilinogen MELINA ([facility]) specific gravity Specific [place] [facility] ([facility]) ID Date Data Source [id number] 10/23/2020 10:13:00 [facility] Name Value Range Interpretation Code Description Data Kellen rce(s) Supporting Document(s) bilirubin neg Bilirubin MELINA ([facility]) blood neg Blood MELINA ([facility]) ketone 2+ Abnormal (applies to non-numeric res ults) Ketone MELINA ([facility]) leukocytes neg Leukocytes MELINA ([facility]) glucose neg Glucose MELINA ([facility]) pH Ph MELINA ([facility]) protein neg Protein MELINA ([facility]) nitrite neg Nitrite MELINA ([facility]) urobilinogen Urobilinogen MELINA ([facility]) specific gravity Specific [place] AT [facility]) ID Date Data Source [id number] 10/23/2020 10:10:00 AM EDT [facility] ([facility]) Name Value Range Interpretation Code Description Data Kellen rce(s) Supporting Document(s) glucose, fasting 82 mg/dL 70-100 Glucose, Fasting AT [facility] ([facility]) blood urea nitrogen 20 mg/dL 7-18 Above high normal Blood Ure a Nitrogen MELINA ([facility]) glomerular filtration rate > 60.0 >60 Glomerula r Filtration Rate MELINA ([facility]) creatinine for GFR 0.80 mg/dL 0.70-1.30 Creatinine for GF R [facility] ([facility]) sodium level 137 mEq/L 136-145 Sodium Level MELINA ([facility]) potassium serum 4.6 mEq/L 3.5-5.1 Potassium Serum ATH NA ([facility]) chloride level 104 mEq/L 98-107 Chloride Level [facility] ([facility]) carbon dioxide level 29 mEq/L 21-32 Carbon Dioxide Level [facility] ([facility]) anion gap 4 mEq/L 8-16 Below low normal Anion Gap MELINA ( [facility]) calcium level 9.7 mg/dL 8.5-10.1 Calcium Level MELINA ( [facility]) AST/SGOT 22 U/L 7-37 AST/SGOT MELINA ([facility]) ALT/SGPT 40 U/L 12-78 ALT/SGPT MELINA ([facility]) alkaline phosphatase 96 U/L 45-117 Alkaline Phosph atase [facility] ([facility]) bilirubin,total 0.5 mg/dL 0.2-1.0 Bilirubin,total ATHE ([facility]) total protein 7.2 gm/dL 6.4-8.2 Total Protein MELINA ( [facility]) albumin 4.2 gm/dL 3.2-5.2 Albumin MELINA ([facility]) albumin/globulin ratio Albumin/globu moy Ratio MELINA ([facility]) ID Date Data Source [id number] 10/23/2020 10:10:00 AM EDT MELINA ([facility]) Name Value Range Interpretation Code Description Data Kellen rce(s) Supporting Document(s) glucose, fasting 82 mg/dL 70-100 Glucose, Fasting AT [facility]) blood urea nitrogen 20 mg/dL 7-18 Above high normal Blood Ure a Nitrogen MELINA ([facility]) creatinine for GFR 0.80 mg/dL 0.70-1.30 Creatinine for GF R MELINA ([facility]) glomerular filtration rate > 60.0 >60 Glomerula r Filtration Rate MELINA ([facility]) potassium serum 4.6 mEq/L 3.5-5.1 Potassium Serum ATHE ([facility]) sodium level 137 mEq/L 136-145 Sodium Level MELINA ([facility]) chloride level 104 mEq/L 98-107 Chloride Level MELINA ([facility]) carbon dioxide level 29 mEq/L 21-32 Carbon Dioxide Level MELINA ([facility]) anion gap 4 mEq/L 8-16 Below low normal Anion Gap MELINA ( [facility]) calcium level 9.7 mg/dL 8.5-10.1 Calcium Level MELINA ( [facility]) AST/SGOT 22 U/L 7-37 AST/SGOT MELINA ([facility]) ALT/SGPT 40 U/L 12-78 ALT/SGPT MELINA ([facility]) alkaline phosphatase 96 U/L 45-117 Alkaline Phosph atase MELINA ([facility]) bilirubin,total 0.5 mg/dL 0.2-1.0 Bilirubin,total ATHE ([facility]) total protein 7.2 gm/dL 6.4-8.2 Total Protein MELINA ( [facility]) albumin 4.2 gm/dL 3.2-5.2 Albumin MELINA ([facility]) albumin/globulin ratio Albumin/globu moy Ratio MELINA ([facility]) ID Date Data Source [id number] 10/23/2020 10:10:00 AM EDT MELINA ([facility]) Name Value Range Interpretation Code Description Data Kellen rce(s) Supporting Document(s) glucose, fasting 82 mg/dL 70-100 Glucose, Fasting AT [facility] ([facility]) glomerular filtration rate > 60.0 >60 Glomerula r Filtration Rate MELINA ([facility]) creatinine for GFR 0.80 mg/dL 0.70-1.30 Creatinine for GF R [facility] ([facility]) blood urea nitrogen 20 mg/dL 7-18 Above high normal Blood Ure a Nitrogen MELINA ([facility]) sodium level 137 mEq/L 136-145 Sodium Level MELINA ([facility]) potassium serum 4.6 mEq/L 3.5-5.1 Potassium Serum ATHE NA ([facility]) chloride level 104 mEq/L 98-107 Chloride Level [facility] ([facility]) carbon dioxide level 29 mEq/L 21-32 Carbon Dioxide Level MELINA ([facility]) anion gap 4 mEq/L 8-16 Below low normal Anion Gap MELINA ( [facility]) calcium level 9.7 mg/dL 8.5-10.1 Calcium Level MELINA ( [facility]) AST/SGOT 22 U/L 7-37 AST/SGOT MELINA ([facility]) alkaline phosphatase 96 U/L 45-117 Alkaline Phosph atase MELINA ([facility]) ALT/SGPT 40 U/L 12-78 ALT/SGPT MELINA ([facility]) bilirubin,total 0.5 mg/dL 0.2-1.0 Bilirubin,total ATHE [facility]) total protein 7.2 gm/dL 6.4-8.2 Total Protein MELINA ( [facility]) albumin/globulin ratio Albumin/globu moy Ratio MELINA ([facility]) albumin 4.2 gm/dL 3.2-5.2 Albumin MELINA ([facility]) ID Date Data Source [id number] 10/23/2020 10:10:00 AM EDT [facility] ([facility]) Name Value Range Interpretation Code Description Data Kellen rce(s) Supporting Document(s) glucose, fasting 82 mg/dL 70-100 Glucose, Fasting AT [facility] ([facility]) creatinine for GFR 0.80 mg/dL 0.70-1.30 Creatinine for GF R MELINA ([facility]) blood urea nitrogen 20 mg/dL 7-18 Above high normal Blood Ure a Nitrogen MELINA ([facility]) glomerular filtration rate > 60.0 >60 Glomerula r Filtration Rate MELINA ([facility]) sodium level 137 mEq/L 136-145 Sodium Level MELINA ([facility]) chloride level 104 mEq/L 98-107 Chloride Level MELINA ([facility]) potassium serum 4.6 mEq/L 3.5-5.1 Potassium Serum ATHE NA ([facility]) anion gap 4 mEq/L 8-16 Below low normal Anion Gap MELINA ( [facility]) carbon dioxide level 29 mEq/L 21-32 Carbon Dioxide Level MELINA ([facility]) AST/SGOT 22 U/L 7-37 AST/SGOT MELINA ([facility]) calcium level 9.7 mg/dL 8.5-10.1 Calcium Level MELINA ( [facility]) ALT/SGPT 40 U/L 12-78 ALT/SGPT MELINA ([facility]) alkaline phosphatase 96 U/L 45-117 Alkaline Phosph atase [facility]INA ([facility] [facility]) bilirubin,total 0.5 mg/dL 0.2-1.0 Bilirubin,total ATHE ([facility]) total protein 7.2 gm/dL 6.4-8.2 Total Protein MELINA ( [facility]) albumin 4.2 gm/dL 3.2-5.2 Albumin MELINA ([facility]) albumin/globulin ratio Albumin/globu moy Ratio MELINA ([facility]) ID Date Data Source [id number] 10/23/2020 10:10:00 AM EDT MELINA ([facility]) Name Value Range Interpretation Code Description Data Kellen rce(s) Supporting Document(s) glucose, fasting 82 mg/dL 70-100 Glucose, Fasting AT [facility] ([facility]) creatinine for GFR 0.80 mg/dL 0.70-1.30 Creatinine for GF R MELINA ([facility]) blood urea nitrogen 20 mg/dL 7-18 Above high normal Blood Ure a Nitrogen MELINA ([facility]) glomerular filtration rate > 60.0 >60 Glomerula r Filtration Rate MELINA ([facility]) sodium level 137 mEq/L 136-145 Sodium Level MELINA ([facility]) chloride level 104 mEq/L 98-107 Chloride Level MELINA ([facility]) potassium serum 4.6 mEq/L 3.5-5.1 Potassium Serum ATHE NA ([facility]) carbon dioxide level 29 mEq/L 21-32 Carbon Dioxide Level MELINA ([facility]) calcium level 9.7 mg/dL 8.5-10.1 Calcium Level MELINA ( [facility]) anion gap 4 mEq/L 8-16 Below low normal Anion Gap MELINA ( [facility]) AST/SGOT 22 U/L 7-37 AST/SGOT MELINA ([facility]) ALT/SGPT 40 U/L 12-78 ALT/SGPT MELINA ([facility]) alkaline phosphatase 96 U/L 45-117 Alkaline Phosph atase MELINA ([facility]) bilirubin,total 0.5 mg/dL 0.2-1.0 Bilirubin,total ATHE NA ([facility]) albumin 4.2 gm/dL 3.2-5.2 Albumin MELINA ([facility]) total protein 7.2 gm/dL 6.4-8.2 Total Protein MELINA ( [facility]) albumin/globulin ratio [facility] ID Date Data Source [id number] 10/23/2020 10:10:00 AM EDT MELINA ([facility]) Name Value Range Interpretation Code Description Data Kellen rce(s) Supporting Document(s) glucose, fasting 82 mg/dL 70-100 Glucose, Fasting AT [facility] ([facility]) glomerular filtration rate > 60.0 >60 Glomerula r Filtration Rate MELINA ([facility]) creatinine for GFR 0.80 mg/dL 0.70-1.30 Creatinine for GF R MELINA ([facility]) blood urea nitrogen 20 mg/dL 7-18 Above high normal Blood Ure a Nitrogen MELINA ([facility]) sodium level 137 mEq/L 136-145 Sodium Level MELINA ([facility]) potassium serum 4.6 mEq/L 3.5-5.1 Potassium Serum ATHE NA ([facility]) carbon dioxide level 29 mEq/L 21-32 Carbon Dioxide Level MELINA ([facility]) chloride level 104 mEq/L 98-107 Chloride Level MELINA ([facility]) anion gap 4 mEq/L 8-16 Below low normal Anion Gap MELINA ( [facility]) calcium level 9.7 mg/dL 8.5-10.1 Calcium Level MELINA ( [facility]) AST/SGOT 22 U/L 7-37 AST/SGOT MELINA ([facility]) ALT/SGPT 40 U/L 12-78 ALT/SGPT MELINA ([facility]) alkaline phosphatase 96 U/L 45-117 Alkaline Phosph atase MELINA ([facility]) bilirubin,total 0.5 mg/dL 0.2-1.0 Bilirubin,total ATHE NA ([facility]) total protein 7.2 gm/dL 6.4-8.2 Total Protein MELINA ( [facility]) albumin 4.2 gm/dL 3.2-5.2 Albumin MELINA ([facility]) albumin/globulin ratio Albumin/globu moy Ratio MELINA ([facility]) ID Date Data Source [id number] 10/23/2020 10:10:00 AM EDT MELINA ([facility]) Name Value Range Interpretation Code Description Data Kellen rce(s) Supporting Document(s) blood urea nitrogen 20 mg/dL 7-18 Above high normal Blood Ure a Nitrogen MELINA ([facility]) glucose, fasting 82 mg/dL 70-100 Glucose, Fasting AT [facility] ([facility]) glomerular filtration rate > 60.0 >60 Glomerula r Filtration Rate MELINA ([facility]) creatinine for GFR 0.80 mg/dL 0.70-1.30 Creatinine for GF R MELINA ([facility]) potassium serum 4.6 mEq/L 3.5-5.1 Potassium Serum ATHE NA ([facility]) sodium level 137 mEq/L 136-145 Sodium Level MELINA ([facility]) carbon dioxide level 29 mEq/L 21-32 Carbon Dioxide Level MELINA ([facility]) chloride level 104 mEq/L 98-107 Chloride Level MELINA ([facility]) calcium level 9.7 mg/dL 8.5-10.1 Calcium Level MELINA ( [facility]) anion gap 4 mEq/L 8-16 Below low normal Anion Gap MELINA ( [facility]) AST/SGOT 22 U/L 7-37 AST/SGOT MELINA ([facility]) ALT/SGPT 40 U/L 12-78 ALT/SGPT MELINA ([facility]) alkaline phosphatase 96 U/L 45-117 Alkaline Phosph atase MELINA ([facility]) total protein 7.2 gm/dL 6.4-8.2 Total Protein MELINA ( [facility]) bilirubin,total 0.5 mg/dL 0.2-1.0 Bilirubin,total ATHE NA ([facility]) albumin 4.2 gm/dL 3.2-5.2 Albumin MELINA ([facility]) albumin/globulin ratio Albumin/globu moy Ratio MELINA ([facility]) ID Date Data Source [id number] 09/20/2020 02:28:00 PM EST MELINA ([facility]) Name Value Range Interpretation Code Description Data Kellen rce(s) Supporting Document(s) alkaline phosphatase 135 U/L 45-117 Above high normal Alkaline Phosphatase MELINA ([facility]) ID Date Data Source [id number] 09/20/2020 02:28:00 PM EST MELINA ([facility]) Name Value Range Interpretation Code Description Data Kellen rce(s) Supporting Document(s) gamma glutamyltranspeptidase 78 U/L 15-85 Gamma G lutamyltranspeptidase MELINA ([facility]) ID Date Data Source [id number] 09/20/2020 02:28:00 PM EST MELINA ([facility]) Name Value Range Interpretation Code Description Data Kellen rce(s) Supporting Document(s) hepatitis C virus elida index 0.3 index <0.8 Hepatiti s C Virus Elida Index MELINA ([facility]) ID Date Data Source [id number] 09/20/2020 02:28:00 PM EST MELINA ([facility]) Name Value Range Interpretation Code Description Data Kellen rce(s) Supporting Document(s) alkaline phosphatase 135 U/L 45-117 Above high normal Alkaline Phosphatase MELINA ([facility]) ID Date Data Source [id number] 09/20/2020 02:28:00 PM EST MELINA ([facility]) Name Value Range Interpretation Code Description Data Kellen rce(s) Supporting Document(s) gamma glutamyltranspeptidase 78 U/L 15-85 Gamma G lutamyltranspeptidase MELINA ([facility]) ID Date Data Source [id number] 09/20/2020 02:28:00 PM EST MELINA ([facility]) Name Value Range Interpretation Code Description Data Kellen rce(s) Supporting Document(s) hepatitis C virus elida index 0.3 index <0.8 Hepatiti s C Virus Elida Index MELINA ([facility]) ID Date Data Source [id number] 09/20/2020 02:28:00 PM EST MELINA ([facility]) Name Value Range Interpretation Code Description Data Kellen rce(s) Supporting Document(s) alkaline phosphatase 135 U/L 45-117 Above high normal Alkaline Phosphatase MELINA ([facility]) ID Date Data Source [id number] 09/20/2020 02:28:00 PM EST MELINA ([facility]) Name Value Range Interpretation Code Description Data Kellen rce(s) Supporting Document(s) gamma glutamyltranspeptidase 78 U/L 15-85 [facility] ID Date Data Source [id number] 09/20/2020 02:28:00 PM EST MELINA ([facility]) Name Value Range Interpretation Code Description Data Kellen rce(s) Supporting Document(s) hepatitis C virus elida index 0.3 index <0.8 Hepatiti s C Virus Elida Index MELINA ([facility]) ID Date Data Source [id number] 09/20/2020 02:28:00 PM EST MELINA ([facility]) Name Value Range Interpretation Code Description Data Kellen rce(s) Supporting Document(s) alkaline phosphatase 135 U/L 45-117 Above high normal Alkaline Phosphatase MELINA ([facility]) ID Date Data Source [id number] 09/20/2020 02:28:00 PM EST MELINA ([facility]) Name Value Range Interpretation Code Description Data Kellen rce(s) Supporting Document(s) gamma glutamyltranspeptidase 78 U/L 15-85 [facility] ID Date Data Source [id number] 09/20/2020 02:28:00 PM EST MELINA ([facility]) Name Value Range Interpretation Code Description Data Kellen rce(s) Supporting Document(s) hepatitis C virus elida index 0.3 index <0.8 Hepatiti s C Virus Elida Index MELINA ([facility]) ID Date Data Source [id number] 09/20/2020 02:28:00 PM EST MELINA ([facility]) Name Value Range Interpretation Code Description Data Kellen rce(s) Supporting Document(s) alkaline phosphatase 135 U/L 45-117 Above high normal Alkaline Phosphatase MLEINA ([facility]) ID Date Data Source [id number] 09/20/2020 02:28:00 PM EST MELINA ([facility]) Name Value Range Interpretation Code Description Data Kellen rce(s) Supporting Document(s) gamma glutamyltranspeptidase 78 U/L 15-85 Gamma G lutamyltranspeptidase MELINA ([facility]) ID Date Data Source [id number] 09/20/2020 02:28:00 PM EST MELINA ([facility]) Name Value Range Interpretation Code Description Data Kellen rce(s) Supporting Document(s) hepatitis C virus elida index 0.3 index <0.8 Hepatiti s C Virus Elida Index MELINA ([facility]) ID Date Data Source [id number] 09/20/2020 02:28:00 PM EST MELINA ([facility]) Name Value Range Interpretation Code Description Data Kellen rce(s) Supporting Document(s) alkaline phosphatase 135 U/L 45-117 Above high normal Alkaline Phosphatase MELINA ([facility]) ID Date Data Source [id number] 09/20/2020 02:28:00 PM EST MELINA ([facility]) Name Value Range Interpretation Code Description Data Kellen rce(s) Supporting Document(s) gamma glutamyltranspeptidase 78 U/L 15-85 Gamma G lutamyltranspeptidase MELINA ([facility]) ID Date Data Source [id number] 09/20/2020 02:28:00 PM EST MELINA ([facility]) Name Value Range Interpretation Code Description Data Kellen rce(s) Supporting Document(s) hepatitis C virus elida index 0.3 index <0.8 Hepatiti s C Virus Elida Index MELINA ([facility]) ID Date Data Source [id number] 09/20/2020 02:28:00 PM EST MELINA ([facility]) Name Value Range Interpretation Code Description Data Kellen rce(s) Supporting Document(s) alkaline phosphatase 135 U/L 45-117 Above high normal Alkaline Phosphatase MELINA ([facility]) ID Date Data Source [id number] 09/20/2020 02:28:00 PM EST MELINA ([facility]) Name Value Range Interpretation Code Description Data Kellen rce(s) Supporting Document(s) gamma glutamyltranspeptidase 78 U/L 15-85 Gamma G lutamyltranspeptidase MELINA ([facility]) ID Date Data Source [id number] 09/20/2020 02:28:00 PM EST MELINA ([facility]) Name Value Range Interpretation Code Description Data Kellen rce(s) Supporting Document(s) hepatitis C virus elida index 0.3 index <0.8 Hepatiti s C Virus Elida Index MELINA ([facility]) ID Date Data Source [id number] 09/20/2020 02:28:00 PM EST MELINA ([facility]) Name Value Range Interpretation Code Description Data Kellen rce(s) Supporting Document(s) alkaline phosphatase 135 U/L 45-117 Above high normal Alkaline Phosphatase MELINA ([facility]) ID Date Data Source [id number] 09/20/2020 02:28:00 PM EST MELINA ([facility]) Name Value Range Interpretation Code Description Data Kellen rce(s) Supporting Document(s) gamma glutamyltranspeptidase 78 U/L 15-85 Gamma G lutamyltranspeptidase MELINA ([facility]) ID Date Data Source [id number] 09/20/2020 02:28:00 PM EST MELINA ([facility]) Name Value Range Interpretation Code Description Data Kellen rce(s) Supporting Document(s) hepatitis C virus elida index 0.3 index <0.8 [facility]atiti s [facility] ID Date Data Source [id number] 09/20/2020 02:28:00 PM EST MELINA ([facility]) Name Value Range Interpretation Code Description Data Kellen rce(s) Supporting Document(s) alkaline phosphatase 135 U/L 45-117 Above high normal Alkaline Phosphatase MELINA ([facility]) ID Date Data Source [id number] 09/20/2020 02:28:00 PM EST MELINA ([facility]) Name Value Range Interpretation Code Description Data Kellen rce(s) Supporting Document(s) gamma glutamyltranspeptidase 78 U/L 15-85 Gamma G lutamyltranspeptidase MELINA ([facility]) ID Date Data Source [id number] 09/20/2020 02:28:00 PM EST MELINA [facility]) Name Value Range Interpretation Code Description Data Kellen rce(s) Supporting Document(s) hepatitis C virus elida index 0.3 index <0.8 Hepatiti s C Virus Elida Index MELINA ([facility]) ID Date Data Source [id number] 09/13/2020 08:58:00 AM EST MELINA ([facility]) Name Value Range Interpretation Code Description Data Kellen rce(s) Supporting Document(s) red blood count 5.08 10 4.30-6.10 Red Blood Count ATHE ([facility]) white blood count 12.0 10 4.0-10.0 Above high normal White Blood Count MELINA ([facility]) hemoglobin 14.7 g/dL 13.5-17.5 Hemoglobin MELINA ([facility]) mean corpuscular volume 87.8 fL 80.0-96.0 Mean Corpusc ular Volume MELINA ([facility]) hematocrit 44.6 % 42.0-52.0 Hematocrit MELINA ([facility]) mean corpuscular hemoglobin 28.9 pg 27.0-33.0 Mean Cor puscular Hemoglobin MELINA ([facility]) platelet count, automated 257 10 150-450 Platelet C ount, Automated MELINA ([facility]) mean corpuscular HGB conc 33.0 g/dL 32.0-36.5 Mean Corpu scular HGB Conc [facility] ([facility]) red cell distribution width 15.4 % 11.5-14.5 Above high no rmal Red Cell Distribution Width MELINA ([facility]) lymph % 28.7 % 24.0-44.0 Lymph % MELINA ([facility]) neutrophils % 50.4 % 36.0-66.0 Neutrophils % MELINA ( [facility]) mono % 15.1 % 2.0-8.0 Above high normal [place] % MELINA ([facility]) eos % 4.4 % 0.0-3.0 Above high normal Eos % MELINA ([facility]) baso % 0.7 % 0.0-1.0 Baso % MELINA ([facility]) nucleated red blood cell % 0.0 % 0-0 Nucleated Red Blood Cell % MELINA ([facility]) immature granulocyte % 0.7 % 0-3.0 Immature Gran ulocyte % MELINA ([facility]) lymph # 3.5 10 1.5-5.0 Lymph # MELINA ([facility]) mono # 1.8 10 0.0-0.8 Above high normal [place] # MELINA ([facility]) neutrophils # 6.1 10 1.5-8.5 Neutrophils # MELINA ( [facility]) eos # 0.5 10 0.0-0.5 Eos # MELINA ([facility]) baso # 0.1 10 0.0-0.2 Baso # MELINA ([facility]) ID Date Data Source [id number] 09/13/2020 08:58:00 AM EST MELINA ([facility]) Name Value Range Interpretation Code Description Data Kellen rce(s) Supporting Document(s) CPK creatine phosphokinase 226 U/L 39-308 CPK Creat ine Phosphokinase [facility]AN ([facility]) ID Date Data Source [id number] 09/13/2020 08:58:00 AM EST MELINA ([facility]) Name Value Range Interpretation Code Description Data Kellen rce(s) Supporting Document(s) glucose, fasting 81 mg/dL 70-100 Glucose, Fasting AT [facility] ([facility]) creatinine for GFR 0.90 mg/dL 0.70-1.30 Creatinine for GF R [facility]AN ([facility]) blood urea nitrogen 17 mg/dL 7-18 Blood Urea Nitro gen MELINA ([facility]) sodium level 137 mEq/L 136-145 Sodium Level MELINA ([facility]) glomerular filtration rate > 60.0 >60 Glomerula r Filtration Rate MELINA ([facility]) chloride level 101 mEq/L 98-107 Chloride Level MCLEAN ([facility]) potassium serum 4.5 mEq/L 3.5-5.1 Potassium Serum ATHE NA ([facility]) calcium level 9.6 mg/dL 8.5-10.1 Calcium Level MCLEAN ( [facility]) anion gap 6 mEq/L 8-16 Below low normal Anion Gap MELINA ( [facility]) carbon dioxide level 30 mEq/L 21-32 Carbon Dioxide Level MELINA ([facility]) AST/SGOT 25 U/L 7-37 AST/SGOT MELINA ([facility]) ALT/SGPT 80 U/L 12-78 Above high normal ALT/SGPT MELINA ([facility]) bilirubin,total 0.3 mg/dL 0.2-1.0 Bilirubin,total ATHE NA ([facility]) alkaline phosphatase 149 U/L 45-117 Above high normal Alkaline Phosphatase MELINA ([facility]) albumin 3.9 gm/dL 3.2-5.2 Albumin MELINA ([facility]) total protein 7.4 gm/dL 6.4-8.2 Total Protein MELINA ( [facility]) albumin/globulin ratio Albumin/globu moy Ratio MELINA ([facility]) ID Date Data Source [id number] 09/13/2020 08:58:00 AM EST MELINA ([facility]) Name Value Range Interpretation Code Description Data Kellen rce(s) Supporting Document(s) white blood count 12.0 10 4.0-10.0 Above high normal White Blood Count MELINA ([facility]) red blood count 5.08 10 4.30-6.10 Red Blood Count ATHE ([facility]) hemoglobin 14.7 g/dL 13.5-17.5 Hemoglobin MELINA ([facility]) hematocrit 44.6 % 42.0-52.0 Hematocrit MELINA ([facility]) mean corpuscular volume 87.8 fL 80.0-96.0 Mean Corpusc ular Volume MELINA ([facility]) mean corpuscular hemoglobin 28.9 pg 27.0-33.0 Mean Cor puscular Hemoglobin MELINA ([facility]) mean corpuscular HGB conc 33.0 g/dL 32.0-36.5 Mean Corpu scular HGB Conc MELINA ([facility]) red cell distribution width 15.4 % 11.5-14.5 Above high no rmal Red Cell Distribution Width MELINA ([facility]) neutrophils % 50.4 % 36.0-66.0 Neutrophils % [facility] ( [facility]) platelet count, automated 257 10 150-450 Platelet C ount, Automated MELINA ([facility]) lymph % 28.7 % 24.0-44.0 Lymph % MCLEAN ([facility]) mono % 15.1 % 2.0-8.0 Above high normal [place] % MELINA ([facility]) eos % 4.4 % 0.0-3.0 Above high normal Eos % [facility] ([facility]) baso % 0.7 % 0.0-1.0 Baso % MC[facility]AN ([facility]) nucleated red blood cell % 0.0 % 0-0 Nucleated Red Blood Cell % [facility] ([facility]) immature granulocyte % 0.7 % 0-3.0 Immature Gran ulocyte % [facility]AN ([facility]) lymph # 3.5 10 1.5-5.0 Lymph # MELINA ([facility]) neutrophils # 6.1 10 1.5-8.5 Neutrophils # MCLEAN ( [facility]) mono # 1.8 10 0.0-0.8 Above high normal [place] # [facility] ([facility]) eos # 0.5 10 0.0-0.5 Eos # MELINA ([facility]) baso # 0.1 10 0.0-0.2 Baso # MELINA ([facility]) ID Date Data Source [id number] 09/13/2020 08:58:00 AM EST [facility] ([facility]) Name Value Range Interpretation Code Description Data Kellen rce(s) Supporting Document(s) CPK creatine phosphokinase 226 U/L 39-308 CPK Creat ine Phosphokinase [facility] ([facility]) ID Date Data Source [id number] 09/13/2020 08:58:00 AM EST [facility] ([facility]) Name Value Range Interpretation Code Description Data Kellen rce(s) Supporting Document(s) glucose, fasting 81 mg/dL 70-100 Glucose, Fasting AT [facility] ([facility]) blood urea nitrogen 17 mg/dL 7-18 Blood Urea Nitro gen MELINA ([facility]) creatinine for GFR 0.90 mg/dL 0.70-1.30 Creatinine for GF R MELINA ([facility]) sodium level 137 mEq/L 136-145 Sodium Level MELINA ([facility]) glomerular filtration rate > 60.0 >60 Glomerula r Filtration Rate MELINA ([facility]) chloride level 101 mEq/L 98-107 Chloride Level [facility] ([facility]) potassium serum 4.5 mEq/L 3.5-5.1 Potassium Serum ATHE ([facility]) anion gap 6 mEq/L 8-16 Below low normal Anion Gap [facility] ( [facility]) carbon dioxide level 30 mEq/L 21-32 Carbon Dioxide Level MELINA ([facility]) calcium level 9.6 mg/dL 8.5-10.1 Calcium Level MELINA ( [facility]) AST/SGOT 25 U/L 7-37 AST/SGOT MELINA ([facility]) ALT/SGPT 80 U/L 12-78 Above high normal ALT/SGPT MELINA ([facility]) alkaline phosphatase 149 U/L 45-117 Above high normal Alkaline Phosphatase MELINA ([facility]) bilirubin,total 0.3 mg/dL 0.2-1.0 Bilirubin,total ATHE ([facility]) albumin 3.9 gm/dL 3.2-5.2 Albumin MELINA ([facility]) total protein 7.4 gm/dL 6.4-8.2 Total Protein MELINA ( [facility]) albumin/globulin ratio Albumin/globu moy Ratio MELINA ([facility]) ID Date Data Source [id number] 09/13/2020 08:58:00 AM EST [facility]) Name Value Range Interpretation Code Description Data Kellen rce(s) Supporting Document(s) red blood count 5.08 10 4.30-6.10 Red Blood Count ATHE NA ([facility]) white blood count 12.0 10 4.0-10.0 Above high normal White Blood Count MELINA ([facility]) mean corpuscular volume 87.8 fL 80.0-96.0 Mean Corpusc ular Volume MELINA ([facility]) hematocrit 44.6 % 42.0-52.0 Hematocrit MELINA ([facility]) hemoglobin 14.7 g/dL 13.5-17.5 Hemoglobin MELINA ([facility]) mean corpuscular HGB conc 33.0 g/dL 32.0-36.5 Mean Corpu scular HGB Conc MELINA ([facility]) mean corpuscular hemoglobin 28.9 pg 27.0-33.0 Mean Cor puscular Hemoglobin MELINA ([facility]) neutrophils % 50.4 % 36.0-66.0 Neutrophils % MELINA ( [facility]) red cell distribution width 15.4 % 11.5-14.5 Above high no rmal Red Cell Distribution Width MELINA ([facility]) platelet count, automated 257 10 150-450 Platelet C ount, Automated MELINA ([facility]) eos % 4.4 % 0.0-3.0 Above high normal Eos % MELINA ([facility]) lymph % 28.7 % 24.0-44.0 Lymph % MELINA ([facility]) mono % 15.1 % 2.0-8.0 Above high normal [place] % MELINA ([facility]) baso % 0.7 % 0.0-1.0 Baso % MELINA ([facility]) nucleated red blood cell % 0.0 % 0-0 Nucleated Red Blood Cell % MELINA ([facility]) immature granulocyte % 0.7 % 0-3.0 Immature Gran ulocyte % MELINA ([facility]) neutrophils # 6.1 10 1.5-8.5 Neutrophils # MELINA ( [facility]) mono # 1.8 10 0.0-0.8 Above high normal [place] # MELINA ([facility]) eos # 0.5 10 0.0-0.5 Eos # MELINA ([facility]) lymph # 3.5 10 1.5-5.0 Lymph # MELINA ([facility]) baso # 0.1 10 0.0-0.2 Baso # MELINA ([facility]) ID Date Data Source [id number] 09/13/2020 08:58:00 AM EST MELINA ([facility]) Name Value Range Interpretation Code Description Data Kellen rce(s) Supporting Document(s) CPK creatine phosphokinase 226 U/L 39-308 CPK Creat ine Phosphokinase MELINA ([facility]) ID Date Data Source [id number] 09/13/2020 08:58:00 AM EST MELINA ([facility]) Name Value Range Interpretation Code Description Data Kellen rce(s) Supporting Document(s) blood urea nitrogen 17 mg/dL 7-18 Blood Urea Nitro gen MELINA ([facility]) glucose, fasting 81 mg/dL 70-100 Glucose, Fasting AT [facility] ([facility]) glomerular filtration rate > 60.0 >60 Glomerula r Filtration Rate MELINA ([facility]) creatinine for GFR 0.90 mg/dL 0.70-1.30 Creatinine for GF R MELINA ([facility]) chloride level 101 mEq/L 98-107 Chloride Level MELINA ([facility]) potassium serum 4.5 mEq/L 3.5-5.1 Potassium Serum ATH NA ([facility]) sodium level 137 mEq/L 136-145 Sodium Level MELINA ([facility]) carbon dioxide level 30 mEq/L 21-32 Carbon Dioxide Level MELINA ([facility]) calcium level 9.6 mg/dL 8.5-10.1 Calcium Level MELINA ( [facility]) anion gap 6 mEq/L 8-16 Below low normal Anion Gap MELINA ( [facility]) ALT/SGPT 80 U/L 12-78 Above high normal ALT/SGPT MELINA ([facility]) AST/SGOT 25 U/L 7-37 AST/SGOT MELINA ([facility]) alkaline phosphatase 149 U/L 45-117 Above high normal Alkaline Phosphatase MELINA ([facility]) bilirubin,total 0.3 mg/dL 0.2-1.0 Bilirubin,total ATHE NA ([facility]) total protein 7.4 gm/dL 6.4-8.2 Total Protein MELINA ( [facility]) albumin 3.9 gm/dL 3.2-5.2 Albumin MELINA ([facility]) albumin/globulin ratio Albumin/globu moy Ratio MELINA ([facility]) ID Date Data Source [id number] 09/13/2020 08:58:00 AM EST MELINA ([facility]) Name Value Range Interpretation Code Description Data Kellen rce(s) Supporting Document(s) white blood count 12.0 10 4.0-10.0 Above high normal White Blood Count MELINA ([facility]) red blood count 5.08 10 4.30-6.10 Red Blood Count ATHE NA ([facility]) hematocrit 44.6 % 42.0-52.0 Hematocrit MELINA ([facility]) mean corpuscular hemoglobin 28.9 pg 27.0-33.0 Mean Cor puscular Hemoglobin MELINA ([facility]) mean corpuscular volume 87.8 fL 80.0-96.0 Mean Corpusc ular Volume MELINA ([facility]) hemoglobin 14.7 g/dL 13.5-17.5 Hemoglobin MELINA ([facility]) red cell distribution width 15.4 % 11.5-14.5 Above high no rmal Red Cell Distribution Width MELINA ([facility]) platelet count, automated 257 10 150-450 Platelet C ount, Automated MELINA ([facility]) mean corpuscular HGB conc 33.0 g/dL 32.0-36.5 Mean Corpu scular HGB Conc MELINA ([facility]) mono % 15.1 % 2.0-8.0 Above high normal [place] % MELINA ([facility]) lymph % 28.7 % 24.0-44.0 Lymph % MELINA ([facility]) neutrophils % 50.4 % 36.0-66.0 Neutrophils % MELINA ( [facility]) baso % 0.7 % 0.0-1.0 Baso % MELINA ([facility]) eos % 4.4 % 0.0-3.0 Above high normal Eos % MELINA ([facility]) immature granulocyte % 0.7 % 0-3.0 Immature Gran ulocyte % MELINA ([facility]) lymph # 3.5 10 1.5-5.0 Lymph # MELINA ([facility]) neutrophils # 6.1 10 1.5-8.5 Neutrophils # MCLEAN ( [facility]) nucleated red blood cell % 0.0 % 0-0 Nucleated Red Blood Cell % MCLEAN ([facility]) eos # 0.5 10 0.0-0.5 Eos # MELINA ([facility]) mono # 1.8 10 0.0-0.8 Above high normal [place] # MELINA ([facility]) baso # 0.1 10 0.0-0.2 Baso # MELINA ([facility]) ID Date Data Source [id number] 09/13/2020 08:58:00 AM EST [place] ([facility]) Name Value Range Interpretation Code Description Data Kellen rce(s) Supporting Document(s) CPK creatine phosphokinase 226 U/L 39-308 CPK Creat ine Phosphokinase MCLEAN ([facility]) ID Date Data Source [id number] 09/13/2020 08:58:00 AM EST [facility] ([facility]) Name Value Range Interpretation Code Description Data Kellen rce(s) Supporting Document(s) glucose, fasting 81 mg/dL 70-100 Glucose, Fasting AT [facility] ([facility]) blood urea nitrogen 17 mg/dL 7-18 Blood Urea Nitro gen MCLEAN ([facility]) creatinine for GFR 0.90 mg/dL 0.70-1.30 Creatinine for GF R MCLEAN ([facility]) sodium level 137 mEq/L 136-145 Sodium Level MELINA ([facility]) glomerular filtration rate > 60.0 >60 Glomerula r Filtration Rate MELINA ([facility]) carbon dioxide level 30 mEq/L 21-32 Carbon Dioxide Level MELINA ([facility]) chloride level 101 mEq/L 98-107 Chloride Level MELINA ([facility]) potassium serum 4.5 mEq/L 3.5-5.1 Potassium Serum ATHE ([facility]) calcium level 9.6 mg/dL 8.5-10.1 Calcium Level MELINA ( [facility]) anion gap 6 mEq/L 8-16 Below low normal Anion Gap MELINA ( [facility]) bilirubin,total 0.3 mg/dL 0.2-1.0 Bilirubin,total ATHE ([facility]) ALT/SGPT 80 U/L 12-78 Above high normal ALT/SGPT MELINA ([facility]) alkaline phosphatase 149 U/L 45-117 Above high normal Alkaline Phosphatase MELINA ([facility]) AST/SGOT 25 U/L 7-37 AST/SGOT MELINA ([facility]) total protein 7.4 gm/dL 6.4-8.2 Total Protein MELINA ( [facility]) albumin 3.9 gm/dL 3.2-5.2 Albumin MELINA ([facility]) albumin/globulin ratio Albumin/globu moy Ratio MELINA ([facility]) ID Date Data Source [id number] 09/13/2020 08:58:00 AM EST MELINA ([facility]) Name Value Range Interpretation Code Description Data Kellen rce(s) Supporting Document(s) white blood count 12.0 10 4.0-10.0 Above high normal White Blood Count MELINA ([facility]) hematocrit 44.6 % 42.0-52.0 Hematocrit MELINA ([facility]) hemoglobin 14.7 g/dL 13.5-17.5 Hemoglobin MELINA ([facility]) red blood count 5.08 10 4.30-6.10 Red Blood Count ATHE NA ([facility]) mean corpuscular hemoglobin 28.9 pg 27.0-33.0 Mean Cor puscular Hemoglobin MELINA ([facility]) mean corpuscular HGB conc 33.0 g/dL 32.0-36.5 Mean Corpu scular HGB Conc MELINA ([facility]) mean corpuscular volume 87.8 fL 80.0-96.0 Mean Corpusc ular Volume MELINA ([facility]) red cell distribution width 15.4 % 11.5-14.5 Above high no rmal Red Cell Distribution Width MELINA ([facility]) platelet count, automated 257 10 150-450 Platelet C ount, Automated MELINA ([facility]) neutrophils % 50.4 % 36.0-66.0 Neutrophils % MELINA ( [facility]) lymph % 28.7 % 24.0-44.0 Lymph % MELINA ([facility]) mono % 15.1 % 2.0-8.0 Above high normal [place] % MELINA ([facility]) baso % 0.7 % 0.0-1.0 Baso % MELINA ([facility]) eos % 4.4 % 0.0-3.0 Above high normal Eos % MELINA ([facility]) immature granulocyte % 0.7 % 0-3.0 Immature Gran ulocyte % MELINA ([facility]) neutrophils # 6.1 10 1.5-8.5 Neutrophils # MELINA ( [facility]) nucleated red blood cell % 0.0 % 0-0 Nucleated Red Blood Cell % MELINA ([facility]) lymph # 3.5 10 1.5-5.0 Lymph # MELINA ([facility]) mono # 1.8 10 0.0-0.8 Above high normal [place] # MELINA ([facility]) eos # 0.5 10 0.0-0.5 Eos # MELINA ([facility]) baso # 0.1 10 0.0-0.2 Baso # MELINA ([facility]) ID Date Data Source [id number] 09/13/2020 08:58:00 AM EST MELINA ([facility]) Name Value Range Interpretation Code Description Data Kellen rce(s) Supporting Document(s) CPK creatine phosphokinase 226 U/L 39-308 CPK Creat ine Phosphokinase MELINA ([facility]) ID Date Data Source [id number] 09/13/2020 08:58:00 AM EST MELINA ([facility]) Name Value Range Interpretation Code Description Data Kellen rce(s) Supporting Document(s) glucose, fasting 81 mg/dL 70-100 Glucose, Fasting AT [facility] ([facility]) blood urea nitrogen 17 mg/dL 7-18 Blood Urea Nitro gen MELINA ([facility]) sodium level 137 mEq/L 136-145 Sodium Level MELINA ([facility]) creatinine for GFR 0.90 mg/dL 0.70-1.30 Creatinine for GF R MELINA ([facility]) glomerular filtration rate > 60.0 >60 Glomerula r Filtration Rate MELINA ([facility]) potassium serum 4.5 mEq/L 3.5-5.1 Potassium Serum ATHE ([facility]) carbon dioxide level 30 mEq/L 21-32 Carbon Dioxide Level MELINA ([facility]) chloride level 101 mEq/L 98-107 Chloride Level MELINA ([facility]) calcium level 9.6 mg/dL 8.5-10.1 Calcium Level MELINA ( [facility]) AST/SGOT 25 U/L 7-37 AST/SGOT MELINA ([facility]) anion gap 6 mEq/L 8-16 Below low normal Anion Gap MELINA ( [facility]) ALT/SGPT 80 U/L 12-78 Above high normal ALT/SGPT MELINA ([facility]) bilirubin,total 0.3 mg/dL 0.2-1.0 Bilirubin,total ATHE NA ([facility]) alkaline phosphatase 149 U/L 45-117 Above high normal Alkaline Phosphatase MELINA ([facility]) total protein 7.4 gm/dL 6.4-8.2 Total Protein MELINA ( [facility]) albumin 3.9 gm/dL 3.2-5.2 Albumin MELINA ([facility]) albumin/globulin ratio Albumin/globu moy Ratio MELINA ([facility]) ID Date Data Source [id number] 09/13/2020 08:58:00 AM EST MELINA ([facility]) Name Value Range Interpretation Code Description Data Kellen rce(s) Supporting Document(s) white blood count 12.0 10 4.0-10.0 Above high normal White Blood Count MELINA ([facility]) red blood count 5.08 10 4.30-6.10 Red Blood Count ATHE ([facility]) hemoglobin 14.7 g/dL 13.5-17.5 Hemoglobin MELINA ([facility]) hematocrit 44.6 % 42.0-52.0 Hematocrit MELINA ([facility]) mean corpuscular hemoglobin 28.9 pg 27.0-33.0 Mean Cor puscular Hemoglobin MELINA ([facility]) mean corpuscular HGB conc 33.0 g/dL 32.0-36.5 Mean Corpu scular HGB Conc MELINA ([facility]) mean corpuscular volume 87.8 fL 80.0-96.0 Mean Corpusc ular Volume MELINA ([facility]) neutrophils % 50.4 % 36.0-66.0 Neutrophils % MELINA ( [facility]) red cell distribution width 15.4 % 11.5-14.5 Above high no rmal Red Cell Distribution Width MELINA ([facility]) platelet count, automated 257 10 150-450 Platelet C ount, Automated MELINA ([facility]) mono % 15.1 % 2.0-8.0 Above high normal [place] % MELINA ([facility]) lymph % 28.7 % 24.0-44.0 Lymph % MELINA ([facility]) baso % 0.7 % 0.0-1.0 Baso % MELINA ([facility]) eos % 4.4 % 0.0-3.0 Above high normal Eos % MELINA ([facility]) immature granulocyte % 0.7 % 0-3.0 Immature Gran ulocyte % MELINA ([facility]) nucleated red blood cell % 0.0 % 0-0 Nucleated Red Blood Cell % MELINA ([facility]) mono # 1.8 10 0.0-0.8 Above high normal [place] # MELINA ([facility]) lymph # 3.5 10 1.5-5.0 Lymph # MELINA ([facility]) neutrophils # 6.1 10 1.5-8.5 Neutrophils # MELINA ( [facility]) baso # 0.1 10 0.0-0.2 Baso # MELINA ([facility]) eos # 0.5 10 0.0-0.5 Eos # MELINA ([facility]) ID Date Data Source [id number] 09/13/2020 08:58:00 AM EST MELINA ([facility]) Name Value Range Interpretation Code Description Data Kellen rce(s) Supporting Document(s) CPK creatine phosphokinase 226 U/L 39-308 CPK Creat ine Phosphokinase [facility]AN ([facility]) ID Date Data Source [id number] 09/13/2020 08:58:00 AM EST [place] ([facility]) Name Value Range Interpretation Code Description Data Kellen rce(s) Supporting Document(s) glucose, fasting 81 mg/dL 70-100 Glucose, Fasting AT [facility] ([facility]) creatinine for GFR 0.90 mg/dL 0.70-1.30 Creatinine for GF R [facility]LEAN ([facility]) blood urea nitrogen 17 mg/dL 7-18 Blood Urea Nitro gen MELINA ([facility]) glomerular filtration rate > 60.0 >60 Glomerula r Filtration Rate MELINA ([facility]) sodium level 137 mEq/L 136-145 Sodium Level MELINA ([facility]) potassium serum 4.5 mEq/L 3.5-5.1 Potassium Serum ATHE NA ([facility]) chloride level 101 mEq/L 98-107 Chloride Level MELINA ([facility]) carbon dioxide level 30 mEq/L 21-32 Carbon Dioxide Level MELINA ([facility]) anion gap 6 mEq/L 8-16 Below low normal Anion Gap MELINA ( [facility]) AST/SGOT 25 U/L 7-37 AST/SGOT MELINA ([facility]) calcium level 9.6 mg/dL 8.5-10.1 Calcium Level MELINA ( [facility]) ALT/SGPT 80 U/L 12-78 Above high normal ALT/SGPT MELINA ([facility]) total protein 7.4 gm/dL 6.4-8.2 Total Protein MELINA ( [facility]) bilirubin,total 0.3 mg/dL 0.2-1.0 Bilirubin,total ATHE NA ([facility]) alkaline phosphatase 149 U/L 45-117 Above high normal Alkaline Phosphatase MELINA ([facility]) albumin 3.9 gm/dL 3.2-5.2 Albumin MELINA ([facility]) albumin/globulin ratio Albumin/globu moy Ratio MELINA ([facility]) ID Date Data Source [id number] 09/13/2020 08:58:00 AM EST MELINA ([facility]) Name Value Range Interpretation Code Description Data Kellen rce(s) Supporting Document(s) white blood count 12.0 10 4.0-10.0 Above high normal White Blood Count MELINA ([facility]) red blood count 5.08 10 4.30-6.10 Red Blood Count ATHE ([facility]) mean corpuscular volume 87.8 fL 80.0-96.0 Mean Corpusc ular Volume MELINA ([facility]) hematocrit 44.6 % 42.0-52.0 Hematocrit MELINA ([facility]) hemoglobin 14.7 g/dL 13.5-17.5 Hemoglobin MELINA ([facility]) mean corpuscular hemoglobin 28.9 pg 27.0-33.0 Mean Cor puscular Hemoglobin MELINA ([facility]) mean corpuscular HGB conc 33.0 g/dL 32.0-36.5 Mean Corpu scular HGB Conc MCLEAN ([facility]) red cell distribution width 15.4 % 11.5-14.5 Above high no rmal Red Cell Distribution Width MELINA ([facility]) platelet count, automated 257 10 150-450 Platelet C ount, Automated MELINA ([facility]) mono % 15.1 % 2.0-8.0 Above high normal [place] % MELINA ([facility]) lymph % 28.7 % 24.0-44.0 Lymph % MCLEAN ([facility]) neutrophils % 50.4 % 36.0-66.0 Neutrophils % MCLEAN ( [facility]) baso % 0.7 % 0.0-1.0 Baso % MCLEAN ([facility]) eos % 4.4 % 0.0-3.0 Above high normal Eos % MCLEAN ([facility]) immature granulocyte % 0.7 % 0-3.0 Immature Gran ulocyte % MCLEAN ([facility]) neutrophils # 6.1 10 1.5-8.5 Neutrophils # MCLEAN ( [facility]) lymph # 3.5 10 1.5-5.0 Lymph # MCLEAN ([facility]) nucleated red blood cell % 0.0 % 0-0 Nucleated Red Blood Cell % MELINA ([facility]) eos # 0.5 10 0.0-0.5 Eos # MCLEAN ([facility]) mono # 1.8 10 0.0-0.8 Above high normal [place] # MCLEAN ([facility]) baso # 0.1 10 0.0-0.2 Baso # MELINA ([facility]) ID Date Data Source [id number] 09/13/2020 08:58:00 AM EST [facility]AN ([facility]) Name Value Range Interpretation Code Description Data Kellen rce(s) Supporting Document(s) CPK creatine phosphokinase 226 U/L 39-308 CPK Creat ine Phosphokinase MCLEAN ([facility]) ID Date Data Source [id number] 09/13/2020 08:58:00 AM EST MELINA ([facility]) Name Value Range Interpretation Code Description Data Kellen rce(s) Supporting Document(s) glucose, fasting 81 mg/dL 70-100 Glucose, Fasting AT [facility] ([facility]) blood urea nitrogen 17 mg/dL 7-18 Blood Urea Nitro gen MELINA ([facility]) creatinine for GFR 0.90 mg/dL 0.70-1.30 Creatinine for GF R MELINA ([facility]) glomerular filtration rate > 60.0 >60 Glomerula r Filtration Rate MELINA ([facility]) sodium level 137 mEq/L 136-145 Sodium Level MELINA ([facility]) potassium serum 4.5 mEq/L 3.5-5.1 Potassium Serum ATHE NA ([facility]) chloride level 101 mEq/L 98-107 Chloride Level MELINA ([facility]) carbon dioxide level 30 mEq/L 21-32 Carbon Dioxide Level MELINA ([facility]) anion gap 6 mEq/L 8-16 Below low normal Anion Gap MELINA ( [facility]) calcium level 9.6 mg/dL 8.5-10.1 Calcium Level MELINA ( [facility]) alkaline phosphatase 149 U/L 45-117 Above high normal Alkaline Phosphatase MELINA ([facility]) ALT/SGPT 80 U/L 12-78 Above high normal ALT/SGPT MELINA ([facility]) AST/SGOT 25 U/L 7-37 AST/SGOT MELINA ([facility]) albumin 3.9 gm/dL 3.2-5.2 Albumin MELINA ([facility]) bilirubin,total 0.3 mg/dL 0.2-1.0 Bilirubin,total ATHE ([facility]) total protein 7.4 gm/dL 6.4-8.2 Total Protein MELINA ( [facility]) albumin/globulin ratio Albumin/globu moy Ratio MELINA ([facility]) ID Date Data Source [id number] 09/13/2020 08:58:00 AM EST [facility] ([facility]) Name Value Range Interpretation Code Description Data Kellen rce(s) Supporting Document(s) white blood count 12.0 10 4.0-10.0 Above high normal White Blood Count MELINA ([facility]) red blood count 5.08 10 4.30-6.10 Red Blood Count ATHE ([facility]) hemoglobin 14.7 g/dL 13.5-17.5 Hemoglobin MELINA ([facility]) hematocrit 44.6 % 42.0-52.0 Hematocrit MELINA ([facility]) mean corpuscular volume 87.8 fL 80.0-96.0 Mean Corpusc ular Volume MELINA ([facility]) mean corpuscular hemoglobin 28.9 pg 27.0-33.0 Mean Cor puscular Hemoglobin MELINA ([facility]) mean corpuscular HGB conc 33.0 g/dL 32.0-36.5 Mean Corpu scular HGB Conc MELINA ([facility]) red cell distribution width 15.4 % 11.5-14.5 Above high no rmal Red Cell Distribution Width [facility]AN ([facility]) platelet count, automated 257 10 150-450 Platelet C ount, Automated [facility]AN ([facility]) mono % 15.1 % 2.0-8.0 Above high normal [place] % [facility]LEAN ([facility]) neutrophils % 50.4 % 36.0-66.0 Neutrophils % MCLEAN ( [facility]) lymph % 28.7 % 24.0-44.0 Lymph % MELINA ([facility]) immature granulocyte % 0.7 % 0-3.0 Immature Gran ulocyte % MELINA ([facility]) baso % 0.7 % 0.0-1.0 Baso % MCLEAN ([facility]) eos % 4.4 % 0.0-3.0 Above high normal Eos % MCLEAN ([facility]) neutrophils # 6.1 10 1.5-8.5 Neutrophils # MCLEAN ( [facility]) lymph # 3.5 10 1.5-5.0 Lymph # MELINA ([facility]) nucleated red blood cell % 0.0 % 0-0 Nucleated Red Blood Cell % MELINA ([facility]) mono # 1.8 10 0.0-0.8 Above high normal [place] # MELINA ([facility]) eos # 0.5 10 0.0-0.5 Eos # MELINA ([facility]) baso # 0.1 10 0.0-0.2 Baso # MELINA ([facility]) ID Date Data Source [id number] 09/13/2020 08:58:00 AM EST [place] ([facility]) Name Value Range Interpretation Code Description Data Kellen rce(s) Supporting Document(s) CPK creatine phosphokinase 226 U/L 39-308 CPK Creat ine Phosphokinase [facility] ([facility]) ID Date Data Source [id number] 09/13/2020 08:58:00 AM EST MELINA ([facility]) Name Value Range Interpretation Code Description Data Kellen rce(s) Supporting Document(s) glucose, fasting 81 mg/dL 70-100 Glucose, Fasting AT [facility]) glomerular filtration rate > 60.0 >60 Glomerula r Filtration Rate MELINA ([facility]) creatinine for GFR 0.90 mg/dL 0.70-1.30 Creatinine for GF R [facility]AN ([facility]) blood urea nitrogen 17 mg/dL 7-18 Blood Urea Nitro gen MELINA ([facility]) sodium level 137 mEq/L 136-145 Sodium Level MELINA ([facility]) potassium serum 4.5 mEq/L 3.5-5.1 Potassium Serum ATHE NA ([facility]) carbon dioxide level 30 mEq/L 21-32 Carbon Dioxide Level [facility]AN ([facility]) anion gap 6 mEq/L 8-16 Below low normal Anion Gap MELINA ( [facility]) chloride level 101 mEq/L 98-107 Chloride Level MCLEAN ([facility]) calcium level 9.6 mg/dL 8.5-10.1 Calcium Level MELINA ( [facility]) AST/SGOT 25 U/L 7-37 AST/SGOT MELINA ([facility]) ALT/SGPT 80 U/L 12-78 Above high normal ALT/SGPT MELINA ([facility]) total protein 7.4 gm/dL 6.4-8.2 Total Protein MELINA ( [facility]) bilirubin,total 0.3 mg/dL 0.2-1.0 Bilirubin,total ATHE NA ([facility]) alkaline phosphatase 149 U/L 45-117 Above high normal Alkaline Phosphatase MELINA ([facility]) albumin/globulin ratio Albumin/globu moy Ratio MELINA ([facility]) albumin 3.9 gm/dL 3.2-5.2 Albumin MELINA ([facility]) ID Date Data Source [id number] 09/13/2020 08:58:00 AM EST MELINA ([facility]) Name Value Range Interpretation Code Description Data Kellen rce(s) Supporting Document(s) hemoglobin 14.7 g/dL 13.5-17.5 Hemoglobin MELINA ([facility]) white blood count 12.0 10 4.0-10.0 Above high normal White Blood Count MELINA ([facility]) red blood count 5.08 10 4.30-6.10 Red Blood Count ATHE ([facility]) mean corpuscular volume 87.8 fL 80.0-96.0 Mean Corpusc ular Volume MELINA ([facility]) mean corpuscular hemoglobin 28.9 pg 27.0-33.0 Mean Cor puscular Hemoglobin MELINA ([facility]) hematocrit 44.6 % 42.0-52.0 Hematocrit MELINA ([facility]) red cell distribution width 15.4 % 11.5-14.5 Above high no rmal Red Cell Distribution Width MELINA ([facility]) mean corpuscular HGB conc 33.0 g/dL 32.0-36.5 Mean Corpu scular HGB Conc MELINA ([facility]) platelet count, automated 257 10 150-450 Platelet C ount, Automated MELINA ([facility]) lymph % 28.7 % 24.0-44.0 Lymph % MELINA ([facility]) eos % 4.4 % 0.0-3.0 Above high normal Eos % MELINA ([facility]) neutrophils % 50.4 % 36.0-66.0 Neutrophils % MELINA ( [facility]) mono % 15.1 % 2.0-8.0 Above high normal [place] % MELINA ([facility]) immature granulocyte % 0.7 % 0-3.0 Immature Gran ulocyte % MELINA ([facility]) nucleated red blood cell % 0.0 % 0-0 Nucleated Red Blood Cell % MELINA ([facility]) baso % 0.7 % 0.0-1.0 Baso % MELINA ([facility]) mono # 1.8 10 0.0-0.8 Above high normal [place] # MELINA ([facility]) eos # 0.5 10 0.0-0.5 Eos # MELINA ([facility]) lymph # 3.5 10 1.5-5.0 Lymph # MELINA ([facility]) neutrophils # 6.1 10 1.5-8.5 Neutrophils # MELINA ( [facility]) baso # 0.1 10 0.0-0.2 Baso # MELINA ([facility]) ID Date Data Source [id number] 09/13/2020 08:58:00 AM EST MELINA ([facility]) Name Value Range Interpretation Code Description Data Kellen rce(s) Supporting Document(s) CPK creatine phosphokinase 226 U/L 39-308 CPK Creat ine Phosphokinase MELINA ([facility]) ID Date Data Source [id number] 09/13/2020 08:58:00 AM EST MELINA ([facility]) Name Value Range Interpretation Code Description Data Kellen rce(s) Supporting Document(s) blood urea nitrogen 17 mg/dL 7-18 Blood Urea Nitro gen MELINA ([facility]) glucose, fasting 81 mg/dL 70-100 Glucose, Fasting AT [facility]) sodium level 137 mEq/L 136-145 Sodium Level MELINA ([facility]) glomerular filtration rate > 60.0 >60 Glomerula r Filtration Rate MELINA ([facility]) creatinine for GFR 0.90 mg/dL 0.70-1.30 Creatinine for GF R MELINA ([facility]) anion gap 6 mEq/L 8-16 Below low normal Anion Gap MELINA ( [facility]) potassium serum 4.5 mEq/L 3.5-5.1 Potassium Serum ATHE ([facility]) carbon dioxide level 30 mEq/L 21-32 Carbon Dioxide Level MELINA ([facility]) chloride level 101 mEq/L 98-107 Chloride Level MELINA ([facility]) AST/SGOT 25 U/L 7-37 AST/SGOT MELINA ([facility]) ALT/SGPT 80 U/L 12-78 Above high normal ALT/SGPT MELINA ([facility]) calcium level 9.6 mg/dL 8.5-10.1 Calcium Level MELINA ( [facility]) alkaline phosphatase 149 U/L 45-117 Above high normal Alkaline Phosphatase MELINA ([facility]) total protein 7.4 gm/dL 6.4-8.2 Total Protein MELINA ( [facility]) bilirubin,total 0.3 mg/dL 0.2-1.0 Bilirubin,total ATHE ([facility]) albumin/globulin ratio Albumin/globu moy Ratio MELINA ([facility]) albumin 3.9 gm/dL 3.2-5.2 Albumin MELINA ([facility]) ID Date Data Source [id number] 09/06/2020 09:47:00 AM EST MELINA ([facility]) Name Value Range Interpretation Code Description Data Kellen rce(s) Supporting Document(s) thyroid stimulating hormone 1.710 uIU/mL 0.358-3.740 [facility] Date Data Source [id number] 09/06/2020 09:47:00 AM EST MELINA ([facility]) Name Value Range Interpretation Code Description Data Kellen rce(s) Supporting Document(s) CPK creatine phosphokinase 318 U/L 39-308 Above high nor mal CPK Creatine Phosphokinase MCLEAN ([facility]) ID Date Data Source [id number] 09/06/2020 09:47:00 AM EST MELINA ([facility]) Name Value Range Interpretation Code Description Data Kellen rce(s) Supporting Document(s) glucose, fasting 82 mg/dL 70-100 Glucose, Fasting AT [facility] ([facility]) glomerular filtration rate > 60.0 >60 Glomerula r Filtration Rate MELINA ([facility]) creatinine for GFR 0.82 mg/dL 0.70-1.30 Creatinine for GF R MCLEAN ([facility]) blood urea nitrogen 24 mg/dL 7-18 Above high normal Blood Ure a Nitrogen MELINA ([facility]) sodium level 137 mEq/L 136-145 Sodium Level MELINA ([facility]) potassium serum 5.1 mEq/L 3.5-5.1 Potassium Serum ATHE ([facility]) chloride level 102 mEq/L 98-107 Chloride Level MELINA ([facility]) carbon dioxide level 31 mEq/L 21-32 Carbon Dioxide Level MELINA ([facility]) ALT/SGPT 63 U/L 12-78 ALT/SGPT MELINA ([facility]) calcium level 9.3 mg/dL 8.5-10.1 Calcium Level MELINA ( [facility]) AST/SGOT 29 U/L 7-37 AST/SGOT MELINA ([facility]) anion gap 4 mEq/L 8-16 Below low normal Anion Gap MELINA ( [facility]) alkaline phosphatase 121 U/L 45-117 Above high normal Alkaline Phosphatase MELINA ([facility]) bilirubin,total 0.3 mg/dL 0.2-1.0 Bilirubin,total ATHE ([facility]) total protein 6.8 gm/dL 6.4-8.2 Total Protein MELINA ( [facility]) albumin/globulin ratio Albumin/globu moy Ratio MLEINA ([facility]) albumin 3.6 gm/dL 3.2-5.2 Albumin MELINA ([facility]) ID Date Data Source [id number] 09/06/2020 09:47:00 AM EST MELINA ([facility]) Name Value Range Interpretation Code Description Data Kellen rce(s) Supporting Document(s) white blood count 12.7 10 4.0-10.0 Above high normal White Blood Count MELINA ([facility]) red blood count 5.04 10 4.30-6.10 Red Blood Count ATHE ([facility]) hemoglobin 14.7 g/dL 13.5-17.5 Hemoglobin MELINA ([facility]) hematocrit 45.8 % 42.0-52.0 Hematocrit MELINA ([facility]) mean corpuscular hemoglobin 29.2 pg 27.0-33.0 Mean Cor puscular Hemoglobin MELINA ([facility]) mean corpuscular volume 90.9 fL 80.0-96.0 Mean Corpusc ular Volume MELINA ([facility]) mean corpuscular HGB conc 32.1 g/dL 32.0-36.5 Mean Corpu scular HGB Conc MELINA ([facility]) neutrophils % 59.1 % 36.0-66.0 Neutrophils % MELINA ( [facility]) red cell distribution width 16.7 % 11.5-14.5 Above high no rmal Red Cell Distribution Width MELINA ([facility]) platelet count, automated 242 10 150-450 Platelet C ount, Automated MELINA ([facility]) eos % 4.3 % 0.0-3.0 Above high normal Eos % MELINA ([facility]) lymph % 21.3 % 24.0-44.0 Below low normal Lymph % MELINA ( [facility]) mono % 14.2 % 2.0-8.0 Above high normal [place] % MELINA ([facility]) nucleated red blood cell % 0.0 % 0-0 Nucleated Red Blood Cell % MELINA ([facility]) immature granulocyte % 0.4 % 0-3.0 Immature Gran ulocyte % MELINA ([facility]) baso % 0.7 % 0.0-1.0 Baso % MELINA ([facility]) eos # 0.5 10 0.0-0.5 Eos # MELINA ([facility]) mono # 1.8 10 0.0-0.8 Above high normal [place] # MELINA ([facility]) lymph # 2.7 10 1.5-5.0 Lymph # MELINA ([facility]) neutrophils # 7.5 10 1.5-8.5 Neutrophils # MCLEAN ( [facility]) baso # 0.1 10 0.0-0.2 Baso # MELINA ([facility]) ID Date Data Source [id number] 09/06/2020 09:47:00 AM EST MELINA ([facility]) Name Value Range Interpretation Code Description Data Kellen rce(s) Supporting Document(s) thyroid stimulating hormone 1.710 uIU/mL 0.358-3.740 Thyroid Stimulating Hormone MCLEAN ([facility]) ID Date Data Source [id number] 09/06/2020 09:47:00 AM EST MCLEAN ([facility]) Name Value Range Interpretation Code Description Data Kellen rce(s) Supporting Document(s) CPK creatine phosphokinase 318 U/L 39-308 Above high nor mal CPK Creatine Phosphokinase MCLEAN ([facility]) ID Date Data Source [id number] 09/06/2020 09:47:00 AM EST MELINA ([facility]) Name Value Range Interpretation Code Description Data Kellen rce(s) Supporting Document(s) glucose, fasting 82 mg/dL 70-100 Glucose, Fasting AT [facility] ([facility]) blood urea nitrogen 24 mg/dL 7-18 Above high normal Blood Ure a Nitrogen MELINA ([facility]) creatinine for GFR 0.82 mg/dL 0.70-1.30 Creatinine for GF R MELINA ([facility]) glomerular filtration rate > 60.0 >60 Glomerula r Filtration Rate MELINA ([facility]) sodium level 137 mEq/L 136-145 Sodium Level MELINA ([facility]) potassium serum 5.1 mEq/L 3.5-5.1 Potassium Serum ATHE NA ([facility]) chloride level 102 mEq/L 98-107 Chloride Level MELINA ([facility]) anion gap 4 mEq/L 8-16 Below low normal Anion Gap MELINA ( [facility]) carbon dioxide level 31 mEq/L 21-32 Carbon Dioxide Level MELINA ([facility]) calcium level 9.3 mg/dL 8.5-10.1 Calcium Level MELINA ( [facility]) AST/SGOT 29 U/L 7-37 AST/SGOT MELINA ([facility]) ALT/SGPT 63 U/L 12-78 ALT/SGPT MELINA ([facility]) alkaline phosphatase 121 U/L 45-117 Above high normal Alkaline Phosphatase MELINA ([facility]) bilirubin,total 0.3 mg/dL 0.2-1.0 Bilirubin,total ATHE ([facility]) albumin 3.6 gm/dL 3.2-5.2 Albumin MELINA ([facility]) total protein 6.8 gm/dL 6.4-8.2 Total Protein MELINA ( [facility]) albumin/globulin ratio Albumin/globu moy Ratio MELINA ([facility]) ID Date Data Source [id number] 09/06/2020 09:47:00 AM EST MELINA ([facility]) Name Value Range Interpretation Code Description Data Kellen rce(s) Supporting Document(s) red blood count 5.04 10 4.30-6.10 Red Blood Count ATHE ([facility]) white blood count 12.7 10 4.0-10.0 Above high normal White Blood Count MELINA ([facility]) hematocrit 45.8 % 42.0-52.0 Hematocrit MELINA ([facility]) hemoglobin 14.7 g/dL 13.5-17.5 Hemoglobin MELINA ([facility]) mean corpuscular hemoglobin 29.2 pg 27.0-33.0 Mean Cor puscular Hemoglobin MELINA ([facility]) mean corpuscular volume 90.9 fL 80.0-96.0 Mean Corpusc ular Volume MELINA ([facility]) mean corpuscular HGB conc 32.1 g/dL 32.0-36.5 Mean Corpu scular HGB Conc MELINA ([facility]) red cell distribution width 16.7 % 11.5-14.5 Above high no rmal Red Cell Distribution Width MCLEAN ([facility]) platelet count, automated 242 10 150-450 Platelet C ount, Automated MELINA ([facility]) neutrophils % 59.1 % 36.0-66.0 Neutrophils % MCLEAN ( [facility]) lymph % 21.3 % 24.0-44.0 Below low normal Lymph % MELINA ( [facility]) mono % 14.2 % 2.0-8.0 Above high normal [place] % MCLEAN ([facility]) eos % 4.3 % 0.0-3.0 Above high normal Eos % MCLEAN ([facility]) baso % 0.7 % 0.0-1.0 Baso % MCLEAN ([facility]) immature granulocyte % 0.4 % 0-3.0 Immature Gran ulocyte % MCLEAN ([facility]) neutrophils # 7.5 10 1.5-8.5 Neutrophils # MCLEAN ( [facility]) nucleated red blood cell % 0.0 % 0-0 Nucleated Red Blood Cell % MELINA ([facility]) mono # 1.8 10 0.0-0.8 Above high normal [place] # MCLEAN ([facility]) lymph # 2.7 10 1.5-5.0 Lymph # MELINA ([facility]) eos # 0.5 10 0.0-0.5 Eos # MELINA ([facility]) baso # 0.1 10 0.0-0.2 Baso # MELINA ([facility]) ID Date Data Source [id number] 09/06/2020 09:47:00 AM EST MELINA ([facility]) Name Value Range Interpretation Code Description Data Kellen rce(s) Supporting Document(s) thyroid stimulating hormone 1.710 uIU/mL 0.358-3.740 Thyroid Stimulating Hormone MELINA ([facility]) ID Date Data Source [id number] 09/06/2020 09:47:00 AM EST MELINA ([facility]) Name Value Range Interpretation Code Description Data Kellen rce(s) Supporting Document(s) CPK creatine phosphokinase 318 U/L 39-308 Above high nor mal CPK Creatine Phosphokinase MCLEAN ([facility]) ID Date Data Source [id number] 09/06/2020 09:47:00 AM EST MELINA ([facility]) Name Value Range Interpretation Code Description Data Kellen rce(s) Supporting Document(s) blood urea nitrogen 24 mg/dL 7-18 Above high normal Blood Ure a Nitrogen MELINA ([facility]) glucose, fasting 82 mg/dL 70-100 Glucose, Fasting AT [facility]) sodium level 137 mEq/L 136-145 Sodium Level MELINA ([facility]) glomerular filtration rate > 60.0 >60 Glomerula r Filtration Rate MELINA ([facility]) potassium serum 5.1 mEq/L 3.5-5.1 Potassium Serum ATHE NA ([facility]) creatinine for GFR 0.82 mg/dL 0.70-1.30 Creatinine for GF R MELINA ([facility]) carbon dioxide level 31 mEq/L 21-32 Carbon Dioxide Level MELINA ([facility]) calcium level 9.3 mg/dL 8.5-10.1 Calcium Level MELINA ( [facility]) anion gap 4 mEq/L 8-16 Below low normal Anion Gap MELINA ( [facility]) chloride level 102 mEq/L 98-107 Chloride Level MELINA ([facility]) ALT/SGPT 63 U/L 12-78 ALT/SGPT MELINA ([facility]) AST/SGOT 29 U/L 7-37 AST/SGOT MELINA ([facility]) bilirubin,total 0.3 mg/dL 0.2-1.0 Bilirubin,total ATHE NA ([facility]) total protein 6.8 gm/dL 6.4-8.2 Total Protein MELINA ( [facility]) alkaline phosphatase 121 U/L 45-117 Above high normal Alkaline Phosphatase MELINA ([facility]) albumin 3.6 gm/dL 3.2-5.2 Albumin MELINA ([facility]) albumin/globulin ratio Albumin/globu moy Ratio MELINA ([facility]) ID Date Data Source [id number] 09/06/2020 09:47:00 AM EST MELINA ([facility]) Name Value Range Interpretation Code Description Data Kellen rce(s) Supporting Document(s) white blood count 12.7 10 4.0-10.0 Above high normal White Blood Count MELINA ([facility]) hemoglobin 14.7 g/dL 13.5-17.5 Hemoglobin MELINA ([facility]) red blood count 5.04 10 4.30-6.10 Red Blood Count ATHE ([facility]) hematocrit 45.8 % 42.0-52.0 Hematocrit MELINA ([facility]) mean corpuscular volume 90.9 fL 80.0-96.0 Mean Corpusc ular Volume MELINA ([facility]) mean corpuscular hemoglobin 29.2 pg 27.0-33.0 Mean Cor puscular Hemoglobin MELINA ([facility]) red cell distribution width 16.7 % 11.5-14.5 Above high no rmal Red Cell Distribution Width MELINA ([facility]) mean corpuscular HGB conc 32.1 g/dL 32.0-36.5 Mean Corpu scular HGB Conc MELINA ([facility]) platelet count, automated 242 10 150-450 Platelet C ount, Automated MELINA ([facility]) lymph % 21.3 % 24.0-44.0 Below low normal Lymph % MELINA ( [facility]) mono % 14.2 % 2.0-8.0 Above high normal [place] % MELINA ([facility]) neutrophils % 59.1 % 36.0-66.0 Neutrophils % MELINA ( [facility]) eos % 4.3 % 0.0-3.0 Above high normal Eos % MELINA ([facility]) nucleated red blood cell % 0.0 % 0-0 Nucleated Red Blood Cell % MELINA ([facility]) baso % 0.7 % 0.0-1.0 Baso % MCLEAN ([facility]) immature granulocyte % 0.4 % 0-3.0 Immature Gran ulocyte % MCLEAN ([facility]) lymph # 2.7 10 1.5-5.0 Lymph # MELINA ([facility]) eos # 0.5 10 0.0-0.5 Eos # MELINA ([facility]) mono # 1.8 10 0.0-0.8 Above high normal [place] # MCLEAN ([facility]) neutrophils # 7.5 10 1.5-8.5 Neutrophils # MELINA ( [facility]) baso # 0.1 10 0.0-0.2 Baso # MELINA ([facility]) ID Date Data Source [id number] 09/06/2020 09:47:00 AM EST [place]AN ([facility]) Name Value Range Interpretation Code Description Data Kellen rce(s) Supporting Document(s) thyroid stimulating hormone 1.710 uIU/mL 0.358-3.740 Thyroid Stimulating Hormone MCLEAN ([facility]) ID Date Data Source [id number] 09/06/2020 09:47:00 AM EST [place]LEAN ([facility]) Name Value Range Interpretation Code Description Data Kellen rce(s) Supporting Document(s) CPK creatine phosphokinase 318 U/L 39-308 Above high nor mal CPK Creatine Phosphokinase MELINA ([facility]) ID Date Data Source [id number] 09/06/2020 09:47:00 AM EST MELINA ([facility]) Name Value Range Interpretation Code Description Data Kellen rce(s) Supporting Document(s) creatinine for GFR 0.82 mg/dL 0.70-1.30 Creatinine for GF R MELINA ([facility]) glucose, fasting 82 mg/dL 70-100 Glucose, Fasting AT [facility] ([facility]) glomerular filtration rate > 60.0 >60 Glomerula r Filtration Rate MELINA ([facility]) blood urea nitrogen 24 mg/dL 7-18 Above high normal Blood Ure a Nitrogen MELINA ([facility]) carbon dioxide level 31 mEq/L 21-32 Carbon Dioxide Level MELINA ([facility]) chloride level 102 mEq/L 98-107 Chloride Level MCLEAN ([facility]) potassium serum 5.1 mEq/L 3.5-5.1 Potassium Serum ATHE ([facility]) anion gap 4 mEq/L 8-16 Below low normal Anion Gap MELINA ( [facility]) sodium level 137 mEq/L 136-145 Sodium Level MELINA ([facility]) AST/SGOT 29 U/L 7-37 AST/SGOT MELINA ([facility]) alkaline phosphatase 121 U/L 45-117 Above high normal Alkaline Phosphatase MELINA ([facility]) ALT/SGPT 63 U/L 12-78 ALT/SGPT MELINA ([facility]) calcium level 9.3 mg/dL 8.5-10.1 Calcium Level MELINA ( [facility]) albumin 3.6 gm/dL 3.2-5.2 Albumin MELINA ([facility]) bilirubin,total 0.3 mg/dL 0.2-1.0 Bilirubin,total ATHE NA ([facility]) albumin/globulin ratio Albumin/globu moy Ratio MELINA ([facility]) total protein 6.8 gm/dL 6.4-8.2 Total Protein MELINA ( [facility]) ID Date Data Source [id number] 09/06/2020 09:47:00 AM EST [place] ([facility]) Name Value Range Interpretation Code Description Data Kellen rce(s) Supporting Document(s) white blood count 12.7 10 4.0-10.0 Above high normal White Blood Count MELINA ([facility]) hematocrit 45.8 % 42.0-52.0 Hematocrit MELINA ([facility]) hemoglobin 14.7 g/dL 13.5-17.5 Hemoglobin MELINA ([facility]) red blood count 5.04 10 4.30-6.10 Red Blood Count ATHE NA ([facility]) mean corpuscular HGB conc 32.1 g/dL 32.0-36.5 Mean Corpu scular HGB Conc MELINA ([facility]) mean corpuscular hemoglobin 29.2 pg 27.0-33.0 Mean Cor puscular Hemoglobin MELINA ([facility]) mean corpuscular volume 90.9 fL 80.0-96.0 Mean Corpusc ular Volume [facility]LEAN ([facility]) red cell distribution width 16.7 % 11.5-14.5 Above high no rmal Red Cell Distribution Width MELINA ([facility]) lymph % 21.3 % 24.0-44.0 Below low normal Lymph % MELINA ( [facility]) platelet count, automated 242 10 150-450 Platelet C ount, Automated MELINA ([facility]) mono % 14.2 % 2.0-8.0 Above high normal [place] % MELINA ([facility]) neutrophils % 59.1 % 36.0-66.0 Neutrophils % MELINA ( [facility]) eos % 4.3 % 0.0-3.0 Above high normal Eos % MELINA ([facility]) nucleated red blood cell % 0.0 % 0-0 Nucleated Red Blood Cell % MELINA ([facility]) immature granulocyte % 0.4 % 0-3.0 Immature Gran ulocyte % MELINA ([facility]) baso % 0.7 % 0.0-1.0 Baso % MELINA ([facility]) neutrophils # 7.5 10 1.5-8.5 Neutrophils # MELINA ( [facility]) eos # 0.5 10 0.0-0.5 Eos # MELINA ([facility]) lymph # 2.7 10 1.5-5.0 Lymph # MELINA ([facility]) baso # 0.1 10 0.0-0.2 Baso # MELINA ([facility]) mono # 1.8 10 0.0-0.8 Above high normal [place] # MELINA ([facility]) ID Date Data Source [id number] 09/06/2020 09:47:00 AM EST MELINA ([facility]) Name Value Range Interpretation Code Description Data Kellen rce(s) Supporting Document(s) thyroid stimulating hormone 1.710 uIU/mL 0.358-3.740 Thyroid Stimulating Hormone MELINA ([facility]) ID Date Data Source [id number] 09/06/2020 09:47:00 AM EST MELINA ([facility]) Name Value Range Interpretation Code Description Data Kellen rce(s) Supporting Document(s) CPK creatine phosphokinase 318 U/L 39-308 Above high nor mal CPK Creatine Phosphokinase MCLEAN ([facility]) ID Date Data Source [id number] 09/06/2020 09:47:00 AM EST MELINA ([facility]) Name Value Range Interpretation Code Description Data Kellen rce(s) Supporting Document(s) blood urea nitrogen 24 mg/dL 7-18 Above high normal Blood Ure a Nitrogen MELINA ([facility]) glucose, fasting 82 mg/dL 70-100 Glucose, Fasting AT [facility] ([facility]) potassium serum 5.1 mEq/L 3.5-5.1 Potassium Serum ATHE NA ([facility]) glomerular filtration rate > 60.0 >60 Glomerula r Filtration Rate MELINA ([facility]) sodium level 137 mEq/L 136-145 Sodium Level MELINA ([facility]) creatinine for GFR 0.82 mg/dL 0.70-1.30 Creatinine for GF R MELINA ([facility]) chloride level 102 mEq/L 98-107 Chloride Level MELINA ([facility]) carbon dioxide level 31 mEq/L 21-32 Carbon Dioxide Level MELINA ([facility]) anion gap 4 mEq/L 8-16 Below low normal Anion Gap MELINA ( [facility]) calcium level 9.3 mg/dL 8.5-10.1 Calcium Level MELINA ( [facility]) ALT/SGPT 63 U/L 12-78 ALT/SGPT MELINA ([facility]) AST/SGOT 29 U/L 7-37 AST/SGOT MELINA ([facility]) alkaline phosphatase 121 U/L 45-117 Above high normal Alkaline Phosphatase MELINA ([facility]) bilirubin,total 0.3 mg/dL 0.2-1.0 Bilirubin,total ATHE ([facility]) total protein 6.8 gm/dL 6.4-8.2 Total Protein MELINA ( [facility]) albumin 3.6 gm/dL 3.2-5.2 Albumin MELINA ([facility]) albumin/globulin ratio Albumin/globu moy Ratio MELINA ([facility]) ID Date Data Source [id number] 09/06/2020 09:47:00 AM EST MELINA ([facility]) Name Value Range Interpretation Code Description Data Kellen rce(s) Supporting Document(s) white blood count 12.7 10 4.0-10.0 Above high normal White Blood Count MELINA ([facility]) red blood count 5.04 10 4.30-6.10 Red Blood Count ATHE NA ([facility]) hemoglobin 14.7 g/dL 13.5-17.5 Hemoglobin MELINA ([facility]) hematocrit 45.8 % 42.0-52.0 Hematocrit MELINA ([facility]) mean corpuscular hemoglobin 29.2 pg 27.0-33.0 Mean Cor puscular Hemoglobin MELINA ([facility]) mean corpuscular HGB conc 32.1 g/dL 32.0-36.5 Mean Corpu scular HGB Conc MELINA ([facility]) mean corpuscular volume 90.9 fL 80.0-96.0 Mean Corpusc ular Volume MELINA ([facility]) platelet count, automated 242 10 150-450 Platelet C ount, Automated MELINA ([facility]) red cell distribution width 16.7 % 11.5-14.5 Above high no rmal Red Cell Distribution Width MELINA ([facility]) neutrophils % 59.1 % 36.0-66.0 Neutrophils % MCLEAN ( [facility]) eos % 4.3 % 0.0-3.0 Above high normal Eos % MCLEAN ([facility]) lymph % 21.3 % 24.0-44.0 Below low normal Lymph % MCLEAN ( [facility]) mono % 14.2 % 2.0-8.0 Above high normal [place] % MELINA ([facility]) baso % 0.7 % 0.0-1.0 Baso % MELINA ([facility]) immature granulocyte % 0.4 % 0-3.0 Immature Gran ulocyte % MELINA ([facility]) neutrophils # 7.5 10 1.5-8.5 Neutrophils # MCLEAN ( [facility]) nucleated red blood cell % 0.0 % 0-0 Nucleated Red Blood Cell % MELINA ([facility]) lymph # 2.7 10 1.5-5.0 Lymph # MELINA ([facility]) mono # 1.8 10 0.0-0.8 Above high normal [place] # MELINA ([facility]) eos # 0.5 10 0.0-0.5 Eos # MELINA ([facility]) baso # 0.1 10 0.0-0.2 Baso # MELINA ([facility]) ID Date Data Source [id number] 09/06/2020 09:47:00 AM EST [facility]LEAN ([facility]) Name Value Range Interpretation Code Description Data Kellen rce(s) Supporting Document(s) thyroid stimulating hormone 1.710 uIU/mL 0.358-3.740 Thyroid Stimulating Hormone MELINA ([facility]) ID Date Data Source [id number] 09/06/2020 09:47:00 AM EST MELINA ([facility]) Name Value Range Interpretation Code Description Data Kellen rce(s) Supporting Document(s) CPK creatine phosphokinase 318 U/L 39-308 Above high nor mal CPK Creatine Phosphokinase MELINA ([facility]) ID Date Data Source [id number] 09/06/2020 09:47:00 AM EST MELINA ([facility]) Name Value Range Interpretation Code Description Data Kellen rce(s) Supporting Document(s) blood urea nitrogen 24 mg/dL 7-18 Above high normal Blood Ure a Nitrogen MELINA ([facility]) creatinine for GFR 0.82 mg/dL 0.70-1.30 Creatinine for GF R MELINA ([facility]) glucose, fasting 82 mg/dL 70-100 Glucose, Fasting AT [facility]) glomerular filtration rate > 60.0 >60 Glomerula r Filtration Rate MELINA ([facility]) chloride level 102 mEq/L 98-107 Chloride Level MELINA ([facility]) potassium serum 5.1 mEq/L 3.5-5.1 Potassium Serum ATHE NA ([facility]) carbon dioxide level 31 mEq/L 21-32 Carbon Dioxide Level MELINA ([facility]) sodium level 137 mEq/L 136-145 Sodium Level MELINA ([facility]) ALT/SGPT 63 U/L 12-78 ALT/SGPT MELINA ([facility]) AST/SGOT 29 U/L 7-37 AST/SGOT MELINA ([facility]) calcium level 9.3 mg/dL 8.5-10.1 Calcium Level MELINA ( [facility]) anion gap 4 mEq/L 8-16 Below low normal Anion Gap MELINA ( [facility]) total protein 6.8 gm/dL 6.4-8.2 Total Protein MELINA ( [facility]) bilirubin,total 0.3 mg/dL 0.2-1.0 Bilirubin,total ATHE NA ([facility]) alkaline phosphatase 121 U/L 45-117 Above high normal Alkaline Phosphatase MELINA ([facility]) albumin 3.6 gm/dL 3.2-5.2 Albumin MELINA ([facility]) albumin/globulin ratio Albumin/globu moy Ratio MELINA ([facility]) ID Date Data Source [id number] 09/06/2020 09:47:00 AM EST MELINA ([facility]) Name Value Range Interpretation Code Description Data Kellen rce(s) Supporting Document(s) white blood count 12.7 10 4.0-10.0 Above high normal White Blood Count MELINA ([facility]) red blood count 5.04 10 4.30-6.10 Red Blood Count ATHE ([facility]) hemoglobin 14.7 g/dL 13.5-17.5 Hemoglobin MELINA ([facility]) hematocrit 45.8 % 42.0-52.0 Hematocrit MELINA ([facility]) mean corpuscular volume 90.9 fL 80.0-96.0 Mean Corpusc ular Volume MELINA ([facility]) mean corpuscular HGB conc 32.1 g/dL 32.0-36.5 Mean Corpu scular HGB Conc MELINA ([facility]) platelet count, automated 242 10 150-450 Platelet C ount, Automated MELINA ([facility]) red cell distribution width 16.7 % 11.5-14.5 Above high no rmal Red Cell Distribution Width MELINA ([facility]) mean corpuscular hemoglobin 29.2 pg 27.0-33.0 Mean Cor puscular Hemoglobin MELINA ([facility]) lymph % 21.3 % 24.0-44.0 Below low normal Lymph % MELINA ( [facility]) neutrophils % 59.1 % 36.0-66.0 Neutrophils % MELINA ( [facility]) mono % 14.2 % 2.0-8.0 Above high normal [place] % MELINA ([facility]) eos % 4.3 % 0.0-3.0 Above high normal Eos % MELINA ([facility]) baso % 0.7 % 0.0-1.0 Baso % MELINA ([facility]) nucleated red blood cell % 0.0 % 0-0 Nucleated Red Blood Cell % MELINA ([facility]) immature granulocyte % 0.4 % 0-3.0 Immature Gran ulocyte % MELINA ([facility]) mono # 1.8 10 0.0-0.8 Above high normal [place] # MELINA ([facility]) lymph # 2.7 10 1.5-5.0 Lymph # MELIAN ([facility]) neutrophils # 7.5 10 1.5-8.5 Neutrophils # MELINA ( [facility]) eos # 0.5 10 0.0-0.5 Eos # MELINA ([facility]) baso # 0.1 10 0.0-0.2 Baso # MELINA ([facility]) ID Date Data Source [id number] 09/06/2020 09:47:00 AM EST MELINA ([facility]) Name Value Range Interpretation Code Description Data Kellen rce(s) Supporting Document(s) thyroid stimulating hormone 1.710 uIU/mL 0.358-3.740 Thyroid Stimulating Hormone MELINA ([facility]) ID Date Data Source [id number] 09/06/2020 09:47:00 AM EST MELINA ([facility]) Name Value Range Interpretation Code Description Data Kellen rce(s) Supporting Document(s) CPK creatine phosphokinase 318 U/L 39-308 Above high nor mal CPK Creatine Phosphokinase MELINA ([facility]) ID Date Data Source [id number] 09/06/2020 09:47:00 AM EST MELINA ([facility]) Name Value Range Interpretation Code Description Data Kellen rce(s) Supporting Document(s) glucose, fasting 82 mg/dL 70-100 Glucose, Fasting AT [facility] ([facility]) creatinine for GFR 0.82 mg/dL 0.70-1.30 Creatinine for GF R MELINA ([facility]) blood urea nitrogen 24 mg/dL 7-18 Above high normal Blood Ure a Nitrogen MELINA ([facility]) glomerular filtration rate > 60.0 >60 Glomerula r Filtration Rate MELINA ([facility]) chloride level 102 mEq/L 98-107 Chloride Level MELINA ([facility]) potassium serum 5.1 mEq/L 3.5-5.1 Potassium Serum ATHE NA ([facility]) sodium level 137 mEq/L 136-145 Sodium Level MELINA ([facility]) anion gap 4 mEq/L 8-16 Below low normal Anion Gap MELINA ( [facility]) AST/SGOT 29 U/L 7-37 AST/SGOT MELINA ([facility]) carbon dioxide level 31 mEq/L 21-32 Carbon Dioxide Level MELINA ([facility]) calcium level 9.3 mg/dL 8.5-10.1 Calcium Level MELINA ( [facility]) ALT/SGPT 63 U/L 12-78 ALT/SGPT MELINA ([facility]) bilirubin,total 0.3 mg/dL 0.2-1.0 Bilirubin,total ATHE ([facility]) alkaline phosphatase 121 U/L 45-117 Above high normal Alkaline Phosphatase MELINA ([facility]) albumin/globulin ratio Albumin/globu moy Ratio MELINA ([facility]) albumin 3.6 gm/dL 3.2-5.2 Albumin MELINA ([facility]) total protein 6.8 gm/dL 6.4-8.2 Total Protein MELINA ( [facility]) ID Date Data Source [id number] 09/06/2020 09:47:00 [facility] Name Value Range Interpretation Code Description Data Kellen rce(s) Supporting Document(s) white blood count 12.7 10 4.0-10.0 Above high normal White Blood Count MELINA ([facility]) red blood count 5.04 10 4.30-6.10 Red Blood Count ATHE NA ([facility]) hematocrit 45.8 % 42.0-52.0 Hematocrit MELINA ([facility]) hemoglobin 14.7 g/dL 13.5-17.5 Hemoglobin MELINA ([facility]) mean corpuscular volume 90.9 fL 80.0-96.0 Mean Corpusc ular Volume MELINA ([facility]) mean corpuscular hemoglobin 29.2 pg 27.0-33.0 Mean Cor puscular Hemoglobin MELINA ([facility]) red cell distribution width 16.7 % 11.5-14.5 Above high no rmal Red Cell Distribution Width MELINA ([facility]) mean corpuscular HGB conc 32.1 g/dL 32.0-36.5 Mean Corpu scular HGB Conc MELINA ([facility]) neutrophils % 59.1 % 36.0-66.0 Neutrophils % MELINA ( [facility]) lymph % 21.3 % 24.0-44.0 Below low normal Lymph % MCLEAN ( [facility]) platelet count, automated 242 10 150-450 Platelet C ount, Automated MELINA ([facility]) mono % 14.2 % 2.0-8.0 Above high normal [place] % MELINA ([facility]) baso % 0.7 % 0.0-1.0 Baso % MELINA ([facility]) eos % 4.3 % 0.0-3.0 Above high normal Eos % MELINA ([facility]) immature granulocyte % 0.4 % 0-3.0 Immature Gran ulocyte % MELINA ([facility]) neutrophils # 7.5 10 1.5-8.5 Neutrophils # MELINA ( [facility]) lymph # 2.7 10 1.5-5.0 Lymph # MELINA ([facility]) nucleated red blood cell % 0.0 % 0-0 Nucleated Red Blood Cell % MELINA ([facility]) baso # 0.1 10 0.0-0.2 Baso # MELINA ([facility]) eos # 0.5 10 0.0-0.5 Eos # MELINA ([facility]) mono # 1.8 10 0.0-0.8 Above high normal [place] # MELINA ([facility]) ID Date Data Source [id number] 09/06/2020 09:47:00 AM EST MELINA ([facility]) Name Value Range Interpretation Code Description Data Kellen rce(s) Supporting Document(s) thyroid stimulating hormone 1.710 uIU/mL 0.358-3.740 Thyroid Stimulating Hormone MELINA ([facility]) ID Date Data Source [id number] 09/06/2020 09:47:00 AM EST MELINA ([facility]) Name Value Range Interpretation Code Description Data Kellen rce(s) Supporting Document(s) CPK creatine phosphokinase 318 U/L 39-308 Above high nor mal CPK Creatine Phosphokinase MELINA ([facility]) ID Date Data Source [id number] 09/06/2020 09:47:00 AM EST MELINA ([facility]) Name Value Range Interpretation Code Description Data Kellen rce(s) Supporting Document(s) blood urea nitrogen 24 mg/dL 7-18 Above high normal Blood Ure a Nitrogen MELINA ([facility]) glucose, fasting 82 mg/dL 70-100 Glucose, Fasting AT [facility] ([facility]) glomerular filtration rate > 60.0 >60 Glomerula r Filtration Rate MELINA ([facility]) creatinine for GFR 0.82 mg/dL 0.70-1.30 Creatinine for GF R MELINA ([facility]) potassium serum 5.1 mEq/L 3.5-5.1 Potassium Serum ATHE NA ([facility]) sodium level 137 mEq/L 136-145 Sodium Level MELINA ([facility]) chloride level 102 mEq/L 98-107 Chloride Level MELINA ([facility]) carbon dioxide level 31 mEq/L 21-32 Carbon Dioxide Level MELINA ([facility]) anion gap 4 mEq/L 8-16 Below low normal Anion Gap MELINA ( [facility]) calcium level 9.3 mg/dL 8.5-10.1 Calcium Level MELINA ( [facility]) bilirubin,total 0.3 mg/dL 0.2-1.0 Bilirubin,total ATHE NA ([facility]) AST/SGOT 29 U/L 7-37 AST/SGOT MELINA ([facility]) alkaline phosphatase 121 U/L 45-117 Above high normal Alkaline Phosphatase MELINA ([facility]) ALT/SGPT 63 U/L 12-78 ALT/SGPT MELINA ([facility]) albumin/globulin ratio Albumin/globu moy Ratio MELINA ([facility]) albumin 3.6 gm/dL 3.2-5.2 Albumin MELINA ([facility]) total protein 6.8 gm/dL 6.4-8.2 Total Protein MELINA ( [facility]) ID Date Data Source [id number] 09/06/2020 09:47:00 AM EST MELINA ([facility]) Name Value Range Interpretation Code Description Data Kellen rce(s) Supporting Document(s) white blood count 12.7 10 4.0-10.0 Above high normal White Blood Count MELINA ([facility]) hemoglobin 14.7 g/dL 13.5-17.5 Hemoglobin MELINA ([facility]) mean corpuscular volume 90.9 fL 80.0-96.0 Mean Corpusc ular Volume MELINA ([facility]) red blood count 5.04 10 4.30-6.10 Red Blood Count ATHE NA ([facility]) hematocrit 45.8 % 42.0-52.0 Hematocrit MELINA ([facility]) mean corpuscular hemoglobin 29.2 pg 27.0-33.0 Mean Cor puscular Hemoglobin MELINA ([facility]) mean corpuscular HGB conc 32.1 g/dL 32.0-36.5 Mean Corpu scular HGB Conc MCLEAN ([facility]) red cell distribution width 16.7 % 11.5-14.5 Above high no rmal Red Cell Distribution Width MELINA ([facility]) platelet count, automated 242 10 150-450 Platelet C ount, Automated MELINA ([facility]) eos % 4.3 % 0.0-3.0 Above high normal Eos % MELINA ([facility]) neutrophils % 59.1 % 36.0-66.0 Neutrophils % MCLEAN ( [facility]) lymph % 21.3 % 24.0-44.0 Below low normal Lymph % MCLEAN ( [facility]) mono % 14.2 % 2.0-8.0 Above high normal [place] % MCLEAN ([facility]) nucleated red blood cell % 0.0 % 0-0 Nucleated Red Blood Cell % MCLEAN ([facility]) baso % 0.7 % 0.0-1.0 Baso % MCLEAN ([facility]) immature granulocyte % 0.4 % 0-3.0 Immature Gran ulocyte % MCLEAN ([facility]) mono # 1.8 10 0.0-0.8 Above high normal [place] # MCLEAN ([facility]) lymph # 2.7 10 1.5-5.0 Lymph # MCLEAN ([facility]) neutrophils # 7.5 10 1.5-8.5 Neutrophils # MCLEAN ( [facility]) eos # 0.5 10 0.0-0.5 Eos # MELINA ([facility]) baso # 0.1 10 0.0-0.2 Baso # MELINA ([facility]) ID Date Data Source [id number] 09/06/2020 09:47:00 AM EST MCLEAN ([facility]) Name Value Range Interpretation Code Description Data Kellen rce(s) Supporting Document(s) thyroid stimulating hormone 1.710 uIU/mL 0.358-3.740 Thyroid Stimulating Hormone MCLEAN ([facility]) ID Date Data Source [id number] 09/06/2020 09:47:00 AM EST MELINA ([facility]) Name Value Range Interpretation Code Description Data Kellen rce(s) Supporting Document(s) CPK creatine phosphokinase 318 U/L 39-308 Above high nor mal CPK Creatine Phosphokinase MELINA ([facility]) ID Date Data Source [id number] 09/06/2020 09:47:00 AM EST MELINA ([facility]) Name Value Range Interpretation Code Description Data Kellen rce(s) Supporting Document(s) blood urea nitrogen 24 mg/dL 7-18 Above high normal Blood Ure a Nitrogen MELINA ([facility]) glucose, fasting 82 mg/dL 70-100 Glucose, Fasting AT [facility] ([facility]) creatinine for GFR 0.82 mg/dL 0.70-1.30 Creatinine for GF R MELINA ([facility]) sodium level 137 mEq/L 136-145 Sodium Level MELINA ([facility]) chloride level 102 mEq/L 98-107 Chloride Level MELINA ([facility]) glomerular filtration rate > 60.0 >60 Glomerula r Filtration Rate MELINA ([facility]) potassium serum 5.1 mEq/L 3.5-5.1 Potassium Serum ATHE ([facility]) AST/SGOT 29 U/L 7-37 AST/SGOT MELINA ([facility]) calcium level 9.3 mg/dL 8.5-10.1 Calcium Level MELINA ( [facility]) anion gap 4 mEq/L 8-16 Below low normal Anion Gap MELINA ( [facility]) carbon dioxide level 31 mEq/L 21-32 Carbon Dioxide Level MELINA ([facility]) alkaline phosphatase 121 U/L 45-117 Above high normal Alkaline Phosphatase MELINA ([facility]) albumin 3.6 gm/dL 3.2-5.2 Albumin MELINA ([facility]) bilirubin,total 0.3 mg/dL 0.2-1.0 Bilirubin,total ATHE ([facility]) total protein 6.8 gm/dL 6.4-8.2 Total Protein MELINA ( [facility]) ALT/SGPT 63 U/L 12-78 ALT/SGPT MELINA ([facility]) albumin/globulin ratio Albumin/globu moy Ratio MELINA ([facility]) ID Date Data Source [id number] 09/06/2020 09:47:00 AM EST MELINA ([facility]) Name Value Range Interpretation Code Description Data Kellen rce(s) Supporting Document(s) thyroid stimulating hormone 1.710 uIU/mL 0.358-3.740 Thyroid Stimulating Hormone MELINA ([facility]) ID Date Data Source [id number] 09/06/2020 09:47:00 AM EST MELINA ([facility]) Name Value Range Interpretation Code Description Data Kellen rce(s) Supporting Document(s) CPK creatine phosphokinase 318 U/L 39-308 Above high nor mal CPK Creatine Phosphokinase MELINA ([facility]) ID Date Data Source [id number] 09/06/2020 09:47:00 AM EST MELINA ([facility]) Name Value Range Interpretation Code Description Data Kellen rce(s) Supporting Document(s) glomerular filtration rate > 60.0 >60 Glomerula r Filtration Rate MELINA ([facility]) blood urea nitrogen 24 mg/dL 7-18 Above high normal Blood Ure a Nitrogen MELINA ([facility]) glucose, fasting 82 mg/dL 70-100 Glucose, Fasting AT [facility] ([facility]) creatinine for GFR 0.82 mg/dL 0.70-1.30 Creatinine for GF R MELINA ([facility]) carbon dioxide level 31 mEq/L 21-32 Carbon Dioxide Level MELINA ([facility]) potassium serum 5.1 mEq/L 3.5-5.1 Potassium Serum ATHE NA ([facility]) chloride level 102 mEq/L 98-107 Chloride Level MELINA ([facility]) sodium level 137 mEq/L 136-145 Sodium Level MELINA ([facility]) ALT/SGPT 63 U/L 12-78 ALT/SGPT MELINA ([facility]) anion gap 4 mEq/L 8-16 Below low normal Anion Gap MELINA ( [facility]) calcium level 9.3 mg/dL 8.5-10.1 Calcium Level MELINA ( [facility]) AST/SGOT 29 U/L 7-37 AST/SGOT MELINA ([facility]) total protein 6.8 gm/dL 6.4-8.2 Total Protein MELINA ( [facility]) albumin 3.6 gm/dL 3.2-5.2 Albumin MELINA ([facility]) alkaline phosphatase 121 U/L 45-117 Above high normal Alkaline Phosphatase MELINA ([facility]) albumin/globulin ratio Albumin/globu moy Ratio MELINA ([facility]) bilirubin,total 0.3 mg/dL 0.2-1.0 Bilirubin,total ATHE NA ([facility]) ID Date Data Source [id number] 07/30/2020 04:47:00 AM EST [facility] Name Value Range Interpretation Code Description Data Kellen rce(s) Supporting Document(s) SARS coronavirus 2 RNA [Presence] in Res piratory specimen by BIMAL with probe detection NEGATIVE [facility] This lab was ordered by [facility] a nd reported by [facility]. ID Date Data Source [id number] 05/21/2020 12:29:24 PM [facility] Current Problems: Chronic periodontitis, localized, severe (ICD10- K05.313)Generalized abdominal pain (CRQ08-B90.84)BMI 26.0-26.9 (ICD-V85.22) (VYQ51-C73.26)Overweight (ICD-278.02) (XDA94-I74.3)Surgical incision wound of skin (JRP70-R94.8)Acquired asplenia (ICD-289.59) (MLS28-E84.81)History of head injury (ICD-V15.59) (BVK97-W60.828)Depression (ICD-311) (EZB22-Q36.9)Injury, unspecified, initial encounter (ICD-959.9) (WTI33-A94.90xA)Neck pain (ICD-723.1) (HVI08-P94.2)Unspecified abdominal pain (CTN52-G40.9)Acute upper respiratory infection, unspecified (AAU48-O90.9)Congestion of nasal sinus (ICD-478.19) (HRZ50-J04.81)Homeless single person (ICD-V60.0) (UJJ25-L80.0)Dental caries (ICD-521.00) (YLW52-L39.9)Cough (ICD-786.2) (VRZ72-A58)Acute pharyngitis, unspecified (HBZ50-K69.9)DENTAL CARIES EXTENDING INTO DENTINE (ICD-521.02) (EKO30-X66.62)Anxiety depression (ICD-300.4) (SQU30-Y14.8)Feeling of lump in throat (ICD-784.2) (IZK30-H73.89)Back pain, chronic (ICD-724.5) (ICD10- M54.89)Papule of skin (ICD-709.8) (DLL52-K32.8)Other hemorrhoids (ICD10- K64.8)Unspecified asthma, uncomplicated (JSG53-R55.909)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) (EJD29-Y02.47)Bilateral headache (ICD-784.0) (KOT75-Y80)Insomnia, unspecified (OPH96-E74.00)Right upper quadrant pain (ICD10- R10.11)Malocclusion, Angle's class, unspecified (SSB89-N74.219)Dental caries (ICD-521.00) (XTR14-J64.9)Encounter for general adult medical examination with abnormal findings (ICD-V70.0) (PIT32-I35.01)Abnormal weight gain (ICD-783.1) (EUN10-I83.5)Major depression, recurrent, moderate (ICD-296.32) (ICD10- F33.1)Atypical chest pain (ICD-786.59) (HVB46-V21.89)Social phobia (ICD-300.23) (DNY13-H89.10)Generalized anxiety disorder (ICD-300.02) (ESA45-K94.1)Bradycardia (ICD-427.89) (VVD85-S27.1)Sprain of ligaments of cervical spine, initial encou nter (EUA38-Y76.4xxA)Social phobia, unspecified (NLM04-K57.10)Current Medications: SALINE WOUND WASH 0.9 % EXTERNAL SOLUTION (SODIUM CHLORIDE) use for daily wound care; Route: EXTERNAL* 2X2 GAUZE use for daily dressing changes* 4 X 4 GAUZE. use for daily dressing changeADHESIVE BANDAGES (ADHESIVE BANDAGES) Appx 4x4, To be applied to clean abdominal wound daily; Route: EXTERNALCOLACE 100 MG ORAL CAPSULE (DOCUSATE SODIUM) 1 po bid; Route: ORAL* HOSPITAL BED use as needed for assistance with mobility, dx code Z74.09Current Allergies: AMOXICILLIN (Critical)PROZAC (Critical)XANAX (Moderate) Dental Chart: Procedures:Type - CDT Code - Description B - (D0120) Periodic oral evaluation - established patient (Performed by Beth Kaplan DDS) B - (D0274) Bitewings, 4 radiographic images (Performed by Leny Ibrahim) B - (D0230) Intraoral, periapical, each additional radiographic image on Tooth # 11 (Performed by Leny Ibrahim) B - (D0220) Intraoral, periapical, first radiographic image on Tooth # 6 (Performed by Leny Ibrahim) B - (D0230) Intraoral, periapical, each additional radiographic image on Tooth # 8 (Performed by Leny Ibrahim) Chart Alert:Perio Approved UR, UL, LR Chart Notes:flako (May 21 2020 1:23PM): [facility]- no changescc-My gum is shrinking down and I fear i will lose my teethGeneralized recession in mandibualr 19-22. Informed patient that after prophy gums will not shrink back. Patient was interested in consult witha market research coordinator. Referred for perio consultAssistant not available for perio chartingPatient has edge to edge bite. Dr. Kaplan suggested ortho. Patient is aware that insurance will not cover. Suggested that patient gets amish and cleaning done before orthoAdditional PPE requirements due to COVID-19 in the dental setting, N95, surgical mask, hair covering, gown. OH-POORPatient is brushing once/day, not flossing regularly and no rinsesHeavy supragingival calculus in sextant 5 and trace subgingival calculus seen on radiographsTissues- inflammed, spongy and bleedingOHI-brushing am pm, flossing and then using listerine zero total carePatient was cooperativeNV-Adult Leny Cai by flako (05/21/2020 1:22 PM): ; king (May 21 2020 1:30PM): [facility]). CC: concern about receding gums espacially buccal # 19. Noted also recession on # 21-22. Reviewed Xrays. Exam: caries detected. OCS: WNL, IO/ EO completed, No significant hard findings upon clinical exam.Additional PPE requirements due to COVID-19 in the dental setting, N95, surgical mask, hair covering, gown and shieldPt was cooperative. OHI given Referral: perio and ortho ( class III malocclusion ). NV:Leny Cantrell by king (05/21/2020 1:30 PM): Tooth Notes and Watches:- Tooth 11 Watch: DistalEtta Moise by jean (06/23/2017 11:13 AM): - Tooth 14 Watch: MesialEtta Moise by jean (06/23/2017 11:13 AM): - Tooth 20 Watch: MesialEtta Moise by jean (06/23/2017 11:13 AM): - Tooth 21 Watch: Leny Chatman by flako (05/21/2020 1:08 PM): - Tooth 27 Watch: Leny Mckay by flako (05/21/2020 1:07 PM): - Tooth 30 Watch: Leny Chatman by flako (05/21/2020 1:07 PM): Assessment & Plan Problems:Added: Chronic periodontitis, localized, severe (JAF50-T30.313)Orders:Periodontal Referral [CPT-61401] Name Value Range Interpretation Code Description Data Kellen rce(s) Supporting Document(s) Procedure Social History Code Duration Value Status Description Data Source(s ) Smoking 06/20/2021 12:00:00 AM EST Unknown if ever smoked comp leted Unknown if ever smoked [facility] ([facility]) Smoking 05/31/2021 12:00:00 AM EST Unknown if ever smoked comp leted Unknown if ever smoked [facility] ([facility]) Smoking 05/07/2021 12:00:00 AM EDT Unknown if ever smoked comp leted Unknown if ever smoked [facility] ([facility]) Alcohol intake 03/14/2021 12:00:00 AM EDT Ex-drinker (finding) comp leted Ex- drinker (finding) [facility] Tobacco use and exposure 03/14/2021 12:00:00 AM EDT Never used co mpleted Never used [facility] Smoking 03/14/2021 12:00:00 AM EDT Never smoker completed Never s [facility] Smoking 01/30/2021 12:00:00 AM EDT Unknown if ever smoked comp leted Unknown if ever smoked [facility] ([facility]) Vital Signs ID Date Data Source UNK Name Value Range Interpretation Code Description Data Source(s) Diastolic blood pressure 55 mm[Hg] 55 mm[Hg] MCLEAN ([facility]) Body height 64 [in_i] 64 [in_i] MCLEAN ([facility]) Body mass index (BMI) [Ratio] 28.5 kg/m2 28.5 k g/m2 MELINA ([facility]) Systolic blood pressure 112 mm[Hg] 112 mm[Hg] [facility] ([facility]) Body weight 2656 [oz_av] 2656 [oz_av] MELINA ([facility]) Systolic blood pressure 107 mm[Hg] 107 mm[Hg] [facility] ([facility]) Diastolic blood pressure 70 mm[Hg] 70 mm[Hg] MELINA ([facility]) Body height 64 [in_i] 64 [in_i] MELINA ([facility]) Body mass index (BMI) [Ratio] 28.2 kg/m2 28.2 k g/m2 MELINA ([facility]) Body weight 2632 [oz_av] 2632 [oz_av] MELINA ([facility]) Diastolic blood pressure 70 mm[Hg] 70 mm[Hg] MELINA ([facility]) Body height 64 [in_i] 64 [in_i] MELINA ([facility]) Body mass index (BMI) [Ratio] 28.2 kg/m2 28.2 k g/m2 MELINA ([facility]) Systolic blood pressure 107 mm[Hg] 107 mm[Hg] [facility] ([facility]) Body weight 2632 [oz_av] 2632 [oz_av] MELINA ([facility]) Diastolic blood pressure 70 mm[Hg] 70 mm[Hg] MELINA ([facility]) Body height 64 [in_i] 64 [in_i] MELINA ([facility]) Body mass index (BMI) [Ratio] 28.2 kg/m2 28.2 k g/m2 MELINA ([facility]) Systolic blood pressure 107 mm[Hg] 107 mm[Hg] [facility] Body weight 2632 [oz_av] 2632 [oz_av] MELINA ([facility]) Diastolic blood pressure 61 mm[Hg] 61 mm[Hg] MELINA ([facility]) Body height 64 [in_i] 64 [in_i] MELINA ([facility]) Body mass index (BMI) [Ratio] 28.2 kg/m2 28.2 k g/m2 MELINA ([facility]) Body weight 2628 [oz_av] 2628 [oz_av] MELINA ([facility]) Systolic blood pressure 105 mm[Hg] 105 mm[Hg] A THENA ([facility]) Body height 64 [in_i] 64 [in_i] MELINA ([facility]) Body mass index (BMI) [Ratio] 28.2 kg/m2 28.2 k g/m2 MELINA ([facility]) Systolic blood pressure 105 mm[Hg] 105 mm[Hg] [facility] Body weight 2628 [oz_av] 2628 [oz_av] MELINA ([facility]) Diastolic blood pressure 61 mm[Hg] 61 mm[Hg] MELINA ([facility]) Body weight 2628 [oz_av] 2628 [oz_av] MELINA ([facility]) Diastolic blood pressure 61 mm[Hg] 61 mm[Hg] MELINA ([facility]) Body height 64 [in_i] 64 [in_i] MELINA ([facility]) Body mass index (BMI) [Ratio] 28.2 kg/m2 28.2 k g/m2 MELINA ([facility]) Systolic blood pressure 105 mm[Hg] 105 mm[Hg] [facility] Diastolic blood pressure 61 mm[Hg] 61 mm[Hg] MELINA ([facility]) Body height 64 [in_i] 64 [in_i] MELINA ([facility]) Body mass index (BMI) [Ratio] 28.2 kg/m2 28.2 k g/m2 MELINA ([facility]) Systolic blood pressure 105 mm[Hg] 105 mm[Hg] [facility] Body weight 2628 [oz_av] 2628 [oz_av] MELINA ([facility]) Diastolic blood pressure 68 mm[Hg] 68 mm[Hg] MELINA ([facility]) Systolic blood pressure 108 mm[Hg] 108 mm[Hg] [facility] Body height 64 [in_i] 64 [in_i] MELINA ([facility]) Body mass index (BMI) [Ratio] 30.6 kg/m2 30.6 k g/m2 MELINA ([facility]) Body weight 2848 [oz_av] 2848 [oz_av] MELINA ([facility]) Diastolic blood pressure 68 mm[Hg] 68 mm[Hg] MELINA ([facility]) Body height 64 [in_i] 64 [in_i] MELINA ([facility]) Body mass index (BMI) [Ratio] 30.6 kg/m2 30.6 k g/m2 MELINA ([facility]) Systolic blood pressure 108 mm[Hg] 108 mm[Hg] A THENA ([facility]) Body weight 2848 [oz_av] 2848 [oz_av] MELINA ([facility]) Diastolic blood pressure 68 mm[Hg] 68 mm[Hg] MELINA ([facility]) Body height 64 [in_i] 64 [in_i] MELINA ([facility]) Body mass index (BMI) [Ratio] 30.6 kg/m2 30.6 k g/m2 MELINA ([facility]) Systolic blood pressure 108 mm[Hg] 108 mm[Hg] [facility] Body weight 2848 [oz_av] 2848 [oz_av] MELINA ([facility]) Body weight 2848 [oz_av] 2848 [oz_av] MELINA ([facility]) Diastolic blood pressure 68 mm[Hg] 68 mm[Hg] MELINA ([facility]) Body height 64 [in_i] 64 [in_i] MELINA ([facility]) Body mass index (BMI) [Ratio] 30.6 kg/m2 30.6 k g/m2 MELINA ([facility]) Systolic blood pressure 108 mm[Hg] 108 mm[Hg] [facility] Diastolic blood pressure 68 mm[Hg] 68 mm[Hg] MELINA ([facility]) Body height 64 [in_i] 64 [in_i] MELINA ([facility]) Body mass index (BMI) [Ratio] 30.6 kg/m2 30.6 k g/m2 MELINA ([facility]) Systolic blood pressure 108 mm[Hg] 108 mm[Hg] A THENA ([facility]) Body weight 2848 [oz_av] 2848 [oz_av] MELINA ([facility]) Body height 64 [in_i] 64 [in_i] MELINA ([facility]) Body mass index (BMI) [Ratio] 30.6 kg/m2 30.6 k g/m2 MELINA ([facility]) Body weight 2848 [oz_av] 2848 [oz_av] MELINA ([facility]) Systolic blood pressure 126 mm[Hg] 126 mm[Hg] [facility] ([facility]) Diastolic blood pressure 74 mm[Hg] 74 mm[Hg] MELINA ([facility]) Systolic blood pressure 126 mm[Hg] 126 mm[Hg] A THENA ([facility]) Body weight 2848 [oz_av] 2848 [oz_av] MELINA ([facility]) Diastolic blood pressure 74 mm[Hg] 74 mm[Hg] MELINA ([facility]) Body height 64 [in_i] 64 [in_i] MELINA ([facility]) Body mass index (BMI) [Ratio] 30.6 kg/m2 30.6 k g/m2 MELINA ([facility]) Diastolic blood pressure 74 mm[Hg] 74 mm[Hg] MELINA ([facility]) Body height 64 [in_i] 64 [in_i] MELINA ([facility]) Body mass index (BMI) [Ratio] 30.6 kg/m2 30.6 k g/m2 MELINA ([facility]) Systolic blood pressure 126 mm[Hg] 126 mm[Hg] [facility] Body weight 2848 [oz_av] 2848 [oz_av] MELINA ([facility]) Body weight 2848 [oz_av] 2848 [oz_av] MELINA ([facility]) Diastolic blood pressure 74 mm[Hg] 74 mm[Hg] MELINA ([facility]) Body height 64 [in_i] 64 [in_i] MELINA ([facility]) Body mass index (BMI) [Ratio] 30.6 kg/m2 30.6 k g/m2 MELINA ([facility]) Systolic blood pressure 126 mm[Hg] 126 mm[Hg] A THENA ([facility]) Diastolic blood pressure 74 mm[Hg] 74 mm[Hg] MELINA ([facility]) Body height 64 [in_i] 64 [in_i] MELINA ([facility]) Body mass index (BMI) [Ratio] 30.6 kg/m2 30.6 k g/m2 MELINA ([facility]) Systolic blood pressure 126 mm[Hg] 126 mm[Hg] A VANESSA ([facility]) Body weight 2848 [oz_av] 2848 [oz_av] MELINA ([facility]) Diastolic blood pressure 74 mm[Hg] 74 mm[Hg] MELINA ([facility]) Body height 64 [in_i] 64 [in_i] MELINA ([facility]) Body mass index (BMI) [Ratio] 30.6 kg/m2 30.6 k g/m2 MELINA ([facility]) Systolic blood pressure 126 mm[Hg] 126 mm[Hg] A VANESSA ([facility]) Body weight 2848 [oz_av] 2848 [oz_av] MELINA ([facility]) Diastolic blood pressure 74 mm[Hg] 74 mm[Hg] MELINA ([facility]) Body height 64 [in_i] 64 [in_i] MELINA ([facility]) Body mass index (BMI) [Ratio] 30.6 kg/m2 30.6 k g/m2 MELINA ([facility]) Systolic blood pressure 126 mm[Hg] 126 mm[Hg] A NORIS ([facility]) Body weight 2848 [oz_av] 2848 [oz_av] MELINA ([facility]) Diastolic blood pressure 73 mm[Hg] 73 mm[Hg] MELINA ([facility]) Body height 64 [in_i] 64 [in_i] MELINA ([facility]) Body mass index (BMI) [Ratio] 31.6 kg/m2 31.6 k g/m2 MELINA ([facility]) Systolic blood pressure 118 mm[Hg] 118 mm[Hg] [facility] ([facility]) Body weight 2944 [oz_av] 2944 [oz_av] MELINA ([facility]) Diastolic blood pressure 73 mm[Hg] 73 mm[Hg] MELINA ([facility]) Body height 64 [in_i] 64 [in_i] MELINA ([facility]) Body mass index (BMI) [Ratio] 31.6 kg/m2 31.6 k g/m2 MELINA ([facility]) Systolic blood pressure 118 mm[Hg] 118 mm[Hg] [facility] ([facility]) Body weight 2944 [oz_av] 2944 [oz_av] MELINA ([facility]) Diastolic blood pressure 73 mm[Hg] 73 mm[Hg] MELINA ([facility]) Body height 64 [in_i] 64 [in_i] MELINA ([facility]) Body mass index (BMI) [Ratio] 31.6 kg/m2 31.6 k g/m2 MELINA ([facility]) Systolic blood pressure 118 mm[Hg] 118 mm[Hg] [facility] ([facility]) Body weight 2944 [oz_av] 2944 [oz_av] MELINA ([facility]) Diastolic blood pressure 73 mm[Hg] 73 mm[Hg] MELINA ([facility]) Body height 64 [in_i] 64 [in_i] MELINA ([facility]) Body mass index (BMI) [Ratio] 31.6 kg/m2 31.6 k g/m2 MELINA ([facility]) Systolic blood pressure 118 mm[Hg] 118 mm[Hg] A NORIS ([facility]) Body weight 2944 [oz_av] 2944 [oz_av] MELINA ([facility]) Diastolic blood pressure 73 mm[Hg] 73 mm[Hg] MELINA ([facility]) Body height 64 [in_i] 64 [in_i] MELINA ([facility]) Body mass index (BMI) [Ratio] 31.6 kg/m2 31.6 k g/m2 MELINA ([facility]) Systolic blood pressure 118 mm[Hg] 118 mm[Hg] [facility] ([facility]) Body weight 2944 [oz_av] 2944 [oz_av] MELINA ([facility]) Diastolic blood pressure 73 mm[Hg] 73 mm[Hg] MELINA ([facility]) Body height 64 [in_i] 64 [in_i] MELINA ([facility]) Body mass index (BMI) [Ratio] 31.6 kg/m2 31.6 k g/m2 MELINA ([facility]) Systolic blood pressure 118 mm[Hg] 118 mm[Hg] [facility] Body weight 2944 [oz_av] 2944 [oz_av] MELINA ([facility]) Diastolic blood pressure 73 mm[Hg] 73 mm[Hg] MELINA ([facility]) Body height 64 [in_i] 64 [in_i] MELINA ([facility]) Body mass index (BMI) [Ratio] 31.6 kg/m2 31.6 k g/m2 MELINA ([facility]) Systolic blood pressure 118 mm[Hg] 118 mm[Hg] [facility] ([facility]) Body weight 2944 [oz_av] 2944 [oz_av] MELINA ([facility]) Systolic blood pressure 118 mm[Hg] 118 mm[Hg] A THENA ([facility]) Diastolic blood pressure 73 mm[Hg] 73 mm[Hg] MELINA ([facility]) Body height 64 [in_i] 64 [in_i] MELINA ([facility]) Body mass index (BMI) [Ratio] 31.6 kg/m2 31.6 k g/m2 MELINA ([facility]) Body weight 2944 [oz_av] 2944 [oz_av] MELINA ([facility]) Diastolic blood pressure 63 mm[Hg] 63 mm[Hg] MELINA ([facility]) Body height 64 [in_i] 64 [in_i] MELINA ([facility]) Body mass index (BMI) [Ratio] 29.3 kg/m2 29.3 k g/m2 MELINA ([facility]) Systolic blood pressure 114 mm[Hg] 114 mm[Hg] A THENA ([facility]) Body weight 2729.6 [oz_av] 2729.6 [oz_av] ATHEN A ([facility]) Diastolic blood pressure 63 mm[Hg] 63 mm[Hg] MELINA ([facility]) Body height 64 [in_i] 64 [in_i] MELINA ([facility]) Body mass index (BMI) [Ratio] 29.3 kg/m2 29.3 k g/m2 MELINA ([facility]) Systolic blood pressure 114 mm[Hg] 114 mm[Hg] [facility] ([facility]) Body weight 2729.6 [oz_av] 2729.6 [oz_av] ATHEN A ([facility]) Body mass index (BMI) [Ratio] 29.3 kg/m2 29.3 k g/m2 MELINA ([facility]) Systolic blood pressure 114 mm[Hg] 114 mm[Hg] [facility] Body weight 2729.6 [oz_av] 2729.6 [oz_av] ATHEN A ([facility]) Diastolic blood pressure 63 mm[Hg] 63 mm[Hg] MELINA ([facility]) Body height 64 [in_i] 64 [in_i] MELINA ([facility]) Diastolic blood pressure 63 mm[Hg] 63 mm[Hg] MELINA ([facility]) Body height 64 [in_i] 64 [in_i] MELINA ([facility]) Body mass index (BMI) [Ratio] 29.3 kg/m2 29.3 k g/m2 MELINA ([facility]) Systolic blood pressure 114 mm[Hg] 114 mm[Hg] [facility] Body weight 2729.6 [oz_av] 2729.6 [oz_av] ATHEN A ([facility]) Diastolic blood pressure 63 mm[Hg] 63 mm[Hg] MELINA ([facility]) Body height 64 [in_i] 64 [in_i] MELINA ([facility]) Body mass index (BMI) [Ratio] 29.3 kg/m2 29.3 k g/m2 MELINA ([facility]) Systolic blood pressure 114 mm[Hg] 114 mm[Hg] [facility] ([facility]) Body weight 2729.6 [oz_av] 2729.6 [oz_av] ATHEN A ([facility]) Diastolic blood pressure 63 mm[Hg] 63 mm[Hg] MELINA ([facility]) Body height 64 [in_i] 64 [in_i] MELINA ([facility]) Body mass index (BMI) [Ratio] 29.3 kg/m2 29.3 k g/m2 MELINA ([facility]) Systolic blood pressure 114 mm[Hg] 114 mm[Hg] [facility] Body weight 2729.6 [oz_av] 2729.6 [oz_av] ATHEN A ([facility]) Diastolic blood pressure 63 mm[Hg] 63 mm[Hg] MELINA ([facility]) Body height 64 [in_i] 64 [in_i] MELINA ([facility]) Body mass index (BMI) [Ratio] 29.3 kg/m2 29.3 k g/m2 MELINA ([facility]) Systolic blood pressure 114 mm[Hg] 114 mm[Hg] [facility] ([facility]) Body weight 2729.6 [oz_av] 2729.6 [oz_av] ATHEN A ([facility]) Body mass index (BMI) [Ratio] 29.3 kg/m2 29.3 k g/m2 MELINA ([facility]) Systolic blood pressure 114 mm[Hg] 114 mm[Hg] [facility] Body weight 2729.6 [oz_av] 2729.6 [oz_av] ATHEN A ([facility]) Diastolic blood pressure 63 mm[Hg] 63 mm[Hg] MELINA ([facility]) Body height 64 [in_i] 64 [in_i] MELINA ([facility]) Diastolic blood pressure 63 mm[Hg] 63 mm[Hg] MELINA ([facility]) Body height 64 [in_i] 64 [in_i] MELINA ([facility]) Body mass index (BMI) [Ratio] 29.3 kg/m2 29.3 k g/m2 MELINA ([facility]) Systolic blood pressure 114 mm[Hg] 114 mm[Hg] [facility] ([facility]) Body weight 2729.6 [oz_av] 2729.6 [oz_av] ATHEN A ([facility]) Systolic blood pressure 123 mm[Hg] 123 mm[Hg] [facility] Body mass index (BMI) [Ratio] 31.2 kg/m2 31.2 k g/m2 MELINA ([facility]) Body weight 2912 [oz_av] 2912 [oz_av] MELINA ([facility]) Diastolic blood pressure 70 mm[Hg] 70 mm[Hg] MELINA ([facility]) Body height 64 [in_i] 64 [in_i] MELINA ([facility]) Body mass index (BMI) [Ratio] 31.2 kg/m2 31.2 k g/m2 MELINA ([facility]) Systolic blood pressure 123 mm[Hg] 123 mm[Hg] [facility] Body weight 2912 [oz_av] 2912 [oz_av] MELINA ([facility]) Diastolic blood pressure 70 mm[Hg] 70 mm[Hg] MELINA ([facility]) Body height 64 [in_i] 64 [in_i] MELINA ([facility]) Diastolic blood pressure 70 mm[Hg] 70 mm[Hg] MELINA ([facility]) Body height 64 [in_i] 64 [in_i] MELINA ([facility]) Body mass index (BMI) [Ratio] 31.2 kg/m2 31.2 k g/m2 MELINA ([facility]) Systolic blood pressure 123 mm[Hg] 123 mm[Hg] A THENA ([facility]) Body weight 2912 [oz_av] 2912 [oz_av] MELINA ([facility]) Diastolic blood pressure 70 mm[Hg] 70 mm[Hg] MELINA ([facility]) Body height 64 [in_i] 64 [in_i] MELINA ([facility]) Body mass index (BMI) [Ratio] 31.2 kg/m2 31.2 k g/m2 MELINA ([facility]) Systolic blood pressure 123 mm[Hg] 123 mm[Hg] A THENA ([facility]) Body weight 2912 [oz_av] 2912 [oz_av] MELINA ([facility]) Diastolic blood pressure 70 mm[Hg] 70 mm[Hg] MELINA ([facility]) Body height 64 [in_i] 64 [in_i] MELINA ([facility]) Body mass index (BMI) [Ratio] 31.2 kg/m2 31.2 k g/m2 MELINA ([facility]) Systolic blood pressure 123 mm[Hg] 123 mm[Hg] A THENA ([facility]) Body weight 2912 [oz_av] 2912 [oz_av] MELINA ([facility]) Diastolic blood pressure 70 mm[Hg] 70 mm[Hg] MELINA ([facility]) Body height 64 [in_i] 64 [in_i] MELINA ([facility]) Body mass index (BMI) [Ratio] 31.2 kg/m2 31.2 k g/m2 MELINA ([facility]) Systolic blood pressure 123 mm[Hg] 123 mm[Hg] A THENA ([facility]) Body weight 2912 [oz_av] 2912 [oz_av] MELINA ([facility]) Diastolic blood pressure 70 mm[Hg] 70 mm[Hg] MELINA ([facility]) Body height 64 [in_i] 64 [in_i] MELINA ([facility]) Body mass index (BMI) [Ratio] 31.2 kg/m2 31.2 k g/m2 MELINA ([facility]) Systolic blood pressure 123 mm[Hg] 123 mm[Hg] A THENA ([facility]) Body weight 2912 [oz_av] 2912 [oz_av] MELINA ([facility]) Diastolic blood pressure 70 mm[Hg] 70 mm[Hg] MELINA ([facility]) Body height 64 [in_i] 64 [in_i] MELINA ([facility]) Body mass index (BMI) [Ratio] 31.2 kg/m2 31.2 k g/m2 MELINA ([facility]) Systolic blood pressure 123 mm[Hg] 123 mm[Hg] A THENA ([facility]) Body weight 2912 [oz_av] 2912 [oz_av] MELINA ([facility]) Diastolic blood pressure 70 mm[Hg] 70 mm[Hg] MELINA ([facility]) Body height 64 [in_i] 64 [in_i] MELINA ([facility]) Body mass index (BMI) [Ratio] 31.2 kg/m2 31.2 k g/m2 MELINA ([facility]) Systolic blood pressure 123 mm[Hg] 123 mm[Hg] A THENA ([facility]) Body weight 2912 [oz_av] 2912 [oz_av] MELINA ([facility]) Diastolic blood pressure 70 mm[Hg] 70 mm[Hg] MELINA ([facility]) Body height 64 [in_i] 64 [in_i] MELINA ([facility]) Body mass index (BMI) [Ratio] 31.2 kg/m2 31.2 k g/m2 MELINA ([facility]) Systolic blood pressure 123 mm[Hg] 123 mm[Hg] A THENA ([facility]) Body weight 2912 [oz_av] 2912 [oz_av] MELINA ([facility]) Diastolic blood pressure 70 mm[Hg] 70 mm[Hg] MELINA ([facility]) Body height 64 [in_i] 64 [in_i] MELINA ([facility]) Body mass index (BMI) [Ratio] 31.2 kg/m2 31.2 k g/m2 MELINA ([facility]) Systolic blood pressure 123 mm[Hg] 123 mm[Hg] A THENA ([facility]) Body weight 2912 [oz_av] 2912 [oz_av] MELINA ([facility]) Diastolic blood pressure 76 mm[Hg] 76 mm[Hg] MELINA ([facility]) Body height 64 [in_i] 64 [in_i] MELINA ([facility]) Body weight 2406 [oz_av] 2406 [oz_av] MELINA ([facility]) Systolic blood pressure 127 mm[Hg] 127 mm[Hg] A [facility] ([facility]) Body mass index (BMI) [Ratio] 25.8 kg/m2 25.8 k g/m2 MELINA ([facility]) Diastolic blood pressure 76 mm[Hg] 76 mm[Hg] MELINA ([facility]) Body height 64 [in_i] 64 [in_i] MELINA ([facility]) Body mass index (BMI) [Ratio] 25.8 kg/m2 25.8 k g/m2 MELINA ([facility]) Systolic blood pressure 127 mm[Hg] 127 mm[Hg] A THENA ([facility]) Body weight 2406 [oz_av] 2406 [oz_av] MELINA ([facility]) Diastolic blood pressure 76 mm[Hg] 76 mm[Hg] MELINA ([facility]) Body height 64 [in_i] 64 [in_i] MELINA ([facility]) Body mass index (BMI) [Ratio] 25.8 kg/m2 25.8 k g/m2 MELINA ([facility]) Systolic blood pressure 127 mm[Hg] 127 mm[Hg] [facility] Body weight 2406 [oz_av] 2406 [oz_av] MELINA ([facility]) Systolic blood pressure 127 mm[Hg] 127 mm[Hg] A THENA ([facility]) Diastolic blood pressure 76 mm[Hg] 76 mm[Hg] MELINA ([facility]) Body height 64 [in_i] 64 [in_i] MELINA ([facility]) Body mass index (BMI) [Ratio] 25.8 kg/m2 25.8 k g/m2 MELINA ([facility]) Body weight 2406 [oz_av] 2406 [oz_av] MELINA ([facility]) Diastolic blood pressure 76 mm[Hg] 76 mm[Hg] MELINA ([facility]) Body height 64 [in_i] 64 [in_i] MELINA ([facility]) Body mass index (BMI) [Ratio] 25.8 kg/m2 25.8 k g/m2 MELINA ([facility]) Systolic blood pressure 127 mm[Hg] 127 mm[Hg] A THENA ([facility]) Body weight 2406 [oz_av] 2406 [oz_av] MELINA ([facility]) Body weight 2406 [oz_av] 2406 [oz_av] MELINA ([facility]) Body mass index (BMI) [Ratio] 25.8 kg/m2 25.8 k g/m2 MELINA ([facility]) Diastolic blood pressure 76 mm[Hg] 76 mm[Hg] MELINA ([facility]) Body height 64 [in_i] 64 [in_i] MELINA ([facility]) Systolic blood pressure 127 mm[Hg] 127 mm[Hg] [facility] Diastolic blood pressure 76 mm[Hg] 76 mm[Hg] MELINA ([facility]) Body height 64 [in_i] 64 [in_i] MELINA ([facility]) Body mass index (BMI) [Ratio] 25.8 kg/m2 25.8 k g/m2 MELINA ([facility]) Systolic blood pressure 127 mm[Hg] 127 mm[Hg] A THENA ([facility]) Body weight 2406 [oz_av] 2406 [oz_av] MELINA ([facility]) Diastolic blood pressure 76 mm[Hg] 76 mm[Hg] MELINA ([facility]) Body height 64 [in_i] 64 [in_i] MELINA ([facility]) Body mass index (BMI) [Ratio] 25.8 kg/m2 25.8 k g/m2 MELINA ([facility]) Systolic blood pressure 127 mm[Hg] 127 mm[Hg] A THENA ([facility]) Body weight 2406 [oz_av] 2406 [oz_av] MELINA ([facility]) Diastolic blood pressure 76 mm[Hg] 76 mm[Hg] MELINA ([facility]) Body height 64 [in_i] 64 [in_i] MELINA ([facility]) Body mass index (BMI) [Ratio] 25.8 kg/m2 25.8 k g/m2 MELINA ([facility]) Systolic blood pressure 127 mm[Hg] 127 mm[Hg] A THENA ([facility]) Body weight 2406 [oz_av] 2406 [oz_av] MELINA ([facility]) Diastolic blood pressure 76 mm[Hg] 76 mm[Hg] MELINA ([facility]) Body height 64 [in_i] 64 [in_i] MELINA ([facility]) Body mass index (BMI) [Ratio] 25.8 kg/m2 25.8 k g/m2 MELINA ([facility]) Systolic blood pressure 127 mm[Hg] 127 mm[Hg] A THENA ([facility]) Body weight 2406 [oz_av] 2406 [oz_av] MELINA ([facility]) Diastolic blood pressure 76 mm[Hg] 76 mm[Hg] MELINA ([facility]) Body height 64 [in_i] 64 [in_i] MELINA ([facility]) Body mass index (BMI) [Ratio] 25.8 kg/m2 25.8 k g/m2 MELINA ([facility]) Systolic blood pressure 127 mm[Hg] 127 mm[Hg] A THENA ([facility]) Body weight 2406 [oz_av] 2406 [oz_av] MELINA ([facility]) Diastolic blood pressure 76 mm[Hg] 76 mm[Hg] MELINA ([facility]) Body height 64 [in_i] 64 [in_i] MELINA ([facility]) Body mass index (BMI) [Ratio] 25.8 kg/m2 25.8 k g/m2 MELINA ([facility]) Systolic blood pressure 127 mm[Hg] 127 mm[Hg] A THENA ([facility]) Body weight 2406 [oz_av] 2406 [oz_av] MLEINA ([facility]) Body height 64 [in_i] 64 [in_i] MELINA ([facility]) Body mass index (BMI) [Ratio] 27.2 kg/m2 27.2 k g/m2 MELINA ([facility]) Diastolic blood pressure 62 mm[Hg] 62 mm[Hg] MELINA ([facility]) Body weight 2534.4 [oz_av] 2534.4 [oz_av] ATHEN A ([facility]) Systolic blood pressure 102 mm[Hg] 102 mm[Hg] A THENA ([facility]) Body mass index (BMI) [Ratio] 27.2 kg/m2 27.2 k g/m2 MELINA ([facility]) Systolic blood pressure 102 mm[Hg] 102 mm[Hg] [facility] Body weight 2534.4 [oz_av] 2534.4 [oz_av] ATHEN A ([facility]) Diastolic blood pressure 62 mm[Hg] 62 mm[Hg] MELINA ([facility]) Body height 64 [in_i] 64 [in_i] MELINA ([facility]) Diastolic blood pressure 62 mm[Hg] 62 mm[Hg] MELINA ([facility]) Body height 64 [in_i] 64 [in_i] MELINA ([facility]) Body mass index (BMI) [Ratio] 27.2 kg/m2 27.2 k g/m2 MELINA ([facility]) Systolic blood pressure 102 mm[Hg] 102 mm[Hg] [facility] Body weight 2534.4 [oz_av] 2534.4 [oz_av] ATHEN A ([facility]) Diastolic blood pressure 62 mm[Hg] 62 mm[Hg] MELINA ([facility]) Body height 64 [in_i] 64 [in_i] MELINA ([facility]) Body mass index (BMI) [Ratio] 27.2 kg/m2 27.2 k g/m2 MELINA ([facility]) Systolic blood pressure 102 mm[Hg] 102 mm[Hg] A THENA ([facility]) Body weight 2534.4 [oz_av] 2534.4 [oz_av] ATHEN A ([facility]) Diastolic blood pressure 62 mm[Hg] 62 mm[Hg] MELINA ([facility]) Body height 64 [in_i] 64 [in_i] MELINA ([facility]) Body mass index (BMI) [Ratio] 27.2 kg/m2 27.2 k g/m2 MELINA ([facility]) Systolic blood pressure 102 mm[Hg] 102 mm[Hg] [facility] Body weight 2534.4 [oz_av] 2534.4 [oz_av] ATHEN A ([facility]) Diastolic blood pressure 62 mm[Hg] 62 mm[Hg] MELINA ([facility]) Body height 64 [in_i] 64 [in_i] MELINA ([facility]) Body mass index (BMI) [Ratio] 27.2 kg/m2 27.2 k g/m2 MELINA ([facility]) Systolic blood pressure 102 mm[Hg] 102 mm[Hg] A VANESSAA ([facility]) Body weight 2534.4 [oz_av] 2534.4 [oz_av] ATHEN A ([facility]) Body height 64 [in_i] 64 [in_i] MELINA ([facility]) Body mass index (BMI) [Ratio] 27.2 kg/m2 27.2 k g/m2 MELINA ([facility]) Diastolic blood pressure 62 mm[Hg] 62 mm[Hg] MELINA ([facility]) Systolic blood pressure 102 mm[Hg] 102 mm[Hg] A VANESSAA ([facility]) Body weight 2534.4 [oz_av] 2534.4 [oz_av] ATHEN A ([facility]) Diastolic blood pressure 62 mm[Hg] 62 mm[Hg] MELINA ([facility]) Body height 64 [in_i] 64 [in_i] MELINA ([facility]) Body mass index (BMI) [Ratio] 27.2 kg/m2 27.2 k g/m2 MELINA ([facility]) Systolic blood pressure 102 mm[Hg] 102 mm[Hg] A THENA ([facility]) Body weight 2534.4 [oz_av] 2534.4 [oz_av] ATHEN A ([facility]) Diastolic blood pressure 62 mm[Hg] 62 mm[Hg] MELINA ([facility]) Body height 64 [in_i] 64 [in_i] MELINA ([facility]) Body mass index (BMI) [Ratio] 27.2 kg/m2 27.2 k g/m2 MELINA ([facility]) Systolic blood pressure 102 mm[Hg] 102 mm[Hg] A THENA ([facility]) Body weight 2534.4 [oz_av] 2534.4 [oz_av] ATHEN A ([facility]) Diastolic blood pressure 62 mm[Hg] 62 mm[Hg] MELINA ([facility]) Body height 64 [in_i] 64 [in_i] MELINA ([facility]) Body mass index (BMI) [Ratio] 27.2 kg/m2 27.2 k g/m2 MELINA ([facility]) Systolic blood pressure 102 mm[Hg] 102 mm[Hg] [facility] Body weight 2534.4 [oz_av] 2534.4 [oz_av] ATHEN A ([facility]) Body height 64 [in_i] 64 [in_i] MELINA ([facility]) Diastolic blood pressure 62 mm[Hg] 62 mm[Hg] MELINA ([facility]) Body mass index (BMI) [Ratio] 27.2 kg/m2 27.2 k g/m2 MELINA ([facility]) Systolic blood pressure 102 mm[Hg] 102 mm[Hg] A THENA ([facility]) Body weight 2534.4 [oz_av] 2534.4 [oz_av] ATHEN A ([facility]) Diastolic blood pressure 62 mm[Hg] 62 mm[Hg] MELINA ([facility]) Body height 64 [in_i] 64 [in_i] MELINA ([facility]) Body mass index (BMI) [Ratio] 27.2 kg/m2 27.2 k g/m2 MELINA ([facility]) Systolic blood pressure 102 mm[Hg] 102 mm[Hg] A THENA ([facility]) Body weight 2534.4 [oz_av] 2534.4 [oz_av] ATHEN A ([facility]) Diastolic blood pressure 62 mm[Hg] 62 mm[Hg] MELINA ([facility]) Body height 64 [in_i] 64 [in_i] MELINA ([facility]) Body mass index (BMI) [Ratio] 27.2 kg/m2 27.2 k g/m2 MELINA ([facility]) Systolic blood pressure 102 mm[Hg] 102 mm[Hg] Perico [facility] ([facility]) Body weight 2534.4 [oz_av] 2534.4 [oz_av] [place] ([facility]) Patient Treatment Plan of Care Planned Activity Planned Date Details Description Data Source (s) Proparacaine hydrochloride 5 MG/ML Ophthalmic Solution 03/14/2021 03:15:00 PM [facility] Phenylephrine Hydrochloride 25 MG/ML Ophthalmic Soluti on 03/14/2021 03:15:00 PM [facility] Tropicamide 10 MG/ML Ophthalmic Solution 03/14/2021 03:15:00 PM [facility] Cholecalciferol 1000 UNT Oral Tablet 02/29/2020 12:00:00 AM [facility] Ascorbic Acid 500 MG Oral Tablet 02/29/2020 12:00:00 AM [facility] Calcium Citrate 950 MG Oral Tablet 02/29/2020 12:00:00 AM [facility] Sodium Chloride 0.154 MEQ/ML Irrigation Solution MELINA ([facility]) POLYETHYLENE GLYCOL 3350 142 MG/ML Oral Solution MELINA ([facility]) olanzapine 10 MG Disintegrating Oral Tablet MELINA ([facility]) magnesium citrate 58.2 MG/ML Oral Solution MCLEAN ([facility]) L-Arginine 500 mg tablet Take 2 tablets every day by oral route. MELINA ([facility]) Ibuprofen 800 MG Oral Tablet MELINA ([facility]) Acetaminophen 325 MG / Hydrocodone Bitartrate 5 MG Oral Tablet MELINA ([facility]) Haloperidol 10 MG Oral Tablet MELINA ([facility]) ginkgo biloba 120 mg tablet Take by oral route. MELINA ([facility]) fluticasone propionate 50 mcg/actuation nasal spray,suspension MELINA ([facility]) Docusate Sodium 100 MG Oral Capsule MELINA ([facility]) Colace PRN MELINA ([facility]) coenzyme Q10 100 MG / Vitamin E 5 UNT Oral Capsule MELINA ([facility]) cetirizine hydrochloride 10 MG Oral Tablet MELINA ([facility]) benzonatate 100 MG Oral Capsule MELINA ([facility]) Azithromycin 250 MG Oral Tablet MELINA ([facility]) Acetaminophen 500 MG Oral Tablet MELINA ([facility]) Sodium Chloride 0.154 MEQ/ML Irrigation Solution MELINA ([facility]) POLYETHYLENE GLYCOL 3350 142 MG/ML Oral Solution MELINA ([facility]) olanzapine 10 MG Disintegrating Oral Tablet MELINA ([facility]) magnesium citrate 58.2 MG/ML Oral Solution MELINA ([facility]) L-Arginine 500 mg tablet Take 2 tablets every day by oral route. MELINA ([facility]) Ibuprofen 800 MG Oral Tablet MELINA ([facility]) Acetaminophen 325 MG / Hydrocodone Bitartrate 5 MG Oral Tablet MELINA ([facility]) Haloperidol 10 MG Oral Tablet MELINA ([facility]) ginkgo biloba 120 mg tablet Take by oral route. MELINA ([facility]) fluticasone propionate 50 mcg/actuation nasal spray,suspension MELINA ([facility]) Colace PRN MELINA ([facility]) coenzyme Q10 100 MG / Vitamin E 5 UNT Oral Capsule MELINA ([facility]) benzonatate 100 MG Oral Capsule MELINA ([facility]) Azithromycin 250 MG Oral Tablet MELINA ([facility]) Acetaminophen 500 MG Oral Tablet MELINA ([facility]) Sodium Chloride 0.154 MEQ/ML Irrigation Solution MELINA ([facility]) POLYETHYLENE GLYCOL 3350 142 MG/ML Oral Solution MELINA ([facility]) olanzapine 10 MG Disintegrating Oral Tablet MELINA ([facility]) magnesium citrate 58.2 MG/ML Oral Solution MELINA ([facility]) L-Arginine 500 mg tablet Take 2 tablets every day by oral route. MELINA ([facility]) Ibuprofen 800 MG Oral Tablet MELINA ([facility]) Acetaminophen 325 MG / Hydrocodone Bitartrate 5 MG Oral Tablet MELINA ([facility]) Haloperidol 10 MG Oral Tablet MELINA ([facility]) ginkgo biloba 120 mg tablet Take by oral route. MELINA ([facility]) fluticasone propionate 50 mcg/actuation nasal spray,suspension MELINA ([facility]) Colace PRN MELINA ([facility]) coenzyme Q10 100 MG / Vitamin E 5 UNT Oral Capsule MELINA ([facility]) benzonatate 100 MG Oral Capsule MELINA ([facility]) Azithromycin 250 MG Oral Tablet MELINA ([facility]) Acetaminophen 500 MG Oral Tablet MELINA ([facility]) Sodium Chloride 0.154 MEQ/ML Irrigation Solution MELINA ([facility]) POLYETHYLENE GLYCOL 3350 142 MG/ML Oral Solution MELINA ([facility]) olanzapine 10 MG Disintegrating Oral Tablet MELINA ([facility]) magnesium citrate 58.2 MG/ML Oral Solution MELINA ([facility]) Ibuprofen 800 MG Oral Tablet MELINA ([facility]) Acetaminophen 325 MG / Hydrocodone Bitartrate 5 MG Oral Tablet MELINA ([facility]) Haloperidol 10 MG Oral Tablet MELINA ([facility]) fluticasone propionate 50 mcg/actuation nasal spray,suspension MELINA ([facility]) Colace PRN MELINA ([facility]) benzonatate 100 MG Oral Capsule MELINA ([facility]) Azithromycin 250 MG Oral Tablet MELINA ([facility]) Acetaminophen 500 MG Oral Tablet MELINA ([facility]) Sodium Chloride 0.154 MEQ/ML Irrigation Solution MELINA ([facility]) POLYETHYLENE GLYCOL 3350 142 MG/ML Oral Solution MELINA ([facility]) magnesium citrate 58.2 MG/ML Oral Solution MELINA ([facility]) Ibuprofen 800 MG Oral Tablet MELINA ([facility]) Acetaminophen 325 MG / Hydrocodone Bitartrate 5 MG Oral Tablet MELINA ([facility]) fluticasone propionate 50 mcg/actuation nasal spray,suspension MELINA ([facility]) Colace PRN MELINA ([facility]) benzonatate 100 MG Oral Capsule MELINA ([facility]) Azithromycin 250 MG Oral Tablet MELINA ([facility]) Acetaminophen 500 MG Oral Tablet MELINA ([facility]) Sodium Chloride 0.154 MEQ/ML Irrigation Solution MELINA ([facility]) POLYETHYLENE GLYCOL 3350 142 MG/ML Oral Solution MELINA ([facility]) magnesium citrate 58.2 MG/ML Oral Solution MELINA ([facility]) Ibuprofen 800 MG Oral Tablet MELINA ([facility]) Acetaminophen 325 MG / Hydrocodone Bitartrate 5 MG Oral Tablet MELINA ([facility]) fluticasone propionate 50 mcg/actuation nasal spray,suspension MELINA ([facility]) Colace PRN MELINA ([facility]) benzonatate 100 MG Oral Capsule MELINA ([facility]) Azithromycin 250 MG Oral Tablet MELINA ([facility]) Acetaminophen 500 MG Oral Tablet MELINA ([facility]) Sodium Chloride 0.154 MEQ/ML Irrigation Solution MELINA ([facility]) POLYETHYLENE GLYCOL 3350 142 MG/ML Oral Solution MELINA ([facility]) magnesium citrate 58.2 MG/ML Oral Solution MELINA ([facility]) Ibuprofen 800 MG Oral Tablet MELINA ([facility]) Acetaminophen 325 MG / Hydrocodone Bitartrate 5 MG Oral Tablet MELINA ([facility]) fluticasone propionate 50 mcg/actuation nasal spray,suspension MELINA ([facility]) Docusate Sodium 100 MG Oral Capsule [DOK] MELINA ([facility]) Colace PRN MELINA ([facility]) benzonatate 100 MG Oral Capsule MELINA ([facility]) Azithromycin 250 MG Oral Tablet MELINA ([facility]) Acetaminophen 500 MG Oral Tablet MELINA ([facility]) Sodium Chloride 0.154 MEQ/ML Irrigation Solution MELINA ([facility]) POLYETHYLENE GLYCOL 3350 142 MG/ML Oral Solution MELINA ([facility]) magnesium citrate 58.2 MG/ML Oral Solution MELINA ([facility]) Ibuprofen 800 MG Oral Tablet MELINA ([facility]) Acetaminophen 325 MG / Hydrocodone Bitartrate 5 MG Oral Tablet MELINA ([facility]) fluticasone propionate 50 mcg/actuation nasal spray,suspension MELINA ([facility]) Docusate Sodium 100 MG Oral Capsule [DOK] MELINA ([facility]) Colace PRN MELINA ([facility]) benzonatate 100 MG Oral Capsule MELINA ([facility]) Azithromycin 250 MG Oral Tablet MELINA ([facility]) Acetaminophen 500 MG Oral Tablet MELINA ([facility]) Sodium Chloride 0.154 MEQ/ML Irrigation Solution MELINA ([facility]) POLYETHYLENE GLYCOL 3350 142 MG/ML Oral Solution MELINA ([facility]) magnesium citrate 58.2 MG/ML Oral Solution MELINA ([facility]) Ibuprofen 800 MG Oral Tablet MELINA ([facility]) Acetaminophen 325 MG / Hydrocodone Bitartrate 5 MG Oral Tablet MELINA ([facility]) fluticasone propionate 50 mcg/actuation nasal spray,suspension MELINA ([facility]) Docusate Sodium 100 MG Oral Capsule [DOK] MELINA ([facility]) Colace PRN MELINA ([facility]) benzonatate 100 MG Oral Capsule MELINA ([facility]) Azithromycin 250 MG Oral Tablet MELINA ([facility]) Acetaminophen 500 MG Oral Tablet MELINA ([facility]) Sodium Chloride 0.154 MEQ/ML Irrigation Solution MELINA ([facility]) POLYETHYLENE GLYCOL 3350 142 MG/ML Oral Solution MELINA ([facility]) magnesium citrate 58.2 MG/ML Oral Solution MELINA ([facility]) Ibuprofen 800 MG Oral Tablet MELINA ([facility]) Acetaminophen 325 MG / Hydrocodone Bitartrate 5 MG Oral Tablet MELINA ([facility]) fluticasone propionate 50 mcg/actuation nasal spray,suspension MELINA ([facility]) Docusate Sodium 100 MG Oral Capsule [DOK] MELINA ([facility]) Colace PRN MELINA ([facility]) benzonatate 100 MG Oral Capsule MELINA ([facility]) Azithromycin 250 MG Oral Tablet MLEINA ([facility]) Acetaminophen 500 MG Oral Tablet MELINA ([facility]) Sodium Chloride 0.154 MEQ/ML Irrigation Solution MELINA ([facility]) POLYETHYLENE GLYCOL 3350 142 MG/ML Oral Solution MELINA ([facility]) magnesium citrate 58.2 MG/ML Oral Solution MELINA ([facility]) Ibuprofen 800 MG Oral Tablet MELINA ([facility]) Acetaminophen 325 MG / Hydrocodone Bitartrate 5 MG Oral Tablet MELINA ([facility]) fluticasone propionate 50 mcg/actuation nasal spray,suspension MELINA ([facility]) Docusate Sodium 100 MG Oral Capsule [DOK] MELINA ([facility]) Colace PRN MELINA ([facility]) benzonatate 100 MG Oral Capsule MELINA ([facility]) Azithromycin 250 MG Oral Tablet MELINA ([facility]) Acetaminophen 500 MG Oral Tablet MELINA ([facility]) Sodium Chloride 0.154 MEQ/ML Irrigation Solution MELINA ([facility]) POLYETHYLENE GLYCOL 3350 142 MG/ML Oral Solution MELINA ([facility]) magnesium citrate 58.2 MG/ML Oral Solution MELINA ([facility]) Ibuprofen 800 MG Oral Tablet MELINA ([facility]) Acetaminophen 325 MG / Hydrocodone Bitartrate 5 MG Oral Tablet MELINA ([facility]) fluticasone propionate 50 mcg/actuation nasal spray,suspension MELINA ([facility]) Docusate Sodium 100 MG Oral Capsule [DOK] MELINA ([facility]) benzonatate 100 MG Oral Capsule MELINA ([facility]) Azithromycin 250 MG Oral Tablet MELINA ([facility]) Acetaminophen 500 MG Oral Tablet MELINA ([facility]) Sodium Chloride 0.154 MEQ/ML Irrigation Solution MELINA ([facility]) Ibuprofen 800 MG Oral Tablet MELINA ([facility]) Acetaminophen 325 MG / Hydrocodone Bitartrate 5 MG Oral Tablet MELINA ([facility]) fluticasone propionate 50 mcg/actuation nasal spray,suspension MELINA ([facility]) benzonatate 100 MG Oral Capsule MELINA ([facility]) Azithromycin 250 MG Oral Tablet MELINA ([facility])
--- OUTSIDE RECORDS SUMMARY | 2021-06-22 23:18 | CCD ---
Author Author [facility] Organization [facility] Address Unknown Phone Unavailable Care Team Providers Care Manager Trade [employer] Name Role Phone Shefali Pritchett MD Unavailable Unavailable Shefali Pritchett [...] Unavailable Unavailable Shefali Pritchett MD Unavailable Unavailable Shefail Pritchett MD Unavailable Unavailable Shefali Pritchett MD [...] UEBERROTH, A JEANNIE Unavailable Unavailable Adenike Aguilera SITE INTERPRETER SITE INTERPRETER Unavailable Unavailable Mireya Abdalla Unavailable Walker, Raza [...] Riley MARVIN Unavailable Unavailable Willy, A Adenike SITE INTERPRETER Unavailable Unavailable [place], A Adenike SITE INTERPRETER Unavailable Unavailable [place], A Adenike SITE INTERPRETER Unavailable Unavailable [place], A Adenike SITE INTERPRETER Unavailable Unavailable [place], A Adenike SITE INTERPRETER Unavailable Unavailable [place], A Adenike SITE INTERPRETER Unavailable Unavailable [place], A Adenike SITE INTERPRETER Unavailable Unavailable [place], A Adenike SITE INTERPRETER Unavailable Unavailable [place], A Adenike SITE INTERPRETER Unavailable Unavailable [place], A Adenike SITE INTERPRETER Unavailable Unavailable [place], A Adenike SITE INTERPRETER Unavailable Unavailable [place], A Adenike SITE INTERPRETER Unavailable Unavailable [place], A Adenike SITE INTERPRETER Unavailable Unavailable [place], A Adenike SITE INTERPRETER Unavailable Unavailable [place], A Adenike SITE INTERPRETER Unavailable Unavailable [place], A Adenike SITE INTERPRETER Unavailable Unavailable [place], A Adenike SITE INTERPRETER Unavailable Unavailable [place], A Adenike SITE INTERPRETER Unavailable Unavailable Willy, A Adenike SITE INTERPRETER Unavailable Unavailable Willy, A Adenike SITE INTERPRETER Unavailable Unavailable Willy, A Adenike SITE INTERPRETER Unavailable Unavailable Willy, A Adenike SITE INTERPRETER Unavailable Unavailable Willy, A Adenike SITE INTERPRETER Unavailable Unavailable Willy, A Adenike SITE INTERPRETER Unavailable Unavailable Willy, A Adenike SITE INTERPRETER Unavailable Unavailable Willy, A Adenike SITE INTERPRETER Unavailable Unavailable Willy, A Adenike SITE INTERPRETER Unavailable Unavailable Willy, A Adenike SITE INTERPRETER Unavailable Unavailable Willy, A Adenike SITE INTERPRETER Unavailable Unavailable Willy, A Adenike SITE INTERPRETER Unavailable Unavailable Willy, A Adenike SITE INTERPRETER Unavailable Unavailable Scordo, M Radha PA Unavailable [...] BLUE, ANDREA DANIEL RPA-C Unavailable Unavailable BLUE, ANRDEA DANIEL RPA-C Unavailable Unavailable BLUE, ANDREA DANIEL RPA-C Unavailable Unavailable BLUE, ANDREA DANIEL RPA-C Unavailable Unavailable Willy, A Adenike SITE INTERPRETER Unavailable Unavailable Willy, A Adenike SITE INTERPRETER Unavailable Unavailable Willy, A Adenike SITE INTERPRETER Unavailable Unavailable Willy, A Adenike SITE INTERPRETER Unavailable Unavailable Willy, A Adenike SITE INTERPRETER Unavailable Unavailable Willy, A Adenike SITE INTERPRETER Unavailable Unavailable [place], A Adenike SITE INTERPRETER Unavailable Unavailable [place], A Adenike SITE INTERPRETER Unavailable Unavailable [place], A Adenike SITE INTERPRETER Unavailable Unavailable [place], A Adenike SITE INTERPRETER Unavailable Unavailable [place], A Adenike SITE INTERPRETER Unavailable Unavailable [place], A Adenike SITE INTERPRETER Unavailable Unavailable [place], A Adenike SITE INTERPRETER Unavailable Unavailable [place], A Adenike SITE INTERPRETER Unavailable Unavailable [place], A Adenike SITE INTERPRETER Unavailable Unavailable [place], A Adenike SITE INTERPRETER Unavailable Unavailable [place], A Adenike SITE INTERPRETER Unavailable Unavailable [place], A Adenike SITE INTERPRETER Unavailable Unavailable [place], A Adenike SITE INTERPRETER Unavailable Unavailable [place], A Adenike SITE INTERPRETER Unavailable Unavailable [place], A Adenike SITE INTERPRETER Unavailable Unavailable [place], A Adenike SITE INTERPRETER Unavailable Unavailable [place], A Adenike SITE INTERPRETER Unavailable Unavailable [place], A Adenike SITE INTERPRETER Unavailable Unavailable [place], A Adenike SITE INTERPRETER Unavailable Unavailable [place], A Adenike SITE INTERPRETER Unavailable Unavailable [place], A Adenike SITE INTERPRETER Unavailable Unavailable [place], A Adenike SITE INTERPRETER Unavailable Unavailable [place], A Adenike SITE INTERPRETER Unavailable Unavailable [place], A Adenike SITE INTERPRETER Unavailable Unavailable Willy, A Adenike SITE INTERPRETER Unavailable Unavailable SONIA VALERIO MD Unavailable Unavailable SONIA VALERIO MD Unavailable Unavailable SONIA VALERIO MD Unavailable Unavailable SONIA VALERIO MD Unavailable Unavailable SONIA VALERIO MD Unavailable Unavailable SONIA VALERIO MD Unavailable Unavailable SONIA VALERIO MD Unavailable Unavailable SONIA VALERIO MD Unavailable Unavailable SONAI VALERIO MD Unavailable Unavailable IMAN, SONIA MD [...] is protected by Article 27-F of the [facility] Public Health law. If you continue you may have access to information: Regarding HIV / AIDS; Provided by facilities licensed or operated by the [facility] Office of Mental Health; or Provided by the [facility] Office for People With Developmental Disabilities. If such information is present, then the following [facility] mandated warning applies: This information has been [...] law may result in a fine or fci sentence or both. A general authorization for [...] Psychotherapy - 30 min Attender: Nupur chowdhury [facility] 06/20/2021 12:00:00 PM EST - 06/20/2021 12:00:00 PM EST [facility] ([facility] Attender: Nupur Lynn 06/20/2021 12:00:00 AM EST [facility] ([facility]) Jr Pritchett MD: [address] [place] [address], Ph. Attender: Jr Pritchett MD [facility] Medical 06/20/2021 12:00:00 AM EST [facility] ([facility]) Jr Pritchett MD: [address] [place] [address], Ph. Attender: Jr Pritchett MD [facility] Medical 06/05/2021 12:00:00 AM EST [facility] ([facility]) Daniel Blue RPA-C: [address], [place] [address], Ph. Attender: DANIEL BLUE RPA-C [facility] Medical 06/05/2021 12:00:00 AM EST [facility] ([facility]) Jr Pritchett MD: [address] [place] [address], Ph. Attender: Jr Pritchett MD [facility] Medical 06/05/2021 12:00:00 AM EST [facility] ([facility]) Daniel Blue RPA-C: [address], [place] [address], Ph. Attender: DANIEL BLUE RPA-C [facility] Medical 06/05/2021 12:00:00 AM EST [facility] ([facility]) Jr Pritchett MD: [address] [place] [address], Ph. Attender: Jr Pritchett MD [facility] Medical 06/05/2021 12:00:00 AM EST [facility] ([facility]) Daniel Blue RPA-C: [address], [place] [address], Ph. Attender: DANIEL BASS [facility] Medical 06/05/2021 12:00:00 AM EST [facility] ([facility]) Extended Individual Psychotherapy - 45 min Attender: Nupur Lynn [facility] 05/31/2021 02:00:00 AM EST - 05/31/2021 02:00:00 AM EST [facility] ([facility]) Attender: Nupur Lynn 05/31/2021 12:00:00 AM EST [facility] ([facility]) Extended Individual Psychotherapy - 45 min Att[facility] 05/07/2021 01:15:00 AM EDT - 05/07/2021 01:15:00 AM EDT [facility] ([facility]) Attender: Denise Ibanez 05/07/2021 12:00:00 A M EDT [facility] ([facility]) Jr Pritchett MD: [address] [place] [address], Ph. Attender: Jr Pritchett MD [facility] Medical 04/26/2021 12:00:00 AM EDT [facility] ([facility]) Jr Pritchett MD: [address] [place] [address], Ph. Attender: Jr Pritchett MD [facility] Medical 04/26/2021 12:00:00 AM EDT [facility] ([facility]) Jr Pritchett MD: [address] [place] [address], Ph. Attender: Jr Pritchett MD [facility] Medical 04/26/2021 12:00:00 AM EDT [facility] ([facility]) Jr Pritchett MD: [address] [place] [address], Ph. Attender: Jr Pritchett MD [facility] Medical 04/26/2021 12:00:00 AM EDT [facility] ([facility]) Outpatient Attender: JEANNIE MCCOLLUMELIZAHUSAM [id number] 03/14 12:00:00 AM EDT - 03/14/2021 04:20:26 PM EDT [place], unspecified, bilateral [facility] Kerat[place]us, unspecified, bilateral Radha Coello PA-C: [address], [place] [address], Ph. Attender: Radha MARVIN [facility] Medical 02/19/2021 12:00:00 AM EDT [facility] ([facility]) Radha Coello PA-C: [address], [place] [address], Ph. Attender: Radha MARVIN [facility] Medical 02/19/2021 12:00:00 AM EDT [facility] ([facility]) Radha Coello PA-C: [address], [place] [address], Ph. Attender: Radha MARVIN [facility] Medical 02/19/2021 12:00:00 AM EDT [facility] ([facility]) Radha Coello PA-C: [address], [place] [address], Ph. Attender: Radha MARVIN [facility] Medical 02/19/2021 12:00:00 AM EDT [facility] ([facility]) Radha Coello PA-C: [address], [place] [address], Ph. Attender: Radha MARVIN [facility] Medical 02/19/2021 12:00:00 AM EDT [facility] ([facility]) Extended Individual Psychotherapy - 45 min Attender: Leela Abdalla [facility] 01/30/2021 01:00:00 AM EDT - 01/30/2021 01:00:00 AM EDT [facility] ([facility]) Attender: Mireya Rm 01/30/2021 12:00:00 AM EDT [facility] ([facility]) Jr Pritchett MD: [address] [place] [address], Ph. Attender: Jr Pritchett MD [facility] Medical 01/24/2021 12:00:00 AM EDT [facility] ([facility]) Jr Pritchett MD: [address] [place] [address], Ph. Attender: Jr Pritchett MD [facility] Medical 01/24/2021 12:00:00 AM EDT [facility] ([facility]) Jr Pritchett MD: [address] [place] [address], Ph. Attender: Jr Pritchett MD [facility] Medical 01/24/2021 12:00:00 AM EDT [facility] ([facility]) Jr Pritchett MD: [address] [place] [address], Ph. Attender: Jr Pritchett MD [facility] Medical 01/24/2021 12:00:00 AM EDT [facility] ([facility]) Jr Pritchett MD: [address] [place] [address], Ph. Attender: Jr Pritchett MD [facility] Medical 01/24/2021 12:00:00 AM EDT [facility] ([facility]) Jr Pritchett MD: [address] [place] [address], Ph. Attender: Jr Pritchett MD [facility] Medical 01/24/2021 12:00:00 AM EDT [facility] ([facility]) Outpatient 12/28/2020 12:00:00 AM EDT [facility] Radha Coello PA-C: [address], [place] [address], Ph. Attender: Radha MARVIN [facility] Medical 11/20/2020 12:00:00 AM EDT [facility] ([facility]) Radha Coello PA-C: [address], [place] [address], Ph. Attender: Radha MARVIN [facility] Medical 11/20/2020 12:00:00 AM EDT [facility] ([facility]) Radha Coello PA-C: [address], [place] [address], Ph. Attender: Radha MARVIN [facility] Medical 11/20/2020 12:00:00 AM EDT [facility] ([facility]) Radha Coello PA-C: [address], [place] [address], Ph. Attender: Radha MARVIN [facility] Medical 11/20/2020 12:00:00 AM EDT [facility] ([facility]) Radha Coello PA-C: [address], [place] [address], Ph. Attender: Radha MARVIN [facility] Medical 11/20/2020 12:00:00 AM EDT [facility] ([facility]) Radha Coello PA-C: [address], [place] [address], Ph. Attender: Radha MARVIN [facility] Medical 11/20/2020 12:00:00 AM EDT [facility] ([facility]) Radha Coello PA-C: [address], [place] [address], Ph. Attender: Radha MARVIN [facility] Medical 11/20/2020 12:00:00 AM EDT [facility] ([facility]) Radha Coello PA-C: [address], [place] [address], Ph. Attender: Radha MARVIN [facility] Medical 10/23/2020 12:00:00 AM EDT [facility] ([facility]) Radha Coello PA-C: [address], [place] [address], Ph. Attender: Radha MARVIN [facility] Medical 10/23/2020 12:00:00 AM EDT [facility] ([facility]) Radha Coello PA-C: [address], [place] [address], Ph. Attender: Radha MARVIN [facility] Medical 10/23/2020 12:00:00 AM EDT [facility] ([facility]) Radha Coello PA-C: [address], [place] [address], Ph. Attender: Radha MARVIN [facility] Medical 10/23/2020 12:00:00 AM EDT [facility] ([facility]) Radha Coello PA-C: [address], [place] [address], Ph. Attender: Radha MARVIN [facility] Medical 10/23/2020 12:00:00 AM EDT [facility] ([facility]) Radha Coello PA-C: [address], [place] [address], Ph. Attender: Radha MARVIN [facility] Medical 10/23/2020 12:00:00 AM EDT [facility] ([facility]) Radha Coello PA-C: [address], [place] [address], Ph. Attender: Radha MARVIN [facility] Medical 10/23/2020 12:00:00 AM EDT [facility] ([facility]) Radha Coello PA-C: [address], [place] [address], Ph. Attender: Radha MARVIN [facility] Medical 10/23/2020 12:00:00 AM EDT [facility] ([facility]) Radha Coello PA-C: [address], [address], [place] [address], Ph. Attender: Radha MARVIN [facility] Medical 09/20/2020 12:00:00 AM EST [facility] ([facility]) Radha Coello PA-C: [address], [address], [place] [address], Ph. Attender: Radha MARVIN [facility] Medical 09/20/2020 12:00:00 AM EST [facility] ([facility]) Radha Coello PA-C: [address], [address], [place] [address], Ph. Attender: Radha MARVIN [facility] Medical 09/20/2020 12:00:00 AM EST [facility] ([facility]) Radha Coello PA-C: [address], [address], [place] [address], Ph. Attender: Radha MARVIN [facility] Medical 09/20/2020 12:00:00 AM EST [facility] ([facility]) Radha Coello PA-C: [address], [address], [place] [address], Ph. Attender: Radha MARVIN [facility] Medical 09/20/2020 12:00:00 AM EST [facility] ([facility]) Radha Coello PA-C: [address], [address], [place] [address], Ph. Attender: Radha MARVIN [facility] Medical 09/20/2020 12:00:00 AM EST [facility] ([facility]) Radha Coello PA-C: [address], [address], [place] [address], Ph. Attender: Radha MARVIN [facility] Medical 09/20/2020 12:00:00 AM EST [facility] ([facility]) Radha Coello PA-C: [address], [address], [place] [address], Ph. Attender: Radha MARVIN [facility] Medical 09/20/2020 12:00:00 AM EST [facility] ([facility]) Radha Scordo, PA-C: [address], [address], [place] [address], Ph. Attender: Radha MARVIN [facility] Medical 09/20/2020 12:00:00 AM EST [facility] ([facility]) TRINH PackC: [address], [address], [place] [address], Ph. Attender: Radha MARVIN [facility] Medical 09/13/2020 12:00:00 AM EST [facility] ([facility]) Radha Coello PA-C: [address], [address], [place] [address], Ph. Attender: Radha MARVIN [facility] Medical 09/13/2020 12:00:00 AM EST [facility] ([facility]) TRINH PackC: [address], [address], [place] [address], Ph. Attender: Radha MARVIN [facility] Medical 09/13/2020 12:00:00 AM EST [facility] ([facility]) Radha Coello PA-C: [address], [address], [place] [address], Ph. Attender: Radha MARVIN [facility] Medical 09/13/2020 12:00:00 AM EST [facility] ([facility]) Radha Coello PA-C: [address], [address], [place] [address], Ph. Attender: Radha MARVIN [facility] Medical 09/13/2020 12:00:00 AM EST [facility] ([facility]) Radha Coello PA-C: [address], [address], [place] [address], Ph. Attender: Radha MARVIN [facility] Medical 09/13/2020 12:00:00 AM EST [facility] ([facility]) Radha Coello PA-C: [address], [address], [place] [address], Ph. Attender: Radha MARVIN [facility] Medical 09/13/2020 12:00:00 AM EST [facility] ([facility]) Radha Coello PA-C: [address], [address], [place] [address], Ph. Attender: Radha MARVIN [facility] Medical 09/13/2020 12:00:00 AM EST [facility] ([facility]) Radha Coello PA-C: [address], [address], [place] [address], Ph. Attender: Radha MARVIN [facility] Medical 09/13/2020 12:00:00 AM EST [facility] ([facility]) Radha Coello PA-C: [address], [address], [place] [address], Ph. Attender: Radha MARVIN [facility] Medical 09/13/2020 12:00:00 AM EST [facility] ([facility]) Radha Coello PA-C: [address], [address], [place] [address], Ph. Attender: Radha MARVIN [facility] Medical 09/06/2020 12:00:00 AM EST [facility] ([facility]) Radha Coello PA-C: [address], [address], [place] [address], Ph. Attender: Radha MARVIN [facility] Medical 09/06/2020 12:00:00 AM EST [facility] ([facility]) Radha Coello PA-C: [address], [address], [place] [address], Ph. Attender: Radha MARVIN [facility] Medical 09/06/2020 12:00:00 AM EST [facility] ([facility]) Radha Coello PA-C: [address], [address], [place] [address], Ph. Attender: Radha MARVIN [facility] Medical 09/06/2020 12:00:00 AM EST [facility] ([facility]) Radha Coello PA-C: [address], [address], [place] [address], Ph. Attender: Radha MARVIN [facility] Medical 09/06/2020 12:00:00 AM EST [facility] ([facility]) Radha Coello PA-C: [address], [address], [place] [address], Ph. Attender: Radha MARVIN [facility] Medical 09/06/2020 12:00:00 AM EST [facility] ([facility]) Radha Coello PA-C: [address], [address], [place] [address], Ph. Attender: Radha MARVIN [facility] Medical 09/06/2020 12:00:00 AM EST [facility] ([facility]) Radha Coello PA-C: [address], [address], [place] [address], Ph. Attender: Radha MARVIN [facility] Medical 09/06/2020 12:00:00 AM EST [facility] ([facility]) Radha Coello PA-C: [address], [address], [place] [address], Ph. Attender: Radha MARVIN [facility] Medical 09/06/2020 12:00:00 AM EST [facility] ([facility]) Radha Coello PA-C: [address], [address], [place] [address], Ph. Attender: Radha MARVIN [facility] Medical 09/06/2020 12:00:00 AM EST [facility] ([facility]) Radha Coello PA-C: [address], [address], [place] [address], Ph. Attender: Radha MARVIN [facility] Medical 09/06/2020 12:00:00 AM EST [facility] ([facility]) Outpatient Attender: Isaac Holland: SONIA Meehan 07/03/2020 12:00:[address] [facility] Radha Scordo, PA-C: [address], [place] [address], Ph. Attender: Radha MARVIN [facility] Medical 06/06/2020 12:00:00 AM EST [facility] ([facility]) Radha Coello PA-C: [address], [place] [address], Ph. Attender: Radha MARVIN [facility] Medical 06/06/2020 12:00:00 AM EST [facility] ([facility]) Radha Coello PA-C: [address], [place] [address], Ph. Attender: Radha MARVIN [facility] Medical 06/06/2020 12:00:00 AM EST [facility] ([facility]) Radha Coello PA-C: [address], [place] [address], Ph. Attender: Radha MARVIN [facility] Medical 06/06/2020 12:00:00 AM EST [facility] ([facility]) Radha Coello PA-C: [address], [place] [address], Ph. Attender: Radha MARVIN [facility] Medical 06/06/2020 12:00:00 AM EST [facility] ([facility]) Radha Coello PA-C: [address], [place] [address], Ph. Attender: Radha MARVIN [facility] Medical 06/06/2020 12:00:00 AM EST [facility] ([facility]) Radha Coello PA-C: [address], [place] [address], Ph. Attender: Radha MARVIN [facility] Medical 06/06/2020 12:00:00 AM EST [facility] ([facility]) Radha Coello PA-C: [address], [place] [address], Ph. Attender: Radha MARVIN [facility] Medical 06/06/2020 12:00:00 AM EST [facility] ([facility]) Radha Coello PA-C: [address], [place] [address], Ph. Attender: Radha MARVIN [facility] Medical 06/06/2020 12:00:00 AM EST [facility] ([facility]) Radha Coello PA-C: [address], [place] [address], Ph. Attender: Radha MARVIN [facility] Medical 06/06/2020 12:00:00 AM EST [facility] ([facility]) Radha Coello PA-C: [address], [place] [address], Ph. Attender: Radha MARVIN [facility] Medical 06/06/2020 12:00:00 AM EST [facility] ([facility]) Radha Coello PA-C: [address], [place] [address], Ph. Attender: Radha MARVIN [facility] Medical 06/06/2020 12:00:00 AM EST [facility] ([facility]) Outpatient Attender: Kristi MARVIN 05/29/2020 12:00:[address] [facility] Outpatient Attender: Adenike GODFREY 05/21/2020 01:3 1:01 PM [facility] Outpatient Attender: DIMAS Aguilera [facility] 05/21/2020 01:26:01 P M EST [facility]: [address], [place] [address], Ph. Attender: Adenike Aguilera [facility] Medical 05/14/2020 12:00:00 AM EDT [facility] ([facility]) [facility]: [address], [place] [address], Ph. Attender: Adenike Aguilera [facility] 05/14/2020 12:00:00 AM EDT [facility] ([facility]) Adenike Aguilera [facility]: [address], [place] [address], Ph. Attender: Adenike Aguilera [facility] Medical 05/14/2020 12:00:00 AM EDT [facility] ([facility]) [facility]: [address] [address], [place] [address], Ph. Attender: Adenike Aguilera [facility] Medical 05/14/2020 12:00:00 AM EDT [place] ([facility]) Adenike Aguilera [facility]: [address], [place] [address], Ph. Attender: Adenike Aguilera [facility] Medical 05/14/2020 12:00:00 AM EDT [place] ([facility]) Adenike Aguilera [facility]: [address], [place] [address], Ph. Attender: Adenike Aguilera [facility] Medical 05/14/2020 12:00:00 AM EDT [place] ([facility]) Adenike Aguilera [facility]: [address], [place] [address], Ph. Attender: Adenike Aguilera [facility] Medical 05/14/2020 12:00:00 AM EDT [place] ([facility]) Adenike Aguilera [facility]: [address], [place] [address], Ph. Attender: Adenike Aguilera [facility] Medical 05/14/2020 12:00:00 AM EDT [place] ([facility]) Adenike Aguilera [facility]: [address], [place] [address], Ph. Attender: Adenike Aguilera [facility] Medical 05/14/2020 12:00:00 AM EDT [place] ([facility]) Adenike Aguilera [facility]: [address], [place] [address], Ph. Attender: Adenike Aguilera [facility] Medical 05/14/2020 12:00:00 AM EDT [place] ([facility]) Adenike Aguilera [facility]: [address], [place] [address], Ph. Attender: Adenike Aguilera [facility] Medical 05/14/2020 12:00:00 AM EDT [place] ([facility]) Adenike Aguilera [facility]: [address], [place] [address], Ph. Attender: Adenike Aguilera [facility] Medical 05/14/2020 12:00:00 AM EDT [place] ([facility]) Adenike Aguilera, [facility]: [address] [facility] [address], [place] [address], Ph. Attender: Adenike COCHRAN [facility] Medical 05/14/2020 12:00:00 AM EDT [place] ([facility]) Outpatient Attender: DIMAS COCHRAN 05/03/2020 08:13:00 A M EDT [facility] Outpatient Attender: Adenike COCHRAN 04/26/2020 01:4 0:01 PM EDT [facility] Outpatient Attender: DIMSA GODFREY 04/26/2020 12:02:16 A M EDT [facility] Outpatient Attender: Kristi MARVIN 04/26/2020 12:00:00 A M [facility] Outpatient Attender: DIAMS COCHRAN 04/25/2020 08:36:01 A M EDT [facility] Outpatient Attender: Adenike COCHRAN 04/23/2020 08:0 1:05 PM EDT [facility] Outpatient Attender: DIMAS COCHRAN 04/23/2020 08:01:03 P M EDT [facility] Outpatient Attender: Adenike COCHRAN 04/23/2020 11:0 9:00 AM EDT [facility] Immunizations Vaccine Date Status Description Data Source(s) New in 2011. IIV4 09/20/2020 02:24:59 PM EST completed .5 mL [facility] ([facility]) New in 2011. IIV4 09/20/2020 02:24:59 PM EST completed .5 mL [facility] ([facility]) New in 2011. IIV4 09/20/2020 02:24:59 PM EST completed .5 mL [facility] ([facility]) New in 2011. IIV4 09/20/2020 02:24:59 PM EST completed .5 mL [facility] ([facility]) New in 2011. IIV4 09/20/2020 02:24:59 PM EST completed .5 mL [facility] ([facility]) New in 2011. IIV4 09/20/2020 02:24:59 PM EST completed .5 mL [facility] ([facility]) New in 2011. IIV4 09/20/2020 02:24:59 PM EST completed .5 mL [facility] ([facility]) New in 2011. IIV4 09/20/2020 02:24:59 PM EST completed .5 mL [facility] ([facility]) New in 2011. IIV4 09/20/2020 02:24:59 PM EST completed .5 mL [facility] ([facility]) pneumococcal polysaccharide PPV23 09/13/2020 03:01:00 PM EST com pleted 10.5 mL [facility] ([facility]) pneumococcal polysaccharide PPV23 09/13/2020 03:01:00 PM EST com pleted 10.5 mL [facility] ([facility]) pneumococcal polysaccharide PPV23 09/13/2020 03:01:00 PM EST com pleted 10.5 mL [facility] ([facility]) pneumococcal polysaccharide PPV23 09/13/2020 03:01:00 PM EST com pleted 10.5 mL [facility] ([facility]) pneumococcal polysaccharide PPV23 09/13/2020 03:01:00 PM EST com pleted 10.5 mL [facility] ([facility]) pneumococcal polysaccharide PPV23 09/13/2020 03:01:00 PM EST com pleted 10.5 mL [facility] ([facility]) pneumococcal polysaccharide PPV23 09/13/2020 03:01:00 PM EST com pleted 10.5 mL [facility] ([facility]) pneumococcal polysaccharide PPV23 09/13/2020 03:01:00 PM EST com pleted 10.5 mL [facility] ([facility]) pneumococcal polysaccharide PPV23 09/13/2020 03:01:00 PM EST com pleted 10.5 mL [facility] ([facility]) pneumococcal polysaccharide PPV23 09/13/2020 03:01:00 PM EST com pleted 10.5 mL [facility] ([facility]) Medications Medication Brand Name Start Date [...] eye 1 drop, Both Eyes, Once, On [facility] 03/14/21 at 1515, For 1 dose [facility] [place] of right eye Medication administered onsite Phenylephrine Hydrochloride 25 MG/ML Oph thalmic Solution phenylephrine (MYDFRIN) 2.5 % ophthalmic solution 1 drop phenylephrine (MYDFRIN) 2.5 % ophthalmic solution 1 drop 03/14/2021 03:15:00 PM EDT 1 [drp] Both Eyes completed [place] of right eye 1 drop, Both Eyes, Once, On [facility] 03/14/21 at 1515, For 1 dose [facility] [place] of right eye Medication administered onsite Tropicamide 10 MG/ML Ophthalmic Solution tropicamide (MYDRIACYL) 1 % ophthalmic solution 1 drop tropicamide (MYDRIACYL) 1 % ophthalmic solution 1 drop 03/14/2021 03:15:00 PM EDT 1 [drp] Both Eyes com pleted [place] of right eye 1 drop, Both Eyes, Once, On [facility] 03/14/21 at 1515, For 1 dose [facility] [place] of right eye Medication administered onsite Cholecalciferol 1000 UNT Oral Tablet Vit emmanuel D3 25 MCG (1000 UT) Oral Tablet (CHOLECALCIFEROL) Vitamin D3 25 MCG (1000 UT) Oral Tablet (CHOLECALCIFER OL) 02/29/2020 12:00:00 AM EDT 2000 U Oral active Take 2 tablets by mouth daily [facility] Ascorbic Acid 500 MG Oral Tablet Ascorbic Acid 500 MG Oral Tablet (VITAMIN C) Ascorbic Acid 500 MG Oral Tablet (VITAMIN C) 02/29/2020 12:00:00 AM EDT 500 mg Oral active Take 1 tablet by mouth d [facility] Calcium Citrate 950 MG Oral Tablet Calci um Citrate 950 MG Oral Tablet (CALCITRATE) Calcium Citrate 950 MG Oral Tablet (CALCITRATE) 2019 12:00:00 AM EDT 950 mg Oral active Take 1 tablet by mouth daily [facility] fluticasone propionate 50 mcg/actuation nasal spray,suspension [id number] completed fluticasone propionate 0.05 MG/ACTUAT Metered Dose Nasal [place] ([facility]) Sodium Chloride 0.154 MEQ/ML Irrigation Solution sodium chloride 0.9 % irrigation solution sodium chloride 0.9 % irrigation solution completed sodium chloride 0.154 MEQ/ML Irr igation Solution [place] ([facility]) Sodium Chloride 0.154 MEQ/ML Irrigation Solution sodium chloride 0.9 % irrigation solution sodium chloride 0.9 % irrigation solution completed sodium chloride 0.154 MEQ/ML Irr igation Solution [place] ([facility]) olanzapine 10 MG Disintegrating Oral Tab let olanzapine 10 mg disintegrating tablet olanzapine 10 mg disintegrating tablet completed olanzapine 10 MG Disintegrating Oral Tablet [place] ([facility]) POLYETHYLENE GLYCOL 3350 142 MG/ML Oral Solution polyethylene glycol 3350 17 gram/dose oral powder polyethylene glycol 3350 17 gram/dose oral powder completed polyethylene glycol 3350 93804 MG Powder for Oral Solution [place] ([facility]) magnesium citrate 58.2 MG/ML Oral Solution magnesium c itrate oral solution magnesium citrate oral solution comple koko magnesium citrate 58.2 MG/ML Oral Solution [facility]) Acetaminophen 500 MG Oral Tablet acetaminophen 500 mg tablet acetaminophen 500 mg tablet completed acetaminophe n 500 MG Oral Tablet [place] ([facility]) magnesium citrate 58.2 MG/ML Oral Solution magnesium c itrate oral solution magnesium citrate oral solution comple koko magnesium citrate 58.2 MG/ML Oral Solution [facility]) Sodium Chloride 0.154 MEQ/ML Irrigation Solution sodium chloride 0.9 % irrigation solution sodium chloride 0.9 % irrigation solution completed sodium chloride 0.154 MEQ/ML Irr igation Solution [facility]) Haloperidol 10 MG Oral Tablet haloperidol 10 mg tablet halop eridol 10 mg tablet completed haloperidol 10 MG Oral Tablet [place] ([facility]) POLYETHYLENE GLYCOL 3350 142 MG/ML Oral Solution polyethylene glycol 3350 17 gram/dose oral powder polyethylene glycol 3350 17 gram/dose oral powder completed polyethylene glycol 3350 19614 MG Powder for Oral Solution [place] ([facility]) Azithromycin 250 MG Oral Tablet azithromycin 250 mg ta blet azithromycin 250 mg tablet completed azithromycin 25 0 MG Oral Tablet [place] ([facility]) POLYETHYLENE GLYCOL 3350 142 MG/ML Oral Solution polyethylene glycol 3350 17 gram/dose oral powder polyethylene glycol 3350 17 gram/dose oral powder completed polyethylene glycol 3350 67112 MG Powder for Oral Solution [place] ([facility]) Sodium Chloride 0.154 MEQ/ML Irrigation Solution sodium chloride 0.9 % irrigation solution sodium chloride 0.9 % irrigation solution completed sodium chloride 0.154 MEQ/ML Irr igation Solution [place] ([facility]) Acetaminophen 325 MG / Hydrocodone Jason trate 5 MG Oral Tablet hydrocodone 5 mg- acetaminophen 325 mg tablet hydrocodone 5 mg-acetaminophen 325 mg tablet completed acetaminophen 325 MG / hydrocodone bitartrate 5 MG Oral Tablet [place] ([facility]) ginkgo biloba 120 mg tablet Take by oral route. [id number] completed ginkgo biloba 120 mg tablet [place] ([facility]) Acetaminophen 500 MG Oral Tablet acetaminophen 500 mg tablet acetaminophen 500 mg tablet completed acetaminophe n 500 MG Oral Tablet [place] ([facility]) Acetaminophen 325 MG / Hydrocodone Jason trate 5 MG Oral Tablet hydrocodone 5 mg- acetaminophen 325 mg tablet hydrocodone 5 mg-acetaminophen 325 mg tablet completed acetaminophen 325 MG / hydrocodone bitartrate 5 MG Oral Tablet [place] ([facility]) fluticasone propionate 50 mcg/actuation nasal spray,suspension [id number] completed fluticasone propionate 0.05 MG/ACTUAT Metered Dose Nasal [place] ([facility]) cetirizine hydrochloride 10 MG Oral Tablet cetirizine 10 mg tablet cetirizine 10 mg tablet completed cetirizine hydrochloride 10 MG Oral Tablet [place] ([facility]) Azithromycin 250 MG Oral Tablet azithromycin 250 mg ta blet azithromycin 250 mg tablet completed [facility] 25 [facility] Ibuprofen 800 MG Oral Tablet ibuprofen 800 mg tablet ibuprofen 8 00 mg tablet completed ibuprofen 800 MG Oral Tablet [place] ([facility]) Ibuprofen 800 MG Oral Tablet ibuprofen 800 mg tablet ibuprofen 8 00 mg tablet completed ibuprofen 800 MG Oral Tablet [place] ([facility]) Acetaminophen 500 MG Oral Tablet acetaminophen 500 mg tablet acetaminophen 500 mg tablet completed acetaminophe n 500 MG Oral Tablet [place] ([facility]) Colace PRN completed Colace AT [place] ([facility]) Haloperidol 10 MG Oral Tablet haloperidol 10 mg tablet halop eridol 10 mg tablet completed haloperidol 10 MG Oral Tablet [place] ([facility]) Ibuprofen 800 MG Oral Tablet ibuprofen 800 mg tablet ibuprofen 8 00 mg tablet completed ibuprofen 800 MG Oral Tablet [place] ([facility]) Ibuprofen 800 MG Oral Tablet ibuprofen 800 mg tablet ibuprofen 8 00 mg tablet completed ibuprofen 800 MG Oral Tablet [place] ([facility]) benzonatate 100 MG Oral Capsule benzonatate 100 mg cap robbie benzonatate 100 mg capsule completed benzonatate 10 0 MG Oral Capsule [place] ([facility]) Azithromycin 250 MG Oral Tablet azithromycin 250 mg ta blet azithromycin 250 mg tablet completed azithromycin 25 0 MG Oral Tablet [place] ([facility]) Sodium Chloride 0.154 MEQ/ML Irrigation Solution sodium chloride 0.9 % irrigation solution sodium chloride 0.9 % irrigation solution completed sodium chloride 0.154 MEQ/ML Irr igation Solution [place] ([facility]) Acetaminophen 500 MG Oral Tablet acetaminophen 500 mg tablet acetaminophen 500 mg tablet completed acetaminophe n 500 MG Oral Tablet [place] ([facility]) Acetaminophen 325 MG / Hydrocodone Jason trate 5 MG Oral Tablet hydrocodone 5 mg- acetaminophen 325 mg tablet hydrocodone 5 mg-acetaminophen 325 mg tablet completed acetaminophen 325 MG / hydrocodone bitartrate 5 MG Oral Tablet [facility] ([facility]) Azithromycin 250 MG Oral Tablet azithromycin 250 mg ta blet azithromycin 250 mg tablet completed [facility]ithromycin 25 0 [facility] Ibuprofen 800 MG Oral Tablet ibuprofen 800 mg tablet ibuprofen 8 00 mg tablet completed ibuprofen 800 MG Oral Tablet [place] ([facility]) Acetaminophen 500 MG Oral Tablet acetaminophen 500 mg tablet acetaminophen 500 mg tablet completed acetaminophe n 500 MG Oral Tablet [place] ([facility]) magnesium citrate 58.2 MG/ML Oral Solution magnesium c itrate oral solution magnesium citrate oral solution comple koko magnesium citrate 58.2 MG/ML Oral Solution [place] ([facility]) olanzapine 10 MG Disintegrating Oral Tab let olanzapine 10 mg disintegrating tablet olanzapine 10 mg disintegrating tablet completed olanzapine 10 MG Disintegrating Oral Tablet [place] ([facility]) POLYETHYLENE GLYCOL 3350 142 MG/ML Oral Solution polyethylene glycol 3350 17 gram/dose oral powder polyethylene glycol 3350 17 gram/dose oral powder completed polyethylene glycol 3350 68263 MG Powder for Oral Solution [place] ([facility]) Docusate Sodium 100 MG Oral Capsule [DOK] DOK 100 mg capsule DOK 100 mg capsule completed docusate sodiu m 100 MG Oral Capsule [DOK] [place] ([facility]) Colace PRN completed Colace AT [facility]) magnesium citrate 58.2 MG/ML Oral Solution magnesium c itrate oral solution magnesium citrate oral solution comple koko magnesium citrate 58.2 MG/ML Oral Solution [place] ([facility]) magnesium citrate 58.2 MG/ML Oral Solution magnesium c itrate oral solution magnesium citrate oral solution comple koko magnesium citrate 58.2 MG/ML Oral Solution [place] ([facility]) L-Arginine 500 mg tablet Take 2 tablets every day by oral route. [id number] 2 completed L-Arginine 500 mg tablet [place] ([facility]) Acetaminophen 500 MG Oral Tablet acetaminophen 500 mg tablet acetaminophen 500 mg tablet completed acetaminophe n 500 MG Oral Tablet [place] ([facility]) POLYETHYLENE GLYCOL 3350 142 MG/ML Oral Solution polyethylene glycol 3350 17 gram/dose oral powder polyethylene glycol 3350 17 gram/dose oral powder completed polyethylene glycol 3350 77507 MG Powder for Oral Solution [place] ([facility]) benzonatate 100 MG Oral Capsule benzonatate 100 mg cap robbie benzonatate 100 mg capsule completed benzonatate 10 0 MG Oral Capsule [place] ([facility]) fluticasone propionate 50 mcg/actuation nasal spray,suspension [id number] completed fluticasone propionate 0.05 MG/ACTUAT Metered Dose Nasal [place] [facility]) Colace PRN completed Colace AT [facility] ([facility]) fluticasone propionate 50 mcg/actuation nasal spray,suspension [id number] completed fluticasone propionate 0.05 MG/ACTUAT Metered Dose Nasal [place] ([facility]) Colace PRN completed Colace AT [facility] ([facility]) Azithromycin 250 MG Oral Tablet azithromycin 250 mg ta blet azithromycin 250 mg tablet completed azithromycin 25 0 MG Oral Tablet [place] ([facility]) magnesium citrate 58.2 MG/ML Oral Solution magnesium c itrate oral solution magnesium citrate oral solution comple koko magnesium citrate 58.2 MG/ML Oral Solution [place] ([facility]) Docusate Sodium 100 MG Oral Capsule docusate sodium 10 0 mg capsule docusate sodium 100 mg capsule completed docusate sodium 100 MG Oral Capsule [place] ([facility]) ginkgo biloba 120 mg tablet Take by oral route. [id number] completed ginkgo biloba 120 mg tablet [place] ([facility]) benzonatate 100 MG Oral Capsule benzonatate 100 mg cap robbie benzonatate 100 mg capsule completed benzonatate 10 0 MG Oral Capsule [place] ([facility]) L-Arginine 500 mg tablet Take 2 tablets every day by oral route. 69721 8 2 completed L-Arginine 500 mg tablet [place] ([facility]) POLYETHYLENE GLYCOL 3350 142 MG/ML Oral Solution polyethylene glycol 3350 17 gram/dose oral powder polyethylene glycol 3350 17 gram/dose oral powder completed polyethylene glycol 3350 71839 MG Powder for Oral Solution [place] ([facility]) fluticasone propionate 50 mcg/actuation nasal spray,suspension [id number] completed fluticasone propionate 0.05 MG/ACTUAT Metered Dose Nasal [place] ([facility]) Colace PRN completed Colace AT [facility] ([facility]) benzonatate 100 MG Oral Capsule benzonatate 100 mg cap robbie benzonatate 100 mg capsule completed benzonatate 10 0 MG Oral Capsule [place] ([facility]) Acetaminophen 500 MG Oral Tablet acetaminophen 500 mg tablet acetaminophen 500 mg tablet completed acetaminophe n 500 MG Oral Tablet [place] ([facility]) Acetaminophen 500 MG Oral Tablet acetaminophen 500 mg tablet acetaminophen 500 mg tablet completed acetaminophe n 500 MG Oral Tablet [place] ([facility]) fluticasone propionate 50 mcg/actuation nasal spray,suspension [id number] completed fluticasone propionate 0.05 MG/ACTUAT Metered Dose Nasal [place] ([facility]) Sodium Chloride 0.154 MEQ/ML Irrigation Solution sodium chloride 0.9 % irrigation solution sodium chloride 0.9 % irrigation solution completed sodium chloride 0.154 MEQ/ML Irr igation Solution [place] ([facility]) Sodium Chloride 0.154 MEQ/ML Irrigation Solution sodium chloride 0.9 % irrigation solution sodium chloride 0.9 % irrigation solution completed sodium chloride 0.154 MEQ/ML Irr igation Solution [place] ([facility]) Sodium Chloride 0.154 MEQ/ML Irrigation Solution sodium chloride 0.9 % irrigation solution sodium chloride 0.9 % irrigation solution completed sodium chloride 0.154 MEQ/ML Irr igation Solution [place] ([facility]) fluticasone propionate 50 mcg/actuation nasal spray,suspension [id number] completed fluticasone propionate 0.05 MG/ACTUAT Metered Dose Nasal [place] ([facility]) Colace PRN completed Colace AT [facility] ([facility]) fluticasone propionate 50 mcg/actuation nasal spray,suspension [id number] completed fluticasone propionate 0.05 MG/ACTUAT Metered Dose Nasal [place] ([facility]) Azithromycin 250 MG Oral Tablet azithromycin 250 mg ta blet azithromycin 250 mg tablet completed azithromycin 25 0 MG Oral Tablet [facility]) Acetaminophen 325 MG / Hydrocodone Jason trate 5 MG Oral Tablet hydrocodone 5 mg- acetaminophen 325 mg tablet hydrocodone 5 mg-acetaminophen 325 mg tablet completed acetaminophen 325 MG / hydrocodone bitartrate 5 MG Oral Tablet [place] ([facility]) fluticasone propionate 50 mcg/actuation nasal spray,suspension [id number] completed fluticasone propionate 0.05 MG/ACTUAT Metered Dose Nasal [place] ([facility]) Haloperidol 10 MG Oral Tablet haloperidol 10 mg tablet halop eridol 10 mg tablet completed haloperidol 10 MG Oral Tablet [place] ([facility]) Acetaminophen 500 MG Oral Tablet acetaminophen 500 mg tablet acetaminophen 500 mg tablet completed acetaminophe n 500 MG Oral Tablet [facility]) Acetaminophen 325 MG / Hydrocodone Jason trate 5 MG Oral Tablet hydrocodone 5 mg- acetaminophen 325 mg tablet hydrocodone 5 mg-acetaminophen 325 mg tablet completed acetaminophen 325 MG / hydrocodone bitartrate 5 MG Oral Tablet [place] ([facility]) magnesium citrate 58.2 MG/ML Oral Solution magnesium c itrate oral solution magnesium citrate oral solution comple koko magnesium citrate 58.2 MG/ML Oral Solution [place] ([facility]) Colace PRN completed Colace AT [facility] ([facility]) Docusate Sodium 100 MG Oral Capsule [DOK] DOK 100 mg capsule DOK 100 mg capsule completed docusate sodiu m 100 MG Oral Capsule [DOK] [place] ([facility]) Sodium Chloride 0.154 MEQ/ML Irrigation Solution sodium chloride 0.9 % irrigation solution sodium chloride 0.9 % irrigation solution completed sodium chloride 0.154 MEQ/ML Irr igation Solution [place] ([facility]) Azithromycin 250 MG Oral Tablet azithromycin 250 mg ta blet azithromycin 250 mg tablet completed azithromycin 25 0 MG Oral Tablet [place] ([facility]) benzonatate 100 MG Oral Capsule benzonatate 100 mg cap robbie benzonatate 100 mg capsule completed benzonatate 10 0 MG Oral Capsule [place] ([facility]) benzonatate 100 MG Oral Capsule benzonatate 100 mg cap robbie benzonatate 100 mg capsule completed benzonatate 10 0 MG Oral Capsule [place] ([facility]) Sodium Chloride 0.154 MEQ/ML Irrigation Solution sodium chloride 0.9 % irrigation solution sodium chloride 0.9 % irrigation solution completed sodium chloride 0.154 MEQ/ML Irr igation Solution [place] ([facility]) Docusate Sodium 100 MG Oral Capsule [DOK] DOK 100 mg capsule DOK 100 mg capsule completed docusate sodiu m 100 MG Oral Capsule [DOK] [place] ([facility]) Ibuprofen 800 MG Oral Tablet ibuprofen 800 mg tablet ibuprofen 8 00 mg tablet completed ibuprofen 800 MG Oral Tablet [place] ([facility]) POLYETHYLENE GLYCOL 3350 142 MG/ML Oral Solution polyethylene glycol 3350 17 gram/dose oral powder polyethylene glycol 3350 17 gram/dose oral powder completed polyethylene glycol 3350 56363 MG Powder for Oral Solution [place] ([facility]) Colace PRN completed Colace AT [facility]) Acetaminophen 325 MG / Hydrocodone Jason trate 5 MG Oral Tablet hydrocodone 5 mg- acetaminophen 325 mg tablet hydrocodone 5 mg-acetaminophen 325 mg tablet completed acetaminophen 325 MG / hydrocodone bitartrate 5 MG Oral Tablet [place] ([facility]) fluticasone propionate 50 mcg/actuation nasal spray,suspension [id number] completed fluticasone propionate 0.05 MG/ACTUAT Metered Dose Nasal [place] ([facility]) benzonatate 100 MG Oral Capsule benzonatate 100 mg cap robbie benzonatate 100 mg capsule completed benzonatate 10 0 MG Oral Capsule [place] ([facility]) magnesium citrate 58.2 MG/ML Oral Solution magnesium c itrate oral solution magnesium citrate oral solution comple koko magnesium citrate 58.2 MG/ML Oral Solution [place] ([facility]) magnesium citrate 58.2 MG/ML Oral Solution magnesium c itrate oral solution magnesium citrate oral solution comple koko magnesium citrate 58.2 MG/ML Oral Solution [place] ([facility]) POLYETHYLENE GLYCOL 3350 142 MG/ML Oral Solution polyethylene glycol 3350 17 gram/dose oral powder polyethylene glycol 3350 17 gram/dose oral powder completed polyethylene glycol 3350 75346 MG Powder for Oral Solution MELINA ([facility]) benzonatate 100 MG Oral Capsule benzonatate 100 mg cap robbie benzonatate 100 mg capsule completed benzonatate 10 0 MG Oral Capsule MELROSE ([facility]) magnesium citrate 58.2 MG/ML Oral Solution magnesium c itrate oral solution magnesium citrate oral solution comple koko magnesium citrate 58.2 MG/ML Oral Solution MELROSE ([facility]) benzonatate 100 MG Oral Capsule benzonatate 100 mg cap robbie benzonatate 100 mg capsule completed benzonatate 10 0 MG Oral Capsule [place]EL[place]SE ([facility]) Colace PRN completed Colace AT [facility] ([facility]) Ibuprofen 800 MG Oral Tablet ibuprofen 800 mg tablet ibuprofen 8 00 mg tablet completed ibuprofen 800 MG Oral Tablet [place]SE ([facility]) benzonatate 100 MG Oral Capsule benzonatate 100 mg cap robbie benzonatate 100 mg capsule completed benzonatate 10 0 MG Oral Capsule [place] ([facility]) Acetaminophen 500 MG Oral Tablet acetaminophen 500 mg tablet acetaminophen 500 mg tablet completed acetaminophe n 500 MG Oral Tablet MEL[place]SE ([facility]) magnesium citrate 58.2 MG/ML Oral Solution magnesium c itrate oral solution magnesium citrate oral solution comple koko magnesium citrate 58.2 MG/ML Oral Solution MEL[place]SE ([facility]) benzonatate 100 MG Oral Capsule benzonatate 100 mg cap robbie benzonatate 100 mg capsule completed benzonatate 10 0 MG Oral Capsule [place]SE ([facility]) Acetaminophen 325 MG / Hydrocodone Jason trate 5 MG Oral Tablet hydrocodone 5 mg- acetaminophen 325 mg tablet hydrocodone 5 mg-acetaminophen 325 mg tablet completed acetaminophen 325 MG / hydrocodone bitartrate 5 MG Oral Tablet MELROSE ([facility]) Docusate Sodium 100 MG Oral Capsule [DOK] DOK 100 mg capsule DOK 100 mg capsule completed docusate sodiu m 100 MG Oral Capsule [DOK] [place] ([facility]) Azithromycin 250 MG Oral Tablet azithromycin 250 mg ta blet azithromycin 250 mg tablet completed azithromycin 25 0 MG Oral Tablet [facility]) Azithromycin 250 MG Oral Tablet azithromycin 250 mg ta blet azithromycin 250 mg tablet completed azithromycin 25 0 MG Oral Tablet [place] ([facility]) olanzapine 10 MG Disintegrating Oral Tab let olanzapine 10 mg disintegrating tablet olanzapine 10 mg disintegrating tablet completed olanzapine 10 MG Disintegrating Oral Tablet [place]SE ([facility]) Ibuprofen 800 MG Oral Tablet ibuprofen 800 mg tablet ibuprofen 8 00 mg tablet completed ibuprofen 800 MG Oral Tablet [place] ([facility]) Sodium Chloride 0.154 MEQ/ML Irrigation Solution sodium chloride 0.9 % irrigation solution sodium chloride 0.9 % irrigation solution completed sodium chloride 0.154 MEQ/ML Irr igation Solution [place] ([facility]) Acetaminophen 500 MG Oral Tablet acetaminophen 500 mg tablet acetaminophen 500 mg tablet completed acetaminophe n 500 MG Oral Tablet [place] ([facility]) Ibuprofen 800 MG Oral Tablet ibuprofen 800 mg tablet ibuprofen 8 00 mg tablet completed ibuprofen 800 MG Oral Tablet [place] ([facility]) Sodium Chloride 0.154 MEQ/ML Irrigation Solution sodium chloride 0.9 % irrigation solution sodium chloride 0.9 % irrigation solution completed sodium chloride 0.154 MEQ/ML Irr igation Solution M[place] ([facility]) Azithromycin 250 MG Oral Tablet azithromycin 250 mg ta blet azithromycin 250 mg tablet completed azithromycin 25 0 MG Oral Tablet [facility]) POLYETHYLENE GLYCOL 3350 142 MG/ML Oral Solution polyethylene glycol 3350 17 gram/dose oral powder polyethylene glycol 3350 17 gram/dose oral powder completed polyethylene glycol 3350 42539 MG Powder for Oral Solution MELINA ([facility]) POLYETHYLENE GLYCOL 3350 142 MG/ML Oral Solution polyethylene glycol 3350 17 gram/dose oral powder polyethylene glycol 3350 17 gram/dose oral powder completed polyethylene glycol 3350 95053 MG Powder for Oral Solution MEL[place] ([facility]) Ibuprofen 800 MG Oral Tablet ibuprofen 800 mg tablet ibuprofen 8 00 mg tablet completed ibuprofen 800 MG Oral Tablet [place] ([facility]) Docusate Sodium 100 MG Oral Capsule [DOK] DOK 100 mg capsule DOK 100 mg capsule completed docusate sodiu m 100 MG Oral Capsule [DOK] [place] ([facility]) coenzyme Q10 100 MG / Vitamin E 5 UNT Or al Capsule Co Q-10 (with Vit E) 100 mg-5 unit capsule Take 2 capsules every day by oral route. Co Q-10 (with Vit E) 100 mg-5 unit capsule Take 2 capsules every day by oral route. 2 capsule(s) completed ubidecarenone 100 MG / vitam in E 5 UNT Oral Capsule MELROSE ([facility]) Azithromycin 250 MG Oral Tablet azithromycin 250 mg ta blet azithromycin 250 mg tablet completed azithromycin 25 0 MG Oral Tablet [facility]) Azithromycin 250 MG Oral Tablet azithromycin 250 mg ta blet azithromycin 250 mg tablet completed azithromycin 25 0 MG Oral Tablet [facility]) coenzyme Q10 100 MG / Vitamin E 5 UNT Or al Capsule Co Q-10 (with Vit E) 100 mg-5 unit capsule Take 2 capsules every day by oral route. Co Q-10 (with Vit E) 100 mg-5 unit capsule Take 2 capsules every day by oral route. 2 capsule(s) completed ubidecarenone 100 MG / vitam in E 5 UNT Oral Capsule MEL[place]SE ([facility]) Colace PRN completed Colace AT [facility]) benzonatate 100 MG Oral Capsule benzonatate 100 mg cap robbie benzonatate 100 mg capsule completed benzonatate 10 0 MG Oral Capsule [facility]) L-Arginine 500 mg tablet Take 2 tablets every day by oral route. 19665 8 2 completed L-Arginine 500 mg tablet MELINA ([facility]) magnesium citrate 58.2 MG/ML Oral Solution magnesium c itrate oral solution magnesium citrate oral solution comple koko magnesium citrate 58.2 MG/ML Oral Solution MELINA ([facility]) fluticasone propionate 50 mcg/actuation nasal spray,suspension [id number] completed fluticasone propionate 0.05 MG/ACTUAT Metered Dose Nasal [place] MELROSE ([facility]) POLYETHYLENE GLYCOL 3350 142 MG/ML Oral Solution polyethylene glycol 3350 17 gram/dose oral powder polyethylene glycol 3350 17 gram/dose oral powder completed polyethylene glycol 3350 10805 MG Powder for Oral Solution MEL[place]SE ([facility]) ginkgo biloba 120 mg tablet Take by oral route. 153364 completed ginkgo biloba 120 mg tablet MELINA ([facility]) Acetaminophen 325 MG / Hydrocodone Jason trate 5 MG Oral Tablet hydrocodone 5 mg- acetaminophen 325 mg tablet hydrocodone 5 mg-acetaminophen 325 mg tablet completed acetaminophen 325 MG / hydrocodone bitartrate 5 MG Oral Tablet MELINA ([facility]) Ibuprofen 800 MG Oral Tablet ibuprofen 800 mg tablet ibuprofen 8 00 mg tablet completed ibuprofen 800 MG Oral Tablet MELINA ([facility]) Colace PRN completed Colace AT [facility] ([facility]) Acetaminophen 325 MG / Hydrocodone Jason trate 5 MG Oral Tablet hydrocodone 5 mg- acetaminophen 325 mg tablet hydrocodone 5 mg-acetaminophen 325 mg tablet completed acetaminophen 325 MG / hydrocodone bitartrate 5 MG Oral Tablet MELINA ([facility]) Acetaminophen 500 MG Oral Tablet acetaminophen 500 mg tablet acetaminophen 500 mg tablet completed acetaminophe n 500 MG Oral Tablet MELINA ([facility]) Sodium Chloride 0.154 MEQ/ML Irrigation Solution sodium chloride 0.9 % irrigation solution sodium chloride 0.9 % irrigation solution completed sodium chloride 0.154 MEQ/ML Irr igation Solution MELINA ([facility]) Ibuprofen 800 MG Oral Tablet ibuprofen 800 mg tablet ibuprofen 8 00 mg tablet completed ibuprofen 800 MG Oral Tablet MELINA ([facility]) Acetaminophen 325 MG / Hydrocodone Jason trate 5 MG Oral Tablet hydrocodone 5 mg- acetaminophen 325 mg tablet hydrocodone 5 mg-acetaminophen 325 mg tablet completed acetaminophen 325 MG / hydrocodone bitartrate 5 MG Oral Tablet MELINA ([facility]) Azithromycin 250 MG Oral Tablet azithromycin 250 mg ta blet azithromycin 250 mg tablet completed azithromycin 25 0 MG Oral Tablet MELINA ([facility]) coenzyme Q10 100 MG / Vitamin E 5 UNT Or al Capsule Co Q-10 (with Vit E) 100 mg-5 unit capsule Take 2 capsules every day by oral route. Co Q-10 (with Vit E) 100 mg-5 unit capsule Take 2 capsules every day by oral route. 2 capsule(s) completed ubidecarenone 100 MG / vitam in E 5 UNT Oral Capsule MELINA ([facility]) Acetaminophen 325 MG / Hydrocodone Jason trate 5 MG Oral Tablet hydrocodone 5 mg- acetaminophen 325 mg tablet hydrocodone 5 mg-acetaminophen 325 mg tablet completed acetaminophen 325 MG / hydrocodone bitartrate 5 MG Oral Tablet MELINA ([facility]) fluticasone propionate 50 mcg/actuation nasal spray,suspension [id number] completed fluticasone propionate 0.05 MG/ACTUAT Metered Dose Nasal [place] MELINA ([facility]) benzonatate 100 MG Oral Capsule benzonatate 100 mg cap robbie benzonatate 100 mg capsule completed benzonatate 10 0 MG Oral Capsule [place]EL[place]SE ([facility]) Acetaminophen 325 MG / Hydrocodone Jason trate 5 MG Oral Tablet hydrocodone 5 mg- acetaminophen 325 mg tablet hydrocodone 5 mg-acetaminophen 325 mg tablet completed acetaminophen 325 MG / hydrocodone bitartrate 5 MG Oral Tablet MELINA ([facility]) POLYETHYLENE GLYCOL 3350 142 MG/ML Oral Solution polyethylene glycol 3350 17 gram/dose oral powder polyethylene glycol 3350 17 gram/dose oral powder completed polyethylene glycol 3350 77085 MG Powder for Oral Solution MELINA ([facility]) Acetaminophen 325 MG / Hydrocodone Jason trate 5 MG Oral Tablet hydrocodone 5 mg- acetaminophen 325 mg tablet hydrocodone 5 mg-acetaminophen 325 mg tablet completed acetaminophen 325 MG / hydrocodone bitartrate 5 MG Oral Tablet MELINA ([facility]) Haloperidol 10 MG Oral Tablet haloperidol 10 mg tablet halop eridol 10 mg tablet completed haloperidol 10 MG Oral Tablet MELINA ([facility]) Docusate Sodium 100 MG Oral Capsule [DOK] DOK 100 mg capsule DOK 100 mg capsule completed docusate sodiu m 100 MG Oral Capsule [DOK] MELINA ([facility]) Ibuprofen 800 MG Oral Tablet ibuprofen 800 mg tablet ibuprofen 8 00 mg tablet completed ibuprofen 800 MG Oral Tablet MELINA ([facility]) olanzapine 10 MG Disintegrating Oral Tab let olanzapine 10 mg disintegrating tablet olanzapine 10 mg disintegrating tablet completed olanzapine 10 MG Disintegrating Oral Tablet MELINA ([facility]) fluticasone propionate 50 mcg/actuation nasal spray,suspension 195578 completed fluticasone propionate 0.05 MG/ACTUAT Metered Dose Nasal [place] MELINA ([facility]) Insurance Providers Payer name Policy type / Coverage type Policy ID Covered constitution party ID Covered constitution party's relationship to stephen Policy Stephen Plan Information O BLUE [id number] SP [id number] Medicaid [place] [facility] Part B [id number] Self [id number] O BLUE [id number] SP [id number] Managed Care Zain P [id number] S [id number] ZAIN I [id number] Self [id number] Medicaid S [id number] Medicaid S [id number] S [id number] Zain Medicaid/CHP/FHP Commercial [id number] Self [id number] Medicaid S [id number] S [id number] Medicaid S [id number] [place] O [id number] S [id number] [id number] SP [id number] [place] CMS-TARGET [id number] SP [id number] SELF PAY ONLY Aline - Medicaid [facility] (HMO) [id number] Self [id number] [facility] [id number] SP [id number] O BLUE P [id number] O [id number] [facility] [id number] Problems, Conditions, and Diagnoses Code Display Name Description Problem Type Effective Dates Data Source(s) H18.603 Keratoconus, unspecified, bilateral Keratoconus, unspecified, bilateral Diagnosis 03/14/2021 02:21:18 PM EDT [facility] F25.9 Schizoaffective disorder, unspecified Sc hizoaffective disorder, unspecified Condition 06/20/2021 12:00:00 AM EST [facility] [id number] Poor long-term memory Poor Long-term Memory Problem 06/20/2021 12:00:00 AM EST MELINA ([facility]) [id number] Acute psychosis Acute Psychosis Problem 021 12:00:00 AM EDT MELROSE ([facility]) [id number] Rhabdomyolysis Rhabdomyolysis Problem 04/24/2021 12:00: 00 AM EDT MELROSE ([facility]) [id number] Rhabdomyolysis Rhabdomyolysis Problem 04/24/2021 12:00:00 AM EDT - 04/24/2021 12:00:00 AM EDT MELROSE ([facility]) [id number] Polysubstance abuse Polysubstance Abuse Problem 1 12:00:00 AM EDT MELINA ([facility]) [id number] Psychotic disorder Psychotic Disorder Problem 12/2020 12:00:00 AM EDT MELINA ([facility]) [id number] Acute psychosis Acute Psychosis Problem 021 12:00:00 AM EDT MELINA ([facility]) [id number] Rhabdomyolysis Rhabdomyolysis Problem 04/24/2021 12:00: 00 AM EDT MELROSE ([facility]) [id number] Rhabdomyolysis Rhabdomyolysis Problem 04/24/2021 12:00:00 AM EDT - 04/24/2021 12:00:00 AM EDT MELINA ([facility]) [id number] Polysubstance abuse Polysubstance Abuse Problem 1 12:00:00 AM EDT MELROSE ([facility]) [id number] Psychotic disorder Psychotic Disorder Problem 12/2020 12:00:00 AM EDT MELINA ([facility]) [id number] Acute psychosis Acute Psychosis Problem 021 12:00:00 AM EDT MELINA ([facility]) [id number] Rhabdomyolysis Rhabdomyolysis Problem 04/24/2021 12:00: 00 AM EDT MELINA ([facility]) [id number] Rhabdomyolysis Rhabdomyolysis Problem 04/24/2021 12:00:00 AM EDT - 04/24/2021 12:00:00 AM EDT MELINA ([facility]) [id number] Polysubstance abuse Polysubstance Abuse Problem 1 12:00:00 AM EDT MELINA ([facility]) [id number] Psychotic disorder Psychotic Disorder Problem 12/2020 12:00:00 AM EDT MELINA ([facility]) [id number] Acute psychosis Acute Psychosis Problem 021 12:00:00 AM EDT MELINA ([facility]) [id number] Rhabdomyolysis Rhabdomyolysis Problem 04/24/2021 12:00: 00 AM EDT MELINA ([facility]) [id number] Rhabdomyolysis Rhabdomyolysis Problem 04/24/2021 12:00:00 AM EDT - 04/24/2021 12:00:00 AM EDT MELINA ([facility]) [id number] Polysubstance abuse Polysubstance Abuse Problem 1 12:00:00 AM EDT MELINA ([facility]) [id number] Psychotic disorder Psychotic Disorder Problem 12/2020 12:00:00 AM EDT MEILNA ([facility]) F12.20 Cannabis dependence, uncomplicated Cannabis Use Disorder, Moderate Condition 01/30/2021 12:00:00 AM EDT [facility] ([facility]) [id number] Keratoconus of right cornea Keratoconus of Right Co rnea Problem 09/06/2020 12:00:00 AM EST MELINA ([facility]) [id number] Drusen of right optic disc Drusen of Right Optic Di sc Problem 09/06/2020 12:00:00 AM EST MELINA ([facility]) [id number] Keratoconus of right cornea Keratoconus of Right Co rnea Problem 09/06/2020 12:00:00 AM EST MELINA ([facility]) [id number] Drusen of right optic disc Drusen of Right Optic Di sc Problem 09/06/2020 12:00:00 AM EST MELINA ([facility]) [id number] Keratoconus of right cornea Keratoconus of Right Co rnea Problem 09/06/2020 12:00:00 AM EST MELINA ([facility]) [id number] Drusen of right optic disc Drusen of Right Optic Di sc Problem 09/06/2020 12:00:00 AM EST MELINA ([facility]) [id number] Keratoconus of right cornea Keratoconus of Right Co rnea Problem 09/06/2020 12:00:00 AM EST MELINA ([facility]) [id number] Drusen of right optic disc Drusen of Right Optic Di sc Problem 09/06/2020 12:00:00 AM EST MELINA ([facility]) [id number] Keratoconus of right cornea Keratoconus of Right Co rnea Problem 09/06/2020 12:00:00 AM EST MELINA ([facility]) [id number] Drusen of right optic disc Drusen of Right Optic Di sc Problem 09/06/2020 12:00:00 AM EST MELINA ([facility]) [id number] Keratoconus of right cornea Keratoconus of Right Co rnea Problem 09/06/2020 12:00:00 AM EST MELINA ([facility]) [id number] Drusen of right optic disc Drusen of Right Optic Di sc Problem 09/06/2020 12:00:00 AM EST MELINA ([facility]) [id number] Keratoconus of right cornea Keratoconus of Right Co rnea Problem 09/06/2020 12:00:00 AM EST MELINA ([facility]) [id number] Drusen of right optic disc Drusen of Right Optic Di sc Problem 09/06/2020 12:00:00 AM EST MELINA ([facility]) [id number] Keratoconus of right cornea Keratoconus of Right Co rnea Problem 09/06/2020 12:00:00 AM EST MELINA ([facility]) [id number] Drusen of right optic disc Drusen of Right Optic Di sc Problem 09/06/2020 12:00:00 AM EST MELINA ([facility]) [id number] Keratoconus of right cornea Keratoconus of Right Co rnea Problem 09/06/2020 12:00:00 AM EST MELINA ([facility]) [id number] Drusen of right optic disc Drusen of Right Optic Di sc Problem 09/06/2020 12:00:00 AM EST MELINA ([facility]) [id number] Keratoconus of right cornea Keratoconus of Right Co rnea Problem 09/06/2020 12:00:00 AM EST MELINA ([facility]) [id number] Drusen of right optic disc Drusen of Right Optic Di sc Problem 09/06/2020 12:00:00 AM EST MELINA ([facility]) [id number] Keratoconus of right cornea Keratoconus of Right Co rnea Problem 09/06/2020 12:00:00 AM EST MELINA ([facility]) [id number] Drusen of right optic disc Drusen of Right Optic Di sc Problem 09/06/2020 12:00:00 AM EST MELINA ([facility]) K05.313 Chronic periodontitis, localized, severe Chronic periodontitis, localized, severe 05/21/2020 01:24:35 PM EST [facility] [id number] Generalized abdominal pain Generalized Abdominal Pain Problem 04/16/2020 12:00:00 AM EDT - 09/24/2020 12:00:00 AM EST MELINA ([facility]) [id number] Overweight Overweight Problem 04/16/2020 12:0 0:00 AM EDT - 04/24/2021 12:00:00 AM EDT MELINA ([facility]) [id number] Generalized abdominal pain Generalized Abdominal Pain Problem 04/16/2020 12:00:00 AM EDT - 09/24/2020 12:00:00 AM EST MELINA ([facility]) [id number] Overweight Overweight Problem 04/16/2020 12:0 0:00 AM EDT - 04/24/2021 12:00:00 AM EDT MELINA ([facility]) [id number] Generalized abdominal pain Generalized Abdominal Pain Problem 04/16/2020 12:00:00 AM EDT - 09/24/2020 12:00:00 AM EST MELINA ([facility]) [id number] Overweight Overweight Problem 04/16/2020 12:0 0:00 AM EDT - 04/24/2021 12:00:00 AM EDT MELINA ([facility]) [id number] Generalized abdominal pain Generalized Abdominal Pain Problem 04/16/2020 12:00:00 AM EDT - 09/24/2020 12:00:00 AM EST MELINA ([facility]) [id number] Generalized abdominal pain Generalized Abdominal Pain Problem 04/16/2020 12:00:00 AM EDT - 09/24/2020 12:00:00 AM EST MELINA ([facility]) [id number] Overweight Overweight Problem 04/16/2020 12:0 0:00 AM EDT - 04/24/2021 12:00:00 AM EDT MELINA ([facility]) [id number] Generalized abdominal pain Generalized Abdominal Pain Problem 04/16/2020 12:00:00 AM EDT - 09/24/2020 12:00:00 AM EST MELINA ([facility]) [id number] Generalized abdominal pain Generalized Abdominal Pain Problem 04/16/2020 12:00:00 AM EDT - 09/24/2020 12:00:00 AM EST MELINA ([facility]) [id number] Generalized abdominal pain Generalized Abdominal Pain Problem 04/16/2020 12:00:00 AM EDT - 09/24/2020 12:00:00 AM EST MELINA ([facility]) [id number] Generalized abdominal pain Generalized Abdominal Pain Problem 04/16/2020 12:00:00 AM EDT - 09/24/2020 12:00:00 AM EST MELINA ([facility]) [id number] Depressive disorder Depressive Disorder Problem 0 03/19/2020 12:00:00 AM EDT - 09/24/2020 12:00:00 AM EST MELINA ([facility]) [id number] Depressive disorder Depressive Disorder Problem 0 03/19/2020 12:00:00 AM EDT - 09/24/2020 12:00:00 AM EST MELINA ([facility]) [id number] Depressive disorder Depressive Disorder Problem 0 03/19/2020 12:00:00 AM EDT - 09/24/2020 12:00:00 AM EST MELINA ([facility]) [id number] Depressive disorder Depressive Disorder Problem 0 03/19/2020 12:00:00 AM EDT - 09/24/2020 12:00:00 AM EST MELINA ([facility]) [id number] Depressive disorder Depressive Disorder Problem 0 03/19/2020 12:00:00 AM EDT - 09/24/2020 12:00:00 AM EST MELINA ([facility]) [id number] Depressive disorder Depressive Disorder Problem 0 03/19/2020 12:00:00 AM EDT - 09/24/2020 12:00:00 AM EST MELINA ([facility]) [id number] Depressive disorder Depressive Disorder Problem 0 03/19/2020 12:00:00 AM EDT - 09/24/2020 12:00:00 AM EST MELINA ([facility]) [id number] Depressive disorder Depressive Disorder Problem 0 03/19/2020 12:00:00 AM EDT - 09/24/2020 12:00:00 AM EST MELINA ([facility]) [id number] Depressive disorder Depressive Disorder Problem 0 03/19/2020 12:00:00 AM EDT - 09/24/2020 12:00:00 AM EST MELINA ([facility]) [id number] SNOMED CT Concept SNOMED CT Concept Problem 03/06 12:00:00 AM EDT - 06/06/2020 12:00:00 AM EST MELINA ([facility]) [id number] Finding of neck region Finding of Neck Region Problem 03/06/2020 12:00:00 AM EDT - 06/06/2020 12:00:00 AM EST MELINA ([facility]) [id number] Abdominal pain Abdominal Pain Problem 03/06/2020 12:00:00 AM EDT - 09/06/2020 12:00:00 AM EST MELINA ([facility]) [id number] SNOMED CT Concept SNOMED CT Concept Problem 03/06 12:00:00 AM EDT - 06/06/2020 12:00:00 AM EST MELINA ([facility]) [id number] Finding of neck region Finding of Neck Region Problem 03/06/2020 12:00:00 AM EDT - 06/06/2020 12:00:00 AM EST MELINA ([facility]) [id number] Abdominal pain Abdominal Pain Problem 03/06/2020 12:00:00 AM EDT - 09/06/2020 12:00:00 AM EST MELINA ([facility]) [id number] SNOMED CT Concept SNOMED CT Concept Problem 03/06 12:00:00 AM EDT - 06/06/2020 12:00:00 AM EST MELINA ([facility]) [id number] Finding of neck region Finding of Neck Region Problem 03/06/2020 12:00:00 AM EDT - 06/06/2020 12:00:00 AM EST EMLINA ([facility]) [id number] Abdominal pain Abdominal Pain Problem 03/06/2020 12:00:00 AM EDT - 09/06/2020 12:00:00 AM EST [facility] ([facility] [facility] [id number] SNOMED CT Concept SNOMED CT Concept Problem 03/06 12:00:00 AM EDT - 06/06/2020 12:00:00 AM EST MELINA ([facility]) [id number] Finding of neck region Finding of Neck Region Problem 03/06/2020 12:00:00 AM EDT - 06/06/2020 12:00:00 AM EST MELINA ([facility]) [id number] Abdominal pain Abdominal Pain Problem 03/06/2020 12:00:00 AM EDT - 09/06/2020 12:00:00 AM EST MELINA ([facility]) [id number] SNOMED CT Concept SNOMED CT Concept Problem 03/06 12:00:00 AM EDT - 06/06/2020 12:00:00 AM EST MELINA ([facility]) [id number] Finding of neck region Finding of Neck Region Problem 03/06/2020 12:00:00 AM EDT - 06/06/2020 12:00:00 AM EST MELINA ([facility]) [id number] Abdominal pain Abdominal Pain Problem 03/06/2020 12:00:00 AM EDT - 09/06/2020 12:00:00 AM EST MELINA ([facility]) [id number] SNOMED CT Concept SNOMED CT Concept Problem 03/06 12:00:00 AM EDT - 06/06/2020 12:00:00 AM EST MELINA ([facility]) [id number] Finding of neck region Finding of Neck Region Problem 03/06/2020 12:00:00 AM EDT - 06/06/2020 12:00:00 AM EST MELINA ([facility]) [id number] Abdominal pain Abdominal Pain Problem 03/06/2020 12:00:00 AM EDT - 09/06/2020 12:00:00 AM EST MELINA ([facility]) [id number] SNOMED CT Concept SNOMED CT Concept Problem 03/06 12:00:00 AM EDT - 06/06/2020 12:00:00 AM EST MELINA ([facility]) [id number] Finding of neck region Finding of Neck Region Problem 03/06/2020 12:00:00 AM EDT - 06/06/2020 12:00:00 AM EST MELINA ([facility]) [id number] SNOMED CT Concept SNOMED CT Concept Problem 03/06 12:00:00 AM EDT - 06/06/2020 12:00:00 AM EST MELINA ([facility]) [id number] Finding of neck region Finding of Neck Region Problem 03/06/2020 12:00:00 AM EDT - 06/06/2020 12:00:00 AM EST MELINA ([facility]) [id number] Abdominal pain Abdominal Pain Problem 03/06/2020 12:00:00 AM EDT - 09/06/2020 12:00:00 AM EST MELINA ([facility]) [id number] SNOMED CT Concept SNOMED CT Concept Problem 03/06 12:00:00 AM EDT - 06/06/2020 12:00:00 AM EST MELINA ([facility]) [id number] Finding of neck region Finding of Neck Region Problem 03/06/2020 12:00:00 AM EDT - 06/06/2020 12:00:00 AM EST MELINA ([facility]) [id number] Abdominal pain Abdominal Pain Problem 03/06/2020 12:00:00 AM EDT - 09/06/2020 12:00:00 AM EST MELINA ([facility]) [id number] SNOMED CT Concept SNOMED CT Concept Problem 03/06 12:00:00 AM EDT - 06/06/2020 12:00:00 AM EST MELINA ([facility]) [id number] Finding of neck region Finding of Neck Region Problem 03/06/2020 12:00:00 AM EDT - 06/06/2020 12:00:00 AM EST MELINA ([facility]) [id number] Abdominal pain Abdominal Pain Problem 03/06/2020 12:00:00 AM EDT - 09/06/2020 12:00:00 AM EST MELINA ([facility]) [id number] SNOMED CT Concept SNOMED CT Concept Problem 03/06 12:00:00 AM EDT - 06/06/2020 12:00:00 AM EST MELINA ([facility]) [id number] Finding of neck region Finding of Neck Region Problem 03/06/2020 12:00:00 AM EDT - 06/06/2020 12:00:00 AM EST MELINA ([facility]) [id number] Abdominal pain Abdominal Pain Problem 03/06/2020 12:00:00 AM EDT - 09/06/2020 12:00:00 AM EST MELINA ([facility]) [id number] SNOMED CT Concept SNOMED CT Concept Problem 03/06 12:00:00 AM EDT - 06/06/2020 12:00:00 AM EST MELINA ([facility]) [id number] Finding of neck region Finding of Neck Region Problem 03/06/2020 12:00:00 AM EDT - 06/06/2020 12:00:00 AM EST MELINA ([facility]) [id number] Abdominal pain Abdominal Pain Problem 03/06/2020 12:00:00 AM EDT - 09/06/2020 12:00:00 AM EST MELINA ([facility]) [id number] Disorder of upper respiratory system Dis order of Upper Respiratory System Problem 04/14/2019 12:00:00 AM EDT - 09/06/2020 12:00:00 AM EST MELINA ([facility]) [id number] Nasal congestion Nasal Congestion Problem 12:00:00 AM EDT - 09/24/2020 12:00:00 AM EST MELINA ([facility]) [id number] Disorder of upper respiratory system Dis order of Upper Respiratory System Problem 04/14/2019 12:00:00 AM EDT - 09/06/2020 12:00:00 AM EST MELINA ([facility]) [id number] Nasal congestion Nasal Congestion Problem 019 12:00:00 AM EDT - 09/24/2020 12:00:00 AM EST MELINA ([facility]) [id number] Disorder of upper respiratory system Dis order of Upper Respiratory System Problem 04/14/2019 12:00:00 AM EDT - 09/06/2020 12:00:00 AM EST MELINA ([facility]) [id number] Nasal congestion Nasal Congestion Problem 019 12:00:00 AM EDT - 09/24/2020 12:00:00 AM EST MELINA ([facility]) [id number] Disorder of upper respiratory system Dis order of Upper Respiratory System Problem 04/14/2019 12:00:00 AM EDT - 09/06/2020 12:00:00 AM EST MELINA ([facility]) [id number] Nasal congestion Nasal Congestion Problem 019 12:00:00 AM EDT - 09/24/2020 12:00:00 AM EST MELINA ([facility]) [id number] Disorder of upper respiratory system Dis order of Upper Respiratory System Problem 04/14/2019 12:00:00 AM EDT - 09/06/2020 12:00:00 AM EST MELINA ([facility]) [id number] Nasal congestion Nasal Congestion Problem 019 12:00:00 AM EDT - 09/24/2020 12:00:00 AM EST MELINA ([facility]) [id number] Disorder of upper respiratory system Dis order of Upper Respiratory System Problem 04/14/2019 12:00:00 AM EDT - 09/06/2020 12:00:00 AM EST MELINA ([facility]) [id number] Disorder of upper respiratory system Dis order of Upper Respiratory System Problem 04/14/2019 12:00:00 AM EDT - 09/06/2020 12:00:00 AM EST MELINA ([facility]) [id number] Nasal congestion Nasal Congestion Problem 12:00:00 AM EDT - 09/24/2020 12:00:00 AM EST MELINA ([facility]) [id number] Disorder of upper respiratory system Dis order of Upper Respiratory System Problem 04/14/2019 12:00:00 AM EDT - 09/06/2020 12:00:00 AM EST MELINA ([facility]) [id number] Nasal congestion Nasal Congestion Problem 12:00:00 AM EDT - 09/24/2020 12:00:00 AM EST MELINA ([facility]) [id number] Disorder of upper respiratory system Dis order of Upper Respiratory System Problem 04/14/2019 12:00:00 AM EDT - 09/06/2020 12:00:00 AM EST MELINA ([facility]) [id number] Nasal congestion Nasal Congestion Problem 019 12:00:00 AM EDT - 09/24/2020 12:00:00 AM EST MELINA ([facility]) [id number] Disorder of upper respiratory system Dis order of Upper Respiratory System Problem 04/14/2019 12:00:00 AM EDT - 09/06/2020 12:00:00 AM EST MELINA ([facility]) [id number] Nasal congestion Nasal Congestion Problem 019 12:00:00 AM EDT - 09/24/2020 12:00:00 AM EST MELINA ([facility]) [id number] Disorder of upper respiratory system Dis order of Upper Respiratory System Problem 04/14/2019 12:00:00 AM EDT - 09/06/2020 12:00:00 AM EST MELINA ([facility]) [id number] Homeless Homeless Problem 04/13/2019 12:0 0:00 AM EDT - 09/24/2020 12:00:00 AM EST MELINA ([facility]) [id number] Homeless Homeless Problem 04/13/2019 12:0 0:00 AM EDT - 09/24/2020 12:00:00 AM EST MELINA ([facility]) [id number] Homeless Homeless Problem 04/13/2019 12:0 0:00 AM EDT - 09/24/2020 12:00:00 AM EST MELINA ([facility]) [id number] Homeless Homeless Problem 04/13/2019 12:0 0:00 AM EDT - 09/24/2020 12:00:00 AM EST MELINA ([facility]) [id number] Homeless Homeless Problem 04/13/2019 12:0 0:00 AM EDT - 09/24/2020 12:00:00 AM EST MELINA ([facility]) [id number] Homeless Homeless Problem 04/13/2019 12:0 0:00 AM EDT - 09/24/2020 12:00:00 AM EST MELINA ([facility]) [id number] Homeless Homeless Problem 04/13/2019 12:0 0:00 AM EDT - 09/24/2020 12:00:00 AM EST MELINA ([facility]) [id number] Homeless Homeless Problem 04/13/2019 12:0 0:00 AM EDT - 09/24/2020 12:00:00 AM EST MELINA ([facility]) [id number] Homeless Homeless Problem 04/13/2019 12:0 0:00 AM EDT - 09/24/2020 12:00:00 AM EST MELINA ([facility]) [id number] Pharyngeal finding Pharyngeal Finding Problem 12:00:00 AM EDT - 06/06/2020 12:00:00 AM EST MELINA ([facility]) [id number] Cough Cough Problem 04/08/2019 12:0 0:00 AM EDT - 09/06/2020 12:00:00 AM EST MELINA ([facility]) [id number] Pharyngeal finding Pharyngeal Finding Problem 12:00:00 AM EDT - 06/06/2020 12:00:00 AM EST MELINA ([facility]) [id number] Cough Cough Problem 04/08/2019 12:0 0:00 AM EDT - 09/06/2020 12:00:00 AM EST MELINA ([facility]) [id number] Pharyngeal finding Pharyngeal Finding Problem 12:00:00 AM EDT - 06/06/2020 12:00:00 AM EST MELINA ([facility]) [id number] Cough Cough Problem 04/08/2019 12:0 0:00 AM EDT - 09/06/2020 12:00:00 AM EST MELINA ([facility]) [id number] Pharyngeal finding Pharyngeal Finding Problem 12:00:00 AM EDT - 06/06/2020 12:00:00 AM EST MELINA ([facility]) [id number] Cough Cough Problem 04/08/2019 12:0 0:00 AM EDT - 09/06/2020 12:00:00 AM EST MELINA ([facility]) [id number] Pharyngeal finding Pharyngeal Finding Problem 12:00:00 AM EDT - 06/06/2020 12:00:00 AM EST MELINA ([facility]) [id number] Cough Cough Problem 04/08/2019 12:0 0:00 AM EDT - 09/06/2020 12:00:00 AM EST MELINA ([facility]) [id number] Pharyngeal finding Pharyngeal Finding Problem 12:00:00 AM EDT - 06/06/2020 12:00:00 AM EST MELINA ([facility]) [id number] Cough Cough Problem 04/08/2019 12:0 0:00 AM EDT - 09/06/2020 12:00:00 AM EST MELINA ([facility]) [id number] Pharyngeal finding Pharyngeal Finding Problem 12:00:00 AM EDT - 06/06/2020 12:00:00 AM EST MELINA ([facility]) [id number] Pharyngeal finding Pharyngeal Finding Problem 12:00:00 AM EDT - 06/06/2020 12:00:00 AM EST MELINA ([facility]) [id number] Cough Cough Problem 04/08/2019 12:0 0:00 AM EDT - 09/06/2020 12:00:00 AM EST MELINA ([facility]) [id number] Pharyngeal finding Pharyngeal Finding Problem 12:00:00 AM EDT - 06/06/2020 12:00:00 AM EST MELINA ([facility]) [id number] Cough Cough Problem 04/08/2019 12:0 0:00 AM EDT - 09/06/2020 12:00:00 AM EST MELINA ([facility]) [id number] Pharyngeal finding Pharyngeal Finding Problem 12:00:00 AM EDT - 06/06/2020 12:00:00 AM EST MELINA ([facility]) [id number] Cough Cough Problem 04/08/2019 12:0 0:00 AM EDT - 09/06/2020 12:00:00 AM EST MELINA ([facility]) [id number] Pharyngeal finding Pharyngeal Finding Problem 12:00:00 AM EDT - 06/06/2020 12:00:00 AM EST MELINA ([facility]) [id number] Cough Cough Problem 04/08/2019 12:0 0:00 AM EDT - 09/06/2020 12:00:00 AM EST MELINA ([facility]) [id number] Pharyngeal finding Pharyngeal Finding Problem 12:00:00 AM EDT - 06/06/2020 12:00:00 AM EST MELINA ([facility]) [id number] Cough Cough Problem 04/08/2019 12:0 0:00 AM EDT - 09/06/2020 12:00:00 AM EST MELINA ([facility]) [id number] Dental caries on smooth surface penetrat ing into dentin Dental Caries on Smooth Surface Penetrating into Dentin Problem 03/08 12:00:00 AM EDT - 09/06/2020 12:00:00 AM EST MELINA ([facility]) [id number] Dental caries on smooth surface penetrat ing into dentin Dental Caries on Smooth Surface Penetrating into Dentin Problem 03/08 12:00:00 AM EDT - 09/06/2020 12:00:00 AM EST MELINA ([facility]) [id number] Dental caries on smooth surface penetrat ing into dentin Dental Caries on Smooth Surface Penetrating into Dentin Problem 03/08 12:00:00 AM EDT - 09/06/2020 12:00:00 AM EST MELINA ([facility]) [id number] Dental caries on smooth surface penetrat ing into dentin Dental Caries on Smooth Surface Penetrating into Dentin Problem 03/08 12:00:00 AM EDT - 09/06/2020 12:00:00 AM EST MELINA ([facility]) [id number] Dental caries on smooth surface penetrat ing into dentin Dental Caries on Smooth Surface Penetrating into Dentin Problem 03/08 12:00:00 AM EDT - 09/06/2020 12:00:00 AM EST MELINA ([facility]) [id number] Dental caries on smooth surface penetrat ing into dentin Dental Caries on Smooth Surface Penetrating into Dentin Problem 03/08 12:00:00 AM EDT - 09/06/2020 12:00:00 AM EST MELINA ([facility]) [id number] Dental caries on smooth surface penetrat ing into dentin Dental Caries on Smooth Surface Penetrating into Dentin Problem 03/08 12:00:00 AM EDT - 09/06/2020 12:00:00 AM EST MELINA ([facility]) [id number] Dental caries on smooth surface penetrat ing into dentin Dental Caries on Smooth Surface Penetrating into Dentin Problem 03/08 12:00:00 AM EDT - 09/06/2020 12:00:00 AM EST MELINA ([facility]) [id number] Dental caries on smooth surface penetrat ing into dentin Dental Caries on Smooth Surface Penetrating into Dentin Problem 03/08 12:00:00 AM EDT - 09/06/2020 12:00:00 AM EST MELINA ([facility]) [id number] Dental caries on smooth surface penetrat ing into dentin Dental Caries on Smooth Surface Penetrating into Dentin Problem 03/08 12:00:00 AM EDT - 09/06/2020 12:00:00 AM EST MELINA ([facility]) [id number] Dental caries on smooth surface penetrat ing into dentin Dental Caries on Smooth Surface Penetrating into Dentin Problem 03/08 12:00:00 AM EDT - 09/06/2020 12:00:00 AM EST MELINA ([facility]) [id number] Emotional state finding Emotional State Finding Proble m 02/22/2019 12:00:00 AM EDT - 09/06/2020 12:00:00 AM EST MELINA ([facility]) [id number] Respiratory crackles Respiratory Crackles Problem 02/22/2019 12:00:00 AM EDT - 06/06/2020 12:00:00 AM EST MELINA ([facility]) [id number] Level of anxiety Level of Anxiety Problem 019 12:00:00 AM EDT - 04/24/2021 12:00:00 AM EDT MELINA ([facility]) [id number] Emotional state finding Emotional State Finding Proble m 02/22/2019 12:00:00 AM EDT - 09/06/2020 12:00:00 AM EST MELINA ([facility]) [id number] Respiratory crackles Respiratory Crackles Problem 02/22/2019 12:00:00 AM EDT - 06/06/2020 12:00:00 AM EST MELINA ([facility]) [id number] Level of anxiety Level of Anxiety Problem 019 12:00:00 AM EDT - 04/24/2021 12:00:00 AM EDT MELINA ([facility]) [id number] Emotional state finding Emotional State Finding Proble m 02/22/2019 12:00:00 AM EDT - 09/06/2020 12:00:00 AM EST MELINA ([facility]) [id number] Respiratory crackles Respiratory Crackles Problem 02/22/2019 12:00:00 AM EDT - 06/06/2020 12:00:00 AM EST MELINA ([facility]) [id number] Emotional state finding Emotional State Finding Proble m 02/22/2019 12:00:00 AM EDT - 09/06/2020 12:00:00 AM EST MELINA ([facility]) [id number] Respiratory crackles Respiratory Crackles Problem 02/22/2019 12:00:00 AM EDT - 06/06/2020 12:00:00 AM EST MELINA ([facility]) [id number] Level of anxiety Level of Anxiety Problem 019 12:00:00 AM EDT - 04/24/2021 12:00:00 AM EDT MELINA ([facility]) [id number] Emotional state finding Emotional State Finding Proble m 02/22/2019 12:00:00 AM EDT - 09/06/2020 12:00:00 AM EST MELINA ([facility]) [id number] Respiratory crackles Respiratory Crackles Problem 02/22/2019 12:00:00 AM EDT - 06/06/2020 12:00:00 AM EST MELINA ([facility]) [id number] Emotional state finding Emotional State Finding Proble m 02/22/2019 12:00:00 AM EDT - 09/06/2020 12:00:00 AM EST MELINA ([facility]) [id number] Respiratory crackles Respiratory Crackles Problem 02/22/2019 12:00:00 AM EDT - 06/06/2020 12:00:00 AM EST MELINA ([facility]) [id number] Respiratory crackles Respiratory Crackles Problem 02/22/2019 12:00:00 AM EDT - 06/06/2020 12:00:00 AM EST MELINA ([facility]) [id number] Emotional state finding Emotional State Finding Proble m 02/22/2019 12:00:00 AM EDT - 09/06/2020 12:00:00 AM EST MELINA ([facility]) [id number] Respiratory crackles Respiratory Crackles Problem 02/22/2019 12:00:00 AM EDT - 06/06/2020 12:00:00 AM EST MELINA ([facility]) [id number] Level of anxiety Level of Anxiety Problem 019 12:00:00 AM EDT - 04/24/2021 12:00:00 AM EDT MELINA ([facility]) [id number] Emotional state finding Emotional State Finding Proble m 02/22/2019 12:00:00 AM EDT - 09/06/2020 12:00:00 AM EST MELINA ([facility]) [id number] Respiratory crackles Respiratory Crackles Problem 02/22/2019 12:00:00 AM EDT - 06/06/2020 12:00:00 AM EST MELINA ([facility]) [id number] Emotional state finding Emotional State Finding Proble m 02/22/2019 12:00:00 AM EDT - 09/06/2020 12:00:00 AM EST MELINA ([facility]) [id number] Respiratory crackles Respiratory Crackles Problem 02/22/2019 12:00:00 AM EDT - 06/06/2020 12:00:00 AM EST MELINA ([facility]) [id number] Emotional state finding Emotional State Finding Proble m 02/22/2019 12:00:00 AM EDT - 09/06/2020 12:00:00 AM EST MELINA ([facility]) [id number] Respiratory crackles Respiratory Crackles Problem 02/22/2019 12:00:00 AM EDT - 06/06/2020 12:00:00 AM EST MELINA ([facility]) [id number] Emotional state finding Emotional State Finding Proble m 02/22/2019 12:00:00 AM EDT - 09/06/2020 12:00:00 AM EST MELINA ([facility]) [id number] Respiratory crackles Respiratory Crackles Problem 02/22/2019 12:00:00 AM EDT - 06/06/2020 12:00:00 AM EST MELINA ([facility]) [id number] Delayed healing of skin donor site Delayed Heali ng of Skin Donor Site Problem 03/26/2018 12:00:00 AM EDT - 09/06/2020 12:00:00 AM AKBAR Peters MELINA ([facility]) [id number] Delayed healing of skin donor site Delayed Heali ng of Skin Donor Site Problem 03/26/2018 12:00:00 AM EDT - 09/06/2020 12:00:00 AM ES Raymond MELINA ([facility]) [id number] Delayed healing of skin donor site Delayed Heali ng of Skin Donor Site Problem 03/26/2018 12:00:00 AM EDT - 09/06/2020 12:00:00 AM ES Raymond MELINA ([facility]) [id number] Delayed healing of skin donor site Delayed Heali ng of Skin Donor Site Problem 03/26/2018 12:00:00 AM EDT - 09/06/2020 12:00:00 AM ES T MELINA ([facility]) [id number] Delayed healing of skin donor site Delayed Heali ng of Skin Donor Site Problem 03/26/2018 12:00:00 AM EDT - 09/06/2020 12:00:00 AM ES Raymond MELINA ([facility]) [id number] Delayed healing of skin donor site Delayed Heali ng of Skin Donor Site Problem 03/26/2018 12:00:00 AM EDT - 09/06/2020 12:00:00 AM ES Raymond MELINA ([facility]) [id number] Delayed healing of skin donor site Delayed Heali ng of Skin Donor Site Problem 03/26/2018 12:00:00 AM EDT - 09/06/2020 12:00:00 AM ES Raymond MELINA ([facility]) [id number] Delayed healing of skin donor site Delayed Heali ng of Skin Donor Site Problem 03/26/2018 12:00:00 AM EDT - 09/06/2020 12:00:00 AM ES Raymond MELINA ([facility]) [id number] Delayed healing of skin donor site Delayed Heali ng of Skin Donor Site Problem 03/26/2018 12:00:00 AM EDT - 09/06/2020 12:00:00 AM ES Raymond MELINA ([facility]) [id number] Delayed healing of skin donor site Delayed Heali ng of Skin Donor Site Problem 03/26/2018 12:00:00 AM EDT - 09/06/2020 12:00:00 AM ES Raymond MELINA ([facility]) [id number] Delayed healing of skin donor site Delayed Heali ng of Skin Donor Site Problem 03/26/2018 12:00:00 AM EDT - 09/06/2020 12:00:00 AM ES T MELINA ([facility]) [id number] Visual field defect Visual Field Defect Problem 0 09/17/2017 12:00:00 AM EST - 06/06/2020 12:00:00 AM EST MELINA ([facility]) [id number] Visual field defect Visual Field Defect Problem 0 09/17/2017 12:00:00 AM EST - 06/06/2020 12:00:00 AM EST MELINA ([facility]) [id number] Visual field defect Visual Field Defect Problem 0 09/17/2017 12:00:00 AM EST - 06/06/2020 12:00:00 AM EST MELINA ([facility]) [id number] Visual field defect Visual Field Defect Problem 0 09/17/2017 12:00:00 AM EST - 06/06/2020 12:00:00 AM EST MELINA ([facility]) [id number] Visual field defect Visual Field Defect Problem 0 09/17/2017 12:00:00 AM EST - 06/06/2020 12:00:00 AM EST MELINA ([facility]) [id number] Visual field defect Visual Field Defect Problem 0 09/17/2017 12:00:00 AM EST - 06/06/2020 12:00:00 AM EST MELINA ([facility]) [id number] Visual field defect Visual Field Defect Problem 0 09/17/2017 12:00:00 AM EST - 06/06/2020 12:00:00 AM EST MELINA ([facility]) [id number] Visual field defect Visual Field Defect Problem 0 09/17/2017 12:00:00 AM EST - 06/06/2020 12:00:00 AM EST MELINA ([facility]) [id number] Visual field defect Visual Field Defect Problem 0 09/17/2017 12:00:00 AM EST - 06/06/2020 12:00:00 AM EST MELINA ([facility]) [id number] Visual field defect Visual Field Defect Problem 0 09/17/2017 12:00:00 AM EST - 06/06/2020 12:00:00 AM EST MELINA ([facility]) [id number] Visual field defect Visual Field Defect Problem 0 09/17/2017 12:00:00 AM EST - 06/06/2020 12:00:00 AM EST MELINA ([facility]) [id number] Visual field defect Visual Field Defect Problem 0 09/17/2017 12:00:00 AM EST - 06/06/2020 12:00:00 AM EST MELINA ([facility]) [id number] Finding related to sleep Finding Related to Sleep Prob lora 08/20/2017 12:00:00 AM EST - 09/06/2020 12:00:00 AM EST MELINA ([facility]) [id number] Right upper quadrant pain Right Upper Quadrant Pain Pr oblem 08/20/2017 12:00:00 AM EST - 10/23/2020 12:00:00 AM EDT MELINA ([facility]) [id number] Finding related to sleep Finding Related to Sleep Prob lora 08/20/2017 12:00:00 AM EST - 09/06/2020 12:00:00 AM EST MELINA ([facility]) [id number] Right upper quadrant pain Right Upper Quadrant Pain Pr oblem 08/20/2017 12:00:00 AM EST - 10/23/2020 12:00:00 AM EDT MELINA ([facility]) [id number] Finding related to sleep Finding Related to Sleep Prob lora 08/20/2017 12:00:00 AM EST - 09/06/2020 12:00:00 AM EST MELINA ([facility]) [id number] Right upper quadrant pain Right Upper Quadrant Pain Pr oblem 08/20/2017 12:00:00 AM EST - 10/23/2020 12:00:00 AM EDT MELINA ([facility]) [id number] Finding related to sleep Finding Related to Sleep Prob lora 08/20/2017 12:00:00 AM EST - 09/06/2020 12:00:00 AM EST MELINA ([facility]) [id number] Right upper quadrant pain Right Upper Quadrant Pain Pr oblem 08/20/2017 12:00:00 AM EST - 10/23/2020 12:00:00 AM EDT MELINA ([facility]) [id number] Finding related to sleep Finding Related to Sleep Prob lora 08/20/2017 12:00:00 AM EST - 09/06/2020 12:00:00 AM EST MELINA ([facility]) [id number] Right upper quadrant pain Right Upper Quadrant Pain Pr oblem 08/20/2017 12:00:00 AM EST - 10/23/2020 12:00:00 AM EDT MELINA ([facility]) [id number] Finding related to sleep Finding Related to Sleep Prob lora 08/20/2017 12:00:00 AM EST - 09/06/2020 12:00:00 AM EST MELINA ([facility]) [id number] Finding related to sleep Finding Related to Sleep Prob lora 08/20/2017 12:00:00 AM EST - 09/06/2020 12:00:00 AM EST MELINA ([facility]) [id number] Right upper quadrant pain Right Upper Quadrant Pain Pr oblem 08/20/2017 12:00:00 AM EST - 10/23/2020 12:00:00 AM EDT [facility] [facility] [id number] Finding related to sleep Finding Related to Sleep Prob lora 08/20/2017 12:00:00 AM EST - 09/06/2020 12:00:00 AM EST MELINA ([facility]) [id number] Right upper quadrant pain Right Upper Quadrant Pain Pr oblem 08/20/2017 12:00:00 AM EST - 10/23/2020 12:00:00 AM EDT MELINA ([facility]) [id number] Finding related to sleep Finding Related to Sleep Prob lora 08/20/2017 12:00:00 AM EST - 09/06/2020 12:00:00 AM EST MELINA ([facility]) [id number] Right upper quadrant pain Right Upper Quadrant Pain Pr oblem 08/20/2017 12:00:00 AM EST - 10/23/2020 12:00:00 AM EDT MELINA ([facility]) [id number] Finding related to sleep Finding Related to Sleep Prob lora 08/20/2017 12:00:00 AM EST - 09/06/2020 12:00:00 AM EST MELINA ([facility]) [id number] Finding related to sleep Finding Related to Sleep Prob lora 08/20/2017 12:00:00 AM EST - 09/06/2020 12:00:00 AM EST MELINA ([facility]) [id number] 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 Problem 07/30/2017 12:00:00 AM EST - 09/06/2020 12:00:00 AM EST MELINA ([facility]) [id number] Malocclusion of teeth Malocclusion of Teeth Problem 07/30/2017 12:00:00 AM EST - 09/06/2020 12:00:00 AM EST MELINA ([facility]) [id number] 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 Problem 07/30/2017 12:00:00 AM EST - 09/06/2020 12:00:00 AM EST MELINA ([facility]) [id number] Malocclusion of teeth Malocclusion of Teeth Problem 07/30/2017 12:00:00 AM EST - 09/06/2020 12:00:00 AM EST MELINA ([facility]) [id number] 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 Problem 07/30/2017 12:00:00 AM EST - 09/06/2020 12:00:00 AM EST MELINA ([facility]) [id number] Malocclusion of teeth Malocclusion of Teeth Problem 07/30/2017 12:00:00 AM EST - 09/06/2020 12:00:00 AM EST MELINA ([facility]) [id number] 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 Problem 07/30/2017 12:00:00 AM EST - 09/06/2020 12:00:00 AM EST MELINA ([facility]) [id number] Malocclusion of teeth Malocclusion of Teeth Problem 07/30/2017 12:00:00 AM EST - 09/06/2020 12:00:00 AM EST MELINA ([facility]) [id number] 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 Problem 07/30/2017 12:00:00 AM EST - 09/06/2020 12:00:00 AM EST MELINA ([facility]) [id number] Malocclusion of teeth Malocclusion of Teeth Problem 07/30/2017 12:00:00 AM EST - 09/06/2020 12:00:00 AM EST MELINA ([facility]) [id number] 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 Problem 07/30/2017 12:00:00 AM EST - 09/06/2020 12:00:00 AM EST MELINA ([facility]) [id number] Malocclusion of teeth Malocclusion of Teeth Problem 07/30/2017 12:00:00 AM EST - 09/06/2020 12:00:00 AM EST MELINA ([facility]) [id number] 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 Problem 07/30/2017 12:00:00 AM EST - 09/06/2020 12:00:00 AM EST MELINA ([facility]) [id number] Malocclusion of teeth Malocclusion of Teeth Problem 07/30/2017 12:00:00 AM EST - 09/06/2020 12:00:00 AM EST MELINA ([facility]) [id number] 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 Problem 07/30/2017 12:00:00 AM EST - 09/06/2020 12:00:00 AM EST MELINA ([facility]) [id number] Malocclusion of teeth Malocclusion of Teeth Problem 07/30/2017 12:00:00 AM EST - 09/06/2020 12:00:00 AM EST MELINA ([facility]) [id number] 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 Problem 07/30/2017 12:00:00 AM EST - 09/06/2020 12:00:00 AM EST MELINA ([facility]) [id number] Malocclusion of teeth Malocclusion of Teeth Problem 07/30/2017 12:00:00 AM EST - 09/06/2020 12:00:00 AM EST MELINA ([facility]) [id number] 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 Problem 07/30/2017 12:00:00 AM EST - 09/06/2020 12:00:00 AM EST MELINA ([facility]) [id number] Malocclusion of teeth Malocclusion of Teeth Problem 07/30/2017 12:00:00 AM EST - 09/06/2020 12:00:00 AM EST MELINA ([facility]) [id number] 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 Problem 07/30/2017 12:00:00 AM EST - 09/06/2020 12:00:00 AM EST MELINA ([facility]) [id number] Malocclusion of teeth Malocclusion of Teeth Problem 07/30/2017 12:00:00 AM EST - 09/06/2020 12:00:00 AM EST MELINA ([facility]) [id number] Procedure by method Procedure by Method Problem 1 12:00:00 AM EDT - 06/06/2020 12:00:00 AM EST MELINA ([facility]) [id number] Abnormal weight gain Abnormal Weight Gain Problem 05/08/2017 12:00:00 AM EDT - 09/06/2020 12:00:00 AM EST MELINA ([facility]) [id number] Procedure by method Procedure by Method Problem 1 12:00:00 AM EDT - 06/06/2020 12:00:00 AM EST MELINA ([facility]) [id number] Abnormal weight gain Abnormal Weight Gain Problem 05/08/2017 12:00:00 AM EDT - 09/06/2020 12:00:00 AM EST MELINA ([facility]) [id number] Procedure by method Procedure by Method Problem 1 12:00:00 AM EDT - 06/06/2020 12:00:00 AM EST MELINA ([facility]) [id number] Abnormal weight gain Abnormal Weight Gain Problem 05/08/2017 12:00:00 AM EDT - 09/06/2020 12:00:00 AM EST MELINA ([facility]) [id number] Procedure by method Procedure by Method Problem 1 12:00:00 AM EDT - 06/06/2020 12:00:00 AM EST MELINA ([facility]) [id number] Abnormal weight gain Abnormal Weight Gain Problem 05/08/2017 12:00:00 AM EDT - 09/06/2020 12:00:00 AM EST MELINA ([facility]) [id number] Procedure by method Procedure by Method Problem 1 12:00:00 AM EDT - 06/06/2020 12:00:00 AM EST MELINA ([facility]) [id number] Abnormal weight gain Abnormal Weight Gain Problem 05/08/2017 12:00:00 AM EDT - 09/06/2020 12:00:00 AM EST MELINA ([facility]) [id number] Procedure by method Procedure by Method Problem 1 12:00:00 AM EDT - 06/06/2020 12:00:00 AM EST MELINA ([facility]) [id number] Abnormal weight gain Abnormal Weight Gain Problem 05/08/2017 12:00:00 AM EDT - 09/06/2020 12:00:00 AM EST MELINA ([facility]) [id number] Procedure by method Procedure by Method Problem 1 12:00:00 AM EDT - 06/06/2020 12:00:00 AM EST MELINA ([facility]) [id number] Procedure by method Procedure by Method Problem 1 12:00:00 AM EDT - 06/06/2020 12:00:00 AM EST MELINA ([facility]) [id number] Abnormal weight gain Abnormal Weight Gain Problem 05/08/2017 12:00:00 AM EDT - 09/06/2020 12:00:00 AM EST MELINA ([facility]) [id number] Procedure by method Procedure by Method Problem 1 12:00:00 AM EDT - 06/06/2020 12:00:00 AM EST MELINA ([facility]) [id number] Abnormal weight gain Abnormal Weight Gain Problem 05/08/2017 12:00:00 AM EDT - 09/06/2020 12:00:00 AM EST MELINA ([facility]) [id number] Procedure by method Procedure by Method Problem 1 12:00:00 AM EDT - 06/06/2020 12:00:00 AM EST MELINA ([facility]) [id number] Abnormal weight gain Abnormal Weight Gain Problem 05/08/2017 12:00:00 AM EDT - 09/06/2020 12:00:00 AM EST MELINA ([facility]) [id number] Procedure by method Procedure by Method Problem 1 12:00:00 AM EDT - 06/06/2020 12:00:00 AM EST MELINA ([facility]) [id number] Abnormal weight gain Abnormal Weight Gain Problem 05/08/2017 12:00:00 AM EDT - 09/06/2020 12:00:00 AM EST MELINA ([facility]) [id number] Procedure by method Procedure by Method Problem 1 12:00:00 AM EDT - 06/06/2020 12:00:00 AM EST MELINA ([facility]) [id number] Abnormal weight gain Abnormal Weight Gain Problem 05/08/2017 12:00:00 AM EDT - 09/06/2020 12:00:00 AM EST MELINA ([facility]) [id number] Cardiovascular measurement - finding Car diovascular Measurement - Finding Problem 09/26/2016 12:00:00 AM EST - 09/06/2020 12:00:00 AM EST MELINA ([facility]) [id number] Injury of neck Injury of Neck Problem 09/26/2016 12:00:00 AM EST - 06/06/2020 12:00:00 AM EST MELINA ([facility]) [id number] Cardiovascular measurement - finding Car diovascular Measurement - Finding Problem 09/26/2016 12:00:00 AM EST - 09/06/2020 12:00:00 AM EST MELINA ([facility]) [id number] Injury of neck Injury of Neck Problem 09/26/2016 12:00:00 AM EST - 06/06/2020 12:00:00 AM EST MELINA ([facility]) [id number] Cardiovascular measurement - finding Car diovascular Measurement - Finding Problem 09/26/2016 12:00:00 AM EST - 09/06/2020 12:00:00 AM EST MELINA ([facility]) [id number] Lesion of neck Lesion of Neck Problem 09/26/2016 12:00:00 AM EST - 06/06/2020 12:00:00 AM EST MELINA ([facility]) [id number] Cardiovascular measurement - finding Car diovascular Measurement - Finding Problem 09/26/2016 12:00:00 AM EST - 09/06/2020 12:00:00 AM EST MELINA ([facility]) [id number] Injury of neck Injury of Neck Problem 09/26/2016 12:00:00 AM EST - 06/06/2020 12:00:00 AM EST MELINA ([facility]) [id number] Cardiovascular measurement - finding Car diovascular Measurement - Finding Problem 09/26/2016 12:00:00 AM EST - 09/06/2020 12:00:00 AM EST MELINA ([facility]) [id number] Lesion of neck Lesion of Neck Problem 09/26/2016 12:00:00 AM EST - 06/06/2020 12:00:00 AM EST MELINA ([facility]) [id number] Lesion of neck Lesion of Neck Problem 09/26/2016 12:00:00 AM EST - 06/06/2020 12:00:00 AM EST MELINA ([facility]) [id number] Cardiovascular measurement - finding Car diovascular Measurement - Finding Problem 09/26/2016 12:00:00 AM EST - 09/06/2020 12:00:00 AM EST MELINA ([facility]) [id number] Injury of neck Injury of Neck Problem 09/26/2016 12:00:00 AM EST - 06/06/2020 12:00:00 AM EST MELINA ([facility]) [id number] Cardiovascular measurement - finding Car diovascular Measurement - Finding Problem 09/26/2016 12:00:00 AM EST - 09/06/2020 12:00:00 AM EST MELINA ([facility]) [id number] Lesion of neck Lesion of Neck Problem 09/26/2016 12:00:00 AM EST - 06/06/2020 12:00:00 AM EST MELINA ([facility]) [id number] Cardiovascular measurement - finding Car diovascular Measurement - Finding Problem 09/26/2016 12:00:00 AM EST - 09/06/2020 12:00:00 AM EST MELINA ([facility]) [id number] Lesion of neck Lesion of Neck Problem 09/26/2016 12:00:00 AM EST - 06/06/2020 12:00:00 AM EST MELINA ([facility]) [id number] Cardiovascular measurement - finding Car diovascular Measurement - Finding Problem 09/26/2016 12:00:00 AM EST - 09/06/2020 12:00:00 AM EST MELINA ([facility]) [id number] Lesion of neck Lesion of Neck Problem 09/26/2016 12:00:00 AM EST - 06/06/2020 12:00:00 AM EST MELINA ([facility]) [id number] Cardiovascular measurement - finding Car diovascular Measurement - Finding Problem 09/26/2016 12:00:00 AM EST - 09/06/2020 12:00:00 AM EST MELINA ([facility]) [id number] Lesion of neck Lesion of Neck Problem 09/26/2016 12:00:00 AM EST - 06/06/2020 12:00:00 AM EST MELINA ([facility]) [id number] Cardiovascular measurement - finding Car diovascular Measurement - Finding Problem 09/26/2016 12:00:00 AM EST - 09/06/2020 12:00:00 AM EST MELINA ([facility]) [id number] Lesion of neck Lesion of Neck Problem 09/26/2016 12:00:00 AM EST - 06/06/2020 12:00:00 AM EST MELINA ([facility]) Surgeries/Procedures Procedure Description Date Indications Data Source(s) Brief Individual Psychotherapy - 30 min 06/20/2021 12:00:00 AM EST - 06/20/2021 12:00:00 AM EST [facility] ([facility]) Brief Individual Psychotherapy - 30 min 06/20/2021 12: 00:00 AM EST [facility] ([facility]) Extended Individual Psychotherapy - 45 min 05/31/2021 12:00:00 AM EST - 05/31/2021 12:00:00 AM EST [facility] ([facility]) Extended Individual Psychotherapy - 45 min 12:00:00 AM EST [facility] ([facility]) Extended Individual Psychotherapy - 45 min 05/07/2021 12:00:00 AM EDT - 05/07/2021 12:00:00 AM EDT [facility] ([facility]) Extended Individual Psychotherapy - 45 min 12:00:00 AM EDT [facility] ([facility]) CORNEAL TOPOGRAPHY <td>CORNEAL TOPOGRAPHY</td>< td>Routine</td><td>03/14/2021 3:33 PM EDT</td><td> Keratoconus of right eye</td><td> </td> 03/14/2021 03:33:58 PM EDT Keratoconus of right eye [facility] Keratoconus of right eye Extended Individual Psychotherapy - 45 min 01/30/2021 12:00:00 AM EDT - 01/30/2021 12:00:00 AM EDT [facility] ([facility]) Extended Individual Psychotherapy - 45 min 12:00:00 AM EDT [facility] ([facility]) Results ID Date Data Source [id number] 06/05/2021 03:37:00 PM EST MELINA ([facility]) Name Value Range Interpretation Code Description Data Kellen rce(s) Supporting Document(s) Flu negative Flu MELINA ([facility]) ID Date Data Source [id number] 06/05/2021 03:37:00 PM EST MELINA ([facility]) Name Value Range Interpretation Code Description Data Kellen rce(s) Supporting Document(s) Flu negative Flu MELINA ([facility]) ID Date Data Source [id number] 06/05/2021 03:37:00 PM EST MELINA ([facility]) Name Value Range Interpretation Code Description Data Kellen rce(s) Supporting Document(s) Flu negative Flu MELINA ([facility]) ID Date Data Source [id number] 06/05/2021 10:20:00 AM EST [facility] Name Value Range Interpretation Code Description Data Kellen rce(s) Supporting Document(s) SARS coronavirus 2 RdRp gene [Presence] in Respiratory specimen by BIMAL with probe detection Not detected [facility] This lab was ordered by [facility] and reported by [facility]. ID Date Data Source [id number] 06/05/2021 09:23:00 AM EST MELINA ([facility]) Name Value Range Interpretation Code Description Data Kellen rce(s) Supporting Document(s) sars-cov-2 negative negative Sars-cov-2 [facility] ([facility]) ID Date Data Source [id number] 06/05/2021 09:23:00 AM EST MELINA ([facility]) Name Value Range Interpretation Code Description Data Kellen rce(s) Supporting Document(s) sars-cov-2 negative negative Sars-cov-2 [place] ([facility]) ID Date Data Source [id number] 03/26/2021 09:07:19 PM [facility] Name Value Range Interpretation Code Description Data Kellen rce(s) Supporting Document(s) Progress Note [facility] [id number] [facility] [file] ID Date Data Source [id number] 01/24/2021 10:40:00 AM EDT [facility]) Name Value Range Interpretation Code Description Data Kellen rce(s) Supporting Document(s) sars-cov-2 negative negative Sars-cov-2 [facility]) ID Date Data Source [id number] 01/24/2021 10:40:00 AM EDT [facility]) Name Value Range Interpretation Code Description Data Kellen rce(s) Supporting Document(s) sars-cov-2 negative negative Sars-cov-2 [facility]) ID Date Data Source [id number] 01/24/2021 10:40:00 AM EDT [facility]) Name Value Range Interpretation Code Description Data Kellen rce(s) Supporting Document(s) sars-cov-2 negative negative Sars-cov-2 [facility]) ID Date Data Source [id number] 01/24/2021 10:40:00 AM EDT [facility]) Name Value Range Interpretation Code Description Data Kellen rce(s) Supporting Document(s) sars-cov-2 negative negative Sars-cov-2 [facility]) ID Date Data Source [id number] 01/24/2021 10:40:00 AM EDT [place] ([facility]) Name Value Range Interpretation Code Description Data Kellen rce(s) Supporting Document(s) sars-cov-2 negative negative Sars-cov-2 [facility] ([facility]) ID Date Data Source [id number] 01/24/2021 10:40:00 AM EDT MELINA ([facility]) Name Value Range Interpretation Code Description Data Kellen rce(s) Supporting Document(s) sars-cov-2 negative negative Sars-cov-2 [facility] ([facility]) ID Date Data Source [id number] 01/24/2021 10:35:00 AM EDT [facility] Name Value Range Interpretation Code Description Data Kellen rce(s) Supporting Document(s) SARS coronavirus 2 RdRp gene [Presence] in Respiratory specimen by BIMAL with probe detection Not detected [facility] This lab was ordered by [facility] and reported by [facility]. ID Date Data Source [id number] 12/24/2020 05:07:00 PM EDT [facility] Name Value Range Interpretation Code Description Data Kellen rce(s) Supporting Document(s) SARS coronavirus 2 RNA [Presence] in Uns pecified specimen by BIMAL with probe detection Not detected [facility] This lab was ordered by [facility] and reported by [facility]. ID Date Data Source [id number] 12/20/2020 12:09:00 PM EDT [facility] Name Value Range Interpretation Code Description Data Kellen rce(s) Supporting Document(s) SARS coronavirus 2 RNA [Presence] in Uns pecified specimen by BIMAL with probe detection Not Detected [facility] This lab was ordered by [facility] and reported by [facility]. ID Date Data Source [id number] 10/23/2020 10:13:00 AM EDT [facility]) Name Value Range Interpretation Code Description Data Kellen rce(s) Supporting Document(s) bilirubin neg Bilirubin [place] ([facility]) blood neg Blood MELINA ([facility]) glucose neg Glucose MELINA ([facility]) ketone 2+ Abnormal (applies to non-numeric res ults) Ketone MELINA ([facility]) leukocytes neg Leukocytes MELINA ([facility]) pH Ph MELINA ([facility]) nitrite neg Nitrite MELINA ([facility]) protein neg Protein MELINA ([facility]) specific gravity Specific [place] AT [facility] ([facility]) urobilinogen Urobilinogen MELINA ([facility]) ID Date Data Source [id number] 10/23/2020 10:13:00 AM EDT MELINA ([facility]) Name Value Range Interpretation Code Description Data Kellen rce(s) Supporting Document(s) bilirubin neg Bilirubin MELINA ([facility]) blood neg Blood MELINA ([facility]) ketone 2+ Abnormal (applies to non-numeric res ults) Ketone MELINA ([facility]) glucose neg Glucose MELINA ([facility]) nitrite neg Nitrite MELINA ([facility]) pH Ph MELINA ([facility]) leukocytes neg Leukocytes MELINA ([facility]) specific gravity Specific [place] [facility] [place] ([facility]) protein neg Protein MELINA ([facility]) urobilinogen Urobilinogen MELINA ([facility]) ID Date Data Source [id number] 10/23/2020 10:13:00 AM EDT MELINA ([facility]) Name Value Range Interpretation Code Description Data Kellen rce(s) Supporting Document(s) bilirubin neg Bilirubin MELINA ([facility]) ketone 2+ Abnormal (applies to non-numeric res ults) Ketone MELINA ([facility]) blood neg Blood MELINA ([facility]) glucose neg Glucose MELINA ([facility]) nitrite neg Nitrite MELINA ([facility]) leukocytes neg Leukocytes MELINA ([facility]) pH Ph MELINA ([facility]) specific gravity Specific [place] [facility] ([facility]) protein neg Protein MELINA ([facility]) urobilinogen Urobilinogen MELINA ([facility]) ID Date Data Source [id number] 10/23/2020 10:13:00 [facility] Name Value Range Interpretation Code Description Data Kellen rce(s) Supporting Document(s) bilirubin neg Bilirubin MELINA ([facility]) ketone 2+ Abnormal (applies to non-numeric res ults) Ketone MELINA ([facility]) blood neg Blood MELINA ([facility]) glucose neg Glucose M[facility] ([facility]) leukocytes neg Leukocytes MELINA ([facility]) nitrite neg Nitrite [facility]INA ([facility]) pH Ph MELINA ([facility]) protein neg Protein [facility] ([facility]) urobilinogen Urobilinogen MELINA ([facility]) specific gravity Specific [place] [facility] ([facility]) ID Date Data Source [id number] 10/23/2020 10:13:00 AM ED[facility] Name Value Range Interpretation Code Description Data Kellen rce(s) Supporting Document(s) blood neg Blood MELINA ([facility]) bilirubin neg Bilirubin M[facility] ([facility]) ketone 2+ Abnormal (applies to non-numeric res ults) Ketone MELINA ([facility]) glucose neg Glucose [facility] ([facility]) pH Ph M[facility] ([facility]) nitrite neg Nitrite [facility] ([facility]) leukocytes neg Leukocytes MELINA ([facility]) urobilinogen Urobilinogen MELINA ([facility]) protein neg Protein M[facility] ([facility]) specific gravity Specific [place] [facility] ([facility]) ID Date Data Source [id number] 10/23/2020 10:13:00 AM EDT MELINA ([facility]) Name Value Range Interpretation Code Description Data Kellen rce(s) Supporting Document(s) bilirubin neg Bilirubin M[facility]INA ([facility]) blood neg Blood MELINA ([facility]) glucose neg Glucose M[facility] ([facility]) ketone 2+ Abnormal (applies to non-numeric res ults) Ketone M[facility]INA ([facility]) leukocytes neg Leukocytes [facility] ([facility]) nitrite neg Nitrite [facility] ([facility]) protein neg Protein M[facility]INA ([facility] specific gravity Specific [place] [facility] ([facility]) pH Ph [facility] ([facility] [facility] urobilinogen Urobilinogen MELINA ([facility]) ID Date Data Source [id number] 10/23/2020 10:13:00 AM EDT MELINA ([facility]) Name Value Range Interpretation Code Description Data Kellen rce(s) Supporting Document(s) bilirubin neg Bilirubin MELINA ([facility]) glucose neg Glucose MELINA ([facility]) blood neg Blood MELINA ([facility]) nitrite neg Nitrite MELINA ([facility]) ketone 2+ Abnormal (applies to non-numeric res ults) Ketone MELINA ([facility]) leukocytes neg Leukocytes MELINA ([facility]) pH Ph MELINA ([facility]) protein neg Protein MELINA ([facility]) urobilinogen Urobilinogen MELINA ([facility]) specific gravity Specific [place] AT [place] ([facility]) ID Date Data Source [id number] 10/23/2020 10:13:00 AM EDT [facility] Name Value Range Interpretation Code Description Data Kellen rce(s) Supporting Document(s) bilirubin neg Bilirubin MELINA ([facility]) blood neg Blood MELINA ([facility]) ketone 2+ Abnormal (applies to non-numeric res ults) Ketone MELINA ([facility]) leukocytes neg Leukocytes MELINA ([facility]) glucose neg Glucose MELINA ([facility]) pH Ph MELINA ([facility]) protein neg Protein MELINA ([facility]) nitrite neg Nitrite MELINA ([facility]) urobilinogen Urobilinogen MELINA ([facility]) specific gravity Specific [place] AT [facility]) ID Date Data Source [id number] 10/23/2020 10:10:00 AM EDT MELROSE ([facility]) Name Value Range Interpretation Code Description Data Kellen rce(s) Supporting Document(s) glucose, fasting 82 mg/dL 70-100 Glucose, Fasting AT [facility] ([facility]) blood urea nitrogen 20 mg/dL 7-18 Above high normal Blood Ure a Nitrogen MELINA ([facility]) glomerular filtration rate > 60.0 >60 Glomerula r Filtration Rate MELINA ([facility]) creatinine for GFR 0.80 mg/dL 0.70-1.30 Creatinine for GF R MELROSE ([facility]) sodium level 137 mEq/L 136-145 Sodium Level MELINA ([facility]) potassium serum 4.6 mEq/L 3.5-5.1 Potassium Serum ATH NA ([facility]) chloride level 104 mEq/L 98-107 Chloride Level [place] ([facility]) carbon dioxide level 29 mEq/L 21-32 Carbon Dioxide Level [place] ([facility]) anion gap 4 mEq/L 8-16 Below low normal Anion Gap MELINA ( [facility]) calcium level 9.7 mg/dL 8.5-10.1 Calcium Level MELINA ( [facility]) AST/SGOT 22 U/L 7-37 AST/SGOT MELINA ([facility]) ALT/SGPT 40 U/L 12-78 ALT/SGPT MELINA ([facility]) alkaline phosphatase 96 U/L 45-117 Alkaline Phosph atase MELROSE ([facility]) bilirubin,total 0.5 mg/dL 0.2-1.0 Bilirubin,total ATHE ([facility]) total protein 7.2 gm/dL 6.4-8.2 Total Protein MELINA ( [facility]) albumin 4.2 gm/dL 3.2-5.2 Albumin MELINA ([facility]) albumin/globulin ratio Albumin/globu moy Ratio MELINA ([facility]) ID Date Data Source [id number] 10/23/2020 10:10:00 AM EDT MELINA ([facility]) Name Value Range Interpretation Code Description Data Kellen rce(s) Supporting Document(s) glucose, fasting 82 mg/dL 70-100 Glucose, Fasting AT [facility]) blood urea nitrogen 20 mg/dL 7-18 Above high normal Blood Ure a Nitrogen MELINA ([facility]) creatinine for GFR 0.80 mg/dL 0.70-1.30 Creatinine for GF R MELINA ([facility]) glomerular filtration rate > 60.0 >60 Glomerula r Filtration Rate MELINA ([facility]) potassium serum 4.6 mEq/L 3.5-5.1 Potassium Serum ATHE ([facility]) sodium level 137 mEq/L 136-145 Sodium Level MELINA ([facility]) chloride level 104 mEq/L 98-107 Chloride Level MELINA ([facility]) carbon dioxide level 29 mEq/L 21-32 Carbon Dioxide Level MELINA ([facility]) anion gap 4 mEq/L 8-16 Below low normal Anion Gap MELINA ( [facility]) calcium level 9.7 mg/dL 8.5-10.1 Calcium Level MELINA ( [facility]) AST/SGOT 22 U/L 7-37 AST/SGOT MELINA ([facility]) ALT/SGPT 40 U/L 12-78 ALT/SGPT MELINA ([facility]) alkaline phosphatase 96 U/L 45-117 Alkaline Phosph atase MELINA ([facility]) bilirubin,total 0.5 mg/dL 0.2-1.0 Bilirubin,total ATHE ([facility]) total protein 7.2 gm/dL 6.4-8.2 Total Protein MELINA ( [facility]) albumin 4.2 gm/dL 3.2-5.2 Albumin MELINA ([facility]) albumin/globulin ratio Albumin/globu moy Ratio MELINA ([facility]) ID Date Data Source [id number] 10/23/2020 10:10:00 AM EDT MELINA ([facility]) Name Value Range Interpretation Code Description Data Kellen rce(s) Supporting Document(s) glucose, fasting 82 mg/dL 70-100 Glucose, Fasting AT [facility] ([facility]) glomerular filtration rate > 60.0 >60 Glomerula r Filtration Rate MELINA ([facility]) creatinine for GFR 0.80 mg/dL 0.70-1.30 Creatinine for GF R [place] ([facility]) blood urea nitrogen 20 mg/dL 7-18 Above high normal Blood Ure a Nitrogen MELINA ([facility]) sodium level 137 mEq/L 136-145 Sodium Level MELINA ([facility]) potassium serum 4.6 mEq/L 3.5-5.1 Potassium Serum ATHE NA ([facility]) chloride level 104 mEq/L 98-107 Chloride Level [place] ([facility]) carbon dioxide level 29 mEq/L 21-32 Carbon Dioxide Level MELINA ([facility]) anion gap 4 mEq/L 8-16 Below low normal Anion Gap MELINA ( [facility]) calcium level 9.7 mg/dL 8.5-10.1 Calcium Level MELINA ( [facility]) AST/SGOT 22 U/L 7-37 AST/SGOT MELINA ([facility]) alkaline phosphatase 96 U/L 45-117 Alkaline Phosph atase MELINA ([facility]) ALT/SGPT 40 U/L 12-78 ALT/SGPT MELINA ([facility]) bilirubin,total 0.5 mg/dL 0.2-1.0 Bilirubin,total ATHE [facility]) total protein 7.2 gm/dL 6.4-8.2 Total Protein MELINA ( [facility]) albumin/globulin ratio Albumin/globu moy Ratio MELINA ([facility]) albumin 4.2 gm/dL 3.2-5.2 Albumin MELINA ([facility]) ID Date Data Source [id number] 10/23/2020 10:10:00 AM EDT MELROSE ([facility]) Name Value Range Interpretation Code Description Data Kellen rce(s) Supporting Document(s) glucose, fasting 82 mg/dL 70-100 Glucose, Fasting AT [facility] ([facility]) creatinine for GFR 0.80 mg/dL 0.70-1.30 Creatinine for GF R MELINA ([facility]) blood urea nitrogen 20 mg/dL 7-18 Above high normal Blood Ure a Nitrogen MELINA ([facility]) glomerular filtration rate > 60.0 >60 Glomerula r Filtration Rate MELINA ([facility]) sodium level 137 mEq/L 136-145 Sodium Level MELINA ([facility]) chloride level 104 mEq/L 98-107 Chloride Level MELINA ([facility]) potassium serum 4.6 mEq/L 3.5-5.1 Potassium Serum ATHE NA ([facility]) anion gap 4 mEq/L 8-16 Below low normal Anion Gap MELINA ( [facility]) carbon dioxide level 29 mEq/L 21-32 Carbon Dioxide Level MELINA ([facility]) AST/SGOT 22 U/L 7-37 AST/SGOT MELINA ([facility]) calcium level 9.7 mg/dL 8.5-10.1 Calcium Level MELINA ( [facility]) ALT/SGPT 40 U/L 12-78 ALT/SGPT MELINA ([facility]) alkaline phosphatase 96 U/L 45-117 Alkaline Phosph atase MELINA ([facility]) bilirubin,total 0.5 mg/dL 0.2-1.0 Bilirubin,total ATHE ([facility]) total protein 7.2 gm/dL 6.4-8.2 Total Protein MELINA ( [facility]) albumin 4.2 gm/dL 3.2-5.2 Albumin MELINA ([facility]) albumin/globulin ratio Albumin/globu moy Ratio MELINA ([facility]) ID Date Data Source [id number] 10/23/2020 10:10:00 AM EDT MELINA ([facility]) Name Value Range Interpretation Code Description Data Kellen rce(s) Supporting Document(s) glucose, fasting 82 mg/dL 70-100 Glucose, Fasting AT [place] ([facility]) creatinine for GFR 0.80 mg/dL 0.70-1.30 Creatinine for GF R MELINA ([facility]) blood urea nitrogen 20 mg/dL 7-18 Above high normal Blood Ure a Nitrogen MELINA ([facility]) glomerular filtration rate > 60.0 >60 Glomerula r Filtration Rate MELINA ([facility]) sodium level 137 mEq/L 136-145 Sodium Level MELINA ([facility]) chloride level 104 mEq/L 98-107 Chloride Level MELINA ([facility]) potassium serum 4.6 mEq/L 3.5-5.1 Potassium Serum ATHE NA ([facility]) carbon dioxide level 29 mEq/L 21-32 Carbon Dioxide Level MELINA ([facility]) calcium level 9.7 mg/dL 8.5-10.1 Calcium Level MELINA ( [facility]) anion gap 4 mEq/L 8-16 Below low normal Anion Gap MELINA ( [facility]) AST/SGOT 22 U/L 7-37 AST/SGOT MELINA ([facility]) ALT/SGPT 40 U/L 12-78 ALT/SGPT MELINA ([facility]) alkaline phosphatase 96 U/L 45-117 Alkaline Phosph atase MELINA ([facility]) bilirubin,total 0.5 mg/dL 0.2-1.0 Bilirubin,total ATHE NA ([facility]) albumin 4.2 gm/dL 3.2-5.2 Albumin MELINA ([facility]) total protein 7.2 gm/dL 6.4-8.2 Total Protein MELINA ( [facility]) albumin/globulin ratio Albumin/globu moy [facility] ID Date Data Source [id number] 10/23/2020 10:10:00 AM EDT MELINA ([facility]) Name Value Range Interpretation Code Description Data Kellen rce(s) Supporting Document(s) glucose, fasting 82 mg/dL 70-100 Glucose, Fasting AT [facility] ([facility]) glomerular filtration rate > 60.0 >60 Glomerula r Filtration Rate MELINA ([facility]) creatinine for GFR 0.80 mg/dL 0.70-1.30 Creatinine for GF R MELINA ([facility]) blood urea nitrogen 20 mg/dL 7-18 Above high normal Blood Ure a Nitrogen MELINA ([facility]) sodium level 137 mEq/L 136-145 Sodium Level MELINA ([facility]) potassium serum 4.6 mEq/L 3.5-5.1 Potassium Serum ATHE NA ([facility]) carbon dioxide level 29 mEq/L 21-32 Carbon Dioxide Level MELINA ([facility]) chloride level 104 mEq/L 98-107 Chloride Level MELINA ([facility]) anion gap 4 mEq/L 8-16 Below low normal Anion Gap MELINA ( [facility]) calcium level 9.7 mg/dL 8.5-10.1 Calcium Level MELINA ( [facility]) AST/SGOT 22 U/L 7-37 AST/SGOT MELINA ([facility]) ALT/SGPT 40 U/L 12-78 ALT/SGPT MELINA ([facility]) alkaline phosphatase 96 U/L 45-117 Alkaline Phosph atase MELINA ([facility]) bilirubin,total 0.5 mg/dL 0.2-1.0 Bilirubin,total ATHE NA ([facility]) total protein 7.2 gm/dL 6.4-8.2 Total Protein MELINA ( [facility]) albumin 4.2 gm/dL 3.2-5.2 Albumin MELINA ([facility]) albumin/globulin ratio Albumin/globu moy Ratio MELINA ([facility]) ID Date Data Source [id number] 10/23/2020 10:10:00 AM EDT MELINA ([facility]) Name Value Range Interpretation Code Description Data Kellen rce(s) Supporting Document(s) blood urea nitrogen 20 mg/dL 7-18 Above high normal Blood Ure a Nitrogen MELINA ([facility]) glucose, fasting 82 mg/dL 70-100 Glucose, Fasting AT [place] ([facility]) glomerular filtration rate > 60.0 >60 Glomerula r Filtration Rate MELINA ([facility]) creatinine for GFR 0.80 mg/dL 0.70-1.30 Creatinine for GF R MELINA ([facility]) potassium serum 4.6 mEq/L 3.5-5.1 Potassium Serum ATHE NA ([facility]) sodium level 137 mEq/L 136-145 Sodium Level MELINA ([facility]) carbon dioxide level 29 mEq/L 21-32 Carbon Dioxide Level MELINA ([facility]) chloride level 104 mEq/L 98-107 Chloride Level MELINA ([facility]) calcium level 9.7 mg/dL 8.5-10.1 Calcium Level MELINA ( [facility]) anion gap 4 mEq/L 8-16 Below low normal Anion Gap MELINA ( [facility]) AST/SGOT 22 U/L 7-37 AST/SGOT MELINA ([facility]) ALT/SGPT 40 U/L 12-78 ALT/SGPT MELINA ([facility]) alkaline phosphatase 96 U/L 45-117 Alkaline Phosph atase MELINA ([facility]) total protein 7.2 gm/dL 6.4-8.2 Total Protein MELINA ( [facility]) bilirubin,total 0.5 mg/dL 0.2-1.0 Bilirubin,total ATHE NA ([facility]) albumin 4.2 gm/dL 3.2-5.2 Albumin MELINA ([facility]) albumin/globulin ratio Albumin/globu moy Ratio MELINA ([facility]) ID Date Data Source [id number] 09/20/2020 02:28:00 PM EST MELINA ([facility]) Name Value Range Interpretation Code Description Data Kellen rce(s) Supporting Document(s) alkaline phosphatase 135 U/L 45-117 Above high normal Alkaline Phosphatase MELINA ([facility]) ID Date Data Source [id number] 09/20/2020 02:28:00 PM EST MELINA ([facility]) Name Value Range Interpretation Code Description Data Kellen rce(s) Supporting Document(s) gamma glutamyltranspeptidase 78 U/L 15-85 Gamma G lutamyltranspeptidase MELINA ([facility]) ID Date Data Source [id number] 09/20/2020 02:28:00 PM EST MELINA ([facility]) Name Value Range Interpretation Code Description Data Kellen rce(s) Supporting Document(s) hepatitis C virus elida index 0.3 index <0.8 Hepatiti s C Virus Elida Index MELINA ([facility]) ID Date Data Source [id number] 09/20/2020 02:28:00 PM EST MELINA ([facility]) Name Value Range Interpretation Code Description Data Kellen rce(s) Supporting Document(s) alkaline phosphatase 135 U/L 45-117 Above high normal Alkaline Phosphatase MELINA ([facility]) ID Date Data Source [id number] 09/20/2020 02:28:00 PM EST MELINA ([facility]) Name Value Range Interpretation Code Description Data Kellen rce(s) Supporting Document(s) gamma glutamyltranspeptidase 78 U/L 15-85 Gamma G lutamyltranspeptidase MELINA ([facility]) ID Date Data Source [id number] 09/20/2020 02:28:00 PM EST MELINA ([facility]) Name Value Range Interpretation Code Description Data Kellen rce(s) Supporting Document(s) hepatitis C virus elida index 0.3 index <0.8 Hepatiti s C Virus Elida Index MELINA ([facility]) ID Date Data Source [id number] 09/20/2020 02:28:00 PM EST MELINA ([facility]) Name Value Range Interpretation Code Description Data Kellen rce(s) Supporting Document(s) alkaline phosphatase 135 U/L 45-117 Above high normal Alkaline Phosphatase MELINA ([facility]) ID Date Data Source [id number] 09/20/2020 02:28:00 PM EST MELINA ([facility]) Name Value Range Interpretation Code Description Data Kellen rce(s) Supporting Document(s) gamma glutamyltranspeptidase 78 U/L 15-85 [facility] ID Date Data Source [id number] 09/20/2020 02:28:00 PM EST MELINA ([facility]) Name Value Range Interpretation Code Description Data Kellen rce(s) Supporting Document(s) hepatitis C virus elida index 0.3 index <0.8 Hepatiti s C Virus Elida Index MELINA ([facility]) ID Date Data Source [id number] 09/20/2020 02:28:00 PM EST MELINA ([facility]) Name Value Range Interpretation Code Description Data Kellen rce(s) Supporting Document(s) alkaline phosphatase 135 U/L 45-117 Above high normal Alkaline Phosphatase MELINA ([facility]) ID Date Data Source [id number] 09/20/2020 02:28:00 PM EST MELINA ([facility]) Name Value Range Interpretation Code Description Data Kellen rce(s) Supporting Document(s) gamma glutamyltranspeptidase 78 U/L 15-85 Gamma [facility]peptidase [facility] ID Date Data Source [id number] 09/20/2020 02:28:00 PM EST MELINA ([facility]) Name Value Range Interpretation Code Description Data Kellen rce(s) Supporting Document(s) hepatitis C virus elida index 0.3 index <0.8 Hepatiti s C Virus Elida Index MELINA ([facility]) ID Date Data Source [id number] 09/20/2020 02:28:00 PM EST MELINA ([facility]) Name Value Range Interpretation Code Description Data Kellen rce(s) Supporting Document(s) alkaline phosphatase 135 U/L 45-117 Above high normal Alkaline Phosphatase MELINA ([facility]) ID Date Data Source [id number] 09/20/2020 02:28:00 PM EST MELINA ([facility]) Name Value Range Interpretation Code Description Data Kellen rce(s) Supporting Document(s) gamma glutamyltranspeptidase 78 U/L 15-85 Gamma G lutamyltranspeptidase MELINA ([facility]) ID Date Data Source [id number] 09/20/2020 02:28:00 PM EST MELINA ([facility]) Name Value Range Interpretation Code Description Data Kellen rce(s) Supporting Document(s) hepatitis C virus elida index 0.3 index <0.8 Hepatiti s C Virus Elida Index MELINA ([facility]) ID Date Data Source [id number] 09/20/2020 02:28:00 PM EST MELINA ([facility]) Name Value Range Interpretation Code Description Data Kellen rce(s) Supporting Document(s) alkaline phosphatase 135 U/L 45-117 Above high normal Alkaline Phosphatase MELINA ([facility]) ID Date Data Source [id number] 09/20/2020 02:28:00 PM EST MELINA ([facility]) Name Value Range Interpretation Code Description Data Kellen rce(s) Supporting Document(s) gamma glutamyltranspeptidase 78 U/L 15-85 Gamma G lutamyltranspeptidase MELINA ([facility]) ID Date Data Source [id number] 09/20/2020 02:28:00 PM EST MELINA ([facility]) Name Value Range Interpretation Code Description Data Kellen rce(s) Supporting Document(s) hepatitis C virus elida index 0.3 index <0.8 Hepatiti s C Virus Elida Index MELINA ([facility]) ID Date Data Source [id number] 09/20/2020 02:28:00 PM EST MELINA ([facility]) Name Value Range Interpretation Code Description Data Kellen rce(s) Supporting Document(s) alkaline phosphatase 135 U/L 45-117 Above high normal Alkaline Phosphatase MELINA ([facility]) ID Date Data Source [id number] 09/20/2020 02:28:00 PM EST MELINA ([facility]) Name Value Range Interpretation Code Description Data Kellen rce(s) Supporting Document(s) gamma glutamyltranspeptidase 78 U/L 15-85 Gamma G lutamyltranspeptidase MELINA ([facility]) ID Date Data Source [id number] 09/20/2020 02:28:00 PM EST MELINA ([facility]) Name Value Range Interpretation Code Description Data Kellen rce(s) Supporting Document(s) hepatitis C virus elida index 0.3 index <0.8 Hepatiti s C Virus Elida Index MELINA ([facility]) ID Date Data Source [id number] 09/20/2020 02:28:00 PM EST MELINA ([facility]) Name Value Range Interpretation Code Description Data Kellen rce(s) Supporting Document(s) alkaline phosphatase 135 U/L 45-117 Above high normal Alkaline Phosphatase MELINA ([facility]) ID Date Data Source [id number] 09/20/2020 02:28:00 PM EST MELINA ([facility]) Name Value Range Interpretation Code Description Data Kellen rce(s) Supporting Document(s) gamma glutamyltranspeptidase 78 U/L 15-85 Gamma G lutamyltranspeptidase MELINA ([facility]) ID Date Data Source [id number] 09/20/2020 02:28:00 PM EST MELINA ([facility]) Name Value Range Interpretation Code Description Data Kellen rce(s) Supporting Document(s) hepatitis C virus elida index 0.3 index <0.8 Hepatiti s C Virus [facility] [facility] ID Date Data Source [id number] 09/20/2020 02:28:00 PM EST MELINA ([facility]) Name Value Range Interpretation Code Description Data Kellen rce(s) Supporting Document(s) alkaline phosphatase 135 U/L 45-117 Above high normal Alkaline Phosphatase MELINA ([facility]) ID Date Data Source [id number] 09/20/2020 02:28:00 PM EST MELINA ([facility]) Name Value Range Interpretation Code Description Data Kellen rce(s) Supporting Document(s) gamma glutamyltranspeptidase 78 U/L 15-85 Gamma G lutamyltranspeptidase MELINA ([facility]) ID Date Data Source [id number] 09/20/2020 02:28:00 PM EST MELINA [facility]) Name Value Range Interpretation Code Description Data Kellen rce(s) Supporting Document(s) hepatitis C virus elida index 0.3 index <0.8 Hepatiti s C Virus Elida Index MELINA ([facility]) ID Date Data Source [id number] 09/13/2020 08:58:00 AM EST MELINA ([facility]) Name Value Range Interpretation Code Description Data Kellen rce(s) Supporting Document(s) red blood count 5.08 10 4.30-6.10 Red Blood Count ATHE ([facility]) white blood count 12.0 10 4.0-10.0 Above high normal White Blood Count MELINA ([facility]) hemoglobin 14.7 g/dL 13.5-17.5 Hemoglobin MELINA ([facility]) mean corpuscular volume 87.8 fL 80.0-96.0 Mean Corpusc ular Volume MELINA ([facility]) hematocrit 44.6 % 42.0-52.0 Hematocrit MELINA ([facility]) mean corpuscular hemoglobin 28.9 pg 27.0-33.0 Mean Cor puscular Hemoglobin MELINA ([facility]) platelet count, automated 257 10 150-450 Platelet C ount, Automated MLEINA ([facility]) mean corpuscular HGB conc 33.0 g/dL 32.0-36.5 Mean Corpu scular HGB Conc MELROSE ([facility]) red cell distribution width 15.4 % 11.5-14.5 Above high no rmal Red Cell Distribution Width MELINA ([facility]) lymph % 28.7 % 24.0-44.0 Lymph % MELINA ([facility]) neutrophils % 50.4 % 36.0-66.0 Neutrophils % MELINA ( [facility]) mono % 15.1 % 2.0-8.0 Above high normal [place] % MELINA ([facility]) eos % 4.4 % 0.0-3.0 Above high normal Eos % MELINA ([facility]) baso % 0.7 % 0.0-1.0 Baso % MELINA ([facility]) nucleated red blood cell % 0.0 % 0-0 Nucleated Red Blood Cell % MELINA ([facility]) immature granulocyte % 0.7 % 0-3.0 Immature Gran ulocyte % MELINA ([facility]) lymph # 3.5 10 1.5-5.0 Lymph # MELINA ([facility]) mono # 1.8 10 0.0-0.8 Above high normal [place] # MELINA ([facility]) neutrophils # 6.1 10 1.5-8.5 Neutrophils # MELINA ( [facility]) eos # 0.5 10 0.0-0.5 Eos # MELINA ([facility]) baso # 0.1 10 0.0-0.2 Baso # MELINA ([facility]) ID Date Data Source [id number] 09/13/2020 08:58:00 AM EST MELINA ([facility]) Name Value Range Interpretation Code Description Data Kellen rce(s) Supporting Document(s) CPK creatine phosphokinase 226 U/L 39-308 CPK Creat ine Phosphokinase MELROSE ([facility]) ID Date Data Source [id number] 09/13/2020 08:58:00 AM EST MELINA ([facility]) Name Value Range Interpretation Code Description Data Kellen rce(s) Supporting Document(s) glucose, fasting 81 mg/dL 70-100 Glucose, Fasting AT [facility] ([facility]) creatinine for GFR 0.90 mg/dL 0.70-1.30 Creatinine for GF R MELROSE ([facility]) blood urea nitrogen 17 mg/dL 7-18 Blood Urea Nitro gen MELINA ([facility]) sodium level 137 mEq/L 136-145 Sodium Level MELINA ([facility]) glomerular filtration rate > 60.0 >60 Glomerula r Filtration Rate MELINA ([facility]) chloride level 101 mEq/L 98-107 Chloride Level MELROSE ([facility]) potassium serum 4.5 mEq/L 3.5-5.1 Potassium Serum ATHE NA ([facility]) calcium level 9.6 mg/dL 8.5-10.1 Calcium Level MELROSE ( [facility]) anion gap 6 mEq/L 8-16 Below low normal Anion Gap MELINA ( [facility]) carbon dioxide level 30 mEq/L 21-32 Carbon Dioxide Level MELINA ([facility]) AST/SGOT 25 U/L 7-37 AST/SGOT MELINA ([facility]) ALT/SGPT 80 U/L 12-78 Above high normal ALT/SGPT MELINA ([facility]) bilirubin,total 0.3 mg/dL 0.2-1.0 Bilirubin,total ATHE NA ([facility]) alkaline phosphatase 149 U/L 45-117 Above high normal Alkaline Phosphatase MELINA ([facility]) albumin 3.9 gm/dL 3.2-5.2 Albumin MELINA ([facility]) total protein 7.4 gm/dL 6.4-8.2 Total Protein MELINA ( [facility]) albumin/globulin ratio Albumin/globu moy Ratio MELINA ([facility]) ID Date Data Source [id number] 09/13/2020 08:58:00 AM EST MELINA ([facility]) Name Value Range Interpretation Code Description Data Kellen rce(s) Supporting Document(s) white blood count 12.0 10 4.0-10.0 Above high normal White Blood Count MELINA ([facility]) red blood count 5.08 10 4.30-6.10 Red Blood Count ATHE ([facility]) hemoglobin 14.7 g/dL 13.5-17.5 Hemoglobin MELINA ([facility]) hematocrit 44.6 % 42.0-52.0 Hematocrit MELINA ([facility]) mean corpuscular volume 87.8 fL 80.0-96.0 Mean Corpusc ular Volume MELINA ([facility]) mean corpuscular hemoglobin 28.9 pg 27.0-33.0 Mean Cor puscular Hemoglobin MELINA ([facility]) mean corpuscular HGB conc 33.0 g/dL 32.0-36.5 Mean Corpu scular HGB Conc MELINA ([facility]) red cell distribution width 15.4 % 11.5-14.5 Above high no rmal Red Cell Distribution Width MELINA ([facility]) neutrophils % 50.4 % 36.0-66.0 Neutrophils % MELROSE ( [facility]) platelet count, automated 257 10 150-450 Platelet C ount, Automated MELINA ([facility]) lymph % 28.7 % 24.0-44.0 Lymph % MELROSE ([facility]) mono % 15.1 % 2.0-8.0 Above high normal [place] % MELINA ([facility]) eos % 4.4 % 0.0-3.0 Above high normal Eos % MELROSE ([facility]) baso % 0.7 % 0.0-1.0 Baso % MELROSE ([facility]) nucleated red blood cell % 0.0 % 0-0 Nucleated Red Blood Cell % MELROSE ([facility]) immature granulocyte % 0.7 % 0-3.0 Immature Gran ulocyte % MELROSE ([facility]) lymph # 3.5 10 1.5-5.0 Lymph # MELINA ([facility]) neutrophils # 6.1 10 1.5-8.5 Neutrophils # MELROSE ( [facility]) mono # 1.8 10 0.0-0.8 Above high normal [place] # MELROSE ([facility]) eos # 0.5 10 0.0-0.5 Eos # MELINA ([facility]) baso # 0.1 10 0.0-0.2 Baso # MELINA ([facility]) ID Date Data Source [id number] 09/13/2020 08:58:00 AM EST MELROSE ([facility]) Name Value Range Interpretation Code Description Data Kellen rce(s) Supporting Document(s) CPK creatine phosphokinase 226 U/L 39-308 CPK Creat ine Phosphokinase MELROSE ([facility]) ID Date Data Source [id number] 09/13/2020 08:58:00 AM EST MELROSE ([facility]) Name Value Range Interpretation Code Description Data Kellen rce(s) Supporting Document(s) glucose, fasting 81 mg/dL 70-100 Glucose, Fasting AT [place] ([facility]) blood urea nitrogen 17 mg/dL 7-18 Blood Urea Nitro gen MELINA ([facility]) creatinine for GFR 0.90 mg/dL 0.70-1.30 Creatinine for GF R MELINA ([facility]) sodium level 137 mEq/L 136-145 Sodium Level MELINA ([facility]) glomerular filtration rate > 60.0 >60 Glomerula r Filtration Rate MELINA ([facility]) chloride level 101 mEq/L 98-107 Chloride Level MELROSE ([facility]) potassium serum 4.5 mEq/L 3.5-5.1 Potassium Serum ATHE ([facility]) anion gap 6 mEq/L 8-16 Below low normal Anion Gap MELROSE ( [facility]) carbon dioxide level 30 mEq/L 21-32 Carbon Dioxide Level MELINA ([facility]) calcium level 9.6 mg/dL 8.5-10.1 Calcium Level MELINA ( [facility]) AST/SGOT 25 U/L 7-37 AST/SGOT MELINA ([facility]) ALT/SGPT 80 U/L 12-78 Above high normal ALT/SGPT MELINA ([facility]) alkaline phosphatase 149 U/L 45-117 Above high normal Alkaline Phosphatase MELINA ([facility]) bilirubin,total 0.3 mg/dL 0.2-1.0 Bilirubin,total ATHE ([facility]) albumin 3.9 gm/dL 3.2-5.2 Albumin MELINA ([facility]) total protein 7.4 gm/dL 6.4-8.2 Total Protein MELINA ( [facility]) albumin/globulin ratio Albumin/globu moy Ratio MELINA ([facility]) ID Date Data Source [id number] 09/13/2020 08:58:00 AM EST [facility]) Name Value Range Interpretation Code Description Data Kellen rce(s) Supporting Document(s) red blood count 5.08 10 4.30-6.10 Red Blood Count ATHE NA ([facility]) white blood count 12.0 10 4.0-10.0 Above high normal White Blood Count MELINA ([facility]) mean corpuscular volume 87.8 fL 80.0-96.0 Mean Corpusc ular Volume MELINA ([facility]) hematocrit 44.6 % 42.0-52.0 Hematocrit MELINA ([facility]) hemoglobin 14.7 g/dL 13.5-17.5 Hemoglobin MELINA ([facility]) mean corpuscular HGB conc 33.0 g/dL 32.0-36.5 Mean Corpu scular HGB Conc MELINA ([facility]) mean corpuscular hemoglobin 28.9 pg 27.0-33.0 Mean Cor puscular Hemoglobin MELINA ([facility]) neutrophils % 50.4 % 36.0-66.0 Neutrophils % MELINA ( [facility]) red cell distribution width 15.4 % 11.5-14.5 Above high no rmal Red Cell Distribution Width MELINA ([facility]) platelet count, automated 257 10 150-450 Platelet C ount, Automated MELINA ([facility]) eos % 4.4 % 0.0-3.0 Above high normal Eos % MELINA ([facility]) lymph % 28.7 % 24.0-44.0 Lymph % MELINA ([facility]) mono % 15.1 % 2.0-8.0 Above high normal [place] % MELINA ([facility]) baso % 0.7 % 0.0-1.0 Baso % MELINA ([facility]) nucleated red blood cell % 0.0 % 0-0 Nucleated Red Blood Cell % MELINA ([facility]) immature granulocyte % 0.7 % 0-3.0 Immature Gran ulocyte % MELINA ([facility]) neutrophils # 6.1 10 1.5-8.5 Neutrophils # MELINA ( [facility]) mono # 1.8 10 0.0-0.8 Above high normal [place] # MELINA ([facility]) eos # 0.5 10 0.0-0.5 Eos # MELINA ([facility]) lymph # 3.5 10 1.5-5.0 Lymph # MELINA ([facility]) baso # 0.1 10 0.0-0.2 Baso # MELINA ([facility]) ID Date Data Source [id number] 09/13/2020 08:58:00 AM EST MELINA ([facility]) Name Value Range Interpretation Code Description Data Kellen rce(s) Supporting Document(s) CPK creatine phosphokinase 226 U/L 39-308 CPK Creat ine Phosphokinase MELINA ([facility]) ID Date Data Source [id number] 09/13/2020 08:58:00 AM EST MELINA ([facility]) Name Value Range Interpretation Code Description Data Kellen rce(s) Supporting Document(s) blood urea nitrogen 17 mg/dL 7-18 Blood Urea Nitro gen MELINA ([facility]) glucose, fasting 81 mg/dL 70-100 Glucose, Fasting AT [facility] ([facility]) glomerular filtration rate > 60.0 >60 Glomerula r Filtration Rate MELINA ([facility]) creatinine for GFR 0.90 mg/dL 0.70-1.30 Creatinine for GF R MELINA ([facility]) chloride level 101 mEq/L 98-107 Chloride Level MELINA ([facility]) potassium serum 4.5 mEq/L 3.5-5.1 Potassium Serum ATH NA ([facility]) sodium level 137 mEq/L 136-145 Sodium Level MELINA ([facility]) carbon dioxide level 30 mEq/L 21-32 Carbon Dioxide Level MEILNA ([facility]) calcium level 9.6 mg/dL 8.5-10.1 Calcium Level MELINA ( [facility]) anion gap 6 mEq/L 8-16 Below low normal Anion Gap MELINA ( [facility]) ALT/SGPT 80 U/L 12-78 Above high normal ALT/SGPT MELINA ([facility]) AST/SGOT 25 U/L 7-37 AST/SGOT MELINA ([facility]) alkaline phosphatase 149 U/L 45-117 Above high normal Alkaline Phosphatase MELINA ([facility]) bilirubin,total 0.3 mg/dL 0.2-1.0 Bilirubin,total ATHE NA ([facility]) total protein 7.4 gm/dL 6.4-8.2 Total Protein MELINA ( [facility]) albumin 3.9 gm/dL 3.2-5.2 Albumin MELINA ([facility]) albumin/globulin ratio Albumin/globu moy Ratio MELINA ([facility]) ID Date Data Source [id number] 09/13/2020 08:58:00 AM EST MELINA ([facility]) Name Value Range Interpretation Code Description Data Kellen rce(s) Supporting Document(s) white blood count 12.0 10 4.0-10.0 Above high normal White Blood Count MELINA ([facility]) red blood count 5.08 10 4.30-6.10 Red Blood Count ATHE NA ([facility]) hematocrit 44.6 % 42.0-52.0 Hematocrit MELINA ([facility]) mean corpuscular hemoglobin 28.9 pg 27.0-33.0 Mean Cor puscular Hemoglobin MELINA ([facility]) mean corpuscular volume 87.8 fL 80.0-96.0 Mean Corpusc ular Volume MELINA ([facility]) hemoglobin 14.7 g/dL 13.5-17.5 Hemoglobin MELINA ([facility]) red cell distribution width 15.4 % 11.5-14.5 Above high no rmal Red Cell Distribution Width MELINA ([facility]) platelet count, automated 257 10 150-450 Platelet C ount, Automated MELINA ([facility]) mean corpuscular HGB conc 33.0 g/dL 32.0-36.5 Mean Corpu scular HGB Conc MELINA ([facility]) mono % 15.1 % 2.0-8.0 Above high normal [place] % MELINA ([facility]) lymph % 28.7 % 24.0-44.0 Lymph % MELINA ([facility]) neutrophils % 50.4 % 36.0-66.0 Neutrophils % MELINA ( [facility]) baso % 0.7 % 0.0-1.0 Baso % MELINA ([facility]) eos % 4.4 % 0.0-3.0 Above high normal Eos % MELINA ([facility]) immature granulocyte % 0.7 % 0-3.0 Immature Gran ulocyte % MELINA ([facility]) lymph # 3.5 10 1.5-5.0 Lymph # MELINA ([facility]) neutrophils # 6.1 10 1.5-8.5 Neutrophils # MELROSE ( [facility]) nucleated red blood cell % 0.0 % 0-0 Nucleated Red Blood Cell % MELROSE ([facility]) eos # 0.5 10 0.0-0.5 Eos # MELINA ([facility]) mono # 1.8 10 0.0-0.8 Above high normal [place] # MELINA ([facility]) baso # 0.1 10 0.0-0.2 Baso # MELINA ([facility]) ID Date Data Source [id number] 09/13/2020 08:58:00 AM EST MELROSE ([facility]) Name Value Range Interpretation Code Description Data Kellen rce(s) Supporting Document(s) CPK creatine phosphokinase 226 U/L 39-308 CPK Creat ine Phosphokinase MELROSE ([facility]) ID Date Data Source [id number] 09/13/2020 08:58:00 AM EST MELROSE ([facility]) Name Value Range Interpretation Code Description Data Kellen rce(s) Supporting Document(s) glucose, fasting 81 mg/dL 70-100 Glucose, Fasting AT [facility] ([facility]) blood urea nitrogen 17 mg/dL 7-18 Blood Urea Nitro gen MELROSE ([facility]) creatinine for GFR 0.90 mg/dL 0.70-1.30 Creatinine for GF R MELROSE ([facility]) sodium level 137 mEq/L 136-145 Sodium Level MELINA ([facility]) glomerular filtration rate > 60.0 >60 Glomerula r Filtration Rate MELINA ([facility]) carbon dioxide level 30 mEq/L 21-32 Carbon Dioxide Level MELINA ([facility]) chloride level 101 mEq/L 98-107 Chloride Level MELINA ([facility]) potassium serum 4.5 mEq/L 3.5-5.1 Potassium Serum ATHE ([facility]) calcium level 9.6 mg/dL 8.5-10.1 Calcium Level MELINA ( [facility]) anion gap 6 mEq/L 8-16 Below low normal Anion Gap MELINA ( [facility]) bilirubin,total 0.3 mg/dL 0.2-1.0 Bilirubin,total ATHE ([facility]) ALT/SGPT 80 U/L 12-78 Above high normal ALT/SGPT MELINA ([facility]) alkaline phosphatase 149 U/L 45-117 Above high normal Alkaline Phosphatase MELINA ([facility]) AST/SGOT 25 U/L 7-37 AST/SGOT MELINA ([facility]) total protein 7.4 gm/dL 6.4-8.2 Total Protein MELINA ( [facility]) albumin 3.9 gm/dL 3.2-5.2 Albumin MELINA ([facility]) albumin/globulin ratio Albumin/globu moy Ratio MELINA ([facility]) ID Date Data Source [id number] 09/13/2020 08:58:00 AM EST MELINA ([facility]) Name Value Range Interpretation Code Description Data Kellen rce(s) Supporting Document(s) white blood count 12.0 10 4.0-10.0 Above high normal White Blood Count MELINA ([facility]) hematocrit 44.6 % 42.0-52.0 Hematocrit MELINA ([facility]) hemoglobin 14.7 g/dL 13.5-17.5 Hemoglobin MELINA ([facility]) red blood count 5.08 10 4.30-6.10 Red Blood Count ATHE NA ([facility]) mean corpuscular hemoglobin 28.9 pg 27.0-33.0 Mean Cor puscular Hemoglobin MELINA ([facility]) mean corpuscular HGB conc 33.0 g/dL 32.0-36.5 Mean Corpu scular HGB Conc MELINA ([facility]) mean corpuscular volume 87.8 fL 80.0-96.0 Mean Corpusc ular Volume MELINA ([facility]) red cell distribution width 15.4 % 11.5-14.5 Above high no rmal Red Cell Distribution Width MELINA ([facility]) platelet count, automated 257 10 150-450 Platelet C ount, Automated MELINA ([facility]) neutrophils % 50.4 % 36.0-66.0 Neutrophils % MELINA ( [facility]) lymph % 28.7 % 24.0-44.0 Lymph % MELINA ([facility]) mono % 15.1 % 2.0-8.0 Above high normal [place] % MELINA ([facility]) baso % 0.7 % 0.0-1.0 Baso % MELINA ([facility]) eos % 4.4 % 0.0-3.0 Above high normal Eos % MELINA ([facility]) immature granulocyte % 0.7 % 0-3.0 Immature Gran ulocyte % MELINA ([facility]) neutrophils # 6.1 10 1.5-8.5 Neutrophils # MELINA ( [facility]) nucleated red blood cell % 0.0 % 0-0 Nucleated Red Blood Cell % MELINA ([facility]) lymph # 3.5 10 1.5-5.0 Lymph # MELINA ([facility]) mono # 1.8 10 0.0-0.8 Above high normal [place] # MELINA ([facility]) eos # 0.5 10 0.0-0.5 Eos # MELINA ([facility]) baso # 0.1 10 0.0-0.2 Baso # MELINA ([facility]) ID Date Data Source [id number] 09/13/2020 08:58:00 AM EST MELINA ([facility]) Name Value Range Interpretation Code Description Data Kellen rce(s) Supporting Document(s) CPK creatine phosphokinase 226 U/L 39-308 CPK Creat ine Phosphokinase MELINA ([facility]) ID Date Data Source [id number] 09/13/2020 08:58:00 AM EST MELINA ([facility]) Name Value Range Interpretation Code Description Data Kellen rce(s) Supporting Document(s) glucose, fasting 81 mg/dL 70-100 Glucose, Fasting AT [facility] ([facility]) blood urea nitrogen 17 mg/dL 7-18 Blood Urea Nitro gen MELINA ([facility]) sodium level 137 mEq/L 136-145 Sodium Level MELINA ([facility]) creatinine for GFR 0.90 mg/dL 0.70-1.30 Creatinine for GF R MELINA ([facility]) glomerular filtration rate > 60.0 >60 Glomerula r Filtration Rate MELINA ([facility]) potassium serum 4.5 mEq/L 3.5-5.1 Potassium Serum ATHE ([facility]) carbon dioxide level 30 mEq/L 21-32 Carbon Dioxide Level MELINA ([facility]) chloride level 101 mEq/L 98-107 Chloride Level MELINA ([facility]) calcium level 9.6 mg/dL 8.5-10.1 Calcium Level MELINA ( [facility]) AST/SGOT 25 U/L 7-37 AST/SGOT MELINA ([facility]) anion gap 6 mEq/L 8-16 Below low normal Anion Gap MELINA ( [facility]) ALT/SGPT 80 U/L 12-78 Above high normal ALT/SGPT MELINA ([facility]) bilirubin,total 0.3 mg/dL 0.2-1.0 Bilirubin,total ATHE NA ([facility]) alkaline phosphatase 149 U/L 45-117 Above high normal Alkaline Phosphatase MELINA ([facility]) total protein 7.4 gm/dL 6.4-8.2 Total Protein MELINA ( [facility]) albumin 3.9 gm/dL 3.2-5.2 Albumin MELINA ([facility]) albumin/globulin ratio Albumin/globu moy Ratio MELINA ([facility]) ID Date Data Source [id number] 09/13/2020 08:58:00 AM EST MELINA ([facility]) Name Value Range Interpretation Code Description Data Kellen rce(s) Supporting Document(s) white blood count 12.0 10 4.0-10.0 Above high normal White Blood Count MELINA ([facility]) red blood count 5.08 10 4.30-6.10 Red Blood Count ATHE ([facility]) hemoglobin 14.7 g/dL 13.5-17.5 Hemoglobin MELINA ([facility]) hematocrit 44.6 % 42.0-52.0 Hematocrit MELINA ([facility]) mean corpuscular hemoglobin 28.9 pg 27.0-33.0 Mean Cor puscular Hemoglobin MELINA ([facility]) mean corpuscular HGB conc 33.0 g/dL 32.0-36.5 Mean Corpu scular HGB Conc MELINA ([facility]) mean corpuscular volume 87.8 fL 80.0-96.0 Mean Corpusc ular Volume MELINA ([facility]) neutrophils % 50.4 % 36.0-66.0 Neutrophils % MELINA ( [facility]) red cell distribution width 15.4 % 11.5-14.5 Above high no rmal Red Cell Distribution Width MELINA ([facility]) platelet count, automated 257 10 150-450 Platelet C ount, Automated MELINA ([facility]) mono % 15.1 % 2.0-8.0 Above high normal [place] % MELINA ([facility]) lymph % 28.7 % 24.0-44.0 Lymph % MELINA ([facility]) baso % 0.7 % 0.0-1.0 Baso % MELINA ([facility]) eos % 4.4 % 0.0-3.0 Above high normal Eos % MELINA ([facility]) immature granulocyte % 0.7 % 0-3.0 Immature Gran ulocyte % MELINA ([facility]) nucleated red blood cell % 0.0 % 0-0 Nucleated Red Blood Cell % MELINA ([facility]) mono # 1.8 10 0.0-0.8 Above high normal [place] # MELINA ([facility]) lymph # 3.5 10 1.5-5.0 Lymph # MELINA ([facility]) neutrophils # 6.1 10 1.5-8.5 Neutrophils # MELINA ( [facility]) baso # 0.1 10 0.0-0.2 Baso # MELINA ([facility]) eos # 0.5 10 0.0-0.5 Eos # MELINA ([facility]) ID Date Data Source [id number] 09/13/2020 08:58:00 AM EST MELINA ([facility]) Name Value Range Interpretation Code Description Data Kellen rce(s) Supporting Document(s) CPK creatine phosphokinase 226 U/L 39-308 CPK Creat ine Phosphokinase MELROSE ([facility]) ID Date Data Source [id number] 09/13/2020 08:58:00 AM EST [place]SE ([facility]) Name Value Range Interpretation Code Description Data Kellen rce(s) Supporting Document(s) glucose, fasting 81 mg/dL 70-100 Glucose, Fasting AT [facility] ([facility]) creatinine for GFR 0.90 mg/dL 0.70-1.30 Creatinine for GF R MELROSE ([facility]) blood urea nitrogen 17 mg/dL 7-18 Blood Urea Nitro gen MELINA ([facility]) glomerular filtration rate > 60.0 >60 Glomerula r Filtration Rate MELINA ([facility]) sodium level 137 mEq/L 136-145 Sodium Level MELINA ([facility]) potassium serum 4.5 mEq/L 3.5-5.1 Potassium Serum ATHE NA ([facility]) chloride level 101 mEq/L 98-107 Chloride Level MELINA ([facility]) carbon dioxide level 30 mEq/L 21-32 Carbon Dioxide Level MELINA ([facility]) anion gap 6 mEq/L 8-16 Below low normal Anion Gap MELINA ( [facility]) AST/SGOT 25 U/L 7-37 AST/SGOT MELINA ([facility]) calcium level 9.6 mg/dL 8.5-10.1 Calcium Level MELINA ( [facility]) ALT/SGPT 80 U/L 12-78 Above high normal ALT/SGPT MELINA ([facility]) total protein 7.4 gm/dL 6.4-8.2 Total Protein MELINA ( [facility]) bilirubin,total 0.3 mg/dL 0.2-1.0 Bilirubin,total ATHE NA ([facility]) alkaline phosphatase 149 U/L 45-117 Above high normal Alkaline Phosphatase MELINA ([facility]) albumin 3.9 gm/dL 3.2-5.2 Albumin MELINA ([facility]) albumin/globulin ratio Albumin/globu moy Ratio MELINA ([facility]) ID Date Data Source [id number] 09/13/2020 08:58:00 AM EST MELINA ([facility]) Name Value Range Interpretation Code Description Data Kellen rce(s) Supporting Document(s) white blood count 12.0 10 4.0-10.0 Above high normal White Blood Count MELINA ([facility]) red blood count 5.08 10 4.30-6.10 Red Blood Count ATHE ([facility]) mean corpuscular volume 87.8 fL 80.0-96.0 Mean Corpusc ular Volume MELINA ([facility]) hematocrit 44.6 % 42.0-52.0 Hematocrit MELINA ([facility]) hemoglobin 14.7 g/dL 13.5-17.5 Hemoglobin MELINA ([facility]) mean corpuscular hemoglobin 28.9 pg 27.0-33.0 Mean Cor puscular Hemoglobin MELINA ([facility]) mean corpuscular HGB conc 33.0 g/dL 32.0-36.5 Mean Corpu scular HGB Conc [facility] ([facility] [facility] red cell distribution width 15.4 % 11.5-14.5 Above high no rmal Red Cell Distribution Width MELINA ([facility]) platelet count, automated 257 10 150-450 Platelet C ount, Automated MELINA ([facility]) mono % 15.1 % 2.0-8.0 Above high normal [place] % MELINA ([facility]) lymph % 28.7 % 24.0-44.0 Lymph % [place] ([facility]) neutrophils % 50.4 % 36.0-66.0 Neutrophils % [place] ( [facility]) baso % 0.7 % 0.0-1.0 Baso % [place] ([facility]) eos % 4.4 % 0.0-3.0 Above high normal Eos % [place] ([facility]) immature granulocyte % 0.7 % 0-3.0 Immature Gran ulocyte % [place] ([facility]) neutrophils # 6.1 10 1.5-8.5 Neutrophils # MEL[place]SE ( [facility]) lymph # 3.5 10 1.5-5.0 Lymph # [place] ([facility]) nucleated red blood cell % 0.0 % 0-0 Nucleated Red Blood Cell % MELINA ([facility]) eos # 0.5 10 0.0-0.5 Eos # [place] ([facility]) mono # 1.8 10 0.0-0.8 Above high normal [place] # [place]ELROSE ([facility]) baso # 0.1 10 0.0-0.2 Baso # MELINA ([facility]) ID Date Data Source [id number] 09/13/2020 08:58:00 AM EST [place] ([facility]) Name Value Range Interpretation Code Description Data Kellen rce(s) Supporting Document(s) CPK creatine phosphokinase 226 U/L 39-308 CPK Creat ine Phosphokinase [place]EL[place] ([facility]) ID Date Data Source [id number] 09/13/2020 08:58:00 AM EST MELINA ([facility]) Name Value Range Interpretation Code Description Data Kellen rce(s) Supporting Document(s) glucose, fasting 81 mg/dL 70-100 Glucose, Fasting AT IVELISSE ([facility]) blood urea nitrogen 17 mg/dL 7-18 Blood Urea Nitro gen MELINA ([facility]) creatinine for GFR 0.90 mg/dL 0.70-1.30 Creatinine for GF R MELINA ([facility]) glomerular filtration rate > 60.0 >60 Glomerula r Filtration Rate MELINA ([facility]) sodium level 137 mEq/L 136-145 Sodium Level MELINA ([facility]) potassium serum 4.5 mEq/L 3.5-5.1 Potassium Serum ATHE NA ([facility]) chloride level 101 mEq/L 98-107 Chloride Level MELINA ([facility]) carbon dioxide level 30 mEq/L 21-32 Carbon Dioxide Level MELINA ([facility]) anion gap 6 mEq/L 8-16 Below low normal Anion Gap MELINA ( [facility]) calcium level 9.6 mg/dL 8.5-10.1 Calcium Level MELIAN ( [facility]) alkaline phosphatase 149 U/L 45-117 Above high normal Alkaline Phosphatase MELINA ([facility]) ALT/SGPT 80 U/L 12-78 Above high normal ALT/SGPT MELINA ([facility]) AST/SGOT 25 U/L 7-37 AST/SGOT MELINA ([facility]) albumin 3.9 gm/dL 3.2-5.2 Albumin MELINA ([facility]) bilirubin,total 0.3 mg/dL 0.2-1.0 Bilirubin,total ATHE ([facility]) total protein 7.4 gm/dL 6.4-8.2 Total Protein MELINA ( [facility]) albumin/globulin ratio Albumin/globu moy Ratio MELINA ([facility]) ID Date Data Source [id number] 09/13/2020 08:58:00 AM EST [place] ([facility]) Name Value Range Interpretation Code Description Data Kellen rce(s) Supporting Document(s) white blood count 12.0 10 4.0-10.0 Above high normal White Blood Count MELINA ([facility]) red blood count 5.08 10 4.30-6.10 Red Blood Count ATHE ([facility]) hemoglobin 14.7 g/dL 13.5-17.5 Hemoglobin MELINA ([facility]) hematocrit 44.6 % 42.0-52.0 Hematocrit MELINA ([facility]) mean corpuscular volume 87.8 fL 80.0-96.0 Mean Corpusc ular Volume MELINA ([facility]) mean corpuscular hemoglobin 28.9 pg 27.0-33.0 Mean Cor puscular Hemoglobin MELINA ([facility]) mean corpuscular HGB conc 33.0 g/dL 32.0-36.5 Mean Corpu scular HGB Conc MELINA ([facility]) red cell distribution width 15.4 % 11.5-14.5 Above high no rmal Red Cell Distribution Width [place] ([facility]) platelet count, automated 257 10 150-450 Platelet C ount, Automated [place] ([facility]) mono % 15.1 % 2.0-8.0 Above high normal [place] % [place] ([facility]) neutrophils % 50.4 % 36.0-66.0 Neutrophils % [place] ( [facility]) lymph % 28.7 % 24.0-44.0 Lymph % MELINA ([facility]) immature granulocyte % 0.7 % 0-3.0 Immature Gran ulocyte % MELINA ([facility]) baso % 0.7 % 0.0-1.0 Baso % [place] ([facility]) eos % 4.4 % 0.0-3.0 Above high normal Eos % [place] ([facility]) neutrophils # 6.1 10 1.5-8.5 Neutrophils # [place] ( [facility]) lymph # 3.5 10 1.5-5.0 Lymph # MELINA ([facility]) nucleated red blood cell % 0.0 % 0-0 Nucleated Red Blood Cell % MELINA ([facility]) mono # 1.8 10 0.0-0.8 Above high normal [place] # MELINA ([facility]) eos # 0.5 10 0.0-0.5 Eos # MELINA ([facility]) baso # 0.1 10 0.0-0.2 Baso # MELINA ([facility]) ID Date Data Source [id number] 09/13/2020 08:58:00 AM EST MELINA ([facility]) Name Value Range Interpretation Code Description Data Kellen rce(s) Supporting Document(s) CPK creatine phosphokinase 226 U/L 39-308 CPK Creat ine Phosphokinase [place] ([facility]) ID Date Data Source [id number] 09/13/2020 08:58:00 AM EST MELINA ([facility]) Name Value Range Interpretation Code Description Data Kellen rce(s) Supporting Document(s) glucose, fasting 81 mg/dL 70-100 Glucose, Fasting AT [facility]) glomerular filtration rate > 60.0 >60 Glomerula r Filtration Rate MELINA ([facility]) creatinine for GFR 0.90 mg/dL 0.70-1.30 Creatinine for GF R M[place]SE ([facility]) blood urea nitrogen 17 mg/dL 7-18 Blood Urea Nitro gen MELINA ([facility]) sodium level 137 mEq/L 136-145 Sodium Level MELINA ([facility]) potassium serum 4.5 mEq/L 3.5-5.1 Potassium Serum ATHE NA ([facility]) carbon dioxide level 30 mEq/L 21-32 Carbon Dioxide Level [place] ([facility]) anion gap 6 mEq/L 8-16 Below low normal Anion Gap MELINA ( [facility]) chloride level 101 mEq/L 98-107 Chloride Level [place]SE ([facility]) calcium level 9.6 mg/dL 8.5-10.1 Calcium Level MELINA ( [facility]) AST/SGOT 25 U/L 7-37 AST/SGOT MELINA ([facility]) ALT/SGPT 80 U/L 12-78 Above high normal ALT/SGPT MELINA ([facility]) total protein 7.4 gm/dL 6.4-8.2 Total Protein MELINA ( [facility]) bilirubin,total 0.3 mg/dL 0.2-1.0 Bilirubin,total ATHE NA ([facility]) alkaline phosphatase 149 U/L 45-117 Above high normal Alkaline Phosphatase MELINA ([facility]) albumin/globulin ratio Albumin/globu moy Ratio MELINA ([facility]) albumin 3.9 gm/dL 3.2-5.2 Albumin MELINA ([facility]) ID Date Data Source [id number] 09/13/2020 08:58:00 AM EST MELINA ([facility]) Name Value Range Interpretation Code Description Data Kellen rce(s) Supporting Document(s) hemoglobin 14.7 g/dL 13.5-17.5 Hemoglobin MELINA ([facility]) white blood count 12.0 10 4.0-10.0 Above high normal White Blood Count MELINA ([facility]) red blood count 5.08 10 4.30-6.10 Red Blood Count ATHE ([facility]) mean corpuscular volume 87.8 fL 80.0-96.0 Mean Corpusc ular Volume MELINA ([facility]) mean corpuscular hemoglobin 28.9 pg 27.0-33.0 Mean Cor puscular Hemoglobin MELINA ([facility]) hematocrit 44.6 % 42.0-52.0 Hematocrit MELINA ([facility]) red cell distribution width 15.4 % 11.5-14.5 Above high no rmal Red Cell Distribution Width MELINA ([facility]) mean corpuscular HGB conc 33.0 g/dL 32.0-36.5 Mean Corpu scular HGB Conc MELINA ([facility]) platelet count, automated 257 10 150-450 Platelet C ount, Automated MELINA ([facility]) lymph % 28.7 % 24.0-44.0 Lymph % MELINA ([facility]) eos % 4.4 % 0.0-3.0 Above high normal Eos % MELINA ([facility]) neutrophils % 50.4 % 36.0-66.0 Neutrophils % MELINA ( [facility]) mono % 15.1 % 2.0-8.0 Above high normal [place] % MELINA ([facility]) immature granulocyte % 0.7 % 0-3.0 Immature Gran ulocyte % MELINA ([facility]) nucleated red blood cell % 0.0 % 0-0 Nucleated Red Blood Cell % MELINA ([facility]) baso % 0.7 % 0.0-1.0 Baso % MELINA ([facility]) mono # 1.8 10 0.0-0.8 Above high normal [place] # MELINA ([facility]) eos # 0.5 10 0.0-0.5 Eos # MELINA ([facility]) lymph # 3.5 10 1.5-5.0 Lymph # MELINA ([facility]) neutrophils # 6.1 10 1.5-8.5 Neutrophils # MELINA ( [facility]) baso # 0.1 10 0.0-0.2 Baso # MELINA ([facility]) ID Date Data Source [id number] 09/13/2020 08:58:00 AM EST MELINA ([facility]) Name Value Range Interpretation Code Description Data Kellen rce(s) Supporting Document(s) CPK creatine phosphokinase 226 U/L 39-308 CPK Creat ine Phosphokinase MELINA ([facility]) ID Date Data Source [id number] 09/13/2020 08:58:00 AM EST MELINA ([facility]) Name Value Range Interpretation Code Description Data Kellen rce(s) Supporting Document(s) blood urea nitrogen 17 mg/dL 7-18 Blood Urea Nitro gen MELINA ([facility]) glucose, fasting 81 mg/dL 70-100 Glucose, Fasting AT IVELISSE [facility]) sodium level 137 mEq/L 136-145 Sodium Level MELINA ([facility]) glomerular filtration rate > 60.0 >60 Glomerula r Filtration Rate MELINA ([facility]) creatinine for GFR 0.90 mg/dL 0.70-1.30 Creatinine for GF R MELINA ([facility]) anion gap 6 mEq/L 8-16 Below low normal Anion Gap MELINA ( [facility]) potassium serum 4.5 mEq/L 3.5-5.1 Potassium Serum ATHE ([facility]) carbon dioxide level 30 mEq/L 21-32 Carbon Dioxide Level MELINA ([facility]) chloride level 101 mEq/L 98-107 Chloride Level MELINA ([facility]) AST/SGOT 25 U/L 7-37 AST/SGOT MELINA ([facility]) ALT/SGPT 80 U/L 12-78 Above high normal ALT/SGPT MELINA ([facility]) calcium level 9.6 mg/dL 8.5-10.1 Calcium Level MELINA ( [facility]) alkaline phosphatase 149 U/L 45-117 Above high normal Alkaline Phosphatase MELINA ([facility]) total protein 7.4 gm/dL 6.4-8.2 Total Protein MELINA ( [facility]) bilirubin,total 0.3 mg/dL 0.2-1.0 Bilirubin,total ATHE ([facility]) albumin/globulin ratio Albumin/globu moy Ratio MELINA ([facility]) albumin 3.9 gm/dL 3.2-5.2 Albumin MELINA ([facility]) ID Date Data Source [id number] 09/06/2020 09:47:00 AM EST MELINA ([facility]) Name Value Range Interpretation Code Description Data Kellen rce(s) Supporting Document(s) thyroid stimulating hormone 1.710 uIU/mL 0.358-3.740 [facility] Date Data Source [id number] 09/06/2020 09:47:00 AM EST MELINA ([facility]) Name Value Range Interpretation Code Description Data Kellen rce(s) Supporting Document(s) CPK creatine phosphokinase 318 U/L 39-308 Above high nor mal CPK Creatine Phosphokinase [place]EL[place]SE ([facility]) ID Date Data Source [id number] 09/06/2020 09:47:00 AM EST MELINA ([facility]) Name Value Range Interpretation Code Description Data Kellen rce(s) Supporting Document(s) glucose, fasting 82 mg/dL 70-100 Glucose, Fasting AT [facility] ([facility]) glomerular filtration rate > 60.0 >60 Glomerula r Filtration Rate MELINA ([facility]) creatinine for GFR 0.82 mg/dL 0.70-1.30 Creatinine for GF R [place]EL[place]SE ([facility]) blood urea nitrogen 24 mg/dL 7-18 Above high normal Blood Ure a Nitrogen MELINA ([facility]) sodium level 137 mEq/L 136-145 Sodium Level MELINA ([facility]) potassium serum 5.1 mEq/L 3.5-5.1 Potassium Serum ATHE ([facility]) chloride level 102 mEq/L 98-107 Chloride Level MELINA ([facility]) carbon dioxide level 31 mEq/L 21-32 Carbon Dioxide Level MELINA ([facility]) ALT/SGPT 63 U/L 12-78 ALT/SGPT MELINA ([facility]) calcium level 9.3 mg/dL 8.5-10.1 Calcium Level MELINA ( [facility]) AST/SGOT 29 U/L 7-37 AST/SGOT MELINA ([facility]) anion gap 4 mEq/L 8-16 Below low normal Anion Gap MELINA ( [facility]) alkaline phosphatase 121 U/L 45-117 Above high normal Alkaline Phosphatase MELINA ([facility]) bilirubin,total 0.3 mg/dL 0.2-1.0 Bilirubin,total ATHE ([facility]) total protein 6.8 gm/dL 6.4-8.2 Total Protein MELINA ( [facility]) albumin/globulin ratio Albumin/globu moy Ratio MELINA ([facility]) albumin 3.6 gm/dL 3.2-5.2 Albumin MELINA ([facility]) ID Date Data Source [id number] 09/06/2020 09:47:00 AM EST MELINA ([facility]) Name Value Range Interpretation Code Description Data Kellen rce(s) Supporting Document(s) white blood count 12.7 10 4.0-10.0 Above high normal White Blood Count MELINA ([facility]) red blood count 5.04 10 4.30-6.10 Red Blood Count ATHE ([facility]) hemoglobin 14.7 g/dL 13.5-17.5 Hemoglobin MELINA ([facility]) hematocrit 45.8 % 42.0-52.0 Hematocrit MELINA ([facility]) mean corpuscular hemoglobin 29.2 pg 27.0-33.0 Mean Cor puscular Hemoglobin MELINA ([facility]) mean corpuscular volume 90.9 fL 80.0-96.0 Mean Corpusc ular Volume MELINA ([facility]) mean corpuscular HGB conc 32.1 g/dL 32.0-36.5 Mean Corpu scular HGB Conc MELINA ([facility]) neutrophils % 59.1 % 36.0-66.0 Neutrophils % MELINA ( [facility]) red cell distribution width 16.7 % 11.5-14.5 Above high no rmal Red Cell Distribution Width MELINA ([facility]) platelet count, automated 242 10 150-450 Platelet C ount, Automated MELINA ([facility]) eos % 4.3 % 0.0-3.0 Above high normal Eos % MELINA ([facility]) lymph % 21.3 % 24.0-44.0 Below low normal Lymph % MELINA ( [facility]) mono % 14.2 % 2.0-8.0 Above high normal [place] % MELINA ([facility]) nucleated red blood cell % 0.0 % 0-0 Nucleated Red Blood Cell % MELINA ([facility]) immature granulocyte % 0.4 % 0-3.0 Immature Gran ulocyte % MELINA ([facility]) baso % 0.7 % 0.0-1.0 Baso % MELINA ([facility]) eos # 0.5 10 0.0-0.5 Eos # MELINA ([facility]) mono # 1.8 10 0.0-0.8 Above high normal [place] # MELINA ([facility]) lymph # 2.7 10 1.5-5.0 Lymph # MELINA ([facility]) neutrophils # 7.5 10 1.5-8.5 Neutrophils # [place] ( [facility]) baso # 0.1 10 0.0-0.2 Baso # MELINA ([facility]) ID Date Data Source [id number] 09/06/2020 09:47:00 AM EST MELINA ([facility]) Name Value Range Interpretation Code Description Data Kellen rce(s) Supporting Document(s) thyroid stimulating hormone 1.710 uIU/mL 0.358-3.740 Thyroid Stimulating Hormone [place]SE ([facility]) ID Date Data Source [id number] 09/06/2020 09:47:00 AM EST [place] ([facility]) Name Value Range Interpretation Code Description Data Kellen rce(s) Supporting Document(s) CPK creatine phosphokinase 318 U/L 39-308 Above high nor mal CPK Creatine Phosphokinase [place] ([facility]) ID Date Data Source [id number] 09/06/2020 09:47:00 AM EST MELINA ([facility]) Name Value Range Interpretation Code Description Data Kellen rce(s) Supporting Document(s) glucose, fasting 82 mg/dL 70-100 Glucose, Fasting AT [facility] ([facility]) blood urea nitrogen 24 mg/dL 7-18 Above high normal Blood Ure a Nitrogen MELINA ([facility]) creatinine for GFR 0.82 mg/dL 0.70-1.30 Creatinine for GF R MELINA ([facility]) glomerular filtration rate > 60.0 >60 Glomerula r Filtration Rate MELINA ([facility]) sodium level 137 mEq/L 136-145 Sodium Level MELINA ([facility]) potassium serum 5.1 mEq/L 3.5-5.1 Potassium Serum ATHE NA ([facility]) chloride level 102 mEq/L 98-107 Chloride Level MELINA ([facility]) anion gap 4 mEq/L 8-16 Below low normal Anion Gap MELINA ( [facility]) carbon dioxide level 31 mEq/L 21-32 Carbon Dioxide Level MELINA ([facility]) calcium level 9.3 mg/dL 8.5-10.1 Calcium Level MELINA ( [facility]) AST/SGOT 29 U/L 7-37 AST/SGOT MELINA ([facility]) ALT/SGPT 63 U/L 12-78 ALT/SGPT MELINA ([facility]) alkaline phosphatase 121 U/L 45-117 Above high normal Alkaline Phosphatase MELINA ([facility]) bilirubin,total 0.3 mg/dL 0.2-1.0 Bilirubin,total ATHE ([facility]) albumin 3.6 gm/dL 3.2-5.2 Albumin MELINA ([facility]) total protein 6.8 gm/dL 6.4-8.2 Total Protein MELINA ( [facility]) albumin/globulin ratio Albumin/globu moy Ratio MELINA ([facility]) ID Date Data Source [id number] 09/06/2020 09:47:00 AM EST MELINA ([facility]) Name Value Range Interpretation Code Description Data Kellen rce(s) Supporting Document(s) red blood count 5.04 10 4.30-6.10 Red Blood Count ATHE ([facility]) white blood count 12.7 10 4.0-10.0 Above high normal White Blood Count MELINA ([facility]) hematocrit 45.8 % 42.0-52.0 Hematocrit MELINA ([facility]) hemoglobin 14.7 g/dL 13.5-17.5 Hemoglobin MELINA ([facility]) mean corpuscular hemoglobin 29.2 pg 27.0-33.0 Mean Cor puscular Hemoglobin MELINA ([facility]) mean corpuscular volume 90.9 fL 80.0-96.0 Mean Corpusc ular Volume MELINA ([facility]) mean corpuscular HGB conc 32.1 g/dL 32.0-36.5 Mean Corpu scular HGB Conc MELINA ([facility]) red cell distribution width 16.7 % 11.5-14.5 Above high no rmal Red Cell Distribution Width [place] ([facility]) platelet count, automated 242 10 150-450 Platelet C ount, Automated MELINA ([facility]) neutrophils % 59.1 % 36.0-66.0 Neutrophils % [place] ( [facility]) lymph % 21.3 % 24.0-44.0 Below low normal Lymph % MELINA ( [facility]) mono % 14.2 % 2.0-8.0 Above high normal [place] % [place]SE ([facility]) eos % 4.3 % 0.0-3.0 Above high normal Eos % [place] ([facility]) baso % 0.7 % 0.0-1.0 Baso % [place] ([facility]) immature granulocyte % 0.4 % 0-3.0 Immature Gran ulocyte % [place] ([facility]) neutrophils # 7.5 10 1.5-8.5 Neutrophils # [place] ( [facility]) nucleated red blood cell % 0.0 % 0-0 Nucleated Red Blood Cell % MELINA ([facility]) mono # 1.8 10 0.0-0.8 Above high normal [place] # MEL[place]SE ([facility]) lymph # 2.7 10 1.5-5.0 Lymph # MELINA ([facility]) eos # 0.5 10 0.0-0.5 Eos # MELINA ([facility]) baso # 0.1 10 0.0-0.2 Baso # MELINA ([facility]) ID Date Data Source [id number] 09/06/2020 09:47:00 AM EST MELINA ([facility]) Name Value Range Interpretation Code Description Data Kellen rce(s) Supporting Document(s) thyroid stimulating hormone 1.710 uIU/mL 0.358-3.740 Thyroid Stimulating Hormone MELINA ([facility]) ID Date Data Source [id number] 09/06/2020 09:47:00 AM EST MELINA ([facility]) Name Value Range Interpretation Code Description Data Kellen rce(s) Supporting Document(s) CPK creatine phosphokinase 318 U/L 39-308 Above high nor mal CPK Creatine Phosphokinase [place]SE ([facility]) ID Date Data Source [id number] 09/06/2020 09:47:00 AM EST MELINA ([facility]) Name Value Range Interpretation Code Description Data Kellen rce(s) Supporting Document(s) blood urea nitrogen 24 mg/dL 7-18 Above high normal Blood Ure a Nitrogen MELINA ([facility]) glucose, fasting 82 mg/dL 70-100 Glucose, Fasting AT [facility]) sodium level 137 mEq/L 136-145 Sodium Level MELINA ([facility]) glomerular filtration rate > 60.0 >60 Glomerula r Filtration Rate MELINA ([facility]) potassium serum 5.1 mEq/L 3.5-5.1 Potassium Serum ATHE NA ([facility]) creatinine for GFR 0.82 mg/dL 0.70-1.30 Creatinine for GF R MELINA ([facility]) carbon dioxide level 31 mEq/L 21-32 Carbon Dioxide Level MELINA ([facility]) calcium level 9.3 mg/dL 8.5-10.1 Calcium Level MELINA ( [facility]) anion gap 4 mEq/L 8-16 Below low normal Anion Gap MELINA ( [facility]) chloride level 102 mEq/L 98-107 Chloride Level MELINA ([facility]) ALT/SGPT 63 U/L 12-78 ALT/SGPT MELINA ([facility]) AST/SGOT 29 U/L 7-37 AST/SGOT MELINA ([facility]) bilirubin,total 0.3 mg/dL 0.2-1.0 Bilirubin,total ATHE NA ([facility]) total protein 6.8 gm/dL 6.4-8.2 Total Protein MELINA ( [facility]) alkaline phosphatase 121 U/L 45-117 Above high normal Alkaline Phosphatase MELINA ([facility]) albumin 3.6 gm/dL 3.2-5.2 Albumin MELINA ([facility]) albumin/globulin ratio Albumin/globu moy Ratio MELINA ([facility]) ID Date Data Source [id number] 09/06/2020 09:47:00 AM EST MELINA ([facility]) Name Value Range Interpretation Code Description Data Kellen rce(s) Supporting Document(s) white blood count 12.7 10 4.0-10.0 Above high normal White Blood Count MELINA ([facility]) hemoglobin 14.7 g/dL 13.5-17.5 Hemoglobin MELINA ([facility]) red blood count 5.04 10 4.30-6.10 Red Blood Count ATHE ([facility]) hematocrit 45.8 % 42.0-52.0 Hematocrit MELINA ([facility]) mean corpuscular volume 90.9 fL 80.0-96.0 Mean Corpusc ular Volume MELINA ([facility]) mean corpuscular hemoglobin 29.2 pg 27.0-33.0 Mean Cor puscular Hemoglobin MELINA ([facility]) red cell distribution width 16.7 % 11.5-14.5 Above high no rmal Red Cell Distribution Width MELINA ([facility]) mean corpuscular HGB conc 32.1 g/dL 32.0-36.5 Mean Corpu scular HGB Conc MELINA ([facility]) platelet count, automated 242 10 150-450 Platelet C ount, Automated MELINA ([facility]) lymph % 21.3 % 24.0-44.0 Below low normal Lymph % MELINA ( [facility]) mono % 14.2 % 2.0-8.0 Above high normal [place] % MELINA ([facility]) neutrophils % 59.1 % 36.0-66.0 Neutrophils % MELINA ( [facility]) eos % 4.3 % 0.0-3.0 Above high normal Eos % MELINA ([facility]) nucleated red blood cell % 0.0 % 0-0 Nucleated Red Blood Cell % MELINA ([facility]) baso % 0.7 % 0.0-1.0 Baso % MELROSE ([facility]) immature granulocyte % 0.4 % 0-3.0 Immature Gran ulocyte % M[place]ROSE ([facility]) lymph # 2.7 10 1.5-5.0 Lymph # MELINA ([facility]) eos # 0.5 10 0.0-0.5 Eos # MELINA ([facility]) mono # 1.8 10 0.0-0.8 Above high normal [place] # MELROSE ([facility]) neutrophils # 7.5 10 1.5-8.5 Neutrophils # MELINA ( [facility]) baso # 0.1 10 0.0-0.2 Baso # MELINA ([facility]) ID Date Data Source [id number] 09/06/2020 09:47:00 AM EST [place] ([facility]) Name Value Range Interpretation Code Description Data Kellen rce(s) Supporting Document(s) thyroid stimulating hormone 1.710 uIU/mL 0.358-3.740 Thyroid Stimulating Hormone [place]EL[place] ([facility]) ID Date Data Source [id number] 09/06/2020 09:47:00 AM EST [place] ([facility]) Name Value Range Interpretation Code Description Data Kellen rce(s) Supporting Document(s) CPK creatine phosphokinase 318 U/L 39-308 Above high nor mal CPK Creatine Phosphokinase MELINA ([facility]) ID Date Data Source [id number] 09/06/2020 09:47:00 AM EST MELINA ([facility]) Name Value Range Interpretation Code Description Data Kellen rce(s) Supporting Document(s) creatinine for GFR 0.82 mg/dL 0.70-1.30 Creatinine for GF R MELINA ([facility]) glucose, fasting 82 mg/dL 70-100 Glucose, Fasting AT [facility] ([facility]) glomerular filtration rate > 60.0 >60 Glomerula r Filtration Rate MELINA ([facility]) blood urea nitrogen 24 mg/dL 7-18 Above high normal Blood Ure a Nitrogen MELINA ([facility]) carbon dioxide level 31 mEq/L 21-32 Carbon Dioxide Level MELINA ([facility]) chloride level 102 mEq/L 98-107 Chloride Level [place] ([facility]) potassium serum 5.1 mEq/L 3.5-5.1 Potassium Serum ATHE ([facility]) anion gap 4 mEq/L 8-16 Below low normal Anion Gap MELINA ( [facility]) sodium level 137 mEq/L 136-145 Sodium Level MELINA ([facility]) AST/SGOT 29 U/L 7-37 AST/SGOT MELINA ([facility]) alkaline phosphatase 121 U/L 45-117 Above high normal Alkaline Phosphatase MELINA ([facility]) ALT/SGPT 63 U/L 12-78 ALT/SGPT MELINA ([facility]) calcium level 9.3 mg/dL 8.5-10.1 Calcium Level MELINA ( [facility]) albumin 3.6 gm/dL 3.2-5.2 Albumin MELINA ([facility]) bilirubin,total 0.3 mg/dL 0.2-1.0 Bilirubin,total ATHE NA ([facility]) albumin/globulin ratio Albumin/globu moy Ratio MELINA ([facility]) total protein 6.8 gm/dL 6.4-8.2 Total Protein MELINA ( [facility]) ID Date Data Source [id number] 09/06/2020 09:47:00 AM EST [place] ([facility]) Name Value Range Interpretation Code Description Data Kellen rce(s) Supporting Document(s) white blood count 12.7 10 4.0-10.0 Above high normal White Blood Count MELINA ([facility]) hematocrit 45.8 % 42.0-52.0 Hematocrit MELINA ([facility]) hemoglobin 14.7 g/dL 13.5-17.5 Hemoglobin MELINA ([facility]) red blood count 5.04 10 4.30-6.10 Red Blood Count ATHE NA ([facility]) mean corpuscular HGB conc 32.1 g/dL 32.0-36.5 Mean Corpu scular HGB Conc MELINA ([facility]) mean corpuscular hemoglobin 29.2 pg 27.0-33.0 Mean Cor puscular Hemoglobin MELINA ([facility]) mean corpuscular volume 90.9 fL 80.0-96.0 Mean Corpusc ular Volume [place] ([facility]) red cell distribution width 16.7 % 11.5-14.5 Above high no rmal Red Cell Distribution Width MELINA ([facility]) lymph % 21.3 % 24.0-44.0 Below low normal Lymph % MELINA ( [facility]) platelet count, automated 242 10 150-450 Platelet C ount, Automated MELINA ([facility]) mono % 14.2 % 2.0-8.0 Above high normal [place] % MELINA ([facility]) neutrophils % 59.1 % 36.0-66.0 Neutrophils % MELINA ( [facility]) eos % 4.3 % 0.0-3.0 Above high normal Eos % MELINA ([facility]) nucleated red blood cell % 0.0 % 0-0 Nucleated Red Blood Cell % MELINA ([facility]) immature granulocyte % 0.4 % 0-3.0 Immature Gran ulocyte % MELINA ([facility]) baso % 0.7 % 0.0-1.0 Baso % MELINA ([facility]) neutrophils # 7.5 10 1.5-8.5 Neutrophils # MELINA ( [facility]) eos # 0.5 10 0.0-0.5 Eos # MELINA ([facility]) lymph # 2.7 10 1.5-5.0 Lymph # MELINA ([facility]) baso # 0.1 10 0.0-0.2 Baso # MELINA ([facility]) mono # 1.8 10 0.0-0.8 Above high normal [place] # MELINA ([facility]) ID Date Data Source [id number] 09/06/2020 09:47:00 AM EST MELINA ([facility]) Name Value Range Interpretation Code Description Data Kellen rce(s) Supporting Document(s) thyroid stimulating hormone 1.710 uIU/mL 0.358-3.740 Thyroid Stimulating Hormone MELINA ([facility]) ID Date Data Source [id number] 09/06/2020 09:47:00 AM EST MELINA ([facility]) Name Value Range Interpretation Code Description Data Kellen rce(s) Supporting Document(s) CPK creatine phosphokinase 318 U/L 39-308 Above high nor mal CPK Creatine Phosphokinase [place] ([facility]) ID Date Data Source [id number] 09/06/2020 09:47:00 AM EST MELINA ([facility]) Name Value Range Interpretation Code Description Data Kellen rce(s) Supporting Document(s) blood urea nitrogen 24 mg/dL 7-18 Above high normal Blood Ure a Nitrogen MELINA ([facility]) glucose, fasting 82 mg/dL 70-100 Glucose, Fasting AT [facility] ([facility]) potassium serum 5.1 mEq/L 3.5-5.1 Potassium Serum ATHE NA ([facility]) glomerular filtration rate > 60.0 >60 Glomerula r Filtration Rate MELINA ([facility]) sodium level 137 mEq/L 136-145 Sodium Level MELINA ([facility]) creatinine for GFR 0.82 mg/dL 0.70-1.30 Creatinine for GF R MELINA ([facility]) chloride level 102 mEq/L 98-107 Chloride Level MELINA ([facility]) carbon dioxide level 31 mEq/L 21-32 Carbon Dioxide Level MELINA ([facility]) anion gap 4 mEq/L 8-16 Below low normal Anion Gap MELINA ( [facility]) calcium level 9.3 mg/dL 8.5-10.1 Calcium Level MELINA ( [facility]) ALT/SGPT 63 U/L 12-78 ALT/SGPT MELINA ([facility]) AST/SGOT 29 U/L 7-37 AST/SGOT MELINA ([facility]) alkaline phosphatase 121 U/L 45-117 Above high normal Alkaline Phosphatase MELINA ([facility]) bilirubin,total 0.3 mg/dL 0.2-1.0 Bilirubin,total ATHE ([facility]) total protein 6.8 gm/dL 6.4-8.2 Total Protein MELINA ( [facility]) albumin 3.6 gm/dL 3.2-5.2 Albumin MELINA ([facility]) albumin/globulin ratio Albumin/globu moy Ratio MELINA ([facility]) ID Date Data Source [id number] 09/06/2020 09:47:00 AM EST MELINA ([facility]) Name Value Range Interpretation Code Description Data Kellen rce(s) Supporting Document(s) white blood count 12.7 10 4.0-10.0 Above high normal White Blood Count MELINA ([facility]) red blood count 5.04 10 4.30-6.10 Red Blood Count ATHE NA ([facility]) hemoglobin 14.7 g/dL 13.5-17.5 Hemoglobin MELINA ([facility]) hematocrit 45.8 % 42.0-52.0 Hematocrit MELINA ([facility]) mean corpuscular hemoglobin 29.2 pg 27.0-33.0 Mean Cor puscular Hemoglobin MELINA ([facility]) mean corpuscular HGB conc 32.1 g/dL 32.0-36.5 Mean Corpu scular HGB Conc MELINA ([facility]) mean corpuscular volume 90.9 fL 80.0-96.0 Mean Corpusc ular Volume MELINA ([facility]) platelet count, automated 242 10 150-450 Platelet C ount, Automated MELINA ([facility]) red cell distribution width 16.7 % 11.5-14.5 Above high no rmal Red Cell Distribution Width MELINA ([facility]) neutrophils % 59.1 % 36.0-66.0 Neutrophils % MELROSE ( [facility]) eos % 4.3 % 0.0-3.0 Above high normal Eos % MEL[place]SE ([facility]) lymph % 21.3 % 24.0-44.0 Below low normal Lymph % MELROSE ( [facility]) mono % 14.2 % 2.0-8.0 Above high normal [place] % MELINA ([facility]) baso % 0.7 % 0.0-1.0 Baso % MELINA ([facility]) immature granulocyte % 0.4 % 0-3.0 Immature Gran ulocyte % MELINA ([facility]) neutrophils # 7.5 10 1.5-8.5 Neutrophils # MEL[place]SE ( [facility]) nucleated red blood cell % 0.0 % 0-0 Nucleated Red Blood Cell % MELINA ([facility]) lymph # 2.7 10 1.5-5.0 Lymph # MELINA ([facility]) mono # 1.8 10 0.0-0.8 Above high normal [place] # MELINA ([facility]) eos # 0.5 10 0.0-0.5 Eos # MELINA ([facility]) baso # 0.1 10 0.0-0.2 Baso # MELINA ([facility]) ID Date Data Source [id number] 09/06/2020 09:47:00 AM EST [place] ([facility]) Name Value Range Interpretation Code Description Data Kellen rce(s) Supporting Document(s) thyroid stimulating hormone 1.710 uIU/mL 0.358-3.740 Thyroid Stimulating Hormone MELINA ([facility]) ID Date Data Source [id number] 09/06/2020 09:47:00 AM EST MELINA ([facility]) Name Value Range Interpretation Code Description Data Kellen rce(s) Supporting Document(s) CPK creatine phosphokinase 318 U/L 39-308 Above high nor mal CPK Creatine Phosphokinase MELINA ([facility]) ID Date Data Source [id number] 09/06/2020 09:47:00 AM EST MELINA ([facility]) Name Value Range Interpretation Code Description Data Kellen rce(s) Supporting Document(s) blood urea nitrogen 24 mg/dL 7-18 Above high normal Blood Ure a Nitrogen MELINA ([facility]) creatinine for GFR 0.82 mg/dL 0.70-1.30 Creatinine for GF R MELINA ([facility]) glucose, fasting 82 mg/dL 70-100 Glucose, Fasting AT [facility]) glomerular filtration rate > 60.0 >60 Glomerula r Filtration Rate MELINA ([facility]) chloride level 102 mEq/L 98-107 Chloride Level MELINA ([facility]) potassium serum 5.1 mEq/L 3.5-5.1 Potassium Serum ATHE NA ([facility]) carbon dioxide level 31 mEq/L 21-32 Carbon Dioxide Level MELINA ([facility]) sodium level 137 mEq/L 136-145 Sodium Level MELINA ([facility]) ALT/SGPT 63 U/L 12-78 ALT/SGPT MELINA ([facility]) AST/SGOT 29 U/L 7-37 AST/SGOT MELINA ([facility]) calcium level 9.3 mg/dL 8.5-10.1 Calcium Level MELINA ( [facility]) anion gap 4 mEq/L 8-16 Below low normal Anion Gap MELINA ( [facility]) total protein 6.8 gm/dL 6.4-8.2 Total Protein MELINA ( [facility]) bilirubin,total 0.3 mg/dL 0.2-1.0 Bilirubin,total ATHE NA ([facility]) alkaline phosphatase 121 U/L 45-117 Above high normal Alkaline Phosphatase MELINA ([facility]) albumin 3.6 gm/dL 3.2-5.2 Albumin MELINA ([facility]) albumin/globulin ratio Albumin/globu moy Ratio MELINA ([facility]) ID Date Data Source [id number] 09/06/2020 09:47:00 AM EST MELINA ([facility]) Name Value Range Interpretation Code Description Data Kellen rce(s) Supporting Document(s) white blood count 12.7 10 4.0-10.0 Above high normal White Blood Count MELINA ([facility]) red blood count 5.04 10 4.30-6.10 Red Blood Count ATHE ([facility]) hemoglobin 14.7 g/dL 13.5-17.5 Hemoglobin MEILNA ([facility]) hematocrit 45.8 % 42.0-52.0 Hematocrit MELINA ([facility]) mean corpuscular volume 90.9 fL 80.0-96.0 Mean Corpusc ular Volume MELINA ([facility]) mean corpuscular HGB conc 32.1 g/dL 32.0-36.5 Mean Corpu scular HGB Conc MELINA ([facility]) platelet count, automated 242 10 150-450 Platelet C ount, Automated MELINA ([facility]) red cell distribution width 16.7 % 11.5-14.5 Above high no rmal Red Cell Distribution Width MELINA ([facility]) mean corpuscular hemoglobin 29.2 pg 27.0-33.0 Mean Cor puscular Hemoglobin MELINA ([facility]) lymph % 21.3 % 24.0-44.0 Below low normal Lymph % MELINA ( [facility]) neutrophils % 59.1 % 36.0-66.0 Neutrophils % MELINA ( [facility]) mono % 14.2 % 2.0-8.0 Above high normal [place] % MELINA ([facility]) eos % 4.3 % 0.0-3.0 Above high normal Eos % MELINA ([facility]) baso % 0.7 % 0.0-1.0 Baso % MELINA ([facility]) nucleated red blood cell % 0.0 % 0-0 Nucleated Red Blood Cell % MELINA ([facility]) immature granulocyte % 0.4 % 0-3.0 Immature Gran ulocyte % MELINA ([facility]) mono # 1.8 10 0.0-0.8 Above high normal [place] # MELINA ([facility]) lymph # 2.7 10 1.5-5.0 Lymph # MELINA ([facility]) neutrophils # 7.5 10 1.5-8.5 Neutrophils # MELINA ( [facility]) eos # 0.5 10 0.0-0.5 Eos # MELINA ([facility]) baso # 0.1 10 0.0-0.2 Baso # MELINA ([facility]) ID Date Data Source [id number] 09/06/2020 09:47:00 AM EST MELINA ([facility]) Name Value Range Interpretation Code Description Data Kellen rce(s) Supporting Document(s) thyroid stimulating hormone 1.710 uIU/mL 0.358-3.740 Thyroid Stimulating Hormone MELINA ([facility]) ID Date Data Source [id number] 09/06/2020 09:47:00 AM EST MELINA ([facility]) Name Value Range Interpretation Code Description Data Kellen rce(s) Supporting Document(s) CPK creatine phosphokinase 318 U/L 39-308 Above high nor mal CPK Creatine Phosphokinase MELINA ([facility]) ID Date Data Source [id number] 09/06/2020 09:47:00 AM EST MELINA ([facility]) Name Value Range Interpretation Code Description Data Kellen rce(s) Supporting Document(s) glucose, fasting 82 mg/dL 70-100 Glucose, Fasting AT [facility] ([facility]) creatinine for GFR 0.82 mg/dL 0.70-1.30 Creatinine for GF R MELINA ([facility]) blood urea nitrogen 24 mg/dL 7-18 Above high normal Blood Ure a Nitrogen MELINA ([facility]) glomerular filtration rate > 60.0 >60 Glomerula r Filtration Rate MELINA ([facility]) chloride level 102 mEq/L 98-107 Chloride Level MELINA ([facility]) potassium serum 5.1 mEq/L 3.5-5.1 Potassium Serum ATHE NA ([facility]) sodium level 137 mEq/L 136-145 Sodium Level MELINA ([facility]) anion gap 4 mEq/L 8-16 Below low normal Anion Gap MELINA ( [facility]) AST/SGOT 29 U/L 7-37 AST/SGOT MELINA ([facility]) carbon dioxide level 31 mEq/L 21-32 Carbon Dioxide Level MELINA ([facility]) calcium level 9.3 mg/dL 8.5-10.1 Calcium Level MELINA ( [facility]) ALT/SGPT 63 U/L 12-78 ALT/SGPT MELINA ([facility]) bilirubin,total 0.3 mg/dL 0.2-1.0 Bilirubin,total ATHE ([facility]) alkaline phosphatase 121 U/L 45-117 Above high normal Alkaline Phosphatase MELINA ([facility]) albumin/globulin ratio Albumin/globu moy Ratio MELINA ([facility]) albumin 3.6 gm/dL 3.2-5.2 Albumin MELINA ([facility]) total protein 6.8 gm/dL 6.4-8.2 Total Protein MELINA ( [facility]) ID Date Data Source [id number] 09/06/2020 09:47:00 [facility] Name Value Range Interpretation Code Description Data Kellen rce(s) Supporting Document(s) white blood count 12.7 10 4.0-10.0 Above high normal White Blood Count MELINA ([facility]) red blood count 5.04 10 4.30-6.10 Red Blood Count ATHE NA ([facility]) hematocrit 45.8 % 42.0-52.0 Hematocrit MELINA ([facility]) hemoglobin 14.7 g/dL 13.5-17.5 Hemoglobin MELINA ([facility]) mean corpuscular volume 90.9 fL 80.0-96.0 Mean Corpusc ular Volume MELINA ([facility]) mean corpuscular hemoglobin 29.2 pg 27.0-33.0 Mean Cor puscular Hemoglobin MELINA ([facility]) red cell distribution width 16.7 % 11.5-14.5 Above high no rmal Red Cell Distribution Width MELINA ([facility]) mean corpuscular HGB conc 32.1 g/dL 32.0-36.5 Mean Corpu scular HGB Conc MELINA ([facility]) neutrophils % 59.1 % 36.0-66.0 Neutrophils % MELINA ( [facility]) lymph % 21.3 % 24.0-44.0 Below low normal Lymph % MELROSE ( [facility]) platelet count, automated 242 10 150-450 Platelet C ount, Automated MELINA ([facility]) mono % 14.2 % 2.0-8.0 Above high normal [place] % MELINA ([facility]) baso % 0.7 % 0.0-1.0 Baso % MELINA ([facility]) eos % 4.3 % 0.0-3.0 Above high normal Eos % MELINA ([facility]) immature granulocyte % 0.4 % 0-3.0 Immature Gran ulocyte % MELINA ([facility]) neutrophils # 7.5 10 1.5-8.5 Neutrophils # MELINA ( [facility]) lymph # 2.7 10 1.5-5.0 Lymph # MELINA ([facility]) nucleated red blood cell % 0.0 % 0-0 Nucleated Red Blood Cell % MELINA ([facility]) baso # 0.1 10 0.0-0.2 Baso # MELINA ([facility]) eos # 0.5 10 0.0-0.5 Eos # MELINA ([facility]) mono # 1.8 10 0.0-0.8 Above high normal [place] # MELINA ([facility]) ID Date Data Source [id number] 09/06/2020 09:47:00 AM EST MELINA ([facility]) Name Value Range Interpretation Code Description Data Kellen rce(s) Supporting Document(s) thyroid stimulating hormone 1.710 uIU/mL 0.358-3.740 Thyroid Stimulating Hormone MELINA ([facility]) ID Date Data Source [id number] 09/06/2020 09:47:00 AM EST MELINA ([facility]) Name Value Range Interpretation Code Description Data Kellen rce(s) Supporting Document(s) CPK creatine phosphokinase 318 U/L 39-308 Above high nor mal CPK Creatine Phosphokinase MELINA ([facility]) ID Date Data Source [id number] 09/06/2020 09:47:00 AM EST MELINA ([facility]) Name Value Range Interpretation Code Description Data Kellen rce(s) Supporting Document(s) blood urea nitrogen 24 mg/dL 7-18 Above high normal Blood Ure a Nitrogen MELINA ([facility]) glucose, fasting 82 mg/dL 70-100 Glucose, Fasting AT [facility] ([facility]) glomerular filtration rate > 60.0 >60 Glomerula r Filtration Rate MELINA ([facility]) creatinine for GFR 0.82 mg/dL 0.70-1.30 Creatinine for GF R MELINA ([facility]) potassium serum 5.1 mEq/L 3.5-5.1 Potassium Serum ATHE NA ([facility]) sodium level 137 mEq/L 136-145 Sodium Level MELINA ([facility]) chloride level 102 mEq/L 98-107 Chloride Level MELINA ([facility]) carbon dioxide level 31 mEq/L 21-32 Carbon Dioxide Level MELINA ([facility]) anion gap 4 mEq/L 8-16 Below low normal Anion Gap MELINA ( [facility]) calcium level 9.3 mg/dL 8.5-10.1 Calcium Level MELINA ( [facility]) bilirubin,total 0.3 mg/dL 0.2-1.0 Bilirubin,total ATHE NA ([facility]) AST/SGOT 29 U/L 7-37 AST/SGOT MELNIA ([facility]) alkaline phosphatase 121 U/L 45-117 Above high normal Alkaline Phosphatase MELINA ([facility]) ALT/SGPT 63 U/L 12-78 ALT/SGPT MELINA ([facility]) albumin/globulin ratio Albumin/globu moy Ratio MELINA ([facility]) albumin 3.6 gm/dL 3.2-5.2 Albumin MELINA ([facility]) total protein 6.8 gm/dL 6.4-8.2 Total Protein MELINA ( [facility]) ID Date Data Source [id number] 09/06/2020 09:47:00 AM EST MELINA ([facility]) Name Value Range Interpretation Code Description Data Kellen rce(s) Supporting Document(s) white blood count 12.7 10 4.0-10.0 Above high normal White Blood Count MELINA ([facility]) hemoglobin 14.7 g/dL 13.5-17.5 Hemoglobin MELINA ([facility]) mean corpuscular volume 90.9 fL 80.0-96.0 Mean Corpusc ular Volume MEILNA ([facility]) red blood count 5.04 10 4.30-6.10 Red Blood Count ATHE NA ([facility]) hematocrit 45.8 % 42.0-52.0 Hematocrit MELINA ([facility]) mean corpuscular hemoglobin 29.2 pg 27.0-33.0 Mean Cor puscular Hemoglobin MELINA ([facility]) mean corpuscular HGB conc 32.1 g/dL 32.0-36.5 Mean Corpu scular HGB Conc MELROSE ([facility]) red cell distribution width 16.7 % 11.5-14.5 Above high no rmal Red Cell Distribution Width MELINA ([facility]) platelet count, automated 242 10 150-450 Platelet C ount, Automated MELINA ([facility]) eos % 4.3 % 0.0-3.0 Above high normal Eos % MELINA ([facility]) neutrophils % 59.1 % 36.0-66.0 Neutrophils % [place]ROSE ( [facility]) lymph % 21.3 % 24.0-44.0 Below low normal Lymph % [place] ( [facility]) mono % 14.2 % 2.0-8.0 Above high normal [place] % [place]SE ([facility]) nucleated red blood cell % 0.0 % 0-0 Nucleated Red Blood Cell % [place] ([facility]) baso % 0.7 % 0.0-1.0 Baso % [facility] ([facility]) immature granulocyte % 0.4 % 0-3.0 Immature Gran ulocyte % [facility]SE ([facility]) mono # 1.8 10 0.0-0.8 Above high normal [place] # MELROSE ([facility]) lymph # 2.7 10 1.5-5.0 Lymph # [facility]SE ([facility]) neutrophils # 7.5 10 1.5-8.5 Neutrophils # [place]SE ( [facility]) eos # 0.5 10 0.0-0.5 Eos # MELINA ([facility]) baso # 0.1 10 0.0-0.2 Baso # MELINA ([facility]) ID Date Data Source [id number] 09/06/2020 09:47:00 AM EST [place] ([facility]) Name Value Range Interpretation Code Description Data Kellen rce(s) Supporting Document(s) thyroid stimulating hormone 1.710 uIU/mL 0.358-3.740 Thyroid Stimulating Hormone [facility]ELROSE ([facility]) ID Date Data Source [id number] 09/06/2020 09:47:00 AM EST MELINA ([facility]) Name Value Range Interpretation Code Description Data Kellen rce(s) Supporting Document(s) CPK creatine phosphokinase 318 U/L 39-308 Above high nor mal CPK Creatine Phosphokinase MELINA ([facility]) ID Date Data Source [id number] 09/06/2020 09:47:00 AM EST MELINA ([facility]) Name Value Range Interpretation Code Description Data Kellen rce(s) Supporting Document(s) blood urea nitrogen 24 mg/dL 7-18 Above high normal Blood Ure a Nitrogen MELINA ([facility]) glucose, fasting 82 mg/dL 70-100 Glucose, Fasting AT [facility] ([facility]) creatinine for GFR 0.82 mg/dL 0.70-1.30 Creatinine for GF R MELINA ([facility]) sodium level 137 mEq/L 136-145 Sodium Level MELINA ([facility]) chloride level 102 mEq/L 98-107 Chloride Level MELINA ([facility]) glomerular filtration rate > 60.0 >60 Glomerula r Filtration Rate MELINA ([facility]) potassium serum 5.1 mEq/L 3.5-5.1 Potassium Serum ATHE ([facility]) AST/SGOT 29 U/L 7-37 AST/SGOT MELINA ([facility]) calcium level 9.3 mg/dL 8.5-10.1 Calcium Level MELINA ( [facility]) anion gap 4 mEq/L 8-16 Below low normal Anion Gap MELINA ( [facility]) carbon dioxide level 31 mEq/L 21-32 Carbon Dioxide Level MELINA ([facility]) alkaline phosphatase 121 U/L 45-117 Above high normal Alkaline Phosphatase MELINA ([facility]) albumin 3.6 gm/dL 3.2-5.2 Albumin MELINA ([facility]) bilirubin,total 0.3 mg/dL 0.2-1.0 Bilirubin,total ATHE ([facility]) total protein 6.8 gm/dL 6.4-8.2 Total Protein MELINA ( [facility]) ALT/SGPT 63 U/L 12-78 ALT/SGPT MELINA ([facility]) albumin/globulin ratio Albumin/globu moy Ratio MLEINA ([facility]) ID Date Data Source [id number] 09/06/2020 09:47:00 AM EST MELINA ([facility]) Name Value Range Interpretation Code Description Data Kellen rce(s) Supporting Document(s) thyroid stimulating hormone 1.710 uIU/mL 0.358-3.740 Thyroid Stimulating Hormone MELINA ([facility]) ID Date Data Source [id number] 09/06/2020 09:47:00 AM EST MELINA ([facility]) Name Value Range Interpretation Code Description Data Kellen rce(s) Supporting Document(s) CPK creatine phosphokinase 318 U/L 39-308 Above high nor mal CPK Creatine Phosphokinase MELINA ([facility]) ID Date Data Source [id number] 09/06/2020 09:47:00 AM EST MELINA ([facility]) Name Value Range Interpretation Code Description Data Kellen rce(s) Supporting Document(s) glomerular filtration rate > 60.0 >60 Glomerula r Filtration Rate MELINA ([facility]) blood urea nitrogen 24 mg/dL 7-18 Above high normal Blood Ure a Nitrogen MELINA ([facility]) glucose, fasting 82 mg/dL 70-100 Glucose, Fasting AT [facility] ([facility]) creatinine for GFR 0.82 mg/dL 0.70-1.30 Creatinine for GF R MELINA ([facility]) carbon dioxide level 31 mEq/L 21-32 Carbon Dioxide Level MELINA ([facility]) potassium serum 5.1 mEq/L 3.5-5.1 Potassium Serum ATHE NA ([facility]) chloride level 102 mEq/L 98-107 Chloride Level MELINA ([facility]) sodium level 137 mEq/L 136-145 Sodium Level MELINA ([facility]) ALT/SGPT 63 U/L 12-78 ALT/SGPT MELINA ([facility]) anion gap 4 mEq/L 8-16 Below low normal Anion Gap MELINA ( [facility]) calcium level 9.3 mg/dL 8.5-10.1 Calcium Level MELINA ( [facility]) AST/SGOT 29 U/L 7-37 AST/SGOT MELINA ([facility]) total protein 6.8 gm/dL 6.4-8.2 Total Protein MELINA ( [facility]) albumin 3.6 gm/dL 3.2-5.2 Albumin MELINA ([facility]) alkaline phosphatase 121 U/L 45-117 Above high normal Alkaline Phosphatase MELINA ([facility]) albumin/globulin ratio Albumin/globu moy Ratio MELINA ([facility]) bilirubin,total 0.3 mg/dL 0.2-1.0 Bilirubin,total ATHE NA ([facility]) ID Date Data Source [id number] 07/30/2020 04:47:00 AM EST [facility] Name Value Range Interpretation Code Description Data Kellen rce(s) Supporting Document(s) SARS coronavirus 2 RNA [Presence] in Res piratory specimen by BIMAL with probe detection NEGATIVE [facility] This lab was ordered by [facility] a nd reported by [facility]. ID Date Data Source [id number] 05/21/2020 12:29:24 PM [facility] Current Problems: Chronic periodontitis, localized, severe (ICD10- K05.313)Generalized abdominal pain (QIP95-E53.84)BMI 26.0-26.9 (ICD-V85.22) (FJQ36-S85.26)Overweight (ICD-278.02) (JZQ61-F58.3)Surgical incision wound of skin (GBR29-V38.8)Acquired asplenia (ICD-289.59) (LDV95-R84.81)History of head injury (ICD-V15.59) (LUC04-C83.828)Depression (ICD-311) (RQN61-I70.9)Injury, unspecified, initial encounter (ICD-959.9) (GWN15-T84.90xA)Neck pain (ICD-723.1) (GQJ67-M40.2)Unspecified abdominal pain (TOY75-K73.9)Acute upper respiratory infection, unspecified (IJU90-R22.9)Congestion of nasal sinus (ICD-478.19) (LJR15-V68.81)Homeless single person (ICD-V60.0) (EKX51-Q18.0)Dental caries (ICD-521.00) (DJI67-F82.9)Cough (ICD-786.2) (LHQ51-Y93)Acute pharyngitis, unspecified (ATM22-T89.9)DENTAL CARIES EXTENDING INTO DENTINE (ICD-521.02) (JGE03-D24.62)Anxiety depression (ICD-300.4) (XVE82-O88.8)Feeling of lump in throat (ICD-784.2) (EML17-T54.89)Back pain, chronic (ICD-724.5) (ICD10- M54.89)Papule of skin (ICD-709.8) (VHJ75-A44.8)Other hemorrhoids (ICD10- K64.8)Unspecified asthma, uncomplicated (UDX35-P65.909)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) (RAC91-Q22.47)Bilateral headache (ICD-784.0) (NKF21-M16)Insomnia, unspecified (ZEV44-Y12.00)Right upper quadrant pain (ICD10- R10.11)Malocclusion, Angle's class, unspecified (SIW78-F87.219)Dental caries (ICD-521.00) (DAV52-Z30.9)Encounter for general adult medical examination with abnormal findings (ICD-V70.0) (ERA33-O61.01)Abnormal weight gain (ICD-783.1) (RHC16-G38.5)Major depression, recurrent, moderate (ICD-296.32) (ICD10- F33.1)Atypical chest pain (ICD-786.59) (NNK58-D58.89)Social phobia (ICD-300.23) (DFT61-A40.10)Generalized anxiety disorder (ICD-300.02) (JPJ46-P56.1)Bradycardia (ICD-427.89) (ATG82-T51.1)Sprain of ligaments of cervical spine, initial encou nter (WIB41-K54.4xxA)Social phobia, unspecified (YNW11-Q04.10)Current Medications: SALINE WOUND WASH 0.9 % EXTERNAL [...] back. Patient was interested in consult witha chief information security officer. Referred for perio consultAssistant not available for perio chartingPatient has edge to edge bite. Dr. Kaplan suggested ortho. Patient is aware that insurance will not cover. Suggested that patient gets lutheran and cleaning done before orthoAdditional PPE requirements [...] PM): ; king (May 21 2020 1:30PM): [facility] CC: concern about receding gums espacially buccal [...] & Plan Problems:Added: Chronic periodontitis, localized, severe (QSU26-N37.313)Orders:Periodontal Referral [CPT-85046] Name Value Range Interpretation Code Description Data Kellen rce(s) Supporting Document(s) Procedure Social History Code Duration Value Status Description Data Source(s ) Smoking 06/20/2021 12:00:00 AM EST Unknown if ever smoked comp leted Unknown if ever smoked [facility] ([facility] Smoking 05/31/2021 12:00:00 AM EST Unknown if ever smoked comp leted Unknown if ever smoked [facility] ([facility]) Smoking 05/07/2021 12:00:00 AM EDT Unknown if ever smoked comp leted Unknown if ever smoked [facility] ([facility]) Alcohol intake 03/14/2021 12:00:00 AM EDT Ex-drinker (finding) comp leted Ex- drinker (finding) [facility] Tobacco use and exposure 03/14/2021 12:00:00 AM EDT Never used co mpleted Never used [facility] Smoking 03/14/2021 12:00:00 AM EDT Never smoker completed Never s [facility] Smoking 01/30/2021 12:00:00 AM EDT Unknown if ever smoked comp leted Unknown if ever smoked [facility] ([facility]) Vital Signs ID Date Data Source [id number] Name Value Range Interpretation Code Description Data Source(s) Diastolic blood pressure 55 mm[Hg] 55 mm[Hg] MELINA ([facility]) Body height 64 [in_i] 64 [in_i] MELINA ([facility]) Body mass index (BMI) [Ratio] 28.5 kg/m2 28.5 k g/m2 MELINA ([facility]) Systolic blood pressure 112 mm[Hg] 112 mm[Hg] Perico THENA ([facility]) Body weight 2656 [oz_av] 2656 [oz_av] MELINA ([facility]) Body mass index (BMI) [Ratio] 28.2 kg/m2 28.2 k g/m2 MELINA ([facility]) Systolic blood pressure 107 mm[Hg] 107 [facility] Diastolic blood pressure 70 mm[Hg] 70 mm[Hg] MELINA ([facility]) Body height 64 [in_i] 64 [in_i] MELINA ([facility]) Body weight 2632 [oz_av] 2632 [oz_av] MELINA ([facility]) Diastolic blood pressure 70 mm[Hg] 70 mm[Hg] MELINA ([facility]) Body height 64 [in_i] 64 [in_i] MELINA ([facility]) Body mass index (BMI) [Ratio] 28.2 kg/m2 28.2 k g/m2 MELINA ([facility]) Systolic blood pressure 107 mm[Hg] 107 mm[Hg] [facility] Body weight 2632 [oz_av] 2632 [oz_av] MELINA ([facility]) Diastolic blood pressure 70 mm[Hg] 70 mm[Hg] MELINA ([facility]) Body height 64 [in_i] 64 [in_i] MELINA ([facility]) Body mass index (BMI) [Ratio] 28.2 kg/m2 28.2 k g/m2 MELINA ([facility]) Systolic blood pressure 107 mm[Hg] 107 mm[Hg] [facility] Body weight 2632 [oz_av] 2632 [oz_av] MELINA ([facility]) Body height 64 [in_i] 64 [in_i] MELINA ([facility]) Diastolic blood pressure 61 mm[Hg] 61 mm[Hg] MELINA ([facility]) Systolic blood pressure 105 mm[Hg] 105 mm[Hg] A [facility] ([facility]) Body mass index (BMI) [Ratio] 28.2 kg/m2 28.2 k g/m2 MELINA ([facility]) Body weight 2628 [oz_av] 2628 [oz_av] MELINA ([facility]) Body height 64 [in_i] 64 [in_i] MELINA ([facility]) Body mass index (BMI) [Ratio] 28.2 kg/m2 28.2 k g/m2 MELINA ([facility]) Systolic blood pressure 105 mm[Hg] 105 mm[Hg] [facility] Body weight 2628 [oz_av] 2628 [oz_av] MELINA ([facility]) Diastolic blood pressure 61 mm[Hg] 61 mm[Hg] MELINA ([facility]) Body weight 2628 [oz_av] 2628 [oz_av] MELINA ([facility]) Diastolic blood pressure 61 mm[Hg] 61 mm[Hg] MELINA ([facility]) Body height 64 [in_i] 64 [in_i] MELINA ([facility]) Body mass index (BMI) [Ratio] 28.2 kg/m2 28.2 k g/m2 MELINA ([facility]) Systolic blood pressure 105 mm[Hg] 105 mm[Hg] [facility] Diastolic blood pressure 61 mm[Hg] 61 mm[Hg] MELINA ([facility]) Body height 64 [in_i] 64 [in_i] MELINA ([facility]) Body mass index (BMI) [Ratio] 28.2 kg/m2 28.2 k g/m2 MELINA ([facility]) Systolic blood pressure 105 mm[Hg] 105 mm[Hg] A THENA ([facility]) Body weight 2628 [oz_av] 2628 [oz_av] MELINA ([facility]) Body mass index (BMI) [Ratio] 30.6 kg/m2 30.6 k g/m2 MELINA ([facility]) Diastolic blood pressure 68 mm[Hg] 68 mm[Hg] MELINA ([facility]) Body height 64 [in_i] 64 [in_i] MELINA ([facility]) Systolic blood pressure 108 mm[Hg] 108 mm[Hg] [facility] Body weight 2848 [oz_av] 2848 [oz_av] MELINA ([facility]) Diastolic blood pressure 68 mm[Hg] 68 mm[Hg] MELINA ([facility]) Body height 64 [in_i] 64 [in_i] MELINA ([facility]) Body mass index (BMI) [Ratio] 30.6 kg/m2 30.6 k g/m2 MELINA ([facility]) Systolic blood pressure 108 mm[Hg] 108 mm[Hg] A THENA ([facility]) Body weight 2848 [oz_av] 2848 [oz_av] MELINA ([facility]) Diastolic blood pressure 68 mm[Hg] 68 mm[Hg] MELINA ([facility]) Body height 64 [in_i] 64 [in_i] MELINA ([facility]) Body mass index (BMI) [Ratio] 30.6 kg/m2 30.6 k g/m2 MELINA ([facility]) Systolic blood pressure 108 mm[Hg] 108 mm[Hg] [facility] Body weight 2848 [oz_av] 2848 [oz_av] MELINA ([facility]) Body weight 2848 [oz_av] 2848 [oz_av] MELINA ([facility]) Diastolic blood pressure 68 mm[Hg] 68 mm[Hg] MELINA ([facility]) Body height 64 [in_i] 64 [in_i] MELINA ([facility]) Body mass index (BMI) [Ratio] 30.6 kg/m2 30.6 k g/m2 MELINA ([facility]) Systolic blood pressure 108 mm[Hg] 108 mm[Hg] [facility] Diastolic blood pressure 68 mm[Hg] 68 mm[Hg] MELINA ([facility]) Body height 64 [in_i] 64 [in_i] MELINA ([facility]) Body mass index (BMI) [Ratio] 30.6 kg/m2 30.6 k g/m2 MELINA ([facility]) Systolic blood pressure 108 mm[Hg] 108 mm[Hg] [facility] Body weight 2848 [oz_av] 2848 [oz_av] MELINA ([facility]) Body height 64 [in_i] 64 [in_i] MELINA ([facility]) Systolic blood pressure 126 mm[Hg] 126 mm[Hg] [facility] Body mass index (BMI) [Ratio] 30.6 kg/m2 30.6 k g/m2 MELINA ([facility]) Diastolic blood pressure 74 mm[Hg] 74 mm[Hg] MELINA ([facility]) Body weight 2848 [oz_av] 2848 [oz_av] MELINA ([facility]) Systolic blood pressure 126 mm[Hg] 126 mm[Hg] A THENA ([facility]) Body weight 2848 [oz_av] 2848 [oz_av] MELINA ([facility]) Diastolic blood pressure 74 mm[Hg] 74 mm[Hg] MELINA ([facility]) Body height 64 [in_i] 64 [in_i] MELINA ([facility]) Body mass index (BMI) [Ratio] 30.6 kg/m2 30.6 k g/m2 MELINA ([facility]) Diastolic blood pressure 74 mm[Hg] 74 mm[Hg] MELINA ([facility]) Body height 64 [in_i] 64 [in_i] MELINA ([facility]) Body mass index (BMI) [Ratio] 30.6 kg/m2 30.6 k g/m2 MELINA ([facility]) Systolic blood pressure 126 mm[Hg] 126 mm[Hg] A THENA ([facility]) Body weight 2848 [oz_av] 2848 [oz_av] MELINA ([facility]) Diastolic blood pressure 74 mm[Hg] 74 mm[Hg] MELINA ([facility]) Body weight 2848 [oz_av] 2848 [oz_av] MELINA ([facility]) Body height 64 [in_i] 64 [in_i] MELINA ([facility]) Body mass index (BMI) [Ratio] 30.6 kg/m2 30.6 k g/m2 MELINA ([facility]) Systolic blood pressure 126 mm[Hg] 126 mm[Hg] [facility] Diastolic blood pressure 74 mm[Hg] 74 mm[Hg] MELINA ([facility]) Body height 64 [in_i] 64 [in_i] MELINA ([facility]) Body mass index (BMI) [Ratio] 30.6 kg/m2 30.6 k g/m2 MELINA ([facility]) Systolic blood pressure 126 mm[Hg] 126 mm[Hg] A VANESSA ([facility]) Body weight 2848 [oz_av] 2848 [oz_av] MELINA ([facility]) Diastolic blood pressure 74 mm[Hg] 74 mm[Hg] MELINA ([facility]) Body height 64 [in_i] 64 [in_i] MELINA ([facility]) Body mass index (BMI) [Ratio] 30.6 kg/m2 30.6 k g/m2 MELINA ([facility]) Systolic blood pressure 126 mm[Hg] 126 mm[Hg] A VANESSA ([facility]) Body weight 2848 [oz_av] 2848 [oz_av] MELINA ([facility]) Diastolic blood pressure 74 mm[Hg] 74 mm[Hg] MELINA ([facility]) Body height 64 [in_i] 64 [in_i] MELINA ([facility]) Body mass index (BMI) [Ratio] 30.6 kg/m2 30.6 k g/m2 MELINA ([facility]) Systolic blood pressure 126 mm[Hg] 126 mm[Hg] A NORIS ([facility]) Body weight 2848 [oz_av] 2848 [oz_av] MELINA ([facility]) Diastolic blood pressure 73 mm[Hg] 73 mm[Hg] MELINA ([facility]) Body height 64 [in_i] 64 [in_i] MELINA ([facility]) Body mass index (BMI) [Ratio] 31.6 kg/m2 31.6 k g/m2 MELINA ([facility]) Systolic blood pressure 118 mm[Hg] 118 mm[Hg] A [facility] ([facility]) Body weight 2944 [oz_av] 2944 [oz_av] MELINA ([facility]) Diastolic blood pressure 73 mm[Hg] 73 mm[Hg] MELINA ([facility]) Body height 64 [in_i] 64 [in_i] MELINA ([facility]) Body mass index (BMI) [Ratio] 31.6 kg/m2 31.6 k g/m2 MELINA ([facility]) Systolic blood pressure 118 mm[Hg] 118 mm[Hg] [facility] ([facility]) Body weight 2944 [oz_av] 2944 [oz_av] MELINA ([facility]) Diastolic blood pressure 73 mm[Hg] 73 mm[Hg] MELINA ([facility]) Body height 64 [in_i] 64 [in_i] MELINA ([facility]) Body mass index (BMI) [Ratio] 31.6 kg/m2 31.6 k g/m2 MELINA ([facility]) Systolic blood pressure 118 mm[Hg] 118 mm[Hg] [facility] ([facility]) Body weight 2944 [oz_av] 2944 [oz_av] MELINA ([facility]) Diastolic blood pressure 73 mm[Hg] 73 mm[Hg] MELINA ([facility]) Body height 64 [in_i] 64 [in_i] MELINA ([facility]) Body mass index (BMI) [Ratio] 31.6 kg/m2 31.6 k g/m2 MELINA ([facility]) Systolic blood pressure 118 mm[Hg] 118 mm[Hg] A NORIS ([facility]) Body weight 2944 [oz_av] 2944 [oz_av] MELINA ([facility]) Diastolic blood pressure 73 mm[Hg] 73 mm[Hg] MELINA ([facility]) Body height 64 [in_i] 64 [in_i] MELINA ([facility]) Body mass index (BMI) [Ratio] 31.6 kg/m2 31.6 k g/m2 MELINA ([facility]) Systolic blood pressure 118 mm[Hg] 118 mm[Hg] [facility] ([facility]) Body weight 2944 [oz_av] 2944 [oz_av] MELINA ([facility]) Diastolic blood pressure 73 mm[Hg] 73 mm[Hg] MELINA ([facility]) Body height 64 [in_i] 64 [in_i] MELINA ([facility]) Body mass index (BMI) [Ratio] 31.6 kg/m2 31.6 k g/m2 MELINA ([facility]) Systolic blood pressure 118 mm[Hg] 118 mm[Hg] [facility] ([facility]) Body weight 2944 [oz_av] 2944 [oz_av] MELINA ([facility]) Diastolic blood pressure 73 mm[Hg] 73 mm[Hg] MELINA ([facility]) Body height 64 [in_i] 64 [in_i] MELINA ([facility]) Body mass index (BMI) [Ratio] 31.6 kg/m2 31.6 k g/m2 MELINA ([facility]) Systolic blood pressure 118 mm[Hg] 118 mm[Hg] [facility] ([facility]) Body weight 2944 [oz_av] 2944 [oz_av] MELINA ([facility]) Systolic blood pressure 118 mm[Hg] 118 mm[Hg] [facility] Body weight 2944 [oz_av] 2944 [oz_av] MELINA ([facility]) Diastolic blood pressure 73 mm[Hg] 73 mm[Hg] MELINA ([facility]) Body height 64 [in_i] 64 [in_i] MELINA ([facility]) Body mass index (BMI) [Ratio] 31.6 kg/m2 31.6 k g/m2 MELINA ([facility]) Diastolic blood pressure 63 mm[Hg] 63 mm[Hg] MELINA ([facility]) Body height 64 [in_i] 64 [in_i] MELINA ([facility]) Body mass index (BMI) [Ratio] 29.3 kg/m2 29.3 k g/m2 MELINA ([facility]) Systolic blood pressure 114 mm[Hg] 114 mm[Hg] [facility] ([facility]) Body weight 2729.6 [oz_av] 2729.6 [oz_av] ATHEN A ([facility]) Diastolic blood pressure 63 mm[Hg] 63 mm[Hg] MELINA ([facility]) Body height 64 [in_i] 64 [in_i] MELINA ([facility]) Body mass index (BMI) [Ratio] 29.3 kg/m2 29.3 k g/m2 MELINA ([facility]) Systolic blood pressure 114 mm[Hg] 114 mm[Hg] [facility] ([facility]) Body weight 2729.6 [oz_av] 2729.6 [oz_av] ATHEN A ([facility]) Body mass index (BMI) [Ratio] 29.3 kg/m2 29.3 k g/m2 MELINA ([facility]) Systolic blood pressure 114 mm[Hg] 114 mm[Hg] [facility] Body weight 2729.6 [oz_av] 2729.6 [oz_av] ATHEN A ([facility]) Diastolic blood pressure 63 mm[Hg] 63 mm[Hg] MELINA ([facility]) Body height 64 [in_i] 64 [in_i] MELINA ([facility]) Diastolic blood pressure 63 mm[Hg] 63 mm[Hg] MELINA ([facility]) Body height 64 [in_i] 64 [in_i] MELINA ([facility]) Body mass index (BMI) [Ratio] 29.3 kg/m2 29.3 k g/m2 MELINA ([facility]) Systolic blood pressure 114 mm[Hg] 114 mm[Hg] [facility] Body weight 2729.6 [oz_av] 2729.6 [oz_av] ATHEN A ([facility]) Diastolic blood pressure 63 mm[Hg] 63 mm[Hg] MELINA ([facility]) Body height 64 [in_i] 64 [in_i] MELINA ([facility]) Body mass index (BMI) [Ratio] 29.3 kg/m2 29.3 k g/m2 MELINA ([facility]) Systolic blood pressure 114 mm[Hg] 114 mm[Hg] [facility] ([facility]) Body weight 2729.6 [oz_av] 2729.6 [oz_av] ATHEN A ([facility]) Diastolic blood pressure 63 mm[Hg] 63 mm[Hg] MELINA ([facility]) Body height 64 [in_i] 64 [in_i] MELINA ([facility]) Body mass index (BMI) [Ratio] 29.3 kg/m2 29.3 k g/m2 MELINA ([facility]) Systolic blood pressure 114 mm[Hg] 114 mm[Hg] [facility] Body weight 2729.6 [oz_av] 2729.6 [oz_av] ATHEN A ([facility]) Diastolic blood pressure 63 mm[Hg] 63 mm[Hg] MELINA ([facility]) Body height 64 [in_i] 64 [in_i] MELINA ([facility]) Body mass index (BMI) [Ratio] 29.3 kg/m2 29.3 k g/m2 MELINA ([facility]) Systolic blood pressure 114 mm[Hg] 114 mm[Hg] [facility] ([facility]) Body weight 2729.6 [oz_av] 2729.6 [oz_av] ATHEN A ([facility]) Body mass index (BMI) [Ratio] 29.3 kg/m2 29.3 k g/m2 MELINA ([facility]) Systolic blood pressure 114 mm[Hg] 114 mm[Hg] [facility] Body weight 2729.6 [oz_av] 2729.6 [oz_av] ATHEN A ([facility]) Diastolic blood pressure 63 mm[Hg] 63 mm[Hg] MELINA ([facility]) Body height 64 [in_i] 64 [in_i] MELINA ([facility]) Diastolic blood pressure 63 mm[Hg] 63 mm[Hg] MELINA ([facility]) Body height 64 [in_i] 64 [in_i] MELINA ([facility]) Body mass index (BMI) [Ratio] 29.3 kg/m2 29.3 k g/m2 MELINA ([facility]) Systolic blood pressure 114 mm[Hg] 114 mm[Hg] [facility] ([facility]) Body weight 2729.6 [oz_av] 2729.6 [oz_av] ATHEN A ([facility]) Systolic blood pressure 123 mm[Hg] 123 mm[Hg] [facility] Body mass index (BMI) [Ratio] 31.2 kg/m2 31.2 k g/m2 MELINA ([facility]) Body weight 2912 [oz_av] 2912 [oz_av] MELINA ([facility]) Diastolic blood pressure 70 mm[Hg] 70 mm[Hg] MELINA ([facility]) Body height 64 [in_i] 64 [in_i] MELINA ([facility]) Body mass index (BMI) [Ratio] 31.2 kg/m2 31.2 k g/m2 MELINA ([facility]) Systolic blood pressure 123 mm[Hg] 123 mm[Hg] [facility] Body weight 2912 [oz_av] 2912 [oz_av] MELINA ([facility]) Diastolic blood pressure 70 mm[Hg] 70 mm[Hg] MELINA ([facility]) Body height 64 [in_i] 64 [in_i] MELINA ([facility]) Diastolic blood pressure 70 mm[Hg] 70 mm[Hg] MELINA ([facility]) Body height 64 [in_i] 64 [in_i] MELINA ([facility]) Body mass index (BMI) [Ratio] 31.2 kg/m2 31.2 k g/m2 MELINA ([facility]) Systolic blood pressure 123 mm[Hg] 123 mm[Hg] A THENA ([facility]) Body weight 2912 [oz_av] 2912 [oz_av] MELINA ([facility]) Diastolic blood pressure 70 mm[Hg] 70 mm[Hg] MELINA ([facility]) Body height 64 [in_i] 64 [in_i] MELINA ([facility]) Body mass index (BMI) [Ratio] 31.2 kg/m2 31.2 k g/m2 MELINA ([facility]) Systolic blood pressure 123 mm[Hg] 123 mm[Hg] A THENA ([facility]) Body weight 2912 [oz_av] 2912 [oz_av] MELINA ([facility]) Diastolic blood pressure 70 mm[Hg] 70 mm[Hg] MELINA ([facility]) Body height 64 [in_i] 64 [in_i] MELINA ([facility]) Body mass index (BMI) [Ratio] 31.2 kg/m2 31.2 k g/m2 MELINA ([facility]) Systolic blood pressure 123 mm[Hg] 123 mm[Hg] A THENA ([facility]) Body weight 2912 [oz_av] 2912 [oz_av] MELINA ([facility]) Diastolic blood pressure 70 mm[Hg] 70 mm[Hg] MELINA ([facility]) Body height 64 [in_i] 64 [in_i] MELINA ([facility]) Body mass index (BMI) [Ratio] 31.2 kg/m2 31.2 k g/m2 MELINA ([facility]) Systolic blood pressure 123 mm[Hg] 123 mm[Hg] A THENA ([facility]) Body weight 2912 [oz_av] 2912 [oz_av] MELINA ([facility]) Diastolic blood pressure 70 mm[Hg] 70 mm[Hg] MELINA ([facility]) Body height 64 [in_i] 64 [in_i] MELINA ([facility]) Body mass index (BMI) [Ratio] 31.2 kg/m2 31.2 k g/m2 MELINA ([facility]) Systolic blood pressure 123 mm[Hg] 123 mm[Hg] A THENA ([facility]) Body weight 2912 [oz_av] 2912 [oz_av] MELINA ([facility]) Diastolic blood pressure 70 mm[Hg] 70 mm[Hg] MELINA ([facility]) Body height 64 [in_i] 64 [in_i] MELINA ([facility]) Body mass index (BMI) [Ratio] 31.2 kg/m2 31.2 k g/m2 MELINA ([facility]) Systolic blood pressure 123 mm[Hg] 123 mm[Hg] A THENA ([facility]) Body weight 2912 [oz_av] 2912 [oz_av] MELINA ([facility]) Diastolic blood pressure 70 mm[Hg] 70 mm[Hg] MELINA ([facility]) Body height 64 [in_i] 64 [in_i] MELINA ([facility]) Body mass index (BMI) [Ratio] 31.2 kg/m2 31.2 k g/m2 MELINA ([facility]) Systolic blood pressure 123 mm[Hg] 123 mm[Hg] A THENA ([facility]) Body weight 2912 [oz_av] 2912 [oz_av] MELINA ([facility]) Diastolic blood pressure 70 mm[Hg] 70 mm[Hg] MELINA ([facility]) Body height 64 [in_i] 64 [in_i] MELINA ([facility]) Body mass index (BMI) [Ratio] 31.2 kg/m2 31.2 k g/m2 MELINA ([facility]) Systolic blood pressure 123 mm[Hg] 123 mm[Hg] A THENA ([facility]) Body weight 2912 [oz_av] 2912 [oz_av] MELINA ([facility]) Diastolic blood pressure 70 mm[Hg] 70 mm[Hg] MELINA ([facility]) Body height 64 [in_i] 64 [in_i] MELINA ([facility]) Body mass index (BMI) [Ratio] 31.2 kg/m2 31.2 k g/m2 MELINA ([facility]) Systolic blood pressure 123 mm[Hg] 123 mm[Hg] A THENA ([facility]) Body weight 2912 [oz_av] 2912 [oz_av] MELINA ([facility]) Diastolic blood pressure 76 mm[Hg] 76 mm[Hg] MELINA ([facility]) Body height 64 [in_i] 64 [in_i] MELINA ([facility]) Body weight 2406 [oz_av] 2406 [oz_av] MELINA ([facility]) Body mass index (BMI) [Ratio] 25.8 kg/m2 25.8 k g/m2 MELINA ([facility]) Systolic blood pressure 127 mm[Hg] 127 mm[Hg] A THENA ([facility]) Diastolic blood pressure 76 mm[Hg] 76 mm[Hg] MELINA ([facility]) Body height 64 [in_i] 64 [in_i] MELINA ([facility]) Body mass index (BMI) [Ratio] 25.8 kg/m2 25.8 k g/m2 MELINA ([facility]) Systolic blood pressure 127 mm[Hg] 127 mm[Hg] A THENA ([facility]) Body weight 2406 [oz_av] 2406 [oz_av] MELINA ([facility]) Diastolic blood pressure 76 mm[Hg] 76 mm[Hg] MELINA ([facility]) Body height 64 [in_i] 64 [in_i] MELINA ([facility]) Body mass index (BMI) [Ratio] 25.8 kg/m2 25.8 k g/m2 MELINA ([facility]) Systolic blood pressure 127 mm[Hg] 127 mm[Hg] A THENA ([facility]) Body weight 2406 [oz_av] 2406 [oz_av] MELINA ([facility]) Systolic blood pressure 127 mm[Hg] 127 mm[Hg] A THENA ([facility]) Diastolic blood pressure 76 mm[Hg] 76 mm[Hg] MELINA ([facility]) Body height 64 [in_i] 64 [in_i] MELINA ([facility]) Body mass index (BMI) [Ratio] 25.8 kg/m2 25.8 k g/m2 MELINA ([facility]) Body weight 2406 [oz_av] 2406 [oz_av] MELINA ([facility]) Diastolic blood pressure 76 mm[Hg] 76 mm[Hg] MELINA ([facility]) Body height 64 [in_i] 64 [in_i] MELINA ([facility]) Body mass index (BMI) [Ratio] 25.8 kg/m2 25.8 k g/m2 MELINA ([facility]) Systolic blood pressure 127 mm[Hg] 127 mm[Hg] A THENA ([facility]) Body weight 2406 [oz_av] 2406 [oz_av] MELINA ([facility]) Body mass index (BMI) [Ratio] 25.8 kg/m2 25.8 k g/m2 MELINA ([facility]) Diastolic blood pressure 76 mm[Hg] 76 mm[Hg] MELINA ([facility]) Body height 64 [in_i] 64 [in_i] MELINA ([facility]) Systolic blood pressure 127 mm[Hg] 127 mm[Hg] A THENA ([facility]) Body weight 2406 [oz_av] 2406 [oz_av] MELINA ([facility]) Diastolic blood pressure 76 mm[Hg] 76 mm[Hg] MELINA ([facility]) Body height 64 [in_i] 64 [in_i] MELINA ([facility]) Body mass index (BMI) [Ratio] 25.8 kg/m2 25.8 k g/m2 MELINA ([facility]) Systolic blood pressure 127 mm[Hg] 127 mm[Hg] A THENA ([facility]) Body weight 2406 [oz_av] 2406 [oz_av] MELINA ([facility]) Diastolic blood pressure 76 mm[Hg] 76 mm[Hg] MELINA ([facility]) Body height 64 [in_i] 64 [in_i] MELINA ([facility]) Body mass index (BMI) [Ratio] 25.8 kg/m2 25.8 k g/m2 MELINA ([facility]) Systolic blood pressure 127 mm[Hg] 127 mm[Hg] A THENA ([facility]) Body weight 2406 [oz_av] 2406 [oz_av] MELINA ([facility]) Diastolic blood pressure 76 mm[Hg] 76 mm[Hg] MELINA ([facility]) Body height 64 [in_i] 64 [in_i] MELINA ([facility]) Body mass index (BMI) [Ratio] 25.8 kg/m2 25.8 k g/m2 MELINA ([facility]) Systolic blood pressure 127 mm[Hg] 127 mm[Hg] A THENA ([facility]) Body weight 2406 [oz_av] 2406 [oz_av] MELINA ([facility]) Diastolic blood pressure 76 mm[Hg] 76 mm[Hg] MELINA ([facility]) Body height 64 [in_i] 64 [in_i] MELINA ([facility]) Body mass index (BMI) [Ratio] 25.8 kg/m2 25.8 k g/m2 MELINA ([facility]) Systolic blood pressure 127 mm[Hg] 127 mm[Hg] [facility] Body weight 2406 [oz_av] 2406 [oz_av] MELINA ([facility]) Diastolic blood pressure 76 mm[Hg] 76 mm[Hg] MELINA ([facility]) Body height 64 [in_i] 64 [in_i] MELINA ([facility]) Body mass index (BMI) [Ratio] 25.8 kg/m2 25.8 k g/m2 MELINA ([facility]) Systolic blood pressure 127 mm[Hg] 127 mm[Hg] [facility] Body weight 2406 [oz_av] 2406 [oz_av] MELINA ([facility]) Diastolic blood pressure 76 mm[Hg] 76 mm[Hg] MELINA ([facility]) Body height 64 [in_i] 64 [in_i] MELINA ([facility]) Body mass index (BMI) [Ratio] 25.8 kg/m2 25.8 k g/m2 MELINA ([facility]) Systolic blood pressure 127 mm[Hg] 127 mm[Hg] A THENA ([facility]) Body weight 2406 [oz_av] 2406 [oz_av] MELINA ([facility]) Body mass index (BMI) [Ratio] 27.2 kg/m2 27.2 k g/m2 MELINA ([facility]) Systolic blood pressure 102 mm[Hg] 102 mm[Hg] A THENA ([facility]) Body weight 2534.4 [oz_av] 2534.4 [oz_av] ATHEN A ([facility]) Diastolic blood pressure 62 mm[Hg] 62 mm[Hg] MELINA ([facility]) Body height 64 [in_i] 64 [in_i] MELINA ([facility]) Diastolic blood pressure 62 mm[Hg] 62 mm[Hg] MELINA ([facility]) Body mass index (BMI) [Ratio] 27.2 kg/m2 27.2 k g/m2 MELINA ([facility]) Systolic blood pressure 102 mm[Hg] 102 mm[Hg] [facility] Body weight 2534.4 [oz_av] 2534.4 [oz_av] ATHEN A ([facility]) Body height 64 [in_i] 64 [in_i] MELINA ([facility]) Diastolic blood pressure 62 mm[Hg] 62 mm[Hg] MELINA ([facility]) Body height 64 [in_i] 64 [in_i] MELINA ([facility]) Body mass index (BMI) [Ratio] 27.2 kg/m2 27.2 k g/m2 MELINA ([facility]) Systolic blood pressure 102 mm[Hg] 102 mm[Hg] A THENA ([facility]) Body weight 2534.4 [oz_av] 2534.4 [oz_av] ATHEN A ([facility]) Diastolic blood pressure 62 mm[Hg] 62 mm[Hg] MELINA ([facility]) Body height 64 [in_i] 64 [in_i] MELINA ([facility]) Body mass index (BMI) [Ratio] 27.2 kg/m2 27.2 k g/m2 MELINA ([facility]) Systolic blood pressure 102 mm[Hg] 102 mm[Hg] A THENA ([facility]) Body weight 2534.4 [oz_av] 2534.4 [oz_av] ATHEN A ([facility]) Diastolic blood pressure 62 mm[Hg] 62 mm[Hg] MELINA ([facility]) Body height 64 [in_i] 64 [in_i] MELINA ([facility]) Body mass index (BMI) [Ratio] 27.2 kg/m2 27.2 k g/m2 MELINA ([facility]) Systolic blood pressure 102 mm[Hg] 102 mm[Hg] [facility] Body weight 2534.4 [oz_av] 2534.4 [oz_av] ATHEN A ([facility]) Diastolic blood pressure 62 mm[Hg] 62 mm[Hg] MELINA ([facility]) Body height 64 [in_i] 64 [in_i] MELINA ([facility]) Body mass index (BMI) [Ratio] 27.2 kg/m2 27.2 k g/m2 MELINA ([facility]) Systolic blood pressure 102 mm[Hg] 102 mm[Hg] A THENA ([facility]) Body weight 2534.4 [oz_av] 2534.4 [oz_av] ATHEN A ([facility]) Body height 64 [in_i] 64 [in_i] MELINA ([facility]) Body mass index (BMI) [Ratio] 27.2 kg/m2 27.2 k g/m2 MELINA ([facility]) Systolic blood pressure 102 mm[Hg] 102 mm[Hg] [facility] Diastolic blood pressure 62 mm[Hg] 62 mm[Hg] MELINA ([facility]) Body weight 2534.4 [oz_av] 2534.4 [oz_av] ATHEN A ([facility]) Diastolic blood pressure 62 mm[Hg] 62 mm[Hg] MELINA ([facility]) Body height 64 [in_i] 64 [in_i] MELINA ([facility]) Body mass index (BMI) [Ratio] 27.2 kg/m2 27.2 k g/m2 MELINA ([facility]) Systolic blood pressure 102 mm[Hg] 102 mm[Hg] A THENA ([facility]) Body weight 2534.4 [oz_av] 2534.4 [oz_av] ATHEN A ([facility]) Diastolic blood pressure 62 mm[Hg] 62 mm[Hg] MELINA ([facility]) Body height 64 [in_i] 64 [in_i] MELINA ([facility]) Body mass index (BMI) [Ratio] 27.2 kg/m2 27.2 k g/m2 MELINA ([facility]) Systolic blood pressure 102 mm[Hg] 102 mm[Hg] A THENA ([facility]) Body weight 2534.4 [oz_av] 2534.4 [oz_av] ATHEN A ([facility]) Diastolic blood pressure 62 mm[Hg] 62 mm[Hg] MELINA ([facility]) Body height 64 [in_i] 64 [in_i] MELINA ([facility]) Body mass index (BMI) [Ratio] 27.2 kg/m2 27.2 k g/m2 MELINA ([facility]) Systolic blood pressure 102 mm[Hg] 102 mm[Hg] [facility] Body weight 2534.4 [oz_av] 2534.4 [oz_av] ATHEN A ([facility]) Body height 64 [in_i] 64 [in_i] MELINA ([facility]) Diastolic blood pressure 62 mm[Hg] 62 mm[Hg] MELINA ([facility]) Body mass index (BMI) [Ratio] 27.2 kg/m2 27.2 k g/m2 MELINA ([facility]) Systolic blood pressure 102 mm[Hg] 102 mm[Hg] A THENA ([facility]) Body weight 2534.4 [oz_av] 2534.4 [oz_av] ATHEN A ([facility]) Diastolic blood pressure 62 mm[Hg] 62 mm[Hg] MELINA ([facility]) Body height 64 [in_i] 64 [in_i] MELINA ([facility]) Body mass index (BMI) [Ratio] 27.2 kg/m2 27.2 k g/m2 MELINA ([facility]) Systolic blood pressure 102 mm[Hg] 102 mm[Hg] A THENA ([facility]) Body weight 2534.4 [oz_av] 2534.4 [oz_av] ATHEN A ([facility]) Diastolic blood pressure 62 mm[Hg] 62 mm[Hg] MELINA ([facility]) Body height 64 [in_i] 64 [in_i] MELINA ([facility]) Body mass index (BMI) [Ratio] 27.2 kg/m2 27.2 k g/m2 MELINA ([facility]) Systolic blood pressure 102 mm[Hg] 102 mm[Hg] [facility] ([facility]) Body weight 2534.4 [oz_av] 2534.4 [oz_av] [place] ([facility]) Patient Treatment Plan of Care Planned Activity Planned Date Details Description Data Source (s) Proparacaine hydrochloride 5 MG/ML Ophthalmic Solution 03/14/2021 03:15:00 PM [facility] Phenylephrine Hydrochloride 25 MG/ML Ophthalmic Soluti on 03/14/2021 03:15:00 PM [facility] Tropicamide 10 MG/ML Ophthalmic Solution 03/14/2021 03:15:00 PM [facility] Cholecalciferol 1000 UNT Oral Tablet 02/29/2020 12:00:00 AM [facility] Ascorbic Acid 500 MG Oral Tablet 02/29/2020 12:00:00 AM [facility] Calcium Citrate 950 MG Oral Tablet 02/29/2020 12:00:00 AM [facility] Sodium Chloride 0.154 MEQ/ML Irrigation Solution MELINA ([facility]) POLYETHYLENE GLYCOL 3350 142 MG/ML Oral Solution MELINA ([facility]) olanzapine 10 MG Disintegrating Oral Tablet MELINA ([facility]) magnesium citrate 58.2 MG/ML Oral Solution MELROSE ([facility]) L-Arginine 500 mg tablet Take 2 tablets every day by oral route. MELINA ([facility]) Ibuprofen 800 MG Oral Tablet MELINA ([facility]) Acetaminophen 325 MG / Hydrocodone Bitartrate 5 MG Oral Tablet MELINA ([facility]) Haloperidol 10 MG Oral Tablet MELINA ([facility]) ginkgo biloba 120 mg tablet Take by oral route. MELINA ([facility]) fluticasone propionate 50 mcg/actuation nasal spray,suspension MELINA ([facility]) Docusate Sodium 100 MG Oral Capsule MELINA ([facility]) Colace PRN MELINA ([facility]) coenzyme Q10 100 MG / Vitamin E 5 UNT Oral Capsule MELINA ([facility]) cetirizine hydrochloride 10 MG Oral Tablet MELINA ([facility]) benzonatate 100 MG Oral Capsule MELINA ([facility]) Azithromycin 250 MG Oral Tablet MELINA ([facility]) Acetaminophen 500 MG Oral Tablet MELINA ([facility]) Sodium Chloride 0.154 MEQ/ML Irrigation Solution MELINA ([facility]) POLYETHYLENE GLYCOL 3350 142 MG/ML Oral Solution MELINA ([facility]) olanzapine 10 MG Disintegrating Oral Tablet MELINA ([facility]) magnesium citrate 58.2 MG/ML Oral Solution MELINA ([facility]) L-Arginine 500 mg tablet Take 2 tablets every day by oral route. MELINA ([facility]) Ibuprofen 800 MG Oral Tablet MELINA ([facility]) Acetaminophen 325 MG / Hydrocodone Bitartrate 5 MG Oral Tablet MELINA ([facility]) Haloperidol 10 MG Oral Tablet MELINA ([facility]) ginkgo biloba 120 mg tablet Take by oral route. MELINA ([facility]) fluticasone propionate 50 mcg/actuation nasal spray,suspension MELINA ([facility]) Colace PRN MELINA ([facility]) coenzyme Q10 100 MG / Vitamin E 5 UNT Oral Capsule MELINA ([facility]) benzonatate 100 MG Oral Capsule MELINA ([facility]) Azithromycin 250 MG Oral Tablet MELINA ([facility]) Acetaminophen 500 MG Oral Tablet MELINA ([facility]) Sodium Chloride 0.154 MEQ/ML Irrigation Solution MELINA ([facility]) POLYETHYLENE GLYCOL 3350 142 MG/ML Oral Solution MELINA ([facility]) olanzapine 10 MG Disintegrating Oral Tablet MELINA ([facility]) magnesium citrate 58.2 MG/ML Oral Solution MELINA ([facility]) L-Arginine 500 mg tablet Take 2 tablets every day by oral route. MELINA ([facility]) Ibuprofen 800 MG Oral Tablet MELINA ([facility]) Acetaminophen 325 MG / Hydrocodone Bitartrate 5 MG Oral Tablet MELINA ([facility]) Haloperidol 10 MG Oral Tablet MELINA ([facility]) ginkgo biloba 120 mg tablet Take by oral route. MELINA ([facility]) fluticasone propionate 50 mcg/actuation nasal spray,suspension MELINA ([facility]) Colace PRN MELINA ([facility]) coenzyme Q10 100 MG / Vitamin E 5 UNT Oral Capsule MELINA ([facility]) benzonatate 100 MG Oral Capsule MELINA ([facility]) Azithromycin 250 MG Oral Tablet MELINA ([facility]) Acetaminophen 500 MG Oral Tablet MELINA ([facility]) Sodium Chloride 0.154 MEQ/ML Irrigation Solution MELINA ([facility]) POLYETHYLENE GLYCOL 3350 142 MG/ML Oral Solution MELINA ([facility]) olanzapine 10 MG Disintegrating Oral Tablet MELINA ([facility]) magnesium citrate 58.2 MG/ML Oral Solution MELINA ([facility]) Ibuprofen 800 MG Oral Tablet MELINA ([facility]) Acetaminophen 325 MG / Hydrocodone Bitartrate 5 MG Oral Tablet MELINA ([facility]) Haloperidol 10 MG Oral Tablet MELINA ([facility]) fluticasone propionate 50 mcg/actuation nasal spray,suspension MELINA ([facility]) Colace PRN MELINA ([facility]) benzonatate 100 MG Oral Capsule MELINA ([facility]) Azithromycin 250 MG Oral Tablet MELINA ([facility]) Acetaminophen 500 MG Oral Tablet MELINA ([facility]) Sodium Chloride 0.154 MEQ/ML Irrigation Solution MELINA ([facility]) POLYETHYLENE GLYCOL 3350 142 MG/ML Oral Solution MELINA ([facility]) magnesium citrate 58.2 MG/ML Oral Solution MELINA ([facility]) Ibuprofen 800 MG Oral Tablet MELINA ([facility]) Acetaminophen 325 MG / Hydrocodone Bitartrate 5 MG Oral Tablet MELINA ([facility]) fluticasone propionate 50 mcg/actuation nasal spray,suspension MELINA ([facility]) Colace PRN MELINA ([facility]) benzonatate 100 MG Oral Capsule MELINA ([facility]) Azithromycin 250 MG Oral Tablet MELINA ([facility]) Acetaminophen 500 MG Oral Tablet MELINA ([facility]) Sodium Chloride 0.154 MEQ/ML Irrigation Solution MELINA ([facility]) POLYETHYLENE GLYCOL 3350 142 MG/ML Oral Solution MELINA ([facility]) magnesium citrate 58.2 MG/ML Oral Solution MELINA ([facility]) Ibuprofen 800 MG Oral Tablet MELINA ([facility]) Acetaminophen 325 MG / Hydrocodone Bitartrate 5 MG Oral Tablet MELINA ([facility]) fluticasone propionate 50 mcg/actuation nasal spray,suspension MELINA ([facility]) Colace PRN MELINA ([facility]) benzonatate 100 MG Oral Capsule MELINA ([facility]) Azithromycin 250 MG Oral Tablet MELINA ([facility]) Acetaminophen 500 MG Oral Tablet MELINA ([facility]) Sodium Chloride 0.154 MEQ/ML Irrigation Solution MELINA ([facility]) POLYETHYLENE GLYCOL 3350 142 MG/ML Oral Solution MELINA ([facility]) magnesium citrate 58.2 MG/ML Oral Solution MELINA ([facility]) Ibuprofen 800 MG Oral Tablet MELINA ([facility]) Acetaminophen 325 MG / Hydrocodone Bitartrate 5 MG Oral Tablet MELINA ([facility]) fluticasone propionate 50 mcg/actuation nasal spray,suspension MELINA ([facility]) Docusate Sodium 100 MG Oral Capsule [DOK] MELINA ([facility]) Colace PRN MELINA ([facility]) benzonatate 100 MG Oral Capsule MELINA ([facility]) Azithromycin 250 MG Oral Tablet MELINA ([facility]) Acetaminophen 500 MG Oral Tablet MELINA ([facility]) Sodium Chloride 0.154 MEQ/ML Irrigation Solution MELINA ([facility]) POLYETHYLENE GLYCOL 3350 142 MG/ML Oral Solution MELINA ([facility]) magnesium citrate 58.2 MG/ML Oral Solution MELINA ([facility]) Ibuprofen 800 MG Oral Tablet MELINA ([facility]) Acetaminophen 325 MG / Hydrocodone Bitartrate 5 MG Oral Tablet MELINA ([facility]) fluticasone propionate 50 mcg/actuation nasal spray,suspension MELINA ([facility]) Docusate Sodium 100 MG Oral Capsule [DOK] MELINA ([facility]) Colace PRN MELINA ([facility]) benzonatate 100 MG Oral Capsule MELINA ([facility]) Azithromycin 250 MG Oral Tablet MELINA ([facility]) Acetaminophen 500 MG Oral Tablet MELINA ([facility]) Sodium Chloride 0.154 MEQ/ML Irrigation Solution MELINA ([facility]) POLYETHYLENE GLYCOL 3350 142 MG/ML Oral Solution MELINA ([facility]) magnesium citrate 58.2 MG/ML Oral Solution MELINA ([facility]) Ibuprofen 800 MG Oral Tablet MELINA ([facility]) Acetaminophen 325 MG / Hydrocodone Bitartrate 5 MG Oral Tablet MELINA ([facility]) fluticasone propionate 50 mcg/actuation nasal spray,suspension MELINA ([facility]) Docusate Sodium 100 MG Oral Capsule [DOK] MELINA ([facility]) Colace PRN MELINA ([facility]) benzonatate 100 MG Oral Capsule MELINA ([facility]) Azithromycin 250 MG Oral Tablet MELINA ([facility]) Acetaminophen 500 MG Oral Tablet MELINA ([facility]) Sodium Chloride 0.154 MEQ/ML Irrigation Solution MELINA ([facility]) POLYETHYLENE GLYCOL 3350 142 MG/ML Oral Solution MELINA ([facility]) magnesium citrate 58.2 MG/ML Oral Solution MELINA ([facility]) Ibuprofen 800 MG Oral Tablet MELINA ([facility]) Acetaminophen 325 MG / Hydrocodone Bitartrate 5 MG Oral Tablet MELINA ([facility]) fluticasone propionate 50 mcg/actuation nasal spray,suspension MELINA ([facility]) Docusate Sodium 100 MG Oral Capsule [DOK] MELINA ([facility]) Colace PRN MELINA ([facility]) benzonatate 100 MG Oral Capsule MELINA ([facility]) Azithromycin 250 MG Oral Tablet MELINA ([facility]) Acetaminophen 500 MG Oral Tablet MELINA ([facility]) Sodium Chloride 0.154 MEQ/ML Irrigation Solution MELINA ([facility]) POLYETHYLENE GLYCOL 3350 142 MG/ML Oral Solution MELINA ([facility]) magnesium citrate 58.2 MG/ML Oral Solution MELINA ([facility]) Ibuprofen 800 MG Oral Tablet MELINA ([facility]) Acetaminophen 325 MG / Hydrocodone Bitartrate 5 MG Oral Tablet MELINA ([facility]) fluticasone propionate 50 mcg/actuation nasal spray,suspension MELINA ([facility]) Docusate Sodium 100 MG Oral Capsule [DOK] MELINA ([facility]) Colace PRN MELINA ([facility]) benzonatate 100 MG Oral Capsule MELINA ([facility]) Azithromycin 250 MG Oral Tablet MELINA ([facility]) Acetaminophen 500 MG Oral Tablet MELINA ([facility]) Sodium Chloride 0.154 MEQ/ML Irrigation Solution MELINA ([facility]) POLYETHYLENE GLYCOL 3350 142 MG/ML Oral Solution MELINA ([facility]) magnesium citrate 58.2 MG/ML Oral Solution MELINA ([facility]) Ibuprofen 800 MG Oral Tablet MELINA ([facility]) Acetaminophen 325 MG / Hydrocodone Bitartrate 5 MG Oral Tablet MELINA ([facility]) fluticasone propionate 50 mcg/actuation nasal spray,suspension MELINA ([facility]) Docusate Sodium 100 MG Oral Capsule [DOK] MELINA ([facility]) benzonatate 100 MG Oral Capsule MELINA ([facility]) Azithromycin 250 MG Oral Tablet MELINA ([facility]) Acetaminophen 500 MG Oral Tablet MELINA ([facility]) Sodium Chloride 0.154 MEQ/ML Irrigation Solution MELINA ([facility]) Ibuprofen 800 MG Oral Tablet MELINA ([facility]) Acetaminophen 325 MG / Hydrocodone Bitartrate 5 MG Oral Tablet MELINA ([facility]) fluticasone propionate 50 mcg/actuation nasal spray,suspension MELINA ([facility]) benzonatate 100 MG Oral Capsule MELINA ([facility]) Azithromycin 250 MG Oral Tablet MELINA ([facility])
[2021-06-22 23:24] LABS: BASO % 0.6 % (0.0-1.0); EOS # 0.2 10^3/uL (0.0-0.5); EOS % 5.1 % (0.0-3.0); LYMPH # 1.3 10^3/uL (1.5-5.0); LYMPH % 37.2 % (24.0-44.0); MEAN CORPUSCULAR HEMOGLOBIN 28.9 pg (27.0-33.0); MEAN CORPUSCULAR HGB CONC 30.9 g/dl (32.0-36.5); MEAN CORPUSCULAR VOLUME 93.6 fl (80.0-96.0); MONO # 0.4 10^3/uL (0.0-0.8); MONO % 11.5 % (2.0-8.0); NEUTROPHILS # 1.6 10^3/uL (1.5-8.5); NEUTROPHILS % 45.3 % (36.0-66.0); RED BLOOD COUNT 1.73 10^6/uL (4.30-6.10); WHITE BLOOD COUNT 3.6 10^3/uL (4.0-10.0)
[2021-06-22] MEDS ORDERED: KETO10TAB PO (23:25)
[2021-06-22 23:28] VITALS: BP 105/66
[2021-06-22 23:29] LABS: BLOOD UREA NITROGEN 19 MG/DL (7-18); CALCIUM LEVEL 9.1 MG/DL (8.5-10.1); CARBON DIOXIDE LEVEL 27 MEQ/L (21-32); CHLORIDE LEVEL 105 MEQ/L (98-107); CREATININE FOR GFR 0.95 MG/DL (0.70-1.30); GLOMERULAR FILTRATION RATE > 60.0 (>60); GLUCOSE, FASTING 120 MG/DL (70-100); HEMATOCRIT 16.2 % (42.0-52.0); PLATELET COUNT, AUTOMATED 85 10^3/uL (150-450); POTASSIUM SERUM 4.5 MEQ/L (3.5-5.1); SODIUM LEVEL 138 MEQ/L (136-145)
[2021-06-22 23:38] LABS: AMPHETAMINES LEVEL URINE NEGATIVE (NEGATIVE); BARBITURATES URINE NEGATIVE (NEGATIVE); BENZODIAZEPINES URINE NEGATIVE (NEGATIVE); CANNABINOIDS URINE POSITIVE (NEGATIVE); COCAINE METABOLITE URINE NEGATIVE (NEGATIVE); METHADONE URINE NEGATIVE (NEGATIVE); OPIATES URINE NEGATIVE (NEGATIVE); PHENCYCLIDINE URINE NEGATIVE (NEGATIVE)
[2021-06-22 23:52] LABS: ERYTHROCYTE SEDIMENTATION RATE 2 mm/hr (0-15)
[2021-06-23 00:21] LABS: BASO # 0.1 10^3/uL (0.0-0.2); BASO % 0.6 % (0.0-1.0); EOS # 0.4 10^3/uL (0.0-0.5); EOS % 4.5 % (0.0-3.0); HEMATOCRIT 42.5 % (42.0-52.0); LYMPH # 3.5 10^3/uL (1.5-5.0); LYMPH % 36.8 % (24.0-44.0); MEAN CORPUSCULAR HEMOGLOBIN 28.9 pg (27.0-33.0); MEAN CORPUSCULAR HGB CONC 32.5 g/dl (32.0-36.5); MEAN CORPUSCULAR VOLUME 89.1 fl (80.0-96.0); MONO # 1.3 10^3/uL (0.0-0.8); NEUTROPHILS # 4.3 10^3/uL (1.5-8.5); NEUTROPHILS % 44.9 % (36.0-66.0); RED BLOOD COUNT 4.77 10^6/uL (4.30-6.10); WHITE BLOOD COUNT 9.6 10^3/uL (4.0-10.0)
[2021-06-23 00:25] LABS: HEMOGLOBIN 13.8 g/dl (13.5-17.5); PLATELET COUNT, AUTOMATED 241 10^3/uL (150-450)
--- NOTE | 2021-06-23 00:43 | REPVR ---
PROCEDURE INFORMATION: Exam: XR Chest Exam date and time: 06/22/2021 11:00 PM Age: 30 years old Clinical indication: Palpitations TECHNIQUE: Imaging protocol: XR of the chest. Views: 1 view. COMPARISON: CR Chest, 2 view PA, Lat 07/30/2020 2:38 AM FINDINGS: Lungs: Unremarkable. No consolidation. No pulmonary edema. Pleural spaces: Unremarkable. No pleural effusion. No pneumothorax. Heart/Mediastinum: Unremarkable. No cardiomegaly. Bones/joints: There is a chronic fracture involving the distal end of the right clavicle, which is similar in appearance compared to the chest x-ray on 07/30/2020. There is a mild dextroscoliosis of the thoracic spine, which is similar in appearance compared to the chest x-ray on 07/30/2020. IMPRESSION: No acute findings. Electronically signed by: Gibson Flores On 06/23/2021 00:42:53 AM
--- NOTE | 2021-06-23 08:16 | ECGEPIP ---
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
== END 2021-06-23 00:44 | disposition home or self-care (01) ==
LOC: M ED 22:22
DX: R00.2 Palpitations (principal); I44.0 Atrioventricular block, first degree; F43.20 Adjustment disorder, unspecified; F33.9 Major depressive disorder, recurrent, unspecified; Z88.0 Allergy status to penicillin; Z88.8 Allergy status to other drugs, medicaments and biological substances; Z79.899 Other long term (current) drug therapy; F17.210 Nicotine dependence, cigarettes, uncomplicated